=== PATIENT | female | born 1955 | race Caucasian/White ===

== ENCOUNTER → 2018-04-09 13:11 | Outpatient (CLI) | payer OTHER, SELFPAY ==
--- NOTE | 2018-04-09 | DI.CT.S_ITS ---
PROCEDURE: CT SINUS SCREEN WO CON INDICATIONS: NASAL OBSTRUCTION TECHNIQUE: Noncontrast 3.0 mm axial images acquired from the frontal sinuses to the mid-sella, with coronal and sagittal reformats. For radiation dose reduction, the following was used: automated exposure control, adjustment of mA and/or kV according to patient size. COMPARISON: None. FINDINGS: Image quality: Excellent. Maxillary Sinuses: No bony remodeling or destruction. Sinuses are clear. Ethmoid Air Cells: No bony remodeling or destruction. Sinuses are clear. Sphenoid Sinuses: No bony remodeling or destruction. Sinuses are clear. Frontal Sinuses: No bony remodeling or destruction. Sinuses are clear. Ostiomeatal Complexes: Ostiomeatal complexes are patent. No Talita cells. Miscellaneous: Visualized intra-orbital contents are normal. No pablo bullosa or paradoxical turbinate curvature. The bony nasal septum is deviated towards the patient's right. Processes frontalis is present with underlying mild bifrontal atrophy. Degenerative changes of the bilateral temporal mandibular joints are noted. IMPRESSION: 1. Unremarkable sinus CT. No significant mucosal thickening or evidence of acute sinusitis. 2. Deviation of the bony nasal septum towards the right without nasal obstruction. Dictated by: Derrick Haro M.D. on 04/09/2018 at 12:56 Approved by: Derrick Haro M.D. on 04/09/2018 at 12:59
== END ==
PROVIDERS: Family Provider Family Medicine; PCP Family Medicine; Visit Provider Otolaryngology
DX: J34.2 Deviated nasal septum (principal)
CPT/HCPCS: 70486

== ENCOUNTER → 2018-05-10 10:22 | Outpatient (CLI) | payer OTHER, SELFPAY ==
[2018-05-10 11:34] LABS: Add Manual Diff / Slide Review NO; Eosinophils Percent Auto 1.7 % (2-4); Hematocrit 39.9 % (36-46); Hemoglobin 13.1 g/dL (12.0-16.0); Lymphocytes Percent Auto 27.8 % (25-40); Mean Corpuscular HGB Conc 32.9 % (30-36); Mean Corpuscular Hemoglobin 29.1 PG (26-34); Mean Corpuscular Volume 88.3 fL (80-100); Monocytes Percent Auto 6.8 % (3-14); Neutrophils Absolute Auto 5100 /uL (3000-5900); Neutrophils Percent Auto 62.7 % (50-75); Platelet Count 373 X10^3/uL (150-400); Red Blood Cell Count 4.52 X10^6/uL (4.0-5.2); Red Cell Distribution Width 13.1 % (11.6-14.8); White Blood Cell Count 8.1 X10^3/uL (4.5-11.0)
[2018-05-10 12:01] LABS: Alanine Aminotransferase 22 IU/L (9-52); Albumin 4.2 g/dL (3.5-5.0); Albumin Globulin Ratio 1.5 (1.0-2.8); Alkaline Phosphatase 72 U/L (38-126); Aspartate Aminotransferase 19 IU/L (14-36); Bilirubin Total 0.5 mg/dL (0.2-1.3); Blood Urea Nitrogen 12 mg/dL (7-17); Calcium 9.8 mg/dL (8.4-10.2); Carbon Dioxide 28 mmol/L (22-32); Chloride 101 mmol/L (98-107); Cholesterol 153 mg/dL (140-199); Estimated Glomerular Filt Rate > 60.0 mL/min (>60); Globulin 2.8 g/dL (1.7-4.1); Glucose 87 mg/dL (80-110); HDL Cholesterol 53 mg/dL (40-60); HEMOLYSIS < 15 (0-50); LDL Cholesterol Calculated 74 mg/dL (<100); Potassium 4.1 mmol/L (3.4-5.1); Sodium 141 mmol/L (137-145); Triglycerides 131 mg/dL (35-150)
== END ==
PROVIDERS: Family Provider Family Medicine; PCP Family Medicine; Visit Provider Family Medicine
DX: E78.5 Hyperlipidemia, unspecified (principal)
CPT/HCPCS: 36415; 80053; 80061; 85025

== ENCOUNTER 2018-06-23 12:48 | Emergency (ER) | payer OTHER, SELFPAY ==
[2018-06-23] VITALS (7 sets, daily range): BP systolic 106–140; BP diastolic 71–83; PULSE 93–124; RESP 15–22; TEMP 36.7; O2SAT 98–100
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
[2018-06-23] MEDS: ALBUTEROL 2.5 MG/3 ML NEB (ADULT) INH ×2 (13:28→13:29)
--- NOTE | 2018-06-23 13:30 | ED.ASTHMA ---
HPI - Asthma General Chief Complaint: Asthma Stated Complaint: SOB,COUGH Time Seen by Provider: 06/23/18 13:13 Source: patient Mode of arrival: ambulatory Limitations: no limitations History of Present Illness HPI Narrative: Patient is a 62-year-old female with a history of asthma who has never been admitted or intubated for this here for evaluation of shortness of breath. Patient states it feels like a prior asthma attack. States she was using her medications at home but was not working. No fevers. No chest pain. She states she has been out of her Singulair for the past 2 days. She does have refill this medication she just has not picked it up from the pharmacy. No fevers. She did try her inhalers at home prior to arrival. She does not have any nebulizers at home. Related Data Home Medications Medication Instructions Recorded Confirmed multivitamin [Multiple Vitamins] 1 tab PO DAILY #0 02/09/18 06/23/18 Calcium 1 tab PO DAILY 06/23/18 06/23/18 beclomethasone dipropionate [Qvar 2 puff INHALATION BID 06/23/18 06/23/18 RediHaler] magnesium 1 tab PO DAILY 06/23/18 06/23/18 prednisone 1 dose PO DIRECTED 06/23/18 06/23/18 vitamin B complex 1 cap PO DAILY 06/23/18 06/23/18 Previous Rx's Medication Instructions Recorded alendronate 70 mg PO QWEEK #4 tab 06/03/17 montelukast [Singulair] 10 mg PO QDAY #30 tab 02/09/18 simvastatin 20 mg tablet 20 mg PO HS #90 tab 04/28/18 albuterol sulfate HFA 90 2 puff INHALATION Q4HP PRN #8 gm 04/29/18 mcg/actuation aerosol inhaler dexamethasone 12 mg PO .once #3 tab 06/23/18 Allergies Allergy/AdvReac Type Severity Reaction Status Date / Time grass pollen [GRASS POLLEN] Allergy Unknown Unverified 03/03/18 12:54 tomato [TOMATO] Allergy Unknown Unverified 03/03/18 12:54 turkey [TURKEY] Allergy Unknown Unverified 03/03/18 12:54 CHICKEN MEAT Allergy Intermediate Uncoded 03/03/18 12:54 POLLEN,CULTIVATED OAT Allergy Unknown Uncoded 03/03/18 12:54 seasonl allergies Allergy Unknown Uncoded 03/03/18 12:54 Review of Systems Constitutional Denies chills, Denies fatigue, Denies fever(s) and Denies headache(s) ENT Ears, Nose, Mouth, and Throat: Denies headache(s), Denies throat swelling and Denies tongue swelling Cardiovascular Denies chest pain and Reports dyspnea Respiratory Reports cough, Reports dyspnea and Reports wheezing Gastrointestinal Gastrointestinal: Denies abdominal pain and Denies nausea Musculoskeletal Denies myalgias and Denies arthralgias Integumentary/Breasts Denies lesions and Denies rash Neurologic Denies headache(s) Endocrine Denies fatigue Hematologic/Lymphatic Denies easy bleeding and Denies easy bruising Allergic/Immunologic Denies urticaria, Denies throat swelling, Denies tongue swelling and Reports wheezing Exam Initial Vital Signs Initial Vital Signs: Vital Signs Temperature 98.1 F 06/23/18 12:53 Pulse Rate 124 H 06/23/18 12:53 Respiratory Rate 22 06/23/18 12:53 Blood Pressure 140/79 H 06/23/18 12:53 Pulse Oximetry 99 06/23/18 12:53 Const General: cooperative, comfortable, well developed, well groomed and No acute distress Orientation: alert, awake and oriented x3 HENMT Head: normal to inspection, normocephalic and atraumatic Resp Effort & Inspection: cough, labored, retractions and tachypneic Auscultation: wheezes Cardio Rate: tachycardic Rhythm: regular rhythm Pulses: radial pulses present GI Inspection: normal to inspection and non-distended Palpation: soft and No firm Skin Lesions: no lesions Rashes: no rashes Neuro General: alert, awake and oriented x3 Cognition: normal cognition Speech: speech normal Extrem General: normal to inspection Psych Appearance: grossly normal and well kempt [facility] Medical History Asthma (Acute) Surgical History Status post appendectomy Social History Smoking Status: Never smoker Comment: reviewed patient's past medical surgical family and social history Course Orders Ordered: ED Orders 06/23/18 13:47 XR chest 1V Stat EKG-12 Lead Stat 06/23/18 14:55 B Type Natriuretic Peptide Stat Basic Metabolic Panel Stat Complete Blood Count AUTO DIFF Stat Troponin I Stat Discontinued Medications Albuterol (Ventolin) 2.5 mg INH NOW PRN PRN Reason: Shortness Of Breath Last Admin: 06/23/18 13:29 Dose: 2.5 mg Admin: 06/23/18 13:28 Dose: 2.5 mg Dexamethasone (Decadron) 10 mg PO NOW ONE Stop: 06/23/18 15:23 Last Admin: 06/23/18 15:46 Dose: 10 mg Vital Signs - 8 hr 06/23/18 12:53 06/23/18 13:29 06/23/18 13:47 Temperature 98.1 F Pulse Rate 124 H 102 H 120 H Respiratory Rate 22 15 17 Blood Pressure 140/79 H Blood Pressure [Right Arm] Pulse Oximetry 99 100 100 06/23/18 14:00 06/23/18 15:10 06/23/18 16:18 Temperature Pulse Rate 112 H 100 H 93 H Respiratory Rate 20 18 15 Blood Pressure 106/78 Blood Pressure [Right Arm] 124/71 H Pulse Oximetry 99 100 99 06/23/18 16:19 Temperature Pulse Rate 97 H Respiratory Rate 18 Blood Pressure Blood Pressure [Right Arm] 125/83 H Pulse Oximetry 98 MDM - Asthma Lab Data Attestation: I reviewed the patient's lab results. Result diagrams: 06/23/18 14:55 06/23/18 14:55 Lab Results 06/23/18 06/23/18 Range/Units 14:55 14:55 WBC 10.6 (4.5-11.0) X10^3/uL RBC 4.64 (4.0-5.2) X10^6/uL Hgb 13.5 (12.0-16.0) g/dL Hct 40.3 (36-46) % MCV 86.7 (80-100) fL MCH 29.1 (26-34) PG MCHC 33.6 (30-36) % RDW 13.0 (11.6-14.8) % Plt Count 380 (150-400) X10^3/uL Neut % (Auto) 71.1 (50-75) % Lymph % (Auto) 21.5 L (25-40) % Coos % (Auto) 5.9 (3-14) % Eos % (Auto) 0.6 L (2-4) % Baso % (Auto) 0.9 (0-2) % Neut # (Auto) 7500 H (4365-7722) /uL Sodium 143 (137-145) mmol/L Potassium 3.4 (3.4-5.1) mmol/L Chloride 105 (98-107) mmol/L Carbon Dioxide 26 (22-32) mmol/L BUN 12 (7-17) mg/dL Creatinine 0.70 (0.52-1.04) mg/dL Estimated GFR > 60.0 (>60) mL/min BUN/Creatinine Ratio 17.1 (6-22) Glucose 123 H (80-110) mg/dL Calcium 10.4 H (8.4-10.2) mg/dL Troponin I < 0.012 (0.01-0.034) ng/mL B-Natriuretic Peptide < 100.0 (<100) Imaging Data Chest x-ray: Radiologist's impression: PROCEDURE: XR CHEST 1V INDICATIONS: shortness of breath TECHNIQUE: One view of the chest was acquired. COMPARISON: [facility], , CHEST 2 VIEW, 10/09/2015, 14:17. FINDINGS: Surgical changes and devices: None. Lungs and pleura: No pleural effusions or pneumothorax. Lungs are clear. Mediastinum: Mediastinal contours appear normal. Heart size is normal. Bones and chest wall: No suspicious bony lesions. Overlying soft tissues appear unremarkable. IMPRESSION: Normal for age, source of current symptoms is not seen. Dictated by: Wenceslao Crespo M.D. on 06/23/2018 at 14:41 Approved by: Wenceslao Crespo M.D. on 06/23/2018 at 14:42 ECG Data Attestation: I personally reviewed and interpreted this ECG as follows: Prior ECG tracings: not available for review Interpretation: sinus tachycardia ventricular rate of 113 normal axis Normal QRS normal QTC nonspecific ST T wave changes MDM Narrative Medical decision making narrative: patient states she feels much better after the nebulizer here in the emergency department. She states that this feels like just a prior asthma attack for her. She was given steroids and also a prescription for steroids to take in 36 hr. Chest x-ray and EKG unremarkable. Patient states that she has been diagnosed with tachycardia in the past. She states that her heart rate does go up and go down and does not be seem to be associated with any albuterol use. She states that this is not new for her. She denies any chest pain. Patient was given return precautions. She is instructed follow up with her primary care doctor. She expressed understanding and agreement with plan. Discharge Plan Departure Patient Disposition: Home, Self-Care Clinical Impression: Acute asthma exacerbation Discharge Date/Time: 06/23/18 16:18 Interventions: ED Discharge Assessment Last Done: 06/23/18 16:18 Instructions: Asthma (Alternative Therapy), Asthma -- Adult Activity Restrictions/Additional Instructions: take all of your medications as instructed. Contact your primary care doctor for a follow-up. Recommend that every 4 hr for the next 24 hr while you are awake that you take a couple puffs of your albuterol inhaler. Take the Decadron that you were given a prescription for here in the emergency department 36 hr after discharge from the emergency department like we discussed. Return to the emergency department for any new or worsening symptoms Prescriptions: New dexamethasone 4 mg tablet 12 mg PO .once Qty: 3 RF: 0 No Action alendronate 70 MG tablet 70 mg PO QWEEK Qty: 4 RF: 11 montelukast [Singulair] 10 MG tablet 10 mg PO QDAY Qty: 30 RF: 6 multivitamin [Multiple Vitamins] Tablet 1 tab PO DAILY Qty: 0 RF: 0 simvastatin 20 mg tablet 20 mg PO HS Qty: 90 RF: 3 albuterol sulfate [Ventolin HFA] 90 mcg/actuation HFA aerosol inhaler 2 puff INHALATION Q4HP PRN (Reason: shortness of breath) Qty: 8 RF: 0 prednisone 10 mg tablet 1 dose PO DIRECTED RF: 0 beclomethasone dipropionate [Qvar RediHaler] 80 mcg/actuation HFA aerosol breath activated 2 puff Inhalation BID RF: 0 vitamin B complex Capsule 1 cap PO DAILY RF: 0 Calcium 1 tab PO DAILY RF: 0 magnesium 1 tab PO DAILY RF: 0
--- NOTE | 2018-06-23 13:47 | DI.RAD.S_ITS ---
PROCEDURE: XR CHEST 1V INDICATIONS: shortness of breath TECHNIQUE: One view of the chest was acquired. COMPARISON: [facility], , CHEST 2 VIEW, 10/09/2015, 14:17. FINDINGS: Surgical changes and devices: None. Lungs and pleura: No pleural effusions or pneumothorax. Lungs are clear. Mediastinum: Mediastinal contours appear normal. Heart size is normal. Bones and chest wall: No suspicious bony lesions. Overlying soft tissues appear unremarkable. IMPRESSION: Normal for age, source of current symptoms is not seen. Dictated by: Wenceslao Crespo M.D. on 06/23/2018 at 14:41 Approved by: Wenceslao Crespo M.D. on 06/23/2018 at 14:42
[2018-06-23 15:06] LABS: Add Manual Diff / Slide Review NO; Basophils Percent Auto 0.9 % (0-2); Eosinophils Percent Auto 0.6 % (2-4); Hematocrit 40.3 % (36-46); Hemoglobin 13.5 g/dL (12.0-16.0); Lymphocytes Percent Auto 21.5 % (25-40); Mean Corpuscular HGB Conc 33.6 % (30-36); Mean Corpuscular Hemoglobin 29.1 PG (26-34); Mean Corpuscular Volume 86.7 fL (80-100); Monocytes Percent Auto 5.9 % (3-14); Neutrophils Absolute Auto 7500 /uL (3000-5900); Neutrophils Percent Auto 71.1 % (50-75); Platelet Count 380 X10^3/uL (150-400); Red Blood Cell Count 4.64 X10^6/uL (4.0-5.2); White Blood Cell Count 10.6 X10^3/uL (4.5-11.0)
[2018-06-23 15:18] LABS: BUN Creatinine Ratio 17.1 (6-22); Blood Urea Nitrogen 12 mg/dL (7-17); Calcium 10.4 mg/dL (8.4-10.2); Carbon Dioxide 26 mmol/L (22-32); Chloride 105 mmol/L (98-107); Estimated Glomerular Filt Rate > 60.0 mL/min (>60); Glucose 123 mg/dL (80-110); HEMOLYSIS < 15 (0-50); Potassium 3.4 mmol/L (3.4-5.1); Sodium 143 mmol/L (137-145)
[2018-06-23 15:27] LABS: B Type Natriuretic Peptide < 100.0 (<100)
[2018-06-23 15:43] LABS: Troponin I < 0.012 ng/mL (0.01-0.034)
[2018-06-23] MEDS: DEXAMETHASONE 10 MG/ML VIAL PO (15:46)
== END 2018-06-23 16:18 | disposition home or self-care (01) ==
PROVIDERS: Emergency Provider Emergency Medicine; Family Provider Family Medicine; PCP Family Medicine
DX: J45.901 Unspecified asthma with (acute) exacerbation (principal)
CPT/HCPCS: 36591; 71045; 80048; 83880; 84484; 85025; 93005; 93010; 94150; 94640; 99283; 99285; J1100; J7613

== ENCOUNTER → 2018-08-02 10:25 | Outpatient (CLI) | payer OTHER, SELFPAY ==
--- NOTE | 2018-08-02 | DI.MRI.S_ITS ---
PROCEDURE: MR ANGIO HEAD WO CON INDICATIONS: VERTIGO TECHNIQUE: Noncontrast axial 3-D [id number] MR angiogram, with 3-dimensional maximum intensity projection (MIP) reformats of the internal carotid arteries and posterior circulation then performed. COMPARISON: None. FINDINGS: Image quality: Excellent. Anterior circulation: Intracranial internal carotid arteries demonstrate normal size and intraluminal flow signal. The flow within the paired anterior cerebral arteries is normal and symmetric. The flow within the middle cerebral arteries is normal and symmetric. The anterior communicating artery is seen. No stenoses, occlusions, or aneurysms. Posterior circulation: There is absence of flow signal in the intracranial right vertebral artery possibly due to proximal occlusion. There is normal flow signal in the left vertebral artery. Normal flow signal noted in the basilar artery. The flow within the posterior cerebral arteries is normal and symmetric. No stenoses, occlusions, or aneurysms. IMPRESSION: 1. Absence of flow signal in the V4 segment of the right vertebral artery concerning for proximal occlusion. Recommend MR angiogram or CT angiogram of the neck for further evaluation. 2. Otherwise, normal MR angiogram of the head. Dictated by: Nell Reyes MD, PhD on 08/02/2018 at 11:20 Approved by: Nell Reyes MD, PhD on 08/02/2018 at 11:23
== END ==
PROVIDERS: Family Provider Family Medicine; PCP Family Medicine; Visit Provider Otolaryngology
DX: R42 Dizziness and giddiness (principal); I65.1 Occlusion and stenosis of basilar artery
CPT/HCPCS: 70544

== ENCOUNTER → 2018-09-08 10:14 | Outpatient (CLI) | payer OTHER, SELFPAY ==
[2018-09-08 13:20] LABS: Estimated Glomerular Filt Rate > 60.0 mL/min (>60)
== END ==
PROVIDERS: PCP Student in an Organized Health Care Education/Training Program; Visit Provider Otolaryngology
DX: I65.1 Occlusion and stenosis of basilar artery (principal)
CPT/HCPCS: 36415; 82565; 84403

== ENCOUNTER → 2018-09-10 17:42 | Outpatient (CLI) | payer OTHER, SELFPAY ==
--- NOTE | 2018-09-10 | DI.MRI.S_ITS ---
PROCEDURE: MR ANGIO NECK W CON INDICATIONS: OCCLUSION AND STENOSIS OF BASILAR ARTERY TECHNIQUE: Axial and sagittal TruFISP through the neck. Coronal dynamic MRA after the administration of contrast in the arterial and venous phases, with rotating 3-dimensional maximum intensity projection (MIP) reformats constructed from subtraction images. COMPARISON: [facility], MR, MR ANGIO HEAD WO CON, 08/02/2018, 10:40. FINDINGS: Image quality: Motion is present, limiting areas of fine detail evaluation. The origins of the left and right common, internal and external carotid arteries demonstrate no areas of hemodynamically significant stenosis, vascular occlusion or aneurysmal dilation. Origin of the left vertebral artery demonstrates no areas of hemodynamically significant stenosis, vascular occlusion or aneurysmal dilation the right vertebral artery appears occluded from the origin. The right neck collaterals are present.. Aortic arch demonstrates conventional anatomy. Limited, visualized portions subclavian vasculature are unremarkable. IMPRESSION: 1. Basal artery is patent. 2. 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 However, CTA neck is recommended for further evaluation to definitively evaluate for slow flow versus occlusion, as well as better characterization of collateral systems, partially obscured secondary to motion on today's exam. Any quantitative measurements of stenosis were performed using NASCET criteria. Dictated by: Ivana Sanchez M.D. on 09/13/2018 at 11:33 Approved by: Ivana Sanchez M.D. on 09/13/2018 at 11:40
== END ==
PROVIDERS: PCP Student in an Organized Health Care Education/Training Program; Visit Provider Otolaryngology
DX: I65.1 Occlusion and stenosis of basilar artery (principal)
CPT/HCPCS: 70548; A9579

== ENCOUNTER → 2018-11-18 12:21 | Outpatient (CLI) | payer OTHER, SELFPAY ==
--- NOTE | 2018-11-18 | DI.MRI.S_ITS ---
PROCEDURE: MR HEAD/BRAIN WO CON INDICATIONS: DIZZINESS TECHNIQUE: Noncontrast axial T1 spin echo, axial T2 fast spin echo, sagittal and axial FLAIR, coronal T2 fast spin echo, axial gradient echo, axial diffusion and ADC through the brain. COMPARISON: [facility], MR, MR ANGIO NECK W CON, 09/10/2018, 18:31. [facility], MR, MR ANGIO HEAD WO CON, 08/02/2018, 10:40. FINDINGS: Image quality: Excellent. CSF Spaces: Basal cisterns are patent. No extra-axial fluid collections. Ventricles are normal in size and shape. Brain: No intracranial masses or hemorrhage. Cavanaugh/white matter interface is normal. Brainstem appears normal. Diffusion-weighted images demonstrate no acute ischemic insult. No chronic ischemic insults. As previously identified, there is loss of flow-void of the distal right vertebral artery. Skull and face: Calvarium has normal marrow signal. Orbits appear normal. Sinuses: Sinuses and mastoids are clear. IMPRESSION: 1. No acute intracranial process. No acute ischemia. 2. 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 As previously identified on the exam of 09/10/18, CTA exam would be helpful for differentiation of occlusion versus slow flow, as clinically indicated Dictated by: Ivnaa Sanchez M.D. on 11/18/2018 at 13:07 Approved by: Ivana Sanchez M.D. on 11/18/2018 at 13:10
== END ==
PROVIDERS: Family Provider Otolaryngology; PCP Student in an Organized Health Care Education/Training Program; Visit Provider Specialist
DX: R42 Dizziness and giddiness (principal)
CPT/HCPCS: 70551

== ENCOUNTER → 2019-05-25 13:48 | Outpatient (CLI) | payer OTHER, SELFPAY ==
--- NOTE | 2019-05-25 13:54 | DI.MG.S_ITS ---
BILATERAL DIGITAL SCREENING MAMMOGRAM 3D/2D WITH CAD: 05/25/2019 CLINICAL: Routine screening. Comparison is made to exams dated: 05/08/2017 mammogram, 11/22/2008 mammogram, and 11/22/2008 [facility]. There are scattered fibroglandular elements in both breasts. Current study was also evaluated with a Computer Aided Detection (CAD) system. No significant masses, calcifications, or other findings are seen in either breast. There has been no significant interval change. IMPRESSION: NEGATIVE There is no mammographic evidence of malignancy. A 1 year screening mammogram is recommended. This exam was interpreted at Station ID: [id number]. NOTE: For mammograms, a report in lay terms will be sent to the patient. Approximately 15% of breast malignancies will not be visualized mammographically. In the management of a palpable breast mass, a negative mammogram must not discourage biopsy of a clinically suspicious lesion. Electronically Signed By: Mateus [email or web address]/[email or web address]:05/25/2019 17:34:33 letter sent: Normal Exam ACR BI-RADS Category 1: Negative [id number]
[2019-05-25 16:34] LABS: TSH w/ Reflex to FT4 2.92 uIU/mL (0.47-4.68)
== END ==
PROVIDERS: PCP Student in an Organized Health Care Education/Training Program; Visit Provider Student in an Organized Health Care Education/Training Program
DX: Z12.31 Encounter for screening mammogram for malignant neoplasm of breast (principal); M85.851 Other specified disorders of bone density and structure, right thigh; Z78.0 Asymptomatic menopausal state; R53.83 Other fatigue
CPT/HCPCS: 36415; 77063; 77067; 77080; 84443

== ENCOUNTER → 2020-07-10 17:13 | Outpatient (CLI) | payer OTHER, SELFPAY ==
[2020-07-10 18:28] LABS: Hematocrit 40.3 % (36-46); Hemoglobin 13.5 g/dL (12.0-16.0); Mean Corpuscular HGB Conc 33.6 % (30-36); Mean Corpuscular Hemoglobin 29.2 PG (26-34); Mean Corpuscular Volume 87.1 fL (80-100); Platelet Count 411 X10^3/uL (150-400); Red Blood Cell Count 4.63 X10^6/uL (4.0-5.2); Red Cell Distribution Width 13.2 % (11.6-14.8); White Blood Cell Count 9.8 X10^3/uL (4.5-11.0)
[2020-07-10 18:48] LABS: HEMOLYSIS < 15 (0-50)
[2020-07-10 18:53] LABS: BUN Creatinine Ratio 22.4 (6-22); Blood Urea Nitrogen 17 mg/dL (7-17); Estimated Glomerular Filt Rate > 60.0 mL/min (>60); Sodium 139 mmol/L (137-145)
[2020-07-10 18:55] LABS: Calcium 10.1 mg/dL (8.4-10.2); Carbon Dioxide 30 mmol/L (22-32); Chloride 101 mmol/L (98-107); Creatine Kinase 49 U/L (30-135); Glucose 80 mg/dL (80-110); Potassium 4.4 mmol/L (3.4-5.1)
[2020-07-10 19:44] LABS: Vitamin B12 821 pg/mL (239-931)
== END ==
PROVIDERS: PCP Student in an Organized Health Care Education/Training Program; Referring Provider Student in an Organized Health Care Education/Training Program; Visit Provider Student in an Organized Health Care Education/Training Program
DX: I95.1 Orthostatic hypotension (principal); M79.2 Neuralgia and neuritis, unspecified; R25.2 Cramp and spasm
CPT/HCPCS: 36415; 80048; 82550; 82607; 83735; 85027

== ENCOUNTER → 2020-07-11 12:31 | Outpatient (CLI) | payer OTHER, SELFPAY | PROVIDERS: PCP Student in an Organized Health Care Education/Training Program; Referring Provider Student in an Organized Health Care Education/Training Program; Visit Provider Student in an Organized Health Care Education/Training Program | DX: M85.852 Other specified disorders of bone density and structure, left thigh (principal); Z78.0 Asymptomatic menopausal state; Z91.89 Other specified personal risk factors, not elsewhere classified; Z82.62 Family history of osteoporosis | CPT/HCPCS: 77080 ==

== ENCOUNTER → 2020-08-14 10:13 | Outpatient (CLI) | payer OTHER, SELFPAY ==
--- NOTE | 2020-08-14 10:14 | DI.MG.S_ITS ---
BILATERAL DIGITAL SCREENING MAMMOGRAM 3D/2D WITH CAD: 08/14/2020 CLINICAL: Routine screening. Comparison is made to exams dated: 05/25/2019 mammogram, 05/08/2017 mammogram, and 11/22/2008 mammogram - [facility]. There are scattered fibroglandular elements in both breasts. Current study was also evaluated with a Computer Aided Detection (CAD) system. No significant masses, calcifications, or other findings are seen in either breast. There has been no significant interval change. IMPRESSION: NEGATIVE There is no mammographic evidence of malignancy. A 1 year screening mammogram is recommended. This exam was interpreted at Station ID: [id number]. NOTE: For mammograms, a report in lay terms will be sent to the patient. Approximately 15% of breast malignancies will not be visualized mammographically. In the management of a palpable breast mass, a negative mammogram must not discourage biopsy of a clinically suspicious lesion. Electronically Signed By: Jamie Agustin M.D., jr/cheryl:08/14/2020 11:48:04 letter sent: Normal Exam ACR BI-RADS Category 1: Negative [id number]
== END ==
PROVIDERS: PCP Student in an Organized Health Care Education/Training Program; Referring Provider Student in an Organized Health Care Education/Training Program; Visit Provider Student in an Organized Health Care Education/Training Program
DX: Z12.31 Encounter for screening mammogram for malignant neoplasm of breast (principal)
CPT/HCPCS: 77063; 77067

== ENCOUNTER → 2020-09-20 09:59 | Outpatient (CLI) | payer OTHER, SELFPAY ==
[2020-09-20 11:58] LABS: Cholesterol 230 mg/dL (140-199); HDL Cholesterol 48 mg/dL (40-60); LDL Cholesterol Calculated 163 mg/dL (<100); Triglycerides 94 mg/dL (35-150)
== END ==
PROVIDERS: PCP Student in an Organized Health Care Education/Training Program; Referring Provider Student in an Organized Health Care Education/Training Program; Visit Provider Student in an Organized Health Care Education/Training Program
DX: E78.5 Hyperlipidemia, unspecified (principal)
CPT/HCPCS: 36415; 80061

== ENCOUNTER 2020-10-11 13:45 | Outpatient (RCR) | payer OTHER, SELFPAY ==
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
--- NOTE | 2018-10-27 16:03 | PT.OPPOC ---
Current Diagnoses Dizziness and giddiness (10/27/18) Provider Visit Care Team Role Provider Type Francisco Ferreira MD Other Providers Physician Primary Care Provider Specialty: Internal Medicine Address: [address] [place] [address], [id number] Email: Jonatan Sage MD Attending Provider Physician Specialty: Ear, Nose, Throat Address: [address] [place] [address], [id number] Email: Plan Of Care PT-OP-T Assessment and Plan Start: 10/27/18 07:33 Freq: Status: Active Protocol: Document 10/27/18 13:00 AMB (Rec: 10/30/18 15:27 AMB [email or web address]) Physical Therapy Assessment Rehab Potential Rehabilitation Potential Good Evaluation Complexity Number of Personal Factors/Comorbidities 3 or More Number of Body Systems Impaired 4 or More Clinical Presentation at Evaluation Evolving Impairments Impairments Activity Tolerance Balance Functional Activities Functional Mobility Gait Strength Vestibular Visual Motor Other Concerns Fall Risk high Barriers to Rehabilitation high copay Goals Two Impairment Dizziness Short Term Goal (STG) The patient will walk with her 4WW for 500 feet without an increase in dizziness or motion sickness. STG Duration 5 weeks Low Voltage Electrician Goal (LTG) The patient will walk in a visually complex environment ( like a supermarket) for 10 minutes without loss of balance. LTG Duration 10 weeks One Impairment Falls Short Term Goal (STG) The patient will report no falls during her time in PT. STG Duration 5 weeks Low Voltage Electrician Goal (LTG) The patient will tolerate the DGI test and score 16/24 or higher to show a reduced risk of falling. LTG Duration 10 weeks Assessment Summary Assessment The patient has an acute exacerbation of chronic dizziness that appears to be mostly of central origin at this time. The patient was quite sensitive to testing, so that does make it more difficult to show her exact impairments. She would greatly benefit from vestibular rehabilitation, unfortunately her copay is high and she will have a difficult time affording it. She was given a basic home exercise program that she should be able to perform safely at home. However given her fall history and the severity of her symptoms she really does need further treatment. Physical Therapy Plan Frequency and Duration Frequency of Treatment 1x/Week Duration of Treatment 10 weeks Plan of Care Start Date 10/27/18 Plan of Care End Date 01/05/18 Therapeutic Interventions Therapeutic Interventions Balance Training Coordination Training Gait Training Home Exercise Program Manual Therapy Neuromuscular Re-education Self-Care/Home Management Therapeutic Activities Therapeutic Exercises Vestibular Rehabilitation Modalities Cold Pack/Ice Massage Electric Stimulation Hot Packs Next Visit Focus/Plan Next Note Type Treatment Note Next Visit Plan Progress VOR, fall reduction techniques Plan of Care Dates Plan of Care Start Date 10/27/18 Plan of Care End Date 01/05/18 Please Sign and Return: I have reviewed this Plan of Care and certify that the skilled therapy services above are required to meet the patient?s needs. Physician Signature Date Printed Name and Credentials Clinical Instructor Signature Printed Name and Credentials
--- NOTE | 2018-12-22 14:03 | PT.OTN ---
Current Diagnoses Dizziness and giddiness (12/22/18) Physical Therapy Treatment Note PT-OP-A Visit Information Start: 10/27/18 07:33 Freq: Status: Active Protocol: Document 12/22/18 09:45 AMB (Rec: 12/22/18 14:03 AMB [email or web address]) Out-Patient Physical Therapy Visit Information Visit Information Visit Type Treatment Note Visit Start Time 09:45 Visit Stop Time 10:30 Total Visit Minutes 45 Visit Number 2 PT-OP-B Current Condition Start: 10/27/18 07:33 Freq: Status: Active Protocol: Document 10/27/18 13:00 AMB (Rec: 10/30/18 15:50 AMB [email or web address]) Current Condition History of Current Condition Onset Date November 2017 Current Complaints increased motion sickness, falls History of Current Condition The patient reports that she had a virus in the that has led her to be on disability ever since. She was motion sick but she had been managing her symptoms. She was not using an assistive device. Then she had an inner ear infection in November and since that time her symptoms have worsened significantly. She reports about 20 falls in the last 6 months. She lives independently, but does have friends who will drive her to medical appointments. She describes motion sickness with all movement, worst with looking up. She does not roll over in bed as she sleeps sitting up due to her asthma. 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 Per patient, she says that after multiple imaging MD decided that the occlusion is not likely causing her symptoms. 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 Overall there was a strong central involvement. Future Testing and Treatments Planned She is going to be seeing a neurologist soon. Treatment Goals Patient/Caregiver Goals Reduce motion sickness, not have to use 4WW Prior Functional Status Baseline Function- ADL's Needs Assist Baseline Function- Mobility Needs Assist Baseline Function- Recreation/Hobbies The patient has been on disability for years, but almost a year ago her symptoms worsened. Now she has difficulty volunteering at the soup kitchen, and has not gone to confucianist because her dizziness is so severe. Previously she was not driving , but was able to walk from her home to the library independently, now she is unable to do this. Current Functional Impairments (Reported) Functional Limitations- ADL's Unable to walk more than a block or two, no energy Personal Factors Other Personal Factors That May Effect Concussion history, migraines Therapy/Recovery a couple times per month, osteopenia, history of multiple falls, difficulty reading, asthma. PT-OP-C Subjective Start: 10/27/18 07:33 Freq: Status: Active Protocol: Document 12/22/18 09:45 AMB (Rec: 12/22/18 14:03 AMB [email or web address]) OP-PT Subjective Patient Comments Patient Comments Pt returns to PT, stating she is about the same, not worse, a few near falls, but no bad falls since eval. She has a hard time getting up in the mornings. PT-OP-D Balance Start: 10/27/18 07:33 Freq: Status: Active Protocol: Document 10/27/18 13:00 AMB (Rec: 10/28/18 12:51 AMB [email or web address]) Balance Tests Single Limb Standing Single Limb- Right unable Single Limb- Left unable Semi-Tandem Standing Semi-Tandem Standing Balance unable-pt falls Tandem Tandem Standing unable Other Other Balance Tests Performed When pt is standing with WBOS she requires intermittent UE support with eyes open to avoid LOB. PT-OP-E Functional Tests Start: 10/28/18 08:46 Freq: Status: Active Protocol: Document 10/27/18 13:00 AMB (Rec: 10/28/18 08:49 AMB [email or web address]) Functional Tests Dynamic Gait Index (DGI) Score 8 DGI Impairment Rating 60 to <80% Impaired (Score 5-9 ) PT-OP-G Mobility & Gait Start: 10/27/18 07:33 Freq: Status: Active Protocol: Document 10/27/18 13:00 AMB (Rec: 10/28/18 08:51 AMB [email or web address]) OP Gait Assessment Comments Gait Comments Pt ambulates with WBOS with 4WW. She reports she furniture walks at home. She intermittently reaches out for the wall with walking despite the walker. PT-OP-O Vestibular Start: 10/27/18 07:33 Freq: Status: Active Protocol: Document 10/27/18 13:00 AMB (Rec: 10/28/18 12:49 AMB [email or web address]) Vestibular Assessment Visual Testing Smooth Pursuits Horizontal unable Smooth Pursuits Vertical unable Saccades Horizontal overshooting to the R Gaze Evoked Nystagmus With Fixation Negative Gaze Evoked Nystagmus Without Fixation Negative Thrust Head Positive Bilateral Convergence Test Impaired Comments Vestibular Comments The patient has been evaluated by ENT with a VNG, the patient states the Jama maneuver has never worked, and in the ENT notes, both Honey- hallpike and roll testing were negative, so not tested at this time. Pt had difficulty with all testing, so more intensive testing was not performed at this time. PT-OP-Q Treatments Start: 10/27/18 07:33 Freq: Status: Active Protocol: Document 12/22/18 09:45 AMB (Rec: 12/22/18 14:03 AMB [email or web address]) Therapeutic Exercises Standing Exercises 1 Standing Exercise Name sit to stand Comments vc form Neuro Re-Education Treatment Balance Activities 2 Details weightshift in stride stance with UE support 1 Details standing balance in WBOS, then stride stance Comments no UE support Vestibular Rehabilitation VOR Retraining Background clear Speed slow Position seated Comments horizontal, vertical PT-OP-T Assessment and Plan Start: 10/27/18 07:33 Freq: Status: Active Protocol: Document 12/22/18 09:45 AMB (Rec: 12/22/18 14:03 AMB [email or web address]) Physical Therapy Assessment Assessment Summary Assessment Pt briefly tolerated VOR exercises in seated, horizontal and vertical both symptomatic. Worked into increasing sensory awareness of feet in standing. Active standing worked well, but pt fatigues quickly. Physical Therapy Plan Next Visit Focus/Plan Next Note Type Treatment Note Next Visit Plan Progress VOR, fall reduction techniques
--- NOTE | 2018-12-30 12:47 | PT.OTN ---
Current Diagnoses Dizziness and giddiness (12/30/18) Physical Therapy Treatment Note PT-OP-A Visit Information Start: 10/27/18 07:33 Freq: Status: Active Protocol: Document 12/30/18 11:15 AMB (Rec: 12/30/18 11:23 AMB [id number]) Out-Patient Physical Therapy Visit Information Visit Information Visit Type Treatment Note Visit Start Time 11:15 Visit Stop Time 12:00 Total Visit Minutes 45 Visit Number 3 PT-OP-B Current Condition Start: 10/27/18 07:33 Freq: Status: Active Protocol: Document 10/27/18 13:00 AMB (Rec: 10/30/18 15:50 AMB [email or web address]) Current Condition History of Current Condition Onset Date November 2017 Current Complaints increased motion sickness, falls History of Current Condition The patient reports that she had a virus in the that has led her to be on disability ever since. She was motion sick but she had been managing her symptoms. She was not using an assistive device. Then she had an inner ear infection in November and since that time her symptoms have worsened significantly. She reports about 20 falls in the last 6 months. She lives independently, but does have friends who will drive her to medical appointments. She describes motion sickness with all movement, worst with looking up. She does not roll over in bed as she sleeps sitting up due to her asthma. 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 Per patient, she says that after multiple imaging MD decided that the occlusion is not likely causing her symptoms. 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 Overall there was a strong central involvement. Future Testing and Treatments Planned She is going to be seeing a neurologist soon. Treatment Goals Patient/Caregiver Goals Reduce motion sickness, not have to use 4WW Prior Functional Status Baseline Function- ADL's Needs Assist Baseline Function- Mobility Needs Assist Baseline Function- Recreation/Hobbies The patient has been on disability for years, but almost a year ago her symptoms worsened. Now she has difficulty volunteering at the soup kitchen, and has not gone to adventist because her dizziness is so severe. Previously she was not driving , but was able to walk from her home to the library independently, now she is unable to do this. Current Functional Impairments (Reported) Functional Limitations- ADL's Unable to walk more than a block or two, no energy Personal Factors Other Personal Factors That May Effect Concussion history, migraines Therapy/Recovery a couple times per month, osteopenia, history of multiple falls, difficulty reading, asthma. PT-OP-C Subjective Start: 10/27/18 07:33 Freq: Status: Active Protocol: Document 12/30/18 11:15 AMB (Rec: 12/30/18 11:23 AMB [id number]) OP-PT Subjective Patient Comments Patient Comments Pt reports that sometimes she feels like dizziness is maybe better, but she is continuing to have some lurching (holding onto the seymour). PT-OP-D Balance Start: 10/27/18 07:33 Freq: Status: Active Protocol: Document 10/27/18 13:00 AMB (Rec: 10/28/18 12:51 AMB [email or web address]) Balance Tests Single Limb Standing Single Limb- Right unable Single Limb- Left unable Semi-Tandem Standing Semi-Tandem Standing Balance unable-pt falls Tandem Tandem Standing unable Other Other Balance Tests Performed When pt is standing with WBOS she requires intermittent UE support with eyes open to avoid LOB. PT-OP-E Functional Tests Start: 10/28/18 08:46 Freq: Status: Active Protocol: Document 10/27/18 13:00 AMB (Rec: 10/28/18 08:49 AMB [email or web address]) Functional Tests Dynamic Gait Index (DGI) Score 8 DGI Impairment Rating 60 to <80% Impaired (Score 5-9 ) PT-OP-G Mobility & Gait Start: 10/27/18 07:33 Freq: Status: Active Protocol: Document 10/27/18 13:00 AMB (Rec: 10/28/18 08:51 AMB [email or web address]) OP Gait Assessment Comments Gait Comments Pt ambulates with WBOS with 4WW. She reports she furniture walks at home. She intermittently reaches out for the wall with walking despite the walker. PT-OP-O Vestibular Start: 10/27/18 07:33 Freq: Status: Active Protocol: Document 10/27/18 13:00 AMB (Rec: 10/28/18 12:49 AMB [email or web address]) Vestibular Assessment Visual Testing Smooth Pursuits Horizontal unable Smooth Pursuits Vertical unable Saccades Horizontal overshooting to the R Gaze Evoked Nystagmus With Fixation Negative Gaze Evoked Nystagmus Without Fixation Negative Thrust Head Positive Bilateral Convergence Test Impaired Comments Vestibular Comments The patient has been evaluated by ENT with a VNG, the patient states the Jama maneuver has never worked, and in the ENT notes, both Honey- hallpike and roll testing were negative, so not tested at this time. Pt had difficulty with all testing, so more intensive testing was not performed at this time. PT-OP-Q Treatments Start: 10/27/18 07:33 Freq: Status: Active Protocol: Document 12/30/18 11:15 AMB (Rec: 12/31/18 12:44 AMB [email or web address]) Neuro Re-Education Treatment Balance Activities 4 Details balance on blue foam Comments able to stand without UE support for 3-5 seconds 3 Details walking with head turns Comments vertical/horizontal with 4WW 2 Details weightshift in stride stance with UE support 1 Details standing balance in WBOS, then stride stance Comments no UE support Vestibular Rehabilitation VOR Retraining Speed slow Position standing Comments horizontal, vertical PT-OP-T Assessment and Plan Start: 10/27/18 07:33 Freq: Status: Active Protocol: Document 12/30/18 11:15 AMB (Rec: 12/31/18 12:47 AMB [email or web address]) Physical Therapy Assessment Assessment Summary Assessment Pt is increasing length of tolerance for exercises, but continues to need rest breaks and is symptomatic with most all exercises. Physical Therapy Plan Next Visit Focus/Plan Next Note Type Treatment Note Next Visit Plan Progress VOR, fall reduction techniques
--- NOTE | 2019-01-05 12:53 | PT.OTN ---
Current Diagnoses Dizziness and giddiness (01/05/19) Physical Therapy Treatment Note PT-OP-A Visit Information Start: 10/27/18 07:33 Freq: Status: Active Protocol: Document 01/05/19 11:15 AMB (Rec: 01/05/19 11:26 AMB [id number]) Out-Patient Physical Therapy Visit Information Visit Information Visit Type Treatment Note Visit Start Time 11:15 Visit Stop Time 12:00 Total Visit Minutes 45 Visit Number 4 PT-OP-B Current Condition Start: 10/27/18 07:33 Freq: Status: Active Protocol: Document 10/27/18 13:00 AMB (Rec: 10/30/18 15:50 AMB [email or web address]) Current Condition History of Current Condition Onset Date November 2017 Current Complaints increased motion sickness, falls History of Current Condition The patient reports that she had a virus in the that has led her to be on disability ever since. She was motion sick but she had been managing her symptoms. She was not using an assistive device. Then she had an inner ear infection in November and since that time her symptoms have worsened significantly. She reports about 20 falls in the last 6 months. She lives independently, but does have friends who will drive her to medical appointments. She describes motion sickness with all movement, worst with looking up. She does not roll over in bed as she sleeps sitting up due to her asthma. 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 Per patient, she says that after multiple imaging MD decided that the occlusion is not likely causing her symptoms. 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 Overall there was a strong central involvement. Future Testing and Treatments Planned She is going to be seeing a neurologist soon. Treatment Goals Patient/Caregiver Goals Reduce motion sickness, not have to use 4WW Prior Functional Status Baseline Function- ADL's Needs Assist Baseline Function- Mobility Needs Assist Baseline Function- Recreation/Hobbies The patient has been on disability for years, but almost a year ago her symptoms worsened. Now she has difficulty volunteering at the soup kitchen, and has not gone to christian[employer] because her dizziness is so severe. Previously she was not driving , but was able to walk from her home to the library independently, now she is unable to do this. Current Functional Impairments (Reported) Functional Limitations- ADL's Unable to walk more than a block or two, no energy Personal Factors Other Personal Factors That May Effect Concussion history, migraines Therapy/Recovery a couple times per month, osteopenia, history of multiple falls, difficulty reading, asthma. PT-OP-C Subjective Start: 10/27/18 07:33 Freq: Status: Active Protocol: Document 01/05/19 11:15 AMB (Rec: 01/05/19 11:26 AMB [id number]) OP-PT Subjective Patient Comments Patient Comments Pt notes neck pain on the left and increased double vision for two days over the weekend. PT-OP-D Balance Start: 10/27/18 07:33 Freq: Status: Active Protocol: Document 10/27/18 13:00 AMB (Rec: 10/28/18 12:51 AMB [email or web address]) Balance Tests Single Limb Standing Single Limb- Right unable Single Limb- Left unable Semi-Tandem Standing Semi-Tandem Standing Balance unable-pt falls Tandem Tandem Standing unable Other Other Balance Tests Performed When pt is standing with WBOS she requires intermittent UE support with eyes open to avoid LOB. PT-OP-E Functional Tests Start: 10/28/18 08:46 Freq: Status: Active Protocol: Document 10/27/18 13:00 AMB (Rec: 10/28/18 08:49 AMB [email or web address]) Functional Tests Dynamic Gait Index (DGI) Score 8 DGI Impairment Rating 60 to <80% Impaired (Score 5-9 ) PT-OP-G Mobility & Gait Start: 10/27/18 07:33 Freq: Status: Active Protocol: Document 10/27/18 13:00 AMB (Rec: 10/28/18 08:51 AMB [email or web address]) OP Gait Assessment Comments Gait Comments Pt ambulates with WBOS with 4WW. She reports she furniture walks at home. She intermittently reaches out for the wall with walking despite the walker. PT-OP-O Vestibular Start: 10/27/18 07:33 Freq: Status: Active Protocol: Document 10/27/18 13:00 AMB (Rec: 10/28/18 12:49 AMB [email or web address]) Vestibular Assessment Visual Testing Smooth Pursuits Horizontal unable Smooth Pursuits Vertical unable Saccades Horizontal overshooting to the R Gaze Evoked Nystagmus With Fixation Negative Gaze Evoked Nystagmus Without Fixation Negative Thrust Head Positive Bilateral Convergence Test Impaired Comments Vestibular Comments The patient has been evaluated by ENT with a VNG, the patient states the Jama maneuver has never worked, and in the ENT notes, both Gregory- hallpike and roll testing were negative, so not tested at this time. Pt had difficulty with all testing, so more intensive testing was not performed at this time. PT-OP-Q Treatments Start: 10/27/18 07:33 Freq: Status: Active Protocol: Document 01/05/19 11:15 AMB (Rec: 01/05/19 12:50 AMB [email or web address]) Therapeutic Exercises Sitting Exercises 1 Sitting Exercise Name instruction in neck stretching Neuro Re-Education Treatment Balance Activities 5 Details WBOS EC 2 Details weightshift in stride stance with UE support 1 Details standing balance in WBOS, then stride stance Comments no UE support PT-OP-R Modalities Start: 01/05/19 12:51 Freq: Status: Active Protocol: Document 01/05/19 11:15 AMB (Rec: 01/05/19 12:52 AMB [email or web address]) Electric Stimulation Electric Stimulation Interferential Current (IFC) Body Location L shoulder Patient Position Hooklying Combined With Heat/Cold Hot Pack PT-OP-T Assessment and Plan Start: 10/27/18 07:33 Freq: Status: Active Protocol: Document 01/05/19 12:28 AMB (Rec: 01/05/19 12:30 AMB [email or web address]) Physical Therapy Assessment Goals Two Impairment Dizziness Short Term Goal (STG) The patient will walk with her 4WW for 500 feet without an increase in dizziness or motion sickness. STG Duration 5 weeks Surface Miner Goal (LTG) The patient will walk in a visually complex environment ( like a supermarket) for 10 minutes without loss of balance. LTG Duration 10 weeks One Impairment Falls Short Term Goal (STG) The patient will report no falls during her time in PT. STG Duration 5 weeks Surface Miner Goal (LTG) The patient will tolerate the DGI test and score 16/24 or higher to show a reduced risk of falling. LTG Duration 10 weeks Assessment Summary Assessment Arline has attended 3 visits since her initial evaluation. There was a pause in her treatment due to her finances. After her last treatment she noticed increased neck pain and double vision for about 2 days, so we backed off on the intensity of this treatment, although at last visit we had been very gentle as well. Today we did not do any head turn exercises. Arline continues to have difficulty with balance and walking, and finding the energy to do her everday tasks, but she had shown some improvement previously. Her progress will likely not be linear. Physical Therapy Plan Frequency and Duration Frequency of Treatment 1x/Week Duration of Treatment 10 weeks Plan of Care Start Date 01/05/19 Plan of Care End Date 03/16/19 Therapeutic Interventions Therapeutic Interventions Balance Training Coordination Training Gait Training Home Exercise Program Manual Therapy Neuromuscular Re-education Self-Care/Home Management Therapeutic Activities Therapeutic Exercises Vestibular Rehabilitation Modalities Cold Pack/Ice Massage Electric Stimulation Hot Packs Next Visit Focus/Plan Next Note Type Treatment Note Next Visit Plan Progress VOR, fall reduction techniques
--- NOTE | 2019-01-05 12:53 | PT.OPPOC ---
Current Diagnoses Dizziness and giddiness (01/05/19) Provider Visit Care Team Role Provider Type Francisco Ferreira MD Other Providers Physician Primary Care Provider Specialty: Internal Medicine Address: [address] [place] [address], [id number] Email: Jonatan Sage MD Attending Provider Physician Specialty: Ear, Nose, Throat Address: [address] [place] [address], [id number] Email: Plan Of Care PT-OP-T Assessment and Plan Start: 10/27/18 07:33 Freq: Status: Active Protocol: Document 01/05/19 12:28 AMB (Rec: 01/05/19 12:30 AMB [email or web address]) Physical Therapy Assessment Goals Two Impairment Dizziness Short Term Goal (STG) The patient will walk with her 4WW for 500 feet without an increase in dizziness or motion sickness. STG Duration 5 weeks Penitentiary Goal (LTG) The patient will walk in a visually complex environment ( like a supermarket) for 10 minutes without loss of balance. LTG Duration 10 weeks One Impairment Falls Short Term Goal (STG) The patient will report no falls during her time in PT. STG Duration 5 weeks Scrap Worker Goal (LTG) The patient will tolerate the DGI test and score 16/24 or higher to show a reduced risk of falling. LTG Duration 10 weeks Assessment Summary Assessment Arline has attended 3 visits since her initial evaluation. There was a pause in her treatment due to her finances. After her last treatment she noticed increased neck pain and double vision for about 2 days, so we backed off on the intensity of this treatment, although at last visit we had been very gentle as well. Today we did not do any head turn exercises. Arline continues to have difficulty with balance and walking, and finding the energy to do her everyday tasks, but she had shown some improvement previously. Her progress will likely not be linear. Physical Therapy Plan Frequency and Duration Frequency of Treatment 1x/Week Duration of Treatment 10 weeks Plan of Care Start Date 01/05/19 Plan of Care End Date 03/16/19 Therapeutic Interventions Therapeutic Interventions Balance Training Coordination Training Gait Training Home Exercise Program Manual Therapy Neuromuscular Re-education Self-Care/Home Management Therapeutic Activities Therapeutic Exercises Vestibular Rehabilitation Modalities Cold Pack/Ice Massage Electric Stimulation Hot Packs Next Visit Focus/Plan Next Note Type Treatment Note Next Visit Plan Progress VOR, fall reduction techniques Plan of Care Dates Plan of Care Start Date 01/05/19 Plan of Care End Date 03/16/19 Please Sign and Return: I have reviewed this Plan of Care and certify that the skilled therapy services above are required to meet the patient?s needs. Physician Signature Date Printed Name and Credentials Clinical Instructor Signature Printed Name and Credentials
--- NOTE | 2019-01-13 08:08 | PT.OTN ---
Current Diagnoses Dizziness and giddiness (01/12/19) Physical Therapy Treatment Note PT-OP-A Visit Information Start: 10/27/18 07:33 Freq: Status: Active Protocol: Document 01/12/19 13:45 AMB (Rec: 01/13/19 08:08 AMB [email or web address]) Out-Patient Physical Therapy Visit Information Visit Information Visit Type Treatment Note Visit Start Time 13:45 Visit Stop Time 14:30 Total Visit Minutes 45 Visit Number 5 PT-OP-B Current Condition Start: 10/27/18 07:33 Freq: Status: Active Protocol: Document 10/27/18 13:00 AMB (Rec: 10/30/18 15:50 AMB [email or web address]) Current Condition History of Current Condition Onset Date November 2017 Current Complaints increased motion sickness, falls History of Current Condition The patient reports that she had a virus in the that has led her to be on disability ever since. She was motion sick but she had been managing her symptoms. She was not using an assistive device. Then she had an inner ear infection in November and since that time her symptoms have worsened significantly. She reports about 20 falls in the last 6 months. She lives independently, but does have friends who will drive her to medical appointments. She describes motion sickness with all movement, worst with looking up. She does not roll over in bed as she sleeps sitting up due to her asthma. 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 Per patient, she says that after multiple imaging MD decided that the occlusion is not likely causing her symptoms. 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 Overall there was a strong central involvement. Future Testing and Treatments Planned She is going to be seeing a neurologist soon. Treatment Goals Patient/Caregiver Goals Reduce motion sickness, not have to use 4WW Prior Functional Status Baseline Function- ADL's Needs Assist Baseline Function- Mobility Needs Assist Baseline Function- Recreation/Hobbies The patient has been on disability for years, but almost a year ago her symptoms worsened. Now she has difficulty volunteering at the soup kitchen, and has not gone to [employer] because her dizziness is so severe. Previously she was not driving , but was able to walk from her home to the library independently, now she is unable to do this. Current Functional Impairments (Reported) Functional Limitations- ADL's Unable to walk more than a block or two, no energy Personal Factors Other Personal Factors That May Effect Concussion history, migraines Therapy/Recovery a couple times per month, osteopenia, history of multiple falls, difficulty reading, asthma. PT-OP-C Subjective Start: 10/27/18 07:33 Freq: Status: Active Protocol: Document 01/12/19 13:45 AMB (Rec: 01/13/19 08:08 AMB [email or web address]) OP-PT Subjective Patient Comments Patient Comments Pt notes this last week she has been very fatigued. Not feeling like getting up and going. neck pain is better. PT-OP-D Balance Start: 10/27/18 07:33 Freq: Status: Active Protocol: Document 10/27/18 13:00 AMB (Rec: 10/28/18 12:51 AMB [email or web address]) Balance Tests Single Limb Standing Single Limb- Right unable Single Limb- Left unable Semi-Tandem Standing Semi-Tandem Standing Balance unable-pt falls Tandem Tandem Standing unable Other Other Balance Tests Performed When pt is standing with WBOS she requires intermittent UE support with eyes open to avoid LOB. PT-OP-E Functional Tests Start: 10/28/18 08:46 Freq: Status: Active Protocol: Document 10/27/18 13:00 AMB (Rec: 10/28/18 08:49 AMB [email or web address]) Functional Tests Dynamic Gait Index (DGI) Score 8 DGI Impairment Rating 60 to <80% Impaired (Score 5-9 ) PT-OP-G Mobility & Gait Start: 10/27/18 07:33 Freq: Status: Active Protocol: Document 10/27/18 13:00 AMB (Rec: 10/28/18 08:51 AMB [email or web address]) OP Gait Assessment Comments Gait Comments Pt ambulates with WBOS with 4WW. She reports she furniture walks at home. She intermittently reaches out for the wall with walking despite the walker. PT-OP-O Vestibular Start: 10/27/18 07:33 Freq: Status: Active Protocol: Document 10/27/18 13:00 AMB (Rec: 10/28/18 12:49 AMB [email or web address]) Vestibular Assessment Visual Testing Smooth Pursuits Horizontal unable Smooth Pursuits Vertical unable Saccades Horizontal overshooting to the R Gaze Evoked Nystagmus With Fixation Negative Gaze Evoked Nystagmus Without Fixation Negative Thrust Head Positive Bilateral Convergence Test Impaired Comments Vestibular Comments The patient has been evaluated by ENT with a VNG, the patient states the Jama maneuver has never worked, and in the ENT notes, both Honey- hallpike and roll testing were negative, so not tested at this time. Pt had difficulty with all testing, so more intensive testing was not performed at this time. PT-OP-Q Treatments Start: 10/27/18 07:33 Freq: Status: Active Protocol: Document 01/12/19 13:45 AMB (Rec: 01/13/19 08:08 AMB [email or web address]) Neuro Re-Education Treatment Balance Activities 3 Details walking with head turns Comments vertical/horizontal with 4WW 2 Details weightshift in stride stance with UE support 1 Details standing balance in WBOS, then stride stance Comments no UE support Vestibular Rehabilitation VOR Retraining Speed slow Position standing Comments horizontal, vertical PT-OP-R Modalities Start: 01/05/19 12:51 Freq: Status: Active Protocol: Document 01/05/19 11:15 AMB (Rec: 01/05/19 12:52 AMB [email or web address]) Electric Stimulation Electric Stimulation Interferential Current (IFC) Body Location L shoulder Patient Position Hooklying Combined With Heat/Cold Hot Pack PT-OP-T Assessment and Plan Start: 10/27/18 07:33 Freq: Status: Active Protocol: Document 01/12/19 13:45 AMB (Rec: 01/13/19 08:08 AMB [email or web address]) Physical Therapy Assessment Assessment Summary Assessment Adjusted pt's 4WW to lower setting to help avoid elevated shoulders. Overall did not push vestibular training today as pt's overall fall risk was heightened due to fatigue. Physical Therapy Plan Next Visit Focus/Plan Next Note Type Treatment Note Next Visit Plan Recheck 4WW height
--- NOTE | 2019-01-17 16:09 | PT.OTN ---
Current Diagnoses Dizziness and giddiness (01/17/19) Physical Therapy Treatment Note PT-OP-A Visit Information Start: 10/27/18 07:33 Freq: Status: Active Protocol: Document 01/17/19 14:30 AMB (Rec: 01/17/19 16:09 AMB [email or web address]) Out-Patient Physical Therapy Visit Information Visit Information Visit Type Treatment Note Visit Start Time 13:45 Visit Stop Time 14:30 Total Visit Minutes 45 Visit Number 6 PT-OP-B Current Condition Start: 10/27/18 07:33 Freq: Status: Active Protocol: Document 10/27/18 13:00 AMB (Rec: 10/30/18 15:50 AMB [email or web address]) Current Condition History of Current Condition Onset Date November 2017 Current Complaints increased motion sickness, falls History of Current Condition The patient reports that she had a virus in the that has led her to be on disability ever since. She was motion sick but she had been managing her symptoms. She was not using an assistive device. Then she had an inner ear infection in November and since that time her symptoms have worsened significantly. She reports about 20 falls in the last 6 months. She lives independently, but does have friends who will drive her to medical appointments. She describes motion sickness with all movement, worst with looking up. She does not roll over in bed as she sleeps sitting up due to her asthma. 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 Per patient, she says that after multiple imaging MD decided that the occlusion is not likely causing her symptoms. 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 Overall there was a strong central involvement. Future Testing and Treatments Planned She is going to be seeing a neurologist soon. Treatment Goals Patient/Caregiver Goals Reduce motion sickness, not have to use 4WW Prior Functional Status Baseline Function- ADL's Needs Assist Baseline Function- Mobility Needs Assist Baseline Function- Recreation/Hobbies The patient has been on disability for years, but almost a year ago her symptoms worsened. 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 Previously she was not driving , but was able to walk from her home to the library independently, now she is unable to do this. Current Functional Impairments (Reported) Functional Limitations- ADL's Unable to walk more than a block or two, no energy Personal Factors Other Personal Factors That May Effect Concussion history, migraines Therapy/Recovery a couple times per month, osteopenia, history of multiple falls, difficulty reading, asthma. PT-OP-C Subjective Start: 10/27/18 07:33 Freq: Status: Active Protocol: Document 01/17/19 14:30 AMB (Rec: 01/17/19 16:09 AMB [email or web address]) OP-PT Subjective Patient Comments Patient Comments Pt is overall feeling better. Continuing to feel off balance with positional changes. PT-OP-D Balance Start: 10/27/18 07:33 Freq: Status: Active Protocol: Document 10/27/18 13:00 AMB (Rec: 10/28/18 12:51 AMB [email or web address]) Balance Tests Single Limb Standing Single Limb- Right unable Single Limb- Left unable Semi-Tandem Standing Semi-Tandem Standing Balance unable-pt falls Tandem Tandem Standing unable Other Other Balance Tests Performed When pt is standing with WBOS she requires intermittent UE support with eyes open to avoid LOB. PT-OP-E Functional Tests Start: 10/28/18 08:46 Freq: Status: Active Protocol: Document 10/27/18 13:00 AMB (Rec: 10/28/18 08:49 AMB [email or web address]) Functional Tests Dynamic Gait Index (DGI) Score 8 DGI Impairment Rating 60 to <80% Impaired (Score 5-9 ) PT-OP-G Mobility & Gait Start: 10/27/18 07:33 Freq: Status: Active Protocol: Document 10/27/18 13:00 AMB (Rec: 10/28/18 08:51 AMB [email or web address]) OP Gait Assessment Comments Gait Comments Pt ambulates with WBOS with 4WW. She reports she furniture walks at home. She intermittently reaches out for the wall with walking despite the walker. PT-OP-O Vestibular Start: 10/27/18 07:33 Freq: Status: Active Protocol: Document 10/27/18 13:00 AMB (Rec: 10/28/18 12:49 AMB [email or web address]) Vestibular Assessment Visual Testing Smooth Pursuits Horizontal unable Smooth Pursuits Vertical unable Saccades Horizontal overshooting to the R Gaze Evoked Nystagmus With Fixation Negative Gaze Evoked Nystagmus Without Fixation Negative Thrust Head Positive Bilateral Convergence Test Impaired Comments Vestibular Comments The patient has been evaluated by ENT with a VNG, the patient states the Jama maneuver has never worked, and in the ENT notes, both Honey- hallpike and roll testing were negative, so not tested at this time. Pt had difficulty with all testing, so more intensive testing was not performed at this time. PT-OP-Q Treatments Start: 10/27/18 07:33 Freq: Status: Active Protocol: Document 01/17/19 14:30 AMB (Rec: 01/17/19 16:09 AMB [email or web address]) Therapeutic Exercises Standing Exercises 2 Standing Exercise Name calf stretch Therapeutic Activity Therapeutic Activity 2 Comments readjusted 4WW to even shorter 1 Name TENS unit instruction Comments how to use one that she purchased Neuro Re-Education Treatment Balance Activities 6 Details rocker board Comments a/p with UE suppport 1 Details standing balance in WBOS, then stride stance Comments no UE support PT-OP-R Modalities Start: 01/05/19 12:51 Freq: Status: Active Protocol: Document 01/05/19 11:15 AMB (Rec: 01/05/19 12:52 AMB [email or web address]) Electric Stimulation Electric Stimulation Interferential Current (IFC) Body Location L shoulder Patient Position Hooklying Combined With Heat/Cold Hot Pack PT-OP-T Assessment and Plan Start: 10/27/18 07:33 Freq: Status: Active Protocol: Document 01/17/19 14:30 AMB (Rec: 01/17/19 16:09 AMB [email or web address]) Physical Therapy Assessment Assessment Summary Assessment Pt agrees to try to get out of the house 1x/day for a short period of time. Physical Therapy Plan Next Visit Focus/Plan Next Note Type Treatment Note Next Visit Plan Progress césar proprioception training
--- NOTE | 2019-02-02 15:41 | PT.OTN ---
Current Diagnoses Dizziness and giddiness (02/02/19) Physical Therapy Treatment Note PT-OP-A Visit Information Start: 10/27/18 07:33 Freq: Status: Active Protocol: Document 02/02/19 13:45 AMB (Rec: 02/02/19 15:40 AMB [email or web address]) Out-Patient Physical Therapy Visit Information Visit Information Visit Type Treatment Note Visit Start Time 13:45 Visit Stop Time 14:30 Total Visit Minutes 45 Visit Number 7 PT-OP-B Current Condition Start: 10/27/18 07:33 Freq: Status: Active Protocol: Document 10/27/18 13:00 AMB (Rec: 10/30/18 15:50 AMB [email or web address]) Current Condition History of Current Condition Onset Date November 2017 Current Complaints increased motion sickness, falls History of Current Condition The patient reports that she had a virus in the that has led her to be on disability ever since. She was motion sick but she had been managing her symptoms. She was not using an assistive device. Then she had an inner ear infection in November and since that time her symptoms have worsened significantly. She reports about 20 falls in the last 6 months. She lives independently, but does have friends who will drive her to medical appointments. She describes motion sickness with all movement, worst with looking up. She does not roll over in bed as she sleeps sitting up due to her asthma. 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 Per patient, she says that after multiple imaging MD decided that the occlusion is not likely causing her symptoms. 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 Overall there was a strong central involvement. Future Testing and Treatments Planned She is going to be seeing a neurologist soon. Treatment Goals Patient/Caregiver Goals Reduce motion sickness, not have to use 4WW Prior Functional Status Baseline Function- ADL's Needs Assist Baseline Function- Mobility Needs Assist Baseline Function- Recreation/Hobbies The patient has been on disability for years, but almost a year ago her symptoms worsened. Now she has difficulty volunteering at the soup kitchen, and has not gone to [employer] because her dizziness is so severe. Previously she was not driving , but was able to walk from her home to the library independently, now she is unable to do this. Current Functional Impairments (Reported) Functional Limitations- ADL's Unable to walk more than a block or two, no energy Personal Factors Other Personal Factors That May Effect Concussion history, migraines Therapy/Recovery a couple times per month, osteopenia, history of multiple falls, difficulty reading, asthma. PT-OP-C Subjective Start: 10/27/18 07:33 Freq: Status: Active Protocol: Document 02/02/19 13:45 AMB (Rec: 02/02/19 15:40 AMB [email or web address]) OP-PT Subjective Patient Comments Patient Comments Pt had a difficult last 2 weeks, increased nausea. Did not feel like getting out of bed. PT-OP-D Balance Start: 10/27/18 07:33 Freq: Status: Active Protocol: Document 10/27/18 13:00 AMB (Rec: 10/28/18 12:51 AMB [email or web address]) Balance Tests Single Limb Standing Single Limb- Right unable Single Limb- Left unable Semi-Tandem Standing Semi-Tandem Standing Balance unable-pt falls Tandem Tandem Standing unable Other Other Balance Tests Performed When pt is standing with WBOS she requires intermittent UE support with eyes open to avoid LOB. PT-OP-E Functional Tests Start: 10/28/18 08:46 Freq: Status: Active Protocol: Document 10/27/18 13:00 AMB (Rec: 10/28/18 08:49 AMB [email or web address]) Functional Tests Dynamic Gait Index (DGI) Score 8 DGI Impairment Rating 60 to <80% Impaired (Score 5-9 ) PT-OP-G Mobility & Gait Start: 10/27/18 07:33 Freq: Status: Active Protocol: Document 10/27/18 13:00 AMB (Rec: 10/28/18 08:51 AMB [email or web address]) OP Gait Assessment Comments Gait Comments Pt ambulates with WBOS with 4WW. She reports she furniture walks at home. She intermittently reaches out for the wall with walking despite the walker. PT-OP-O Vestibular Start: 10/27/18 07:33 Freq: Status: Active Protocol: Document 10/27/18 13:00 AMB (Rec: 10/28/18 12:49 AMB [email or web address]) Vestibular Assessment Visual Testing Smooth Pursuits Horizontal unable Smooth Pursuits Vertical unable Saccades Horizontal overshooting to the R Gaze Evoked Nystagmus With Fixation Negative Gaze Evoked Nystagmus Without Fixation Negative Thrust Head Positive Bilateral Convergence Test Impaired Comments Vestibular Comments The patient has been evaluated by ENT with a VNG, the patient states the Jama maneuver has never worked, and in the ENT notes, both Honey- hallpike and roll testing were negative, so not tested at this time. Pt had difficulty with all testing, so more intensive testing was not performed at this time. PT-OP-Q Treatments Start: 10/27/18 07:33 Freq: Status: Active Protocol: Document 02/02/19 13:45 AMB (Rec: 02/02/19 15:40 AMB [email or web address]) Neuro Re-Education Treatment Balance Activities 6 Details rocker board Comments a/p and m/l with UE suppport 3 Details walking with head turns Comments vertical/horizontal with 4WW 2 Details weightshift in stride stance with UE support 1 Details standing balance in WBOS, then stride stance Comments no UE support Other Activities 1 Details Gufoni R Comments x1 PT-OP-R Modalities Start: 01/05/19 12:51 Freq: Status: Active Protocol: Document 01/05/19 11:15 AMB (Rec: 01/05/19 12:52 AMB [email or web address]) Electric Stimulation Electric Stimulation Interferential Current (IFC) Body Location L shoulder Patient Position Hooklying Combined With Heat/Cold Hot Pack PT-OP-T Assessment and Plan Start: 10/27/18 07:33 Freq: Status: Active Protocol: Document 02/02/19 13:45 AMB (Rec: 02/02/19 15:40 AMB [email or web address]) Physical Therapy Assessment Assessment Summary Assessment Arline did not show nystagmus, but did have more subjective dizziness with Honey-Hallpike to the right and with roll testing to the right. Physical Therapy Plan Next Visit Focus/Plan Next Note Type Treatment Note Next Visit Plan Progress césar proprioception training. Encourage grounding .
--- NOTE | 2019-02-11 11:57 | PT.OTN ---
Current Diagnoses Dizziness and giddiness (02/11/19) Physical Therapy Treatment Note PT-OP-A Visit Information Start: 10/27/18 07:33 Freq: Status: Active Protocol: Document 02/11/19 10:30 AMB (Rec: 02/11/19 10:32 AMB [id number]) Out-Patient Physical Therapy Visit Information Visit Information Visit Type Treatment Note Visit Start Time 13:45 Visit Stop Time 14:30 Total Visit Minutes 45 Visit Number 8 PT-OP-B Current Condition Start: 10/27/18 07:33 Freq: Status: Active Protocol: Document 10/27/18 13:00 AMB (Rec: 10/30/18 15:50 AMB [email or web address]) Current Condition History of Current Condition Onset Date November 2017 Current Complaints increased motion sickness, falls History of Current Condition The patient reports that she had a virus in the that has led her to be on disability ever since. She was motion sick but she had been managing her symptoms. She was not using an assistive device. Then she had an inner ear infection in November and since that time her symptoms have worsened significantly. She reports about 20 falls in the last 6 months. She lives independently, but does have friends who will drive her to medical appointments. She describes motion sickness with all movement, worst with looking up. She does not roll over in bed as she sleeps sitting up due to her asthma. 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 Per patient, she says that after multiple imaging MD decided that the occlusion is not likely causing her symptoms. 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 Overall there was a strong central involvement. Future Testing and Treatments Planned She is going to be seeing a neurologist soon. Treatment Goals Patient/Caregiver Goals Reduce motion sickness, not have to use 4WW Prior Functional Status Baseline Function- ADL's Needs Assist Baseline Function- Mobility Needs Assist Baseline Function- Recreation/Hobbies The patient has been on disability for years, but almost a year ago her symptoms worsened. Now she has difficulty volunteering at the soup kitchen, and has not gone to [employer] because her dizziness is so severe. Previously she was not driving , but was able to walk from her home to the library independently, now she is unable to do this. Current Functional Impairments (Reported) Functional Limitations- ADL's Unable to walk more than a block or two, no energy Personal Factors Other Personal Factors That May Effect Concussion history, migraines Therapy/Recovery a couple times per month, osteopenia, history of multiple falls, difficulty reading, asthma. PT-OP-C Subjective Start: 10/27/18 07:33 Freq: Status: Active Protocol: Document 02/11/19 10:30 AMB (Rec: 02/11/19 10:32 AMB [id number]) OP-PT Subjective Patient Comments Patient Comments Pt has been feeling slightly better, has been getting out in the garden PT-OP-D Balance Start: 10/27/18 07:33 Freq: Status: Active Protocol: Document 10/27/18 13:00 AMB (Rec: 10/28/18 12:51 AMB [email or web address]) Balance Tests Single Limb Standing Single Limb- Right unable Single Limb- Left unable Semi-Tandem Standing Semi-Tandem Standing Balance unable-pt falls Tandem Tandem Standing unable Other Other Balance Tests Performed When pt is standing with WBOS she requires intermittent UE support with eyes open to avoid LOB. PT-OP-E Functional Tests Start: 10/28/18 08:46 Freq: Status: Active Protocol: Document 10/27/18 13:00 AMB (Rec: 10/28/18 08:49 AMB [email or web address]) Functional Tests Dynamic Gait Index (DGI) Score 8 DGI Impairment Rating 60 to <80% Impaired (Score 5-9 ) PT-OP-G Mobility & Gait Start: 10/27/18 07:33 Freq: Status: Active Protocol: Document 10/27/18 13:00 AMB (Rec: 10/28/18 08:51 AMB [email or web address]) OP Gait Assessment Comments Gait Comments Pt ambulates with WBOS with 4WW. She reports she furniture walks at home. She intermittently reaches out for the wall with walking despite the walker. PT-OP-O Vestibular Start: 10/27/18 07:33 Freq: Status: Active Protocol: Document 10/27/18 13:00 AMB (Rec: 10/28/18 12:49 AMB [email or web address]) Vestibular Assessment Visual Testing Smooth Pursuits Horizontal unable Smooth Pursuits Vertical unable Saccades Horizontal overshooting to the R Gaze Evoked Nystagmus With Fixation Negative Gaze Evoked Nystagmus Without Fixation Negative Thrust Head Positive Bilateral Convergence Test Impaired Comments Vestibular Comments The patient has been evaluated by ENT with a VNG, the patient states the Jama maneuver has never worked, and in the ENT notes, both Honey- hallpike and roll testing were negative, so not tested at this time. Pt had difficulty with all testing, so more intensive testing was not performed at this time. PT-OP-Q Treatments Start: 10/27/18 07:33 Freq: Status: Active Protocol: Document 02/11/19 09:45 AMB (Rec: 02/11/19 11:56 AMB [email or web address]) Neuro Re-Education Treatment Balance Activities 6 Details rocker board Comments a/p and m/l with UE suppport 3 Details walking with head turns Comments vertical/horizontal with 4WW 2 Details weightshift in stride stance with UE support 1 Details standing balance in WBOS, then stride stance Comments no UE support Vestibular Rehabilitation VOR Retraining Speed slow Position standing Comments horizontal, vertical PT-OP-R Modalities Start: 01/05/19 12:51 Freq: Status: Active Protocol: Document 01/05/19 11:15 AMB (Rec: 01/05/19 12:52 AMB [email or web address]) Electric Stimulation Electric Stimulation Interferential Current (IFC) Body Location L shoulder Patient Position Hooklying Combined With Heat/Cold Hot Pack PT-OP-T Assessment and Plan Start: 10/27/18 07:33 Freq: Status: Active Protocol: Document 02/11/19 09:45 AMB (Rec: 02/11/19 11:56 AMB [email or web address]) Physical Therapy Assessment Assessment Summary Assessment Did better today with less need for rest breaks. Still needs rest breaks but they are shorter. Physical Therapy Plan Next Visit Focus/Plan Next Note Type Treatment Note Next Visit Plan Progress césar proprioception training. Encourage grounding .
--- NOTE | 2019-02-18 15:28 | PT.OTN ---
Current Diagnoses Dizziness and giddiness (02/18/19) Physical Therapy Treatment Note PT-OP-A Visit Information Start: 10/27/18 07:33 Freq: Status: Active Protocol: Document 02/18/19 13:52 BS (Rec: 02/18/19 13:55 BS [id number]) Out-Patient Physical Therapy Visit Information Visit Information Visit Type Treatment Note Visit Start Time 13:50 Visit Stop Time 14:30 Total Visit Minutes 40 Visit Number 9 PT-OP-B Current Condition Start: 10/27/18 07:33 Freq: Status: Active Protocol: Document 10/27/18 13:00 AMB (Rec: 10/30/18 15:50 AMB [email or web address]) Current Condition History of Current Condition Onset Date November 2017 Current Complaints increased motion sickness, falls History of Current Condition The patient reports that she had a virus in the that has led her to be on disability ever since. She was motion sick but she had been managing her symptoms. She was not using an assistive device. Then she had an inner ear infection in November and since that time her symptoms have worsened significantly. She reports about 20 falls in the last 6 months. She lives independently, but does have friends who will drive her to medical appointments. She describes motion sickness with all movement, worst with looking up. She does not roll over in bed as she sleeps sitting up due to her asthma. 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 Per patient, she says that after multiple imaging MD decided that the occlusion is not likely causing her symptoms. 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 Overall there was a strong central involvement. Future Testing and Treatments Planned She is going to be seeing a neurologist soon. Treatment Goals Patient/Caregiver Goals Reduce motion sickness, not have to use 4WW Prior Functional Status Baseline Function- ADL's Needs Assist Baseline Function- Mobility Needs Assist Baseline Function- Recreation/Hobbies The patient has been on disability for years, but almost a year ago her symptoms worsened. Now she has difficulty volunteering at the soup kitchen, and has not gone to [employer] because her dizziness is so severe. Previously she was not driving , but was able to walk from her home to the library independently, now she is unable to do this. Current Functional Impairments (Reported) Functional Limitations- ADL's Unable to walk more than a block or two, no energy Personal Factors Other Personal Factors That May Effect Concussion history, migraines Therapy/Recovery a couple times per month, osteopenia, history of multiple falls, difficulty reading, asthma. PT-OP-C Subjective Start: 10/27/18 07:33 Freq: Status: Active Protocol: Document 02/18/19 13:52 BS (Rec: 02/18/19 13:55 BS [id number]) OP-PT Subjective Patient Comments Patient Comments Pt states she feels good and has more energy than usual. She has noticed improvements with grocery shopping. PT-OP-D Balance Start: 10/27/18 07:33 Freq: Status: Active Protocol: Document 10/27/18 13:00 AMB (Rec: 10/28/18 12:51 AMB [email or web address]) Balance Tests Single Limb Standing Single Limb- Right unable Single Limb- Left unable Semi-Tandem Standing Semi-Tandem Standing Balance unable-pt falls Tandem Tandem Standing unable Other Other Balance Tests Performed When pt is standing with WBOS she requires intermittent UE support with eyes open to avoid LOB. PT-OP-E Functional Tests Start: 10/28/18 08:46 Freq: Status: Active Protocol: Document 10/27/18 13:00 AMB (Rec: 10/28/18 08:49 AMB [email or web address]) Functional Tests Dynamic Gait Index (DGI) Score 8 DGI Impairment Rating 60 to <80% Impaired (Score 5-9 ) PT-OP-G Mobility & Gait Start: 10/27/18 07:33 Freq: Status: Active Protocol: Document 10/27/18 13:00 AMB (Rec: 10/28/18 08:51 AMB [email or web address]) OP Gait Assessment Comments Gait Comments Pt ambulates with WBOS with 4WW. She reports she furniture walks at home. She intermittently reaches out for the wall with walking despite the walker. PT-OP-O Vestibular Start: 10/27/18 07:33 Freq: Status: Active Protocol: Document 10/27/18 13:00 AMB (Rec: 10/28/18 12:49 AMB [email or web address]) Vestibular Assessment Visual Testing Smooth Pursuits Horizontal unable Smooth Pursuits Vertical unable Saccades Horizontal overshooting to the R Gaze Evoked Nystagmus With Fixation Negative Gaze Evoked Nystagmus Without Fixation Negative Thrust Head Positive Bilateral Convergence Test Impaired Comments Vestibular Comments The patient has been evaluated by ENT with a VNG, the patient states the Jama maneuver has never worked, and in the ENT notes, both Honey- hallpike and roll testing were negative, so not tested at this time. Pt had difficulty with all testing, so more intensive testing was not performed at this time. PT-OP-Q Treatments Start: 10/27/18 07:33 Freq: Status: Active Protocol: Document 02/18/19 13:52 BS (Rec: 02/18/19 14:40 BS [email or web address]) Neuro Re-Education Treatment Balance Activities 3 Details walking with head turns Comments vertical/horizontal with 4WW with distant gaze fixation. Vestibular Rehabilitation Other- 1 Details VOR 2 targets Background plain Distance From Target 5' Speed slow Comments Vertical and horizontal. Eye movement followed by head movement. VOR Retraining Details VOR x1 Background plain Distance From Target 5' Speed slow Position standing Comments horizontal, vertical. Pt requires occasional UE steadying on 4WW. PT-OP-R Modalities Start: 01/05/19 12:51 Freq: Status: Active Protocol: Document 01/05/19 11:15 AMB (Rec: 01/05/19 12:52 AMB [email or web address]) Electric Stimulation Electric Stimulation Interferential Current (IFC) Body Location L shoulder Patient Position Hooklying Combined With Heat/Cold Hot Pack PT-OP-T Assessment and Plan Start: 10/27/18 07:33 Freq: Status: Active Protocol: Document 02/18/19 13:52 BS (Rec: 02/18/19 14:40 BS [email or web address]) Physical Therapy Assessment Assessment Summary Assessment Pt tolerated progression of VOR exercises with 2 targets. Discussed importance of doing HEP more frequently. Physical Therapy Plan Next Visit Focus/Plan Next Note Type Treatment Note Next Visit Plan Continue with progression of VOR training, emphasizing grounding. Balance activities woutout walker support.
--- NOTE | 2019-02-21 15:35 | PT.OTN ---
Current Diagnoses Dizziness and giddiness (02/21/19) Physical Therapy Treatment Note PT-OP-A Visit Information Start: 10/27/18 07:33 Freq: Status: Active Protocol: Document 02/21/19 13:30 BS (Rec: 02/21/19 14:41 BS [email or web address]) Out-Patient Physical Therapy Visit Information Visit Information Visit Type Treatment Note Visit Start Time 13:05 Visit Stop Time 13:45 Total Visit Minutes 40 Visit Number 10 PT-OP-B Current Condition Start: 10/27/18 07:33 Freq: Status: Active Protocol: Document 10/27/18 13:00 AMB (Rec: 10/30/18 15:50 AMB [email or web address]) Current Condition History of Current Condition Onset Date November 2017 Current Complaints increased motion sickness, falls History of Current Condition The patient reports that she had a virus in the that has led her to be on disability ever since. She was motion sick but she had been managing her symptoms. She was not using an assistive device. Then she had an inner ear infection in November and since that time her symptoms have worsened significantly. She reports about 20 falls in the last 6 months. She lives independently, but does have friends who will drive her to medical appointments. She describes motion sickness with all movement, worst with looking up. She does not roll over in bed as she sleeps sitting up due to her asthma. 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 Per patient, she says that after multiple imaging MD decided that the occlusion is not likely causing her symptoms. 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 Overall there was a strong central involvement. Future Testing and Treatments Planned She is going to be seeing a neurologist soon. Treatment Goals Patient/Caregiver Goals Reduce motion sickness, not have to use 4WW Prior Functional Status Baseline Function- ADL's Needs Assist Baseline Function- Mobility Needs Assist Baseline Function- Recreation/Hobbies The patient has been on disability for years, but almost a year ago her symptoms worsened. Now she has difficulty volunteering at the soup kitchen, and has not gone to [employer] because her dizziness is so severe. Previously she was not driving , but was able to walk from her home to the library independently, now she is unable to do this. Current Functional Impairments (Reported) Functional Limitations- ADL's Unable to walk more than a block or two, no energy Personal Factors Other Personal Factors That May Effect Concussion history, migraines Therapy/Recovery a couple times per month, osteopenia, history of multiple falls, difficulty reading, asthma. PT-OP-C Subjective Start: 10/27/18 07:33 Freq: Status: Active Protocol: Document 02/21/19 13:30 BS (Rec: 02/21/19 14:41 BS [email or web address]) OP-PT Subjective Patient Comments Patient Comments Pt reports noticeable improvements in gaze stabilization while walking. PT-OP-D Balance Start: 10/27/18 07:33 Freq: Status: Active Protocol: Document 10/27/18 13:00 AMB (Rec: 10/28/18 12:51 AMB [email or web address]) Balance Tests Single Limb Standing Single Limb- Right unable Single Limb- Left unable Semi-Tandem Standing Semi-Tandem Standing Balance unable-pt falls Tandem Tandem Standing unable Other Other Balance Tests Performed When pt is standing with WBOS she requires intermittent UE support with eyes open to avoid LOB. PT-OP-E Functional Tests Start: 10/28/18 08:46 Freq: Status: Active Protocol: Document 10/27/18 13:00 AMB (Rec: 10/28/18 08:49 AMB [email or web address]) Functional Tests Dynamic Gait Index (DGI) Score 8 DGI Impairment Rating 60 to <80% Impaired (Score 5-9 ) PT-OP-G Mobility & Gait Start: 10/27/18 07:33 Freq: Status: Active Protocol: Document 10/27/18 13:00 AMB (Rec: 10/28/18 08:51 AMB [email or web address]) OP Gait Assessment Comments Gait Comments Pt ambulates with WBOS with 4WW. She reports she furniture walks at home. She intermittently reaches out for the wall with walking despite the walker. PT-OP-O Vestibular Start: 10/27/18 07:33 Freq: Status: Active Protocol: Document 10/27/18 13:00 AMB (Rec: 10/28/18 12:49 AMB [email or web address]) Vestibular Assessment Visual Testing Smooth Pursuits Horizontal unable Smooth Pursuits Vertical unable Saccades Horizontal overshooting to the R Gaze Evoked Nystagmus With Fixation Negative Gaze Evoked Nystagmus Without Fixation Negative Thrust Head Positive Bilateral Convergence Test Impaired Comments Vestibular Comments The patient has been evaluated by ENT with a VNG, the patient states the Jama maneuver has never worked, and in the ENT notes, both [place]- hallpike and roll testing were negative, so not tested at this time. Pt had difficulty with all testing, so more intensive testing was not performed at this time. PT-OP-Q Treatments Start: 10/27/18 07:33 Freq: Status: Active Protocol: Document 02/21/19 13:30 BS (Rec: 02/21/19 14:41 BS [email or web address]) Neuro Re-Education Treatment Balance Activities 3 Details Gait with gaze fixation Surface firm. No head movement Equipment WBQC Comments Trial of quad cane. Required occasional standing rest breaks to reground. Vestibular Rehabilitation VOR Retraining Details VOR x1 Background plain Distance From Target 5' Speed slow Position standing Comments vertical, horizontal, diagonals. Pt required occasional UE steadying on R WBQC. PT-OP-R Modalities Start: 01/05/19 12:51 Freq: Status: Active Protocol: Document 01/05/19 11:15 AMB (Rec: 01/05/19 12:52 AMB [email or web address]) Electric Stimulation Electric Stimulation Interferential Current (IFC) Body Location L shoulder Patient Position Hooklying Combined With Heat/Cold Hot Pack PT-OP-T Assessment and Plan Start: 10/27/18 07:33 Freq: Status: Active Protocol: Document 02/21/19 13:30 BS (Rec: 02/21/19 14:41 BS [email or web address]) Physical Therapy Assessment Assessment Summary Assessment Pt able to tolerate longer duration of VOR retraining today. Trial of gaze stabilization with WBQC instead of 4WW went well. Physical Therapy Plan Next Visit Focus/Plan Next Note Type Treatment Note Next Visit Plan VOR progression x1 with busy background. Continue to use QBQC for gaze stabilization with gait.
--- NOTE | 2019-03-04 15:34 | PT.OTN ---
Current Diagnoses Dizziness and giddiness (03/04/19) Physical Therapy Treatment Note PT-OP-A Visit Information Start: 10/27/18 07:33 Freq: Status: Active Protocol: Document 03/04/19 15:18 BS (Rec: 03/04/19 14:40 BS [id number]) Out-Patient Physical Therapy Visit Information Visit Information Visit Type Treatment Note Visit Start Time 14:35 Visit Stop Time 15:15 Total Visit Minutes 40 Visit Number 11 PT-OP-B Current Condition Start: 10/27/18 07:33 Freq: Status: Active Protocol: Document 10/27/18 13:00 AMB (Rec: 10/30/18 15:50 AMB [email or web address]) Current Condition History of Current Condition Onset Date November 2017 Current Complaints increased motion sickness, falls History of Current Condition The patient reports that she had a virus in the that has led her to be on disability ever since. She was motion sick but she had been managing her symptoms. She was not using an assistive device. Then she had an inner ear infection in November and since that time her symptoms have worsened significantly. She reports about 20 falls in the last 6 months. She lives independently, but does have friends who will drive her to medical appointments. She describes motion sickness with all movement, worst with looking up. She does not roll over in bed as she sleeps sitting up due to her asthma. 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 Per patient, she says that after multiple imaging MD decided that the occlusion is not likely causing her symptoms. 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 Overall there was a strong central involvement. Future Testing and Treatments Planned She is going to be seeing a neurologist soon. Treatment Goals Patient/Caregiver Goals Reduce motion sickness, not have to use 4WW Prior Functional Status Baseline Function- ADL's Needs Assist Baseline Function- Mobility Needs Assist Baseline Function- Recreation/Hobbies The patient has been on disability for years, but almost a year ago her symptoms worsened. Now she has difficulty volunteering at the soup kitchen, and has not gone to baptism because her dizziness is so severe. Previously she was not driving , but was able to walk from her home to the library independently, now she is unable to do this. Current Functional Impairments (Reported) Functional Limitations- ADL's Unable to walk more than a block or two, no energy Personal Factors Other Personal Factors That May Effect Concussion history, migraines Therapy/Recovery a couple times per month, osteopenia, history of multiple falls, difficulty reading, asthma. PT-OP-C Subjective Start: 10/27/18 07:33 Freq: Status: Active Protocol: Document 03/04/19 15:18 BS (Rec: 03/04/19 14:40 BS [id number]) OP-PT Subjective Patient Comments Patient Comments Pt to therapy without use of AD today, advised to use for mobility outside of home. Pt states she has been noticing improvements in gaze stabilization and stability with walking. She admits she has not been compliant with HEP, completes maybe 1-2x/week . Patient Reported Progress Improving PT-OP-D Balance Start: 10/27/18 07:33 Freq: Status: Active Protocol: Document 10/27/18 13:00 AMB (Rec: 10/28/18 12:51 AMB [email or web address]) Balance Tests Single Limb Standing Single Limb- Right unable Single Limb- Left unable Semi-Tandem Standing Semi-Tandem Standing Balance unable-pt falls Tandem Tandem Standing unable Other Other Balance Tests Performed When pt is standing with WBOS she requires intermittent UE support with eyes open to avoid LOB. PT-OP-E Functional Tests Start: 10/28/18 08:46 Freq: Status: Active Protocol: Document 10/27/18 13:00 AMB (Rec: 10/28/18 08:49 AMB [email or web address]) Functional Tests Dynamic Gait Index (DGI) Score 8 DGI Impairment Rating 60 to <80% Impaired (Score 5-9 ) PT-OP-G Mobility & Gait Start: 10/27/18 07:33 Freq: Status: Active Protocol: Document 10/27/18 13:00 AMB (Rec: 10/28/18 08:51 AMB [email or web address]) OP Gait Assessment Comments Gait Comments Pt ambulates with WBOS with 4WW. She reports she furniture walks at home. She intermittently reaches out for the wall with walking despite the walker. PT-OP-O Vestibular Start: 10/27/18 07:33 Freq: Status: Active Protocol: Document 10/27/18 13:00 AMB (Rec: 10/28/18 12:49 AMB [email or web address]) Vestibular Assessment Visual Testing Smooth Pursuits Horizontal unable Smooth Pursuits Vertical unable Saccades Horizontal overshooting to the R Gaze Evoked Nystagmus With Fixation Negative Gaze Evoked Nystagmus Without Fixation Negative Thrust Head Positive Bilateral Convergence Test Impaired Comments Vestibular Comments The patient has been evaluated by ENT with a VNG, the patient states the Jama maneuver has never worked, and in the ENT notes, both [place]- hallpike and roll testing were negative, so not tested at this time. Pt had difficulty with all testing, so more intensive testing was not performed at this time. PT-OP-Q Treatments Start: 10/27/18 07:33 Freq: Status: Active Protocol: Document 03/04/19 15:18 BS (Rec: 03/04/19 15:27 BS [id number]) Neuro Re-Education Treatment Balance Activities 3 Details Gait with gaze fixation Surface firm. No head movement Equipment WBQC Comments Trial of quad cane. Slow gait speed, occasional sequencing errors with cane. Able to self -correct with LOB. Vestibular Rehabilitation X2 Viewing Details VOR x2 Background Plain Distance From Target arm length Speed slow Position Sitting VOR Retraining Details VOR x1 Background plain, complex Speed slow Position standing Comments vertical, horizontal, diagonals. Pt required occasional UE steadying on R WBQC. 2 reps with horiz. and complex background PT-OP-R Modalities Start: 01/05/19 12:51 Freq: Status: Active Protocol: Document 01/05/19 11:15 AMB (Rec: 01/05/19 12:52 AMB [email or web address]) Electric Stimulation Electric Stimulation Interferential Current (IFC) Body Location L shoulder Patient Position Hooklying Combined With Heat/Cold Hot Pack PT-OP-T Assessment and Plan Start: 10/27/18 07:33 Freq: Status: Active Protocol: Document 03/04/19 15:18 BS (Rec: 03/04/19 15:27 BS [email or web address]) Physical Therapy Assessment Assessment Summary Assessment Pt arrived to PT without use of AD, advised to use 4WW outside of home for safety. Continued VOR training with progression to complex background and x2. Gait with WBCQ and gaze fixation. Physical Therapy Plan Frequency and Duration Frequency of Treatment 1x/Week Duration of Treatment 10 weeks Plan of Care Start Date 01/05/19 Plan of Care End Date 03/16/19 Next Visit Focus/Plan Next Note Type Treatment Note Next Visit Plan VOR x1 with complex background , VOR x2, continue gait with WBQC
--- NOTE | 2019-03-10 11:56 | PT.OTN ---
Current Diagnoses Dizziness and giddiness (03/10/19) Physical Therapy Treatment Note PT-OP-A Visit Information Start: 10/27/18 07:33 Freq: Status: Active Protocol: Document 03/10/19 11:15 BS (Rec: 03/10/19 11:24 BS [email or web address]) Out-Patient Physical Therapy Visit Information Visit Information Visit Type Treatment Note Visit Start Time 09:45 Visit Stop Time 10:15 Total Visit Minutes 45 Visit Number 12 PT-OP-B Current Condition Start: 10/27/18 07:33 Freq: Status: Active Protocol: Document 10/27/18 13:00 AMB (Rec: 10/30/18 15:50 AMB [email or web address]) Current Condition History of Current Condition Onset Date November 2017 Current Complaints increased motion sickness, falls History of Current Condition The patient reports that she had a virus in the that has led her to be on disability ever since. She was motion sick but she had been managing her symptoms. She was not using an assistive device. Then she had an inner ear infection in November and since that time her symptoms have worsened significantly. She reports about 20 falls in the last 6 months. She lives independently, but does have friends who will drive her to medical appointments. She describes motion sickness with all movement, worst with looking up. She does not roll over in bed as she sleeps sitting up due to her asthma. 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 Per patient, she says that after multiple imaging MD decided that the occlusion is not likely causing her symptoms. 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 Overall there was a strong central involvement. Future Testing and Treatments Planned She is going to be seeing a neurologist soon. Treatment Goals Patient/Caregiver Goals Reduce motion sickness, not have to use 4WW Prior Functional Status Baseline Function- ADL's Needs Assist Baseline Function- Mobility Needs Assist Baseline Function- Recreation/Hobbies The patient has been on disability for years, but almost a year ago her symptoms worsened. Now she has difficulty volunteering at the soup kitchen, and has not gone to [employer]ism because her dizziness is so severe. Previously she was not driving , but was able to walk from her home to the library independently, now she is unable to do this. Current Functional Impairments (Reported) Functional Limitations- ADL's Unable to walk more than a block or two, no energy Personal Factors Other Personal Factors That May Effect Concussion history, migraines Therapy/Recovery a couple times per month, osteopenia, history of multiple falls, difficulty reading, asthma. PT-OP-C Subjective Start: 10/27/18 07:33 Freq: Status: Active Protocol: Document 03/10/19 11:15 BS (Rec: 03/10/19 11:24 BS [email or web address]) OP-PT Subjective Patient Comments Patient Comments Pt states she woke up with some nausea this morning. She admits she has not been very compliant with HEP. PT-OP-D Balance Start: 10/27/18 07:33 Freq: Status: Active Protocol: Document 10/27/18 13:00 AMB (Rec: 10/28/18 12:51 AMB [email or web address]) Balance Tests Single Limb Standing Single Limb- Right unable Single Limb- Left unable Semi-Tandem Standing Semi-Tandem Standing Balance unable-pt falls Tandem Tandem Standing unable Other Other Balance Tests Performed When pt is standing with WBOS she requires intermittent UE support with eyes open to avoid LOB. PT-OP-E Functional Tests Start: 10/28/18 08:46 Freq: Status: Active Protocol: Document 10/27/18 13:00 AMB (Rec: 10/28/18 08:49 AMB [email or web address]) Functional Tests Dynamic Gait Index (DGI) Score 8 DGI Impairment Rating 60 to <80% Impaired (Score 5-9 ) PT-OP-G Mobility & Gait Start: 10/27/18 07:33 Freq: Status: Active Protocol: Document 10/27/18 13:00 AMB (Rec: 10/28/18 08:51 AMB [email or web address]) OP Gait Assessment Comments Gait Comments Pt ambulates with WBOS with 4WW. She reports she furniture walks at home. She intermittently reaches out for the wall with walking despite the walker. PT-OP-O Vestibular Start: 10/27/18 07:33 Freq: Status: Active Protocol: Document 10/27/18 13:00 AMB (Rec: 10/28/18 12:49 AMB [email or web address]) Vestibular Assessment Visual Testing Smooth Pursuits Horizontal unable Smooth Pursuits Vertical unable Saccades Horizontal overshooting to the R Gaze Evoked Nystagmus With Fixation Negative Gaze Evoked Nystagmus Without Fixation Negative Thrust Head Positive Bilateral Convergence Test Impaired Comments Vestibular Comments The patient has been evaluated by ENT with a VNG, the patient states the Jama maneuver has never worked, and in the ENT notes, both [place]- hallpike and roll testing were negative, so not tested at this time. Pt had difficulty with all testing, so more intensive testing was not performed at this time. PT-OP-Q Treatments Start: 10/27/18 07:33 Freq: Status: Active Protocol: Document 03/10/19 11:15 BS (Rec: 03/10/19 11:24 BS [email or web address]) Neuro Re-Education Treatment Balance Activities 3 Details Gait with gaze fixation Surface firm. no head movement Equipment WBQC Comments gait with WBQC. Slow gait speed, occasional sequencing errors. Fewer instances of postural instability today. 2 Details Walking with head movement Comments horizontal/vertical head movement with gaze stabilization, use of FWW. Vertical more challenging today. Vestibular Rehabilitation X2 Viewing Details VOR x2 Background Plain Distance From Target arm length Speed slow Position Sitting,standing Comments VCs to avoid trunk rotation. VOR Retraining Details VOR x1 Background plain Distance From Target 20' Speed slow Position standing Comments on Shuttle Balance, yellow. horizontal, vertical, and diagonal head movement. Occasional use of B UEs on rails for steadying. PT-OP-R Modalities Start: 01/05/19 12:51 Freq: Status: Active Protocol: Document 01/05/19 11:15 AMB (Rec: 01/05/19 12:52 AMB [email or web address]) Electric Stimulation Electric Stimulation Interferential Current (IFC) Body Location L shoulder Patient Position Hooklying Combined With Heat/Cold Hot Pack PT-OP-T Assessment and Plan Start: 10/27/18 07:33 Freq: Status: Active Protocol: Document 03/10/19 11:15 BS (Rec: 03/10/19 11:24 BS [email or web address]) Physical Therapy Assessment Assessment Summary Assessment Pt tolerated increasingly challenging VOR exercises today on Shuttle Balance and had fewer instances of postural instability with gaze stabilization and gait with WBQC. Today was last scheduled apt, pt will be placed on the waitlist for future appointments. Physical Therapy Plan Frequency and Duration Frequency of Treatment 1x/Week Duration of Treatment 10 weeks Plan of Care Start Date 01/05/19 Plan of Care End Date 03/16/19 Next Visit Focus/Plan Next Note Type Treatment Note Next Visit Plan VOR x1 on shuttle balance ( yellow). Trial gait with WBQC and head movements with gaze stabilization.
--- NOTE | 2019-03-18 15:57 | PT.OTN ---
Current Diagnoses Dizziness and giddiness (03/18/19) Physical Therapy Treatment Note PT-OP-A Visit Information Start: 10/27/18 07:33 Freq: Status: Active Protocol: Document 03/18/19 12:38 BS (Rec: 03/18/19 12:53 BS [id number]) Out-Patient Physical Therapy Visit Information Visit Information Visit Type Treatment Note Visit Start Time 11:22 Visit Stop Time 12:00 Total Visit Minutes 38 Visit Number 13 PT-OP-B Current Condition Start: 10/27/18 07:33 Freq: Status: Active Protocol: Document 10/27/18 13:00 AMB (Rec: 10/30/18 15:50 AMB [email or web address]) Current Condition History of Current Condition Onset Date November 2017 Current Complaints increased motion sickness, falls History of Current Condition The patient reports that she had a virus in the that has led her to be on disability ever since. She was motion sick but she had been managing her symptoms. She was not using an assistive device. Then she had an inner ear infection in November and since that time her symptoms have worsened significantly. She reports about 20 falls in the last 6 months. She lives independently, but does have friends who will drive her to medical appointments. She describes motion sickness with all movement, worst with looking up. She does not roll over in bed as she sleeps sitting up due to her asthma. 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 Per patient, she says that after multiple imaging MD decided that the occlusion is not likely causing her symptoms. 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 Overall there was a strong central involvement. Future Testing and Treatments Planned She is going to be seeing a neurologist soon. Treatment Goals Patient/Caregiver Goals Reduce motion sickness, not have to use 4WW Prior Functional Status Baseline Function- ADL's Needs Assist Baseline Function- Mobility Needs Assist Baseline Function- Recreation/Hobbies The patient has been on disability for years, but almost a year ago her symptoms worsened. Now she has difficulty volunteering at the soup kitchen, and has not gone to [facility]ain because her dizziness is so severe. Previously she was not driving , but was able to walk from her home to the library independently, now she is unable to do this. Current Functional Impairments (Reported) Functional Limitations- ADL's Unable to walk more than a block or two, no energy Personal Factors Other Personal Factors That May Effect Concussion history, migraines Therapy/Recovery a couple times per month, osteopenia, history of multiple falls, difficulty reading, asthma. PT-OP-C Subjective Start: 10/27/18 07:33 Freq: Status: Active Protocol: Document 03/18/19 12:38 BS (Rec: 03/18/19 12:53 BS [id number]) OP-PT Subjective Patient Comments Patient Comments Pt states she has had a rough week. She woke up Thursday and her balance was off and continues to feel less steady than usual. PT-OP-D Balance Start: 10/27/18 07:33 Freq: Status: Active Protocol: Document 10/27/18 13:00 AMB (Rec: 10/28/18 12:51 AMB [email or web address]) Balance Tests Single Limb Standing Single Limb- Right unable Single Limb- Left unable Semi-Tandem Standing Semi-Tandem Standing Balance unable-pt falls Tandem Tandem Standing unable Other Other Balance Tests Performed When pt is standing with WBOS she requires intermittent UE support with eyes open to avoid LOB. PT-OP-E Functional Tests Start: 10/28/18 08:46 Freq: Status: Active Protocol: Document 03/18/19 12:38 BS (Rec: 03/18/19 12:53 BS [id number]) Functional Tests Dynamic Gait Index (DGI) Score 13 DGI Impairment Rating 40 to <60% Impaired (Score 10- 14) PT-OP-G Mobility & Gait Start: 10/27/18 07:33 Freq: Status: Active Protocol: Document 10/27/18 13:00 AMB (Rec: 10/28/18 08:51 AMB [email or web address]) OP Gait Assessment Comments Gait Comments Pt ambulates with WBOS with 4WW. She reports she furniture walks at home. She intermittently reaches out for the wall with walking despite the walker. PT-OP-O Vestibular Start: 10/27/18 07:33 Freq: Status: Active Protocol: Document 10/27/18 13:00 AMB (Rec: 10/28/18 12:49 AMB [email or web address]) Vestibular Assessment Visual Testing Smooth Pursuits Horizontal unable Smooth Pursuits Vertical unable Saccades Horizontal overshooting to the R Gaze Evoked Nystagmus With Fixation Negative Gaze Evoked Nystagmus Without Fixation Negative Thrust Head Positive Bilateral Convergence Test Impaired Comments Vestibular Comments The patient has been evaluated by ENT with a VNG, the patient states the Jama maneuver has never worked, and in the ENT notes, both [place]- hallpike and roll testing were negative, so not tested at this time. Pt had difficulty with all testing, so more intensive testing was not performed at this time. PT-OP-Q Treatments Start: 10/27/18 07:33 Freq: Status: Active Protocol: Document 03/18/19 12:38 BS (Rec: 03/18/19 12:53 BS [id number]) Neuro Re-Education Treatment Balance Activities 3 Details Gait with gaze fixation Surface firm. no head movement Equipment WBQC and 4WW Comments Slow gait speed, no sequencing errors. More nauseau and occasional brief instance of unsteadiness. Vestibular Rehabilitation Other- 1 Details Dynamic Gait Index Comments Completed DGI today. Score improved from 8 to 13 since IE . VOR Retraining Details VOR x1 Background plain Distance From Target 5' Speed slow Position standing Comments horizontal, vertical, diagonal head movement. Duration <30 seconds at a time. PT-OP-R Modalities Start: 01/05/19 12:51 Freq: Status: Active Protocol: Document 01/05/19 11:15 AMB (Rec: 01/05/19 12:52 AMB [email or web address]) Electric Stimulation Electric Stimulation Interferential Current (IFC) Body Location L shoulder Patient Position Hooklying Combined With Heat/Cold Hot Pack PT-OP-T Assessment and Plan Start: 10/27/18 07:33 Freq: Status: Active Protocol: Document 03/18/19 12:38 BS (Rec: 03/18/19 12:53 BS [id number]) Physical Therapy Assessment Goals Two Impairment Dizziness Short Term Goal (STG) The patient will walk with her 4WW for 500 feet without an increase in dizziness or motion sickness. STG Duration PARTIALLY MET Mortgage Loan Officer Originator Goal (LTG) The patient will walk in a visually complex environment ( like a supermarket) for 10 minutes without loss of balance. LTG Duration PARTIALLY MET One Impairment Falls Short Term Goal (STG) The patient will report no falls during her time in PT. STG Duration MET Snf Goal (LTG) The patient will tolerate the DGI test and score 16/24 or higher to show a reduced risk of falling. PROGRESSING TOWARD . SCORE 4/26: LTG Duration 10 weeks Assessment Summary Assessment Pt has made progress with PT and has subjectively reported improvements in balance the last few weeks. She has been tolerating longer duration VOR retraining and progressions with less symptoms with the exception of today's session in which pt has felt off all week with decreased balance. Pt using WBQC during sesions with hopes to utilize with community ambulation when safe . Pt demo'd improve dynamic gait index score from 8 to 13 since IE but is still at risk for falls. Pt continues to benefit from skilled PT for balance and VOR training to promote return to PLOF. Physical Therapy Plan Frequency and Duration Frequency of Treatment 1x/Week Duration of Treatment 10 weeks Plan of Care Start Date 03/18/19 Plan of Care End Date 05/27/19 Therapeutic Interventions Therapeutic Interventions Balance Training Coordination Training Gait Training Home Exercise Program Manual Therapy Neuromuscular Re-education Self-Care/Home Management Therapeutic Activities Therapeutic Exercises Vestibular Rehabilitation Modalities Cold Pack/Ice Massage Electric Stimulation Hot Packs Next Visit Focus/Plan Next Note Type Treatment Note Next Visit Plan VOR x1, x2 and gait gaze stabilization with WBQC as pt tolerates.
--- NOTE | 2019-03-18 15:57 | PT.OPPOC ---
Current Diagnoses Dizziness and giddiness (03/18/19) Provider Visit Care Team Role Provider Type Francisco Ferreira MD Other Providers Physician Primary Care Provider Specialty: Internal Medicine Address: [address] [place] [address], [id number] Email: Jonatan Sage MD Attending Provider Physician Specialty: Ear, Nose, Throat Address: [address] [place] [address], [id number] Email: Plan Of Care PT-OP-T Assessment and Plan Start: 10/27/18 07:33 Freq: Status: Active Protocol: Document 03/18/19 12:38 BS (Rec: 03/18/19 12:53 BS [id number]) Physical Therapy Assessment Goals Two Impairment Dizziness Short Term Goal (STG) The patient will walk with her 4WW for 500 feet without an increase in dizziness or motion sickness. STG Duration PARTIALLY MET Detention Goal (LTG) The patient will walk in a visually complex environment ( like a supermarket) for 10 minutes without loss of balance. LTG Duration PARTIALLY MET One Impairment Falls Short Term Goal (STG) The patient will report no falls during her time in PT. STG Duration MET Detention Goal (LTG) The patient will tolerate the DGI test and score 16/24 or higher to show a reduced risk of falling. PROGRESSING TOWARD . SCORE 03/18: 13/24 LTG Duration 10 weeks Assessment Summary Assessment Pt has made progress with PT and has subjectively reported improvements in balance the last few weeks. She has been tolerating longer duration VOR retraining and progressions with less symptoms with the exception of today's session in which pt has felt off all week with decreased balance. Pt using WBQC during sesions with hopes to utilize with community ambulation when safe . Pt demo'd improve dynamic gait index score from 8 to 13 since IE but is still at risk for falls. Pt continues to benefit from skilled PT for balance and VOR training to promote return to PLOF. Physical Therapy Plan Frequency and Duration Frequency of Treatment 1x/Week Duration of Treatment 10 weeks Plan of Care Start Date 03/18/19 Plan of Care End Date 05/27/19 Therapeutic Interventions Therapeutic Interventions Balance Training Coordination Training Gait Training Home Exercise Program Manual Therapy Neuromuscular Re-education Self-Care/Home Management Therapeutic Activities Therapeutic Exercises Vestibular Rehabilitation Modalities Cold Pack/Ice Massage Electric Stimulation Hot Packs Next Visit Focus/Plan Next Note Type Treatment Note Next Visit Plan VOR x1, x2 and gait gaze stabilization with WBQC as pt tolerates. Plan of Care Dates Plan of Care Start Date 03/18/19 Plan of Care End Date 05/27/19 Please Sign and Return: I have reviewed this Plan of Care and certify that the skilled therapy services above are required to meet the patient?s needs. Physician Signature Date Printed Name and Credentials Clinical Instructor Signature Printed Name and Credentials
--- NOTE | 2019-03-21 14:09 | PT.OTN ---
Current Diagnoses Dizziness and giddiness (03/21/19) Physical Therapy Treatment Note PT-OP-A Visit Information Start: 10/27/18 07:33 Freq: Status: Active Protocol: Document 03/21/19 13:42 BS (Rec: 03/21/19 13:46 BS [email or web address]) Out-Patient Physical Therapy Visit Information Visit Information Visit Type Treatment Note Visit Start Time 13:00 Visit Stop Time 13:41 Total Visit Minutes 42 Visit Number 14 PT-OP-B Current Condition Start: 10/27/18 07:33 Freq: Status: Active Protocol: Document 10/27/18 13:00 AMB (Rec: 10/30/18 15:50 AMB [email or web address]) Current Condition History of Current Condition Onset Date November 2017 Current Complaints increased motion sickness, falls History of Current Condition The patient reports that she had a virus in the that has led her to be on disability ever since. She was motion sick but she had been managing her symptoms. She was not using an assistive device. Then she had an inner ear infection in November and since that time her symptoms have worsened significantly. She reports about 20 falls in the last 6 months. She lives independently, but does have friends who will drive her to medical appointments. She describes motion sickness with all movement, worst with looking up. She does not roll over in bed as she sleeps sitting up due to her asthma. 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 Per patient, she says that after multiple imaging MD decided that the occlusion is not likely causing her symptoms. 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 Overall there was a strong central involvement. Future Testing and Treatments Planned She is going to be seeing a neurologist soon. Treatment Goals Patient/Caregiver Goals Reduce motion sickness, not have to use 4WW Prior Functional Status Baseline Function- ADL's Needs Assist Baseline Function- Mobility Needs Assist Baseline Function- Recreation/Hobbies The patient has been on disability for years, but almost a year ago her symptoms worsened. Now she has difficulty volunteering at the soup kitchen, and has not gone to [employer] because her dizziness is so severe. Previously she was not driving , but was able to walk from her home to the library independently, now she is unable to do this. Current Functional Impairments (Reported) Functional Limitations- ADL's Unable to walk more than a block or two, no energy Personal Factors Other Personal Factors That May Effect Concussion history, migraines Therapy/Recovery a couple times per month, osteopenia, history of multiple falls, difficulty reading, asthma. PT-OP-C Subjective Start: 10/27/18 07:33 Freq: Status: Active Protocol: Document 03/21/19 13:42 BS (Rec: 03/21/19 13:46 BS [email or web address]) OP-PT Subjective Patient Comments Patient Comments Pt states that she is feeling a little better than last week , is sleeping more and feels more energized. Has felt more stable with gait and applied exercise physiologist. PT-OP-D Balance Start: 10/27/18 07:33 Freq: Status: Active Protocol: Document 10/27/18 13:00 AMB (Rec: 10/28/18 12:51 AMB [email or web address]) Balance Tests Single Limb Standing Single Limb- Right unable Single Limb- Left unable Semi-Tandem Standing Semi-Tandem Standing Balance unable-pt falls Tandem Tandem Standing unable Other Other Balance Tests Performed When pt is standing with WBOS she requires intermittent UE support with eyes open to avoid LOB. PT-OP-E Functional Tests Start: 10/28/18 08:46 Freq: Status: Active Protocol: Document 03/18/19 12:38 BS (Rec: 03/18/19 12:53 BS [id number]) Functional Tests Dynamic Gait Index (DGI) Score 13 DGI Impairment Rating 40 to <60% Impaired (Score 10- 14) PT-OP-G Mobility & Gait Start: 10/27/18 07:33 Freq: Status: Active Protocol: Document 10/27/18 13:00 AMB (Rec: 10/28/18 08:51 AMB [email or web address]) OP Gait Assessment Comments Gait Comments Pt ambulates with WBOS with 4WW. She reports she furniture walks at home. She intermittently reaches out for the wall with walking despite the walker. PT-OP-O Vestibular Start: 10/27/18 07:33 Freq: Status: Active Protocol: Document 10/27/18 13:00 AMB (Rec: 10/28/18 12:49 AMB [email or web address]) Vestibular Assessment Visual Testing Smooth Pursuits Horizontal unable Smooth Pursuits Vertical unable Saccades Horizontal overshooting to the R Gaze Evoked Nystagmus With Fixation Negative Gaze Evoked Nystagmus Without Fixation Negative Thrust Head Positive Bilateral Convergence Test Impaired Comments Vestibular Comments The patient has been evaluated by ENT with a VNG, the patient states the Jama maneuver has never worked, and in the ENT notes, both [place]- hallpike and roll testing were negative, so not tested at this time. Pt had difficulty with all testing, so more intensive testing was not performed at this time. PT-OP-Q Treatments Start: 10/27/18 07:33 Freq: Status: Active Protocol: Document 03/21/19 13:42 BS (Rec: 03/21/19 13:46 BS [email or web address]) Neuro Re-Education Treatment Balance Activities 3 Details Gait with gaze fixation Surface firm. no head movement Equipment WBQC and 4WW Comments Slow gait speed, 2 sequencing errors today with QC. 2 Details Walking with head movement Comments horizontal/vertical head movement with gaze stabilization, use of FWW. Horizontal more challenging today. Vestibular Rehabilitation X2 Viewing Details VOR x2 Background Plain Distance From Target arm length Speed slow Position Sitting Comments VCs to avoid trunk rotation and for correct technique. VOR Retraining Details VOR x1 Background complex Speed slow Position standing Comments horizontal, vertical, diagonal head movement. Duration 20-35 seconds at a time. Improvement from last session. PT-OP-R Modalities Start: 01/05/19 12:51 Freq: Status: Active Protocol: Document 01/05/19 11:15 AMB (Rec: 01/05/19 12:52 AMB [email or web address]) Electric Stimulation Electric Stimulation Interferential Current (IFC) Body Location L shoulder Patient Position Hooklying Combined With Heat/Cold Hot Pack PT-OP-T Assessment and Plan Start: 10/27/18 07:33 Freq: Status: Active Protocol: Document 03/21/19 13:42 BS (Rec: 03/21/19 13:46 BS [email or web address]) Physical Therapy Assessment Assessment Summary Assessment Pt seems to be doing better than last week and subjectively reports feeling more stable with daily activities. She tolerated longer durations of VOR training today, but continues to have some nausea with exercises. Physical Therapy Plan Next Visit Focus/Plan Next Note Type Treatment Note Next Visit Plan Continue with VOR retraining, VOR x1 consider foam under feet for progression.
--- NOTE | 2019-04-05 15:01 | PT.OTN ---
Current Diagnoses Dizziness and giddiness (04/05/19) Physical Therapy Treatment Note PT-OP-A Visit Information Start: 10/27/18 07:33 Freq: Status: Active Protocol: Document 04/05/19 13:45 AMB (Rec: 04/05/19 14:52 AMB [email or web address]) Out-Patient Physical Therapy Visit Information Visit Information Visit Type Treatment Note Visit Start Time 13:00 Visit Stop Time 13:45 Total Visit Minutes 45 Visit Number 15 PT-OP-B Current Condition Start: 10/27/18 07:33 Freq: Status: Active Protocol: Document 10/27/18 13:00 AMB (Rec: 10/30/18 15:50 AMB [email or web address]) Current Condition History of Current Condition Onset Date November 2017 Current Complaints increased motion sickness, falls History of Current Condition The patient reports that she had a virus in the that has led her to be on disability ever since. She was motion sick but she had been managing her symptoms. She was not using an assistive device. Then she had an inner ear infection in November and since that time her symptoms have worsened significantly. She reports about 20 falls in the last 6 months. She lives independently, but does have friends who will drive her to medical appointments. She describes motion sickness with all movement, worst with looking up. She does not roll over in bed as she sleeps sitting up due to her asthma. 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 Per patient, she says that after multiple imaging MD decided that the occlusion is not likely causing her symptoms. 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 Overall there was a strong central involvement. Future Testing and Treatments Planned She is going to be seeing a neurologist soon. Treatment Goals Patient/Caregiver Goals Reduce motion sickness, not have to use 4WW Prior Functional Status Baseline Function- ADL's Needs Assist Baseline Function- Mobility Needs Assist Baseline Function- Recreation/Hobbies The patient has been on disability for years, but almost a year ago her symptoms worsened. Now she has difficulty volunteering at the soup kitchen, and has not gone to budd[employer] because her dizziness is so severe. Previously she was not driving , but was able to walk from her home to the library independently, now she is unable to do this. Current Functional Impairments (Reported) Functional Limitations- ADL's Unable to walk more than a block or two, no energy Personal Factors Other Personal Factors That May Effect Concussion history, migraines Therapy/Recovery a couple times per month, osteopenia, history of multiple falls, difficulty reading, asthma. PT-OP-C Subjective Start: 10/27/18 07:33 Freq: Status: Active Protocol: Document 04/05/19 13:45 AMB (Rec: 04/05/19 14:52 AMB [email or web address]) OP-PT Subjective Patient Comments Patient Comments Arline reports she has been doing better over the last couple days. She had one day that was really good, more energy for walking. She may have over done it that day though. PT-OP-D Balance Start: 10/27/18 07:33 Freq: Status: Active Protocol: Document 10/27/18 13:00 AMB (Rec: 10/28/18 12:51 AMB [email or web address]) Balance Tests Single Limb Standing Single Limb- Right unable Single Limb- Left unable Semi-Tandem Standing Semi-Tandem Standing Balance unable-pt falls Tandem Tandem Standing unable Other Other Balance Tests Performed When pt is standing with WBOS she requires intermittent UE support with eyes open to avoid LOB. PT-OP-E Functional Tests Start: 10/28/18 08:46 Freq: Status: Active Protocol: Document 03/18/19 12:38 BS (Rec: 03/18/19 12:53 BS [id number]) Functional Tests Dynamic Gait Index (DGI) Score 13 DGI Impairment Rating 40 to <60% Impaired (Score 10- 14) PT-OP-G Mobility & Gait Start: 10/27/18 07:33 Freq: Status: Active Protocol: Document 10/27/18 13:00 AMB (Rec: 10/28/18 08:51 AMB [email or web address]) OP Gait Assessment Comments Gait Comments Pt ambulates with WBOS with 4WW. She reports she furniture walks at home. She intermittently reaches out for the wall with walking despite the walker. PT-OP-O Vestibular Start: 10/27/18 07:33 Freq: Status: Active Protocol: Document 10/27/18 13:00 AMB (Rec: 10/28/18 12:49 AMB [email or web address]) Vestibular Assessment Visual Testing Smooth Pursuits Horizontal unable Smooth Pursuits Vertical unable Saccades Horizontal overshooting to the R Gaze Evoked Nystagmus With Fixation Negative Gaze Evoked Nystagmus Without Fixation Negative Thrust Head Positive Bilateral Convergence Test Impaired Comments Vestibular Comments The patient has been evaluated by ENT with a VNG, the patient states the Jama maneuver has never worked, and in the ENT notes, both [place]- hallpike and roll testing were negative, so not tested at this time. Pt had difficulty with all testing, so more intensive testing was not performed at this time. PT-OP-Q Treatments Start: 10/27/18 07:33 Freq: Status: Active Protocol: Document 04/05/19 13:45 AMB (Rec: 04/05/19 15:01 AMB [email or web address]) Gym Equipment Shuttle Balance 1 Details Green Comments with 1 UE support VOR challenge Neuro Re-Education Treatment Balance Activities 3 Details Gait with gaze fixation Surface firm. no head movement Equipment WBQC Comments Better gait speed 2 Details Walking with head movement Comments horizontal/vertical head movement with gaze stabilization, use of FWW. Horizontal more challenging today. Vestibular Rehabilitation VOR Retraining Details VOR x1 Background complex Speed slow Position standing Comments horizontal, vertical, diagonal head movement. Duration 20-35 seconds at a time. Improvement from last session. PT-OP-R Modalities Start: 01/05/19 12:51 Freq: Status: Active Protocol: Document 01/05/19 11:15 AMB (Rec: 01/05/19 12:52 AMB [email or web address]) Electric Stimulation Electric Stimulation Interferential Current (IFC) Body Location L shoulder Patient Position Hooklying Combined With Heat/Cold Hot Pack PT-OP-T Assessment and Plan Start: 10/27/18 07:33 Freq: Status: Active Protocol: Document 04/05/19 13:45 AMB (Rec: 04/05/19 15:01 AMB [email or web address]) Physical Therapy Assessment Assessment Summary Assessment Pt tolerated VOR with balance board today. Overall requiring less rest breaks. Physical Therapy Plan Next Visit Focus/Plan Next Note Type Treatment Note Next Visit Plan Foam and increased speed of VOR as pt progresses.
--- NOTE | 2019-04-12 16:00 | PT.OTN ---
Current Diagnoses Dizziness and giddiness (04/12/19) Physical Therapy Treatment Note PT-OP-A Visit Information Start: 10/27/18 07:33 Freq: Status: Active Protocol: Document 04/12/19 13:00 AMB (Rec: 04/13/19 09:02 AMB [email or web address]) Out-Patient Physical Therapy Visit Information Visit Information Visit Type Treatment Note Visit Start Time 13:00 Visit Stop Time 13:45 Total Visit Minutes 45 Visit Number 16 PT-OP-B Current Condition Start: 10/27/18 07:33 Freq: Status: Active Protocol: Document 10/27/18 13:00 AMB (Rec: 10/30/18 15:50 AMB [email or web address]) Current Condition History of Current Condition Onset Date November 2017 Current Complaints increased motion sickness, falls History of Current Condition The patient reports that she had a virus in the that has led her to be on disability ever since. She was motion sick but she had been managing her symptoms. She was not using an assistive device. Then she had an inner ear infection in November and since that time her symptoms have worsened significantly. She reports about 20 falls in the last 6 months. She lives independently, but does have friends who will drive her to medical appointments. She describes motion sickness with all movement, worst with looking up. She does not roll over in bed as she sleeps sitting up due to her asthma. 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 Per patient, she says that after multiple imaging MD decided that the occlusion is not likely causing her symptoms. 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 Overall there was a strong central involvement. Future Testing and Treatments Planned She is going to be seeing a neurologist soon. Treatment Goals Patient/Caregiver Goals Reduce motion sickness, not have to use 4WW Prior Functional Status Baseline Function- ADL's Needs Assist Baseline Function- Mobility Needs Assist Baseline Function- Recreation/Hobbies The patient has been on disability for years, but almost a year ago her symptoms worsened. 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 Previously she was not driving , but was able to walk from her home to the library independently, now she is unable to do this. Current Functional Impairments (Reported) Functional Limitations- ADL's Unable to walk more than a block or two, no energy Personal Factors Other Personal Factors That May Effect Concussion history, migraines Therapy/Recovery a couple times per month, osteopenia, history of multiple falls, difficulty reading, asthma. PT-OP-C Subjective Start: 10/27/18 07:33 Freq: Status: Active Protocol: Document 04/12/19 13:00 AMB (Rec: 04/13/19 09:02 AMB [email or web address]) OP-PT Subjective Patient Comments Patient Comments Arline reports overall she is feeling better, she continues to have some down days, but overall she is walking more and sleeping less. She continues to need to use her 4WW in the community. PT-OP-D Balance Start: 10/27/18 07:33 Freq: Status: Active Protocol: Document 10/27/18 13:00 AMB (Rec: 10/28/18 12:51 AMB [email or web address]) Balance Tests Single Limb Standing Single Limb- Right unable Single Limb- Left unable Semi-Tandem Standing Semi-Tandem Standing Balance unable-pt falls Tandem Tandem Standing unable Other Other Balance Tests Performed When pt is standing with WBOS she requires intermittent UE support with eyes open to avoid LOB. PT-OP-E Functional Tests Start: 10/28/18 08:46 Freq: Status: Active Protocol: Document 03/18/19 12:38 BS (Rec: 03/18/19 12:53 BS [id number]) Functional Tests Dynamic Gait Index (DGI) Score 13 DGI Impairment Rating 40 to <60% Impaired (Score 10- 14) PT-OP-G Mobility & Gait Start: 10/27/18 07:33 Freq: Status: Active Protocol: Document 10/27/18 13:00 AMB (Rec: 10/28/18 08:51 AMB [email or web address]) OP Gait Assessment Comments Gait Comments Pt ambulates with WBOS with 4WW. She reports she furniture walks at home. She intermittently reaches out for the wall with walking despite the walker. PT-OP-O Vestibular Start: 10/27/18 07:33 Freq: Status: Active Protocol: Document 10/27/18 13:00 AMB (Rec: 10/28/18 12:49 AMB [email or web address]) Vestibular Assessment Visual Testing Smooth Pursuits Horizontal unable Smooth Pursuits Vertical unable Saccades Horizontal overshooting to the R Gaze Evoked Nystagmus With Fixation Negative Gaze Evoked Nystagmus Without Fixation Negative Thrust Head Positive Bilateral Convergence Test Impaired Comments Vestibular Comments The patient has been evaluated by ENT with a VNG, the patient states the Jama maneuver has never worked, and in the ENT notes, both [place]- hallpike and roll testing were negative, so not tested at this time. Pt had difficulty with all testing, so more intensive testing was not performed at this time. PT-OP-Q Treatments Start: 10/27/18 07:33 Freq: Status: Active Protocol: Document 04/12/19 13:00 AMB (Rec: 04/13/19 09:02 AMB [email or web address]) Gym Equipment Shuttle Balance 1 Details Blue Comments with 1 UE support progressing to no UE support Neuro Re-Education Treatment Balance Activities 3 Details Gait with gaze fixation Surface firm. no head movement Equipment WBQC Comments Better gait speed 2 Details Walking with head movement Comments horizontal/vertical head movement with gaze stabilization, use of FWW. Horizontal more challenging today. Vestibular Rehabilitation X2 Viewing Details VOR x2 Background Plain Distance From Target arm length Speed slow Position Standing Comments VCs to avoid trunk rotation and for correct technique. VOR Retraining Details VOR x1 Background complex Speed slow Position standing Comments horizontal, vertical, diagonal head movement. Duration 20-35 seconds at a time. Improvement from last session. PT-OP-R Modalities Start: 01/05/19 12:51 Freq: Status: Active Protocol: Document 01/05/19 11:15 AMB (Rec: 01/05/19 12:52 AMB [email or web address]) Electric Stimulation Electric Stimulation Interferential Current (IFC) Body Location L shoulder Patient Position Hooklying Combined With Heat/Cold Hot Pack PT-OP-T Assessment and Plan Start: 10/27/18 07:33 Freq: Status: Active Protocol: Document 04/12/19 13:00 AMB (Rec: 04/13/19 09:02 AMB [email or web address]) Physical Therapy Assessment Assessment Summary Assessment Gait speed overall improved today. Pt continues to have times where she needs to ground, but overall tolerates more with less rest breaks. Physical Therapy Plan Next Visit Focus/Plan Next Note Type Treatment Note Next Visit Plan Foam and increased speed of VOR as pt progresses.
--- NOTE | 2019-04-27 16:00 | PT.OTN ---
Current Diagnoses Dizziness and giddiness (04/27/19) Physical Therapy Treatment Note PT-OP-A Visit Information Start: 10/27/18 07:33 Freq: Status: Active Protocol: Document 04/27/19 13:45 AMB (Rec: 04/27/19 14:02 AMB [id number]) Out-Patient Physical Therapy Visit Information Visit Information Visit Type Treatment Note Visit Start Time 13:45 Visit Stop Time 14:30 Total Visit Minutes 45 Visit Number 17 PT-OP-B Current Condition Start: 10/27/18 07:33 Freq: Status: Active Protocol: Document 10/27/18 13:00 AMB (Rec: 10/30/18 15:50 AMB [email or web address]) Current Condition History of Current Condition Onset Date November 2017 Current Complaints increased motion sickness, falls History of Current Condition The patient reports that she had a virus in the that has led her to be on disability ever since. She was motion sick but she had been managing her symptoms. She was not using an assistive device. Then she had an inner ear infection in November and since that time her symptoms have worsened significantly. She reports about 20 falls in the last 6 months. She lives independently, but does have friends who will drive her to medical appointments. She describes motion sickness with all movement, worst with looking up. She does not roll over in bed as she sleeps sitting up due to her asthma. 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 Per patient, she says that after multiple imaging MD decided that the occlusion is not likely causing her symptoms. 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 Overall there was a strong central involvement. Future Testing and Treatments Planned She is going to be seeing a neurologist soon. Treatment Goals Patient/Caregiver Goals Reduce motion sickness, not have to use 4WW Prior Functional Status Baseline Function- ADL's Needs Assist Baseline Function- Mobility Needs Assist Baseline Function- Recreation/Hobbies The patient has been on disability for years, but almost a year ago her symptoms worsened. Now she has difficulty volunteering at the soup kitchen, and has not gone to [employer] because her dizziness is so severe. Previously she was not driving , but was able to walk from her home to the library independently, now she is unable to do this. Current Functional Impairments (Reported) Functional Limitations- ADL's Unable to walk more than a block or two, no energy Personal Factors Other Personal Factors That May Effect Concussion history, migraines Therapy/Recovery a couple times per month, osteopenia, history of multiple falls, difficulty reading, asthma. PT-OP-C Subjective Start: 10/27/18 07:33 Freq: Status: Active Protocol: Document 04/27/19 13:45 AMB (Rec: 04/27/19 14:02 AMB [id number]) OP-PT Subjective Patient Comments Patient Comments Arline has been walking more, but overall feeling a little more off balance. PT-OP-D Balance Start: 10/27/18 07:33 Freq: Status: Active Protocol: Document 10/27/18 13:00 AMB (Rec: 10/28/18 12:51 AMB [email or web address]) Balance Tests Single Limb Standing Single Limb- Right unable Single Limb- Left unable Semi-Tandem Standing Semi-Tandem Standing Balance unable-pt falls Tandem Tandem Standing unable Other Other Balance Tests Performed When pt is standing with WBOS she requires intermittent UE support with eyes open to avoid LOB. PT-OP-E Functional Tests Start: 10/28/18 08:46 Freq: Status: Active Protocol: Document 03/18/19 12:38 BS (Rec: 03/18/19 12:53 BS [id number]) Functional Tests Dynamic Gait Index (DGI) Score 13 DGI Impairment Rating 40 to <60% Impaired (Score 10- 14) PT-OP-G Mobility & Gait Start: 10/27/18 07:33 Freq: Status: Active Protocol: Document 10/27/18 13:00 AMB (Rec: 10/28/18 08:51 AMB [email or web address]) OP Gait Assessment Comments Gait Comments Pt ambulates with WBOS with 4WW. She reports she furniture walks at home. She intermittently reaches out for the wall with walking despite the walker. PT-OP-O Vestibular Start: 10/27/18 07:33 Freq: Status: Active Protocol: Document 10/27/18 13:00 AMB (Rec: 10/28/18 12:49 AMB [email or web address]) Vestibular Assessment Visual Testing Smooth Pursuits Horizontal unable Smooth Pursuits Vertical unable Saccades Horizontal overshooting to the R Gaze Evoked Nystagmus With Fixation Negative Gaze Evoked Nystagmus Without Fixation Negative Thrust Head Positive Bilateral Convergence Test Impaired Comments Vestibular Comments The patient has been evaluated by ENT with a VNG, the patient states the Jama maneuver has never worked, and in the ENT notes, both Honey- hallpike and roll testing were negative, so not tested at this time. Pt had difficulty with all testing, so more intensive testing was not performed at this time. PT-OP-Q Treatments Start: 10/27/18 07:33 Freq: Status: Active Protocol: Document 04/27/19 13:45 AMB (Rec: 04/28/19 07:11 AMB [email or web address]) Gym Equipment Shuttle Balance 1 Details Blue Comments no Ue support, WBOS, progressing to stride stance Neuro Re-Education Treatment Balance Activities 3 Details Gait with gaze fixation Surface firm. no head movement Equipment WBQC Comments Better gait speed 2 Details Walking with head movement Comments horizontal/vertical head movement with gaze stabilization, use of SBQC. 1 Details foam balance Comments blue pods, EO/EC, horizontal HT Vestibular Rehabilitation X2 Viewing Details VOR x2 Background Plain Distance From Target arm length Speed slow Position Standing Comments VCs to avoid trunk rotation and for correct technique. VOR Retraining Details VOR x1 Background complex Speed slow Position standing Comments horizontal, vertical, diagonal head movement. Duration 20-35 seconds at a time. Improvement from last session. PT-OP-R Modalities Start: 01/05/19 12:51 Freq: Status: Active Protocol: Document 01/05/19 11:15 AMB (Rec: 01/05/19 12:52 AMB [email or web address]) Electric Stimulation Electric Stimulation Interferential Current (IFC) Body Location L shoulder Patient Position Hooklying Combined With Heat/Cold Hot Pack PT-OP-T Assessment and Plan Start: 10/27/18 07:33 Freq: Status: Active Protocol: Document 04/27/19 13:45 AMB (Rec: 04/28/19 07:11 AMB [email or web address]) Physical Therapy Assessment Assessment Summary Assessment Arline tolerated increased challenges well today. No significant veering with quad cane ambulation with head turns, but did notice difficulty with foam balance. Physical Therapy Plan Next Visit Focus/Plan Next Note Type Treatment Note Next Visit Plan Continue uneven surface/ increased challenge of VOR
--- NOTE | 2019-05-04 16:09 | PT.OTN ---
Current Diagnoses Dizziness and giddiness (05/04/19) Physical Therapy Treatment Note PT-OP-A Visit Information Start: 10/27/18 07:33 Freq: Status: Active Protocol: Document 05/04/19 14:30 AMB (Rec: 05/04/19 16:08 AMB [email or web address]) Out-Patient Physical Therapy Visit Information Visit Information Visit Type Treatment Note Visit Start Time 14:30 Visit Stop Time 15:15 Total Visit Minutes 45 Visit Number 18 PT-OP-B Current Condition Start: 10/27/18 07:33 Freq: Status: Active Protocol: Document 10/27/18 13:00 AMB (Rec: 10/30/18 15:50 AMB [email or web address]) Current Condition History of Current Condition Onset Date November 2017 Current Complaints increased motion sickness, falls History of Current Condition The patient reports that she had a virus in the that has led her to be on disability ever since. She was motion sick but she had been managing her symptoms. She was not using an assistive device. Then she had an inner ear infection in November and since that time her symptoms have worsened significantly. She reports about 20 falls in the last 6 months. She lives independently, but does have friends who will drive her to medical appointments. She describes motion sickness with all movement, worst with looking up. She does not roll over in bed as she sleeps sitting up due to her asthma. 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 Per patient, she says that after multiple imaging MD decided that the occlusion is not likely causing her symptoms. 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 Overall there was a strong central involvement. Future Testing and Treatments Planned She is going to be seeing a neurologist soon. Treatment Goals Patient/Caregiver Goals Reduce motion sickness, not have to use 4WW Prior Functional Status Baseline Function- ADL's Needs Assist Baseline Function- Mobility Needs Assist Baseline Function- Recreation/Hobbies The patient has been on disability for years, but almost a year ago her symptoms worsened. Now she has difficulty volunteering at the soup kitchen, and has not gone to [employer] because her dizziness is so severe. Previously she was not driving , but was able to walk from her home to the library independently, now she is unable to do this. Current Functional Impairments (Reported) Functional Limitations- ADL's Unable to walk more than a block or two, no energy Personal Factors Other Personal Factors That May Effect Concussion history, migraines Therapy/Recovery a couple times per month, osteopenia, history of multiple falls, difficulty reading, asthma. PT-OP-C Subjective Start: 10/27/18 07:33 Freq: Status: Active Protocol: Document 05/04/19 14:30 AMB (Rec: 05/04/19 16:08 AMB [email or web address]) OP-PT Subjective Patient Comments Patient Comments Arline notes increased energy, but contineus to find the mornings difficult and highly complicated visual stimuli increase her symptoms PT-OP-D Balance Start: 10/27/18 07:33 Freq: Status: Active Protocol: Document 10/27/18 13:00 AMB (Rec: 10/28/18 12:51 AMB [email or web address]) Balance Tests Single Limb Standing Single Limb- Right unable Single Limb- Left unable Semi-Tandem Standing Semi-Tandem Standing Balance unable-pt falls Tandem Tandem Standing unable Other Other Balance Tests Performed When pt is standing with WBOS she requires intermittent UE support with eyes open to avoid LOB. PT-OP-E Functional Tests Start: 10/28/18 08:46 Freq: Status: Active Protocol: Document 03/18/19 12:38 BS (Rec: 03/18/19 12:53 BS [id number]) Functional Tests Dynamic Gait Index (DGI) Score 13 DGI Impairment Rating 40 to <60% Impaired (Score 10- 14) PT-OP-G Mobility & Gait Start: 10/27/18 07:33 Freq: Status: Active Protocol: Document 10/27/18 13:00 AMB (Rec: 10/28/18 08:51 AMB [email or web address]) OP Gait Assessment Comments Gait Comments Pt ambulates with WBOS with 4WW. She reports she furniture walks at home. She intermittently reaches out for the wall with walking despite the walker. PT-OP-O Vestibular Start: 10/27/18 07:33 Freq: Status: Active Protocol: Document 10/27/18 13:00 AMB (Rec: 10/28/18 12:49 AMB [email or web address]) Vestibular Assessment Visual Testing Smooth Pursuits Horizontal unable Smooth Pursuits Vertical unable Saccades Horizontal overshooting to the R Gaze Evoked Nystagmus With Fixation Negative Gaze Evoked Nystagmus Without Fixation Negative Thrust Head Positive Bilateral Convergence Test Impaired Comments Vestibular Comments The patient has been evaluated by ENT with a VNG, the patient states the Jama maneuver has never worked, and in the ENT notes, both Honey- hallpike and roll testing were negative, so not tested at this time. Pt had difficulty with all testing, so more intensive testing was not performed at this time. PT-OP-Q Treatments Start: 10/27/18 07:33 Freq: Status: Active Protocol: Document 05/04/19 14:30 AMB (Rec: 05/04/19 16:08 AMB [email or web address]) Gym Equipment Shuttle Balance 1 Details Blue Comments no Ue support, WBOS, progressing to stride stance Neuro Re-Education Treatment Balance Activities 2 Details Walking with head movement Comments horizontal/vertical head movement with gaze stabilization, use of SBQC. 1 Details foam balance Comments blue pods, EO/EC, horizontal HT Vestibular Rehabilitation X2 Viewing Details VOR x2 Background Plain Distance From Target arm length Speed slow Position Standing Comments VCs to avoid trunk rotation and for correct technique. VOR Retraining Details VOR x1 Background complex Speed slow Position standing Comments horizontal, vertical, diagonal head movement. Duration 20-35 seconds at a time. No UE support. PT-OP-R Modalities Start: 01/05/19 12:51 Freq: Status: Active Protocol: Document 01/05/19 11:15 AMB (Rec: 01/05/19 12:52 AMB [email or web address]) Electric Stimulation Electric Stimulation Interferential Current (IFC) Body Location L shoulder Patient Position Hooklying Combined With Heat/Cold Hot Pack PT-OP-T Assessment and Plan Start: 10/27/18 07:33 Freq: Status: Active Protocol: Document 05/04/19 14:30 AMB (Rec: 05/04/19 16:08 AMB [email or web address]) Physical Therapy Assessment Assessment Summary Assessment Arline tolerated exercises well today, better tolerance of foam. Physical Therapy Plan Next Visit Focus/Plan Next Note Type Treatment Note Next Visit Plan Continue uneven surface/ increased challenge of VOR
--- NOTE | 2019-05-18 15:20 | PT.OTN ---
Current Diagnoses Dizziness and giddiness (05/18/19) Physical Therapy Treatment Note PT-OP-A Visit Information Start: 10/27/18 07:33 Freq: Status: Active Protocol: Document 05/18/19 13:00 AMB (Rec: 05/18/19 13:16 AMB [id number]) Out-Patient Physical Therapy Visit Information Visit Information Visit Type Treatment Note Visit Start Time 13:00 Visit Stop Time 13:45 Total Visit Minutes 45 Visit Number 19 PT-OP-B Current Condition Start: 10/27/18 07:33 Freq: Status: Active Protocol: Document 10/27/18 13:00 AMB (Rec: 10/30/18 15:50 AMB [email or web address]) Current Condition History of Current Condition Onset Date November 2017 Current Complaints increased motion sickness, falls History of Current Condition The patient reports that she had a virus in the that has led her to be on disability ever since. She was motion sick but she had been managing her symptoms. She was not using an assistive device. Then she had an inner ear infection in November and since that time her symptoms have worsened significantly. She reports about 20 falls in the last 6 months. She lives independently, but does have friends who will drive her to medical appointments. She describes motion sickness with all movement, worst with looking up. She does not roll over in bed as she sleeps sitting up due to her asthma. 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 Per patient, she says that after multiple imaging MD decided that the occlusion is not likely causing her symptoms. 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 Overall there was a strong central involvement. Future Testing and Treatments Planned She is going to be seeing a neurologist soon. Treatment Goals Patient/Caregiver Goals Reduce motion sickness, not have to use 4WW Prior Functional Status Baseline Function- ADL's Needs Assist Baseline Function- Mobility Needs Assist Baseline Function- Recreation/Hobbies The patient has been on disability for years, but almost a year ago her symptoms worsened. Now she has difficulty volunteering at the soup kitchen, and has not gone to [employer] because her dizziness is so severe. Previously she was not driving , but was able to walk from her home to the library independently, now she is unable to do this. Current Functional Impairments (Reported) Functional Limitations- ADL's Unable to walk more than a block or two, no energy Personal Factors Other Personal Factors That May Effect Concussion history, migraines Therapy/Recovery a couple times per month, osteopenia, history of multiple falls, difficulty reading, asthma. PT-OP-C Subjective Start: 10/27/18 07:33 Freq: Status: Active Protocol: Document 05/18/19 13:00 AMB (Rec: 05/18/19 13:16 AMB [id number]) OP-PT Subjective Patient Comments Patient Comments Arline is hoping to be able to volunteer at [employer], but feels that she would have to be able to walk without her walker to do so. PT-OP-D Balance Start: 10/27/18 07:33 Freq: Status: Active Protocol: Document 10/27/18 13:00 AMB (Rec: 10/28/18 12:51 AMB [email or web address]) Balance Tests Single Limb Standing Single Limb- Right unable Single Limb- Left unable Semi-Tandem Standing Semi-Tandem Standing Balance unable-pt falls Tandem Tandem Standing unable Other Other Balance Tests Performed When pt is standing with WBOS she requires intermittent UE support with eyes open to avoid LOB. PT-OP-E Functional Tests Start: 10/28/18 08:46 Freq: Status: Active Protocol: Document 03/18/19 12:38 BS (Rec: 03/18/19 12:53 BS [id number]) Functional Tests Dynamic Gait Index (DGI) Score 13 DGI Impairment Rating 40 to <60% Impaired (Score 10- 14) PT-OP-G Mobility & Gait Start: 10/27/18 07:33 Freq: Status: Active Protocol: Document 10/27/18 13:00 AMB (Rec: 10/28/18 08:51 AMB [email or web address]) OP Gait Assessment Comments Gait Comments Pt ambulates with WBOS with 4WW. She reports she furniture walks at home. She intermittently reaches out for the wall with walking despite the walker. PT-OP-O Vestibular Start: 10/27/18 07:33 Freq: Status: Active Protocol: Document 10/27/18 13:00 AMB (Rec: 10/28/18 12:49 AMB [email or web address]) Vestibular Assessment Visual Testing Smooth Pursuits Horizontal unable Smooth Pursuits Vertical unable Saccades Horizontal overshooting to the R Gaze Evoked Nystagmus With Fixation Negative Gaze Evoked Nystagmus Without Fixation Negative Thrust Head Positive Bilateral Convergence Test Impaired Comments Vestibular Comments The patient has been evaluated by ENT with a VNG, the patient states the Jama maneuver has never worked, and in the ENT notes, both Honey- hallpike and roll testing were negative, so not tested at this time. Pt had difficulty with all testing, so more intensive testing was not performed at this time. PT-OP-Q Treatments Start: 10/27/18 07:33 Freq: Status: Active Protocol: Document 05/18/19 13:00 AMB (Rec: 05/18/19 15:20 AMB [email or web address]) Gym Equipment Shuttle Balance 1 Details RED Comments no Ue support, WBOS, progressing to stride stance, slow head turns Neuro Re-Education Treatment Balance Activities 2 Details Walking with head movement Comments horizontal/vertical head movement with gaze stabilization, use of SBQC. Vestibular Rehabilitation X2 Viewing Details VOR x2 Background Plain Distance From Target arm length Speed slow Position Standing Comments VCs to avoid trunk rotation and for correct technique. VOR Retraining Details VOR x1 Background complex Speed slow Position standing Comments horizontal, vertical, diagonal head movement. Duration 20-35 seconds at a time. No UE support.Walking forward and backward PT-OP-R Modalities Start: 01/05/19 12:51 Freq: Status: Active Protocol: Document 01/05/19 11:15 AMB (Rec: 01/05/19 12:52 AMB [email or web address]) Electric Stimulation Electric Stimulation Interferential Current (IFC) Body Location L shoulder Patient Position Hooklying Combined With Heat/Cold Hot Pack PT-OP-T Assessment and Plan Start: 10/27/18 07:33 Freq: Status: Active Protocol: Document 05/18/19 13:00 AMB (Rec: 05/18/19 13:46 AMB [email or web address]) Physical Therapy Assessment Assessment Summary Assessment Arline is slowly progressing, she feels she is about 50% improved since eval. She continues to be reliant on her 4WW when out in the community , she was naseous with PT exercises, but is not usally nauseous during her regular activities. Physical Therapy Plan Next Visit Focus/Plan Next Note Type Treatment Note Next Visit Plan Continue uneven surface/ increased challenge of VOR
--- NOTE | 2019-05-25 15:37 | PT.OTN ---
Current Diagnoses Dizziness and giddiness (05/25/19) Physical Therapy Treatment Note PT-OP-A Visit Information Start: 10/27/18 07:33 Freq: Status: Active Protocol: Document 05/25/19 13:00 AMB (Rec: 05/25/19 15:32 AMB [email or web address]) Out-Patient Physical Therapy Visit Information Visit Information Visit Type Treatment Note Visit Start Time 13:00 Visit Stop Time 13:45 Total Visit Minutes 45 Visit Number 20 PT-OP-B Current Condition Start: 10/27/18 07:33 Freq: Status: Active Protocol: Document 10/27/18 13:00 AMB (Rec: 10/30/18 15:50 AMB [email or web address]) Current Condition History of Current Condition Onset Date November 2017 Current Complaints increased motion sickness, falls History of Current Condition The patient reports that she had a virus in the that has led her to be on disability ever since. She was motion sick but she had been managing her symptoms. She was not using an assistive device. Then she had an inner ear infection in November and since that time her symptoms have worsened significantly. She reports about 20 falls in the last 6 months. She lives independently, but does have friends who will drive her to medical appointments. She describes motion sickness with all movement, worst with looking up. She does not roll over in bed as she sleeps sitting up due to her asthma. 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 Per patient, she says that after multiple imaging MD decided that the occlusion is not likely causing her symptoms. 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 Overall there was a strong central involvement. Future Testing and Treatments Planned She is going to be seeing a neurologist soon. Treatment Goals Patient/Caregiver Goals Reduce motion sickness, not have to use 4WW Prior Functional Status Baseline Function- ADL's Needs Assist Baseline Function- Mobility Needs Assist Baseline Function- Recreation/Hobbies The patient has been on disability for years, but almost a year ago her symptoms worsened. Now she has difficulty volunteering at the soup kitchen, and has not gone to restoration because her dizziness is so severe. Previously she was not driving , but was able to walk from her home to the library independently, now she is unable to do this. Current Functional Impairments (Reported) Functional Limitations- ADL's Unable to walk more than a block or two, no energy Personal Factors Other Personal Factors That May Effect Concussion history, migraines Therapy/Recovery a couple times per month, osteopenia, history of multiple falls, difficulty reading, asthma. PT-OP-C Subjective Start: 10/27/18 07:33 Freq: Status: Active Protocol: Document 05/25/19 13:00 AMB (Rec: 05/25/19 15:32 AMB [email or web address]) OP-PT Subjective Patient Comments Patient Comments Arline is doing well today, although she does have labwork and imaging after her PT appointment today. PT-OP-D Balance Start: 10/27/18 07:33 Freq: Status: Active Protocol: Document 10/27/18 13:00 AMB (Rec: 10/28/18 12:51 AMB [email or web address]) Balance Tests Single Limb Standing Single Limb- Right unable Single Limb- Left unable Semi-Tandem Standing Semi-Tandem Standing Balance unable-pt falls Tandem Tandem Standing unable Other Other Balance Tests Performed When pt is standing with WBOS she requires intermittent UE support with eyes open to avoid LOB. PT-OP-E Functional Tests Start: 10/28/18 08:46 Freq: Status: Active Protocol: Document 03/18/19 12:38 BS (Rec: 03/18/19 12:53 BS [email or web address]) Functional Tests Dynamic Gait Index (DGI) Score 13 DGI Impairment Rating 40 to <60% Impaired (Score 10- 14) PT-OP-G Mobility & Gait Start: 10/27/18 07:33 Freq: Status: Active Protocol: Document 10/27/18 13:00 AMB (Rec: 10/28/18 08:51 AMB [email or web address]) OP Gait Assessment Comments Gait Comments Pt ambulates with WBOS with 4WW. She reports she furniture walks at home. She intermittently reaches out for the wall with walking despite the walker. PT-OP-O Vestibular Start: 10/27/18 07:33 Freq: Status: Active Protocol: Document 10/27/18 13:00 AMB (Rec: 10/28/18 12:49 AMB [email or web address]) Vestibular Assessment Visual Testing Smooth Pursuits Horizontal unable Smooth Pursuits Vertical unable Saccades Horizontal overshooting to the R Gaze Evoked Nystagmus With Fixation Negative Gaze Evoked Nystagmus Without Fixation Negative Thrust Head Positive Bilateral Convergence Test Impaired Comments Vestibular Comments The patient has been evaluated by ENT with a VNG, the patient states the Jama maneuver has never worked, and in the ENT notes, both Honey- hallpike and roll testing were negative, so not tested at this time. Pt had difficulty with all testing, so more intensive testing was not performed at this time. PT-OP-Q Treatments Start: 10/27/18 07:33 Freq: Status: Active Protocol: Document 05/25/19 13:00 AMB (Rec: 05/25/19 15:37 AMB [email or web address]) Gym Equipment Shuttle Balance 1 Details RED Comments a/p no Ue support, WBOS, progressing to stride stance, slow head turns. m/l EO EC- difficult Neuro Re-Education Treatment Balance Activities 2 Details Walking with head movement Comments horizontal/vertical head movement with gaze stabilization, use of SBQC. 1 Details foam balance Comments blue pods, EO/EC, horizontal HT Vestibular Rehabilitation X2 Viewing Details VOR x2 Background Plain Distance From Target arm length Speed slow Position Standing Comments VCs to avoid trunk rotation and for correct technique. VOR Retraining Details VOR x1 Background complex Speed slow Position standing Comments horizontal, vertical, diagonal head movement. Duration 20-35 seconds at a time. No UE support.Walking forward and backward PT-OP-R Modalities Start: 01/05/19 12:51 Freq: Status: Active Protocol: Document 01/05/19 11:15 AMB (Rec: 01/05/19 12:52 AMB [email or web address]) Electric Stimulation Electric Stimulation Interferential Current (IFC) Body Location L shoulder Patient Position Hooklying Combined With Heat/Cold Hot Pack PT-OP-T Assessment and Plan Start: 10/27/18 07:33 Freq: Status: Active Protocol: Document 05/25/19 13:00 AMB (Rec: 05/25/19 15:37 AMB [email or web address]) Physical Therapy Assessment Assessment Summary Assessment Arline is doing well with her energy, tolerating foam and uneven surfaces with less nausea. Physical Therapy Plan Next Visit Focus/Plan Next Note Type Progress Note Next Visit Plan Continue uneven surface/ increased challenge of VOR
--- NOTE | 2019-06-02 10:19 | PT.OTN ---
Current Diagnoses Dizziness and giddiness (06/01/19) Physical Therapy Treatment Note PT-OP-A Visit Information Start: 10/27/18 07:33 Freq: Status: Active Protocol: Document 06/01/19 10:30 AMB (Rec: 06/01/19 11:19 AMB [id number]) Out-Patient Physical Therapy Visit Information Visit Information Visit Type Progress Note Visit Start Time 10:30 Visit Stop Time 11:15 Total Visit Minutes 45 Visit Number 21 PT-OP-B Current Condition Start: 10/27/18 07:33 Freq: Status: Active Protocol: Document 10/27/18 13:00 AMB (Rec: 10/30/18 15:50 AMB [email or web address]) Current Condition History of Current Condition Onset Date November 2017 Current Complaints increased motion sickness, falls History of Current Condition The patient reports that she had a virus in the that has led her to be on disability ever since. She was motion sick but she had been managing her symptoms. She was not using an assistive device. Then she had an inner ear infection in November and since that time her symptoms have worsened significantly. She reports about 20 falls in the last 6 months. She lives independently, but does have friends who will drive her to medical appointments. She describes motion sickness with all movement, worst with looking up. She does not roll over in bed as she sleeps sitting up due to her asthma. 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 Per patient, she says that after multiple imaging MD decided that the occlusion is not likely causing her symptoms. 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 Overall there was a strong central involvement. Future Testing and Treatments Planned She is going to be seeing a neurologist soon. Treatment Goals Patient/Caregiver Goals Reduce motion sickness, not have to use 4WW Prior Functional Status Baseline Function- ADL's Needs Assist Baseline Function- Mobility Needs Assist Baseline Function- Recreation/Hobbies The patient has been on disability for years, but almost a year ago her symptoms worsened. Now she has difficulty volunteering at the soup kitchen, and has not gone to [employer] because her dizziness is so severe. Previously she was not driving , but was able to walk from her home to the library independently, now she is unable to do this. Current Functional Impairments (Reported) Functional Limitations- ADL's Unable to walk more than a block or two, no energy Personal Factors Other Personal Factors That May Effect Concussion history, migraines Therapy/Recovery a couple times per month, osteopenia, history of multiple falls, difficulty reading, asthma. PT-OP-C Subjective Start: 10/27/18 07:33 Freq: Status: Active Protocol: Document 06/01/19 10:30 AMB (Rec: 06/01/19 11:19 AMB [id number]) OP-PT Subjective Patient Comments Patient Comments Arline had a near fall when she was walking through a doorway , she caught her self, but didn't feel dizzy necessarily but did feel like a sudden onset off balance like she didn't feel where she was. PT-OP-D Balance Start: 10/27/18 07:33 Freq: Status: Active Protocol: Document 10/27/18 13:00 AMB (Rec: 10/28/18 12:51 AMB [email or web address]) Balance Tests Single Limb Standing Single Limb- Right unable Single Limb- Left unable Semi-Tandem Standing Semi-Tandem Standing Balance unable-pt falls Tandem Tandem Standing unable Other Other Balance Tests Performed When pt is standing with WBOS she requires intermittent UE support with eyes open to avoid LOB. PT-OP-E Functional Tests Start: 10/28/18 08:46 Freq: Status: Active Protocol: Document 06/01/19 10:30 AMB (Rec: 06/02/19 07:18 AMB [email or web address]) Functional Tests Dynamic Gait Index (DGI) Score 16 DGI Impairment Rating 20 to <40% Impaired (Score 15- 19) PT-OP-G Mobility & Gait Start: 10/27/18 07:33 Freq: Status: Active Protocol: Document 10/27/18 13:00 AMB (Rec: 10/28/18 08:51 AMB [email or web address]) OP Gait Assessment Comments Gait Comments Pt ambulates with WBOS with 4WW. She reports she furniture walks at home. She intermittently reaches out for the wall with walking despite the walker. PT-OP-O Vestibular Start: 10/27/18 07:33 Freq: Status: Active Protocol: Document 10/27/18 13:00 AMB (Rec: 10/28/18 12:49 AMB [email or web address]) Vestibular Assessment Visual Testing Smooth Pursuits Horizontal unable Smooth Pursuits Vertical unable Saccades Horizontal overshooting to the R Gaze Evoked Nystagmus With Fixation Negative Gaze Evoked Nystagmus Without Fixation Negative Thrust Head Positive Bilateral Convergence Test Impaired Comments Vestibular Comments The patient has been evaluated by ENT with a VNG, the patient states the Jama maneuver has never worked, and in the ENT notes, both Rupert- hallpike and roll testing were negative, so not tested at this time. Pt had difficulty with all testing, so more intensive testing was not performed at this time. PT-OP-Q Treatments Start: 10/27/18 07:33 Freq: Status: Active Protocol: Document 06/01/19 10:30 AMB (Rec: 06/02/19 10:12 AMB [email or web address]) Gym Equipment Shuttle Balance 1 Details RED Comments a/p no Ue support, WBOS, progressing to stride stance, slow head turns. m/l EO EC- difficult Neuro Re-Education Treatment Balance Activities 2 Details Walking with head movement Comments horizontal/vertical head movement with gaze stabilization, use of SBQC. 1 Details foam balance Comments blue pods, EO/EC, horizontal HT Vestibular Rehabilitation X2 Viewing Details VOR x2 Background Plain Distance From Target arm length Speed slow Position Standing Comments VCs to avoid trunk rotation and for correct technique. VOR Retraining Details VOR x1 Background complex Speed slow Position standing Comments horizontal, vertical, diagonal head movement. Duration 20-35 seconds at a time. No UE support.Walking forward and backward PT-OP-R Modalities Start: 01/05/19 12:51 Freq: Status: Active Protocol: Document 01/05/19 11:15 AMB (Rec: 01/05/19 12:52 AMB [email or web address]) Electric Stimulation Electric Stimulation Interferential Current (IFC) Body Location L shoulder Patient Position Hooklying Combined With Heat/Cold Hot Pack PT-OP-T Assessment and Plan Start: 10/27/18 07:33 Freq: Status: Active Protocol: Document 06/01/19 10:30 AMB (Rec: 06/02/19 07:29 AMB [email or web address]) Physical Therapy Assessment Goals Two Impairment Dizziness Short Term Goal (STG) The patient will walk with her 4WW for 500 feet without an increase in dizziness or motion sickness. STG Duration PARTIALLY MET Aircraft Ordnance Systems Mechanic Goal (LTG) The patient will walk in a visually complex environment ( like a super[employer]) for 10 minutes without loss of balance. LTG Duration PARTIALLY MET One Impairment Falls Short Term Goal (STG) The patient will report no falls during her time in PT. STG Duration MET Aircraft Ordnance Systems Mechanic Goal (LTG) The patient will tolerate the DGI test and score 16/24 or higher to show a reduced risk of falling. PROGRESSING TOWARD . SCORE 03/18: 13/24 LTG Duration MET Assessment Summary Assessment Arline's dynamic gait index score has seen steady improvement during her time in physical therapy. At eval she scored 8/24, and today she scored 16/24. That still puts her at a heightened risk for falling, but it is significantly improved. She continues to have poor energy that affects her ability to walk in the community. She will benefit from a few more weeks of PT to continue to progress her safety and give her more skills to reduce her dizziness. She has not started to [place] yet, but we may need to outline ways for her to progress herself independently soon, given that she is close to meeting her goals. Physical Therapy Plan Frequency and Duration Frequency of Treatment 1x/Week Duration of Treatment 8 weeks Plan of Care Start Date 06/01/19 Plan of Care End Date 07/27/19 Therapeutic Interventions Therapeutic Interventions Balance Training Coordination Training Gait Training Home Exercise Program Manual Therapy Neuromuscular Re-education Self-Care/Home Management Therapeutic Activities Therapeutic Exercises Vestibular Rehabilitation Modalities Cold Pack/Ice Massage Electric Stimulation Hot Packs Next Visit Focus/Plan Next Note Type Progress Note Next Visit Plan Continue uneven surface/ increased challenge of VOR
--- NOTE | 2019-06-02 10:21 | PT.OPPOC ---
Current Diagnoses Dizziness and giddiness (06/01/19) Provider Visit Care Team Role Provider Type Francisco Ferreira MD Other Providers Physician Primary Care Provider Specialty: Internal Medicine Address: [address] [place] [address], [id number] Email: Jonatan Sage MD Attending Provider Physician Specialty: Ear, Nose, Throat Address: [address] [place] [address], [id number] Email: Plan Of Care PT-OP-T Assessment and Plan Start: 10/27/18 07:33 Freq: Status: Active Protocol: Document 06/01/19 10:30 AMB (Rec: 06/02/19 07:29 AMB [email or web address]) Physical Therapy Assessment Goals Two Impairment Dizziness Short Term Goal (STG) The patient will walk with her 4WW for 500 feet without an increase in dizziness or motion sickness. STG Duration PARTIALLY MET Catalogue Maker Goal (LTG) The patient will walk in a visually complex environment ( like a supermarket) for 10 minutes without loss of balance. LTG Duration PARTIALLY MET One Impairment Falls Short Term Goal (STG) The patient will report no falls during her time in PT. STG Duration MET Usp Goal (LTG) The patient will tolerate the DGI test and score 16/24 or higher to show a reduced risk of falling. PROGRESSING TOWARD . SCORE 03/18: 13/24 LTG Duration MET Assessment Summary Assessment Arline's dynamic gait index score has seen steady improvement during her time in physical therapy. At eval she scored 8/24, and today she scored 16/24. That still puts her at a heightened risk for falling, but it is significantly improved. She continues to have poor energy that affects her ability to walk in the community. She will benefit from a few more weeks of PT to continue to progress her safety and give her more skills to reduce her dizziness. She has not started to [place] yet, but we may need to outline ways for her to progress herself independently soon, given that she is close to meeting her goals. Physical Therapy Plan Frequency and Duration Frequency of Treatment 1x/Week Duration of Treatment 8 weeks Plan of Care Start Date 06/01/19 Plan of Care End Date 07/27/19 Therapeutic Interventions Therapeutic Interventions Balance Training Coordination Training Gait Training Home Exercise Program Manual Therapy Neuromuscular Re-education Self-Care/Home Management Therapeutic Activities Therapeutic Exercises Vestibular Rehabilitation Modalities Cold Pack/Ice Massage Electric Stimulation Hot Packs Next Visit Focus/Plan Next Note Type Progress Note Next Visit Plan Continue uneven surface/ increased challenge of VOR Plan of Care Dates Plan of Care Start Date 06/01/19 Plan of Care End Date 07/27/19 Please Sign and Return: I have reviewed this Plan of Care and certify that the skilled therapy services above are required to meet the patient?s needs. Physician Signature Date Printed Name and Credentials Clinical Instructor Signature Printed Name and Credentials
--- NOTE | 2019-06-06 16:16 | PT.OTN ---
Current Diagnoses Dizziness and giddiness (06/06/19) Physical Therapy Treatment Note PT-OP-A Visit Information Start: 10/27/18 07:33 Freq: Status: Active Protocol: Document 06/06/19 13:00 AMB (Rec: 06/06/19 16:16 AMB [email or web address]) Out-Patient Physical Therapy Visit Information Visit Information Visit Type Treatment Note Visit Start Time 13:00 Visit Stop Time 13:45 Total Visit Minutes 45 Visit Number 22 PT-OP-B Current Condition Start: 10/27/18 07:33 Freq: Status: Active Protocol: Document 10/27/18 13:00 AMB (Rec: 10/30/18 15:50 AMB [email or web address]) Current Condition History of Current Condition Onset Date November 2017 Current Complaints increased motion sickness, falls History of Current Condition The patient reports that she had a virus in the that has led her to be on disability ever since. She was motion sick but she had been managing her symptoms. She was not using an assistive device. Then she had an inner ear infection in November and since that time her symptoms have worsened significantly. She reports about 20 falls in the last 6 months. She lives independently, but does have friends who will drive her to medical appointments. She describes motion sickness with all movement, worst with looking up. She does not roll over in bed as she sleeps sitting up due to her asthma. 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 Per patient, she says that after multiple imaging MD decided that the occlusion is not likely causing her symptoms. 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 Overall there was a strong central involvement. Future Testing and Treatments Planned She is going to be seeing a neurologist soon. Treatment Goals Patient/Caregiver Goals Reduce motion sickness, not have to use 4WW Prior Functional Status Baseline Function- ADL's Needs Assist Baseline Function- Mobility Needs Assist Baseline Function- Recreation/Hobbies The patient has been on disability for years, but almost a year ago her symptoms worsened. Now she has difficulty volunteering at the soup kitchen, and has not gone to [employer] because her dizziness is so severe. Previously she was not driving , but was able to walk from her home to the library independently, now she is unable to do this. Current Functional Impairments (Reported) Functional Limitations- ADL's Unable to walk more than a block or two, no energy Personal Factors Other Personal Factors That May Effect Concussion history, migraines Therapy/Recovery a couple times per month, osteopenia, history of multiple falls, difficulty reading, asthma. PT-OP-C Subjective Start: 10/27/18 07:33 Freq: Status: Active Protocol: Document 06/06/19 13:00 AMB (Rec: 06/06/19 16:16 AMB [email or web address]) OP-PT Subjective Patient Comments Patient Comments Arline continues to feel that she is having to push herself to get out and walk. She admits she has not been super consistent with her HEP. PT-OP-D Balance Start: 10/27/18 07:33 Freq: Status: Active Protocol: Document 10/27/18 13:00 AMB (Rec: 10/28/18 12:51 AMB [email or web address]) Balance Tests Single Limb Standing Single Limb- Right unable Single Limb- Left unable Semi-Tandem Standing Semi-Tandem Standing Balance unable-pt falls Tandem Tandem Standing unable Other Other Balance Tests Performed When pt is standing with WBOS she requires intermittent UE support with eyes open to avoid LOB. PT-OP-E Functional Tests Start: 10/28/18 08:46 Freq: Status: Active Protocol: Document 06/01/19 10:30 AMB (Rec: 06/02/19 07:18 AMB [email or web address]) Functional Tests Dynamic Gait Index (DGI) Score 16 DGI Impairment Rating 20 to <40% Impaired (Score 15- 19) PT-OP-G Mobility & Gait Start: 10/27/18 07:33 Freq: Status: Active Protocol: Document 10/27/18 13:00 AMB (Rec: 10/28/18 08:51 AMB [email or web address]) OP Gait Assessment Comments Gait Comments Pt ambulates with WBOS with 4WW. She reports she furniture walks at home. She intermittently reaches out for the wall with walking despite the walker. PT-OP-O Vestibular Start: 10/27/18 07:33 Freq: Status: Active Protocol: Document 10/27/18 13:00 AMB (Rec: 10/28/18 12:49 AMB [email or web address]) Vestibular Assessment Visual Testing Smooth Pursuits Horizontal unable Smooth Pursuits Vertical unable Saccades Horizontal overshooting to the R Gaze Evoked Nystagmus With Fixation Negative Gaze Evoked Nystagmus Without Fixation Negative Thrust Head Positive Bilateral Convergence Test Impaired Comments Vestibular Comments The patient has been evaluated by ENT with a VNG, the patient states the Jama maneuver has never worked, and in the ENT notes, both Honey- hallpike and roll testing were negative, so not tested at this time. Pt had difficulty with all testing, so more intensive testing was not performed at this time. PT-OP-Q Treatments Start: 10/27/18 07:33 Freq: Status: Active Protocol: Document 06/06/19 13:00 AMB (Rec: 06/06/19 16:16 AMB [email or web address]) Gym Equipment Shuttle Balance 1 Details RED Comments a/p no Ue support, WBOS, progressing to stride stance, slow head turns. m/l EO EC- difficult Neuro Re-Education Treatment Balance Activities 2 Details Walking with head movement Comments horizontal/vertical head movement with gaze stabilization, use of SBQC. Vestibular Rehabilitation X2 Viewing Details VOR x2 Background Plain Distance From Target arm length Speed slow Position Standing Comments VCs to avoid trunk rotation and for correct technique. VOR Retraining Details VOR x1 Background complex Speed slow Position standing Comments horizontal, vertical, diagonal head movement. Duration 35-40 seconds at a time. No UE support.Walking forward and backward PT-OP-R Modalities Start: 01/05/19 12:51 Freq: Status: Active Protocol: Document 01/05/19 11:15 AMB (Rec: 01/05/19 12:52 AMB [email or web address]) Electric Stimulation Electric Stimulation Interferential Current (IFC) Body Location L shoulder Patient Position Hooklying Combined With Heat/Cold Hot Pack PT-OP-T Assessment and Plan Start: 10/27/18 07:33 Freq: Status: Active Protocol: Document 06/06/19 13:00 AMB (Rec: 06/06/19 16:16 AMB [email or web address]) Physical Therapy Assessment Assessment Summary Assessment Arline would improve a bit faster if she was more consistent with VOR exercises, reinforce importance today. Physical Therapy Plan Next Visit Focus/Plan Next Note Type Treatment Note Next Visit Plan Continue uneven surface/ increased challenge of VOR
--- NOTE | 2019-06-13 14:32 | PT.OTN ---
Current Diagnoses Dizziness and giddiness (06/13/19) Physical Therapy Treatment Note PT-OP-A Visit Information Start: 10/27/18 07:33 Freq: Status: Active Protocol: Document 06/13/19 13:00 AMB (Rec: 06/13/19 17:25 AMB [email or web address]) Out-Patient Physical Therapy Visit Information Visit Information Visit Start Time 13:00 Visit Stop Time 13:45 Total Visit Minutes 45 Visit Number 23 PT-OP-B Current Condition Start: 10/27/18 07:33 Freq: Status: Active Protocol: Document 10/27/18 13:00 AMB (Rec: 10/30/18 15:50 AMB [email or web address]) Current Condition History of Current Condition Onset Date November 2017 Current Complaints increased motion sickness, falls History of Current Condition The patient reports that she had a virus in the that has led her to be on disability ever since. She was motion sick but she had been managing her symptoms. She was not using an assistive device. Then she had an inner ear infection in November and since that time her symptoms have worsened significantly. She reports about 20 falls in the last 6 months. She lives independently, but does have friends who will drive her to medical appointments. She describes motion sickness with all movement, worst with looking up. She does not roll over in bed as she sleeps sitting up due to her asthma. 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 Per patient, she says that after multiple imaging MD decided that the occlusion is not likely causing her symptoms. 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 Overall there was a strong central involvement. Future Testing and Treatments Planned She is going to be seeing a neurologist soon. Treatment Goals Patient/Caregiver Goals Reduce motion sickness, not have to use 4WW Prior Functional Status Baseline Function- ADL's Needs Assist Baseline Function- Mobility Needs Assist Baseline Function- Recreation/Hobbies The patient has been on disability for years, but almost a year ago her symptoms worsened. Now she has difficulty volunteering at the soup kitchen, and has not gone to [employer] because her dizziness is so severe. Previously she was not driving , but was able to walk from her home to the library independently, now she is unable to do this. Current Functional Impairments (Reported) Functional Limitations- ADL's Unable to walk more than a block or two, no energy Personal Factors Other Personal Factors That May Effect Concussion history, migraines Therapy/Recovery a couple times per month, osteopenia, history of multiple falls, difficulty reading, asthma. PT-OP-C Subjective Start: 10/27/18 07:33 Freq: Status: Active Protocol: Document 06/13/19 13:00 AMB (Rec: 06/13/19 17:25 AMB [email or web address]) OP-PT Subjective Patient Comments Patient Comments Arline is trying to do her exercises more and has been working on getting the speed of her head turns faster. She tried to go to the street fair this weekend and it was crowded so quite difficult. PT-OP-D Balance Start: 10/27/18 07:33 Freq: Status: Active Protocol: Document 10/27/18 13:00 AMB (Rec: 10/28/18 12:51 AMB [email or web address]) Balance Tests Single Limb Standing Single Limb- Right unable Single Limb- Left unable Semi-Tandem Standing Semi-Tandem Standing Balance unable-pt falls Tandem Tandem Standing unable Other Other Balance Tests Performed When pt is standing with WBOS she requires intermittent UE support with eyes open to avoid LOB. PT-OP-E Functional Tests Start: 10/28/18 08:46 Freq: Status: Active Protocol: Document 06/01/19 10:30 AMB (Rec: 06/02/19 07:18 AMB [email or web address]) Functional Tests Dynamic Gait Index (DGI) Score 16 DGI Impairment Rating 20 to <40% Impaired (Score 15- 19) PT-OP-G Mobility & Gait Start: 10/27/18 07:33 Freq: Status: Active Protocol: Document 10/27/18 13:00 AMB (Rec: 10/28/18 08:51 AMB [email or web address]) OP Gait Assessment Comments Gait Comments Pt ambulates with WBOS with 4WW. She reports she furniture walks at home. She intermittently reaches out for the wall with walking despite the walker. PT-OP-O Vestibular Start: 10/27/18 07:33 Freq: Status: Active Protocol: Document 10/27/18 13:00 AMB (Rec: 10/28/18 12:49 AMB [email or web address]) Vestibular Assessment Visual Testing Smooth Pursuits Horizontal unable Smooth Pursuits Vertical unable Saccades Horizontal overshooting to the R Gaze Evoked Nystagmus With Fixation Negative Gaze Evoked Nystagmus Without Fixation Negative Thrust Head Positive Bilateral Convergence Test Impaired Comments Vestibular Comments The patient has been evaluated by ENT with a VNG, the patient states the Jama maneuver has never worked, and in the ENT notes, both Honey- hallpike and roll testing were negative, so not tested at this time. Pt had difficulty with all testing, so more intensive testing was not performed at this time. PT-OP-Q Treatments Start: 10/27/18 07:33 Freq: Status: Active Protocol: Document 06/13/19 13:00 AMB (Rec: 06/16/19 13:32 AMB [email or web address]) Gym Equipment Shuttle Balance 1 Details RED Comments a/p no Ue support, WBOS, progressing to stride stance, slow head turns. m/l EO EC- difficult Neuro Re-Education Treatment Balance Activities 2 Details Walking with head movement Comments horizontal/vertical head movement with gaze stabilization, use of SBQC. 1 Details foam balance Comments blue pods, EO/EC, horizontal HT Vestibular Rehabilitation X2 Viewing Details VOR x2 Background Plain Distance From Target arm length Speed slow Position Standing VOR Retraining Details VOR x1 Background complex Speed medium Position standing Comments horizontal, vertical, diagonal head movement. Duration 35-40 seconds at a time. No UE support. PT-OP-R Modalities Start: 01/05/19 12:51 Freq: Status: Active Protocol: Document 01/05/19 11:15 AMB (Rec: 01/05/19 12:52 AMB [email or web address]) Electric Stimulation Electric Stimulation Interferential Current (IFC) Body Location L shoulder Patient Position Hooklying Combined With Heat/Cold Hot Pack PT-OP-T Assessment and Plan Start: 10/27/18 07:33 Freq: Status: Active Protocol: Document 06/13/19 13:00 AMB (Rec: 06/16/19 13:32 AMB [email or web address]) Physical Therapy Assessment Assessment Summary Assessment Arline showed better consistency with HEP this last week, and is continuing to improve with the speed of her VOR which has previously been very difficult for her to improve upon. Physical Therapy Plan Next Visit Focus/Plan Next Note Type Treatment Note Next Visit Plan Continue uneven surface/ increased challenge of VOR
--- NOTE | 2019-06-30 16:19 | PT.OTN ---
Current Diagnoses Dizziness and giddiness (06/30/19) Physical Therapy Treatment Note PT-OP-A Visit Information Start: 10/27/18 07:33 Freq: Status: Active Protocol: Document 06/30/19 10:30 AMB (Rec: 06/30/19 10:30 AMB [email or web address]) Out-Patient Physical Therapy Visit Information Visit Information Visit Type Treatment Note Visit Start Time 10:30 Visit Stop Time 11:15 Total Visit Minutes 45 Visit Number 24 PT-OP-B Current Condition Start: 10/27/18 07:33 Freq: Status: Active Protocol: Document 10/27/18 13:00 AMB (Rec: 10/30/18 15:50 AMB [email or web address]) Current Condition History of Current Condition Onset Date November 2017 Current Complaints increased motion sickness, falls History of Current Condition The patient reports that she had a virus in the that has led her to be on disability ever since. She was motion sick but she had been managing her symptoms. She was not using an assistive device. Then she had an inner ear infection in November and since that time her symptoms have worsened significantly. She reports about 20 falls in the last 6 months. She lives independently, but does have friends who will drive her to medical appointments. She describes motion sickness with all movement, worst with looking up. She does not roll over in bed as she sleeps sitting up due to her asthma. 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 Per patient, she says that after multiple imaging MD decided that the occlusion is not likely causing her symptoms. 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 Overall there was a strong central involvement. Future Testing and Treatments Planned She is going to be seeing a neurologist soon. Treatment Goals Patient/Caregiver Goals Reduce motion sickness, not have to use 4WW Prior Functional Status Baseline Function- ADL's Needs Assist Baseline Function- Mobility Needs Assist Baseline Function- Recreation/Hobbies The patient has been on disability for years, but almost a year ago her symptoms worsened. Now she has difficulty volunteering at the soup kitchen, and has not gone to [employer]ian[employer] because her dizziness is so severe. Previously she was not driving , but was able to walk from her home to the library independently, now she is unable to do this. Current Functional Impairments (Reported) Functional Limitations- ADL's Unable to walk more than a block or two, no energy Personal Factors Other Personal Factors That May Effect Concussion history, migraines Therapy/Recovery a couple times per month, osteopenia, history of multiple falls, difficulty reading, asthma. PT-OP-C Subjective Start: 10/27/18 07:33 Freq: Status: Active Protocol: Document 06/30/19 10:30 AMB (Rec: 06/30/19 16:18 AMB [email or web address]) OP-PT Subjective Patient Comments Patient Comments Arline feels like she has gone backwards a bit over the last 2 weeks. PT-OP-D Balance Start: 10/27/18 07:33 Freq: Status: Active Protocol: Document 10/27/18 13:00 AMB (Rec: 10/28/18 12:51 AMB [email or web address]) Balance Tests Single Limb Standing Single Limb- Right unable Single Limb- Left unable Semi-Tandem Standing Semi-Tandem Standing Balance unable-pt falls Tandem Tandem Standing unable Other Other Balance Tests Performed When pt is standing with WBOS she requires intermittent UE support with eyes open to avoid LOB. PT-OP-E Functional Tests Start: 10/28/18 08:46 Freq: Status: Active Protocol: Document 06/01/19 10:30 AMB (Rec: 06/02/19 07:18 AMB [email or web address]) Functional Tests Dynamic Gait Index (DGI) Score 16 DGI Impairment Rating 20 to <40% Impaired (Score 15- 19) PT-OP-G Mobility & Gait Start: 10/27/18 07:33 Freq: Status: Active Protocol: Document 10/27/18 13:00 AMB (Rec: 10/28/18 08:51 AMB [email or web address]) OP Gait Assessment Comments Gait Comments Pt ambulates with WBOS with 4WW. She reports she furniture walks at home. She intermittently reaches out for the wall with walking despite the walker. PT-OP-O Vestibular Start: 10/27/18 07:33 Freq: Status: Active Protocol: Document 10/27/18 13:00 AMB (Rec: 10/28/18 12:49 AMB [email or web address]) Vestibular Assessment Visual Testing Smooth Pursuits Horizontal unable Smooth Pursuits Vertical unable Saccades Horizontal overshooting to the R Gaze Evoked Nystagmus With Fixation Negative Gaze Evoked Nystagmus Without Fixation Negative Thrust Head Positive Bilateral Convergence Test Impaired Comments Vestibular Comments The patient has been evaluated by ENT with a VNG, the patient states the Jama maneuver has never worked, and in the ENT notes, both Honey- hallpike and roll testing were negative, so not tested at this time. Pt had difficulty with all testing, so more intensive testing was not performed at this time. PT-OP-Q Treatments Start: 10/27/18 07:33 Freq: Status: Active Protocol: Document 06/30/19 10:30 AMB (Rec: 06/30/19 16:18 AMB [email or web address]) Neuro Re-Education Treatment Balance Activities 2 Details Walking with head movement Comments horizontal/vertical head movement with gaze stabilization, use of SBQC. 1 Details foam balance Comments blue pods, EO/EC, horizontal HT Vestibular Rehabilitation X2 Viewing Details VOR x2 Background Plain Distance From Target arm length Speed slow Position Standing VOR Retraining Details VOR x1 Background complex Speed medium Position standing Comments horizontal, vertical, diagonal head movement. Duration 35-40 seconds at a time. No UE support. PT-OP-R Modalities Start: 01/05/19 12:51 Freq: Status: Active Protocol: Document 01/05/19 11:15 AMB (Rec: 01/05/19 12:52 AMB [email or web address]) Electric Stimulation Electric Stimulation Interferential Current (IFC) Body Location L shoulder Patient Position Hooklying Combined With Heat/Cold Hot Pack PT-OP-T Assessment and Plan Start: 10/27/18 07:33 Freq: Status: Active Protocol: Document 06/30/19 10:30 AMB (Rec: 06/30/19 16:18 AMB [email or web address]) Physical Therapy Assessment Assessment Summary Assessment Arline is feeling like she is going backwards, and did have greater instability today in comparsion to the last couple weeks. Printed her out [facility] info, she is unsure if she would qualify, but encouraged her to look into it. Physical Therapy Plan Next Visit Focus/Plan Next Note Type Treatment Note Next Visit Plan Continue uneven surface/ increased challenge of VOR
--- NOTE | 2019-07-07 07:23 | PT.OTN ---
Current Diagnoses Dizziness and giddiness (07/06/19) Physical Therapy Treatment Note PT-OP-A Visit Information Start: 10/27/18 07:33 Freq: Status: Active Protocol: Document 07/06/19 11:15 AMB (Rec: 07/06/19 11:41 AMB [id number]) Out-Patient Physical Therapy Visit Information Visit Information Visit Type Treatment Note Visit Start Time 11:15 Visit Stop Time 12:00 Total Visit Minutes 45 Visit Number 25 PT-OP-B Current Condition Start: 10/27/18 07:33 Freq: Status: Active Protocol: Document 10/27/18 13:00 AMB (Rec: 10/30/18 15:50 AMB [email or web address]) Current Condition History of Current Condition Onset Date November 2017 Current Complaints increased motion sickness, falls History of Current Condition The patient reports that she had a virus in the that has led her to be on disability ever since. She was motion sick but she had been managing her symptoms. She was not using an assistive device. Then she had an inner ear infection in November and since that time her symptoms have worsened significantly. She reports about 20 falls in the last 6 months. She lives independently, but does have friends who will drive her to medical appointments. She describes motion sickness with all movement, worst with looking up. She does not roll over in bed as she sleeps sitting up due to her asthma. 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 Per patient, she says that after multiple imaging MD decided that the occlusion is not likely causing her symptoms. 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 Overall there was a strong central involvement. Future Testing and Treatments Planned She is going to be seeing a neurologist soon. Treatment Goals Patient/Caregiver Goals Reduce motion sickness, not have to use 4WW Prior Functional Status Baseline Function- ADL's Needs Assist Baseline Function- Mobility Needs Assist Baseline Function- Recreation/Hobbies The patient has been on disability for years, but almost a year ago her symptoms worsened. Now she has difficulty volunteering at the soup kitchen, and has not gone to [employer] because her dizziness is so severe. Previously she was not driving , but was able to walk from her home to the library independently, now she is unable to do this. Current Functional Impairments (Reported) Functional Limitations- ADL's Unable to walk more than a block or two, no energy Personal Factors Other Personal Factors That May Effect Concussion history, migraines Therapy/Recovery a couple times per month, osteopenia, history of multiple falls, difficulty reading, asthma. PT-OP-C Subjective Start: 10/27/18 07:33 Freq: Status: Active Protocol: Document 07/06/19 11:15 AMB (Rec: 07/06/19 11:41 AMB [id number]) OP-PT Subjective Patient Comments Patient Comments Pt continues to feel like she is flared up and walking and getting around have been more difficult for the past couple weeks. PT-OP-D Balance Start: 10/27/18 07:33 Freq: Status: Active Protocol: Document 10/27/18 13:00 AMB (Rec: 10/28/18 12:51 AMB [email or web address]) Balance Tests Single Limb Standing Single Limb- Right unable Single Limb- Left unable Semi-Tandem Standing Semi-Tandem Standing Balance unable-pt falls Tandem Tandem Standing unable Other Other Balance Tests Performed When pt is standing with WBOS she requires intermittent UE support with eyes open to avoid LOB. PT-OP-E Functional Tests Start: 10/28/18 08:46 Freq: Status: Active Protocol: Document 06/01/19 10:30 AMB (Rec: 06/02/19 07:18 AMB [email or web address]) Functional Tests Dynamic Gait Index (DGI) Score 16 DGI Impairment Rating 20 to <40% Impaired (Score 15- 19) PT-OP-G Mobility & Gait Start: 10/27/18 07:33 Freq: Status: Active Protocol: Document 10/27/18 13:00 AMB (Rec: 10/28/18 08:51 AMB [email or web address]) OP Gait Assessment Comments Gait Comments Pt ambulates with WBOS with 4WW. She reports she furniture walks at home. She intermittently reaches out for the wall with walking despite the walker. PT-OP-O Vestibular Start: 10/27/18 07:33 Freq: Status: Active Protocol: Document 10/27/18 13:00 AMB (Rec: 10/28/18 12:49 AMB [email or web address]) Vestibular Assessment Visual Testing Smooth Pursuits Horizontal unable Smooth Pursuits Vertical unable Saccades Horizontal overshooting to the R Gaze Evoked Nystagmus With Fixation Negative Gaze Evoked Nystagmus Without Fixation Negative Thrust Head Positive Bilateral Convergence Test Impaired Comments Vestibular Comments The patient has been evaluated by ENT with a VNG, the patient states the Jama maneuver has never worked, and in the ENT notes, both Honey- hallpike and roll testing were negative, so not tested at this time. Pt had difficulty with all testing, so more intensive testing was not performed at this time. PT-OP-Q Treatments Start: 10/27/18 07:33 Freq: Status: Active Protocol: Document 07/06/19 11:15 AMB (Rec: 07/07/19 07:22 AMB [email or web address]) Therapeutic Exercises Standing Exercises 2 Standing Exercise Name heel raises Reps/Minutes 20 Comments double with UE support 1 Standing Exercise Name ankle eversion/inversion Resistance #3 t band Neuro Re-Education Treatment Balance Activities 1 Details foam balance Comments blue pods, EO/EC, horizontal HT Vestibular Rehabilitation X2 Viewing Details VOR x2 Background Plain Distance From Target arm length Speed slow Position Standing VOR Retraining Details VOR x1 Background complex Speed medium Position standing Comments horizontal, vertical, diagonal head movement. Duration 35-40 seconds at a time. No UE support. PT-OP-R Modalities Start: 01/05/19 12:51 Freq: Status: Active Protocol: Document 01/05/19 11:15 AMB (Rec: 01/05/19 12:52 AMB [email or web address]) Electric Stimulation Electric Stimulation Interferential Current (IFC) Body Location L shoulder Patient Position Hooklying Combined With Heat/Cold Hot Pack PT-OP-T Assessment and Plan Start: 10/27/18 07:33 Freq: Status: Active Protocol: Document 07/06/19 11:15 AMB (Rec: 07/07/19 07:22 AMB [email or web address]) Physical Therapy Assessment Assessment Summary Assessment Arline continues to feel like she is in a flare. She feels like she has less energy and was less able to tolerate horizontal VOR exercises today . She is getting neuropsych testing in mid Jul and will follow up with her neurologist after that. Physical Therapy Plan Next Visit Focus/Plan Next Note Type Treatment Note Next Visit Plan Continue uneven surface/ increased challenge of VOR
--- NOTE | 2019-07-13 12:46 | PT.OTN ---
Current Diagnoses Dizziness and giddiness (07/13/19) Physical Therapy Treatment Note PT-OP-A Visit Information Start: 10/27/18 07:33 Freq: Status: Active Protocol: Document 07/13/19 11:15 AMB (Rec: 07/13/19 11:42 AMB [email or web address]) Out-Patient Physical Therapy Visit Information Visit Information Visit Type Treatment Note Visit Start Time 11:15 Visit Stop Time 11:55 Total Visit Minutes 40 Visit Number 26 PT-OP-B Current Condition Start: 10/27/18 07:33 Freq: Status: Active Protocol: Document 10/27/18 13:00 AMB (Rec: 10/30/18 15:50 AMB [email or web address]) Current Condition History of Current Condition Onset Date November 2017 Current Complaints increased motion sickness, falls History of Current Condition The patient reports that she had a virus in the that has led her to be on disability ever since. She was motion sick but she had been managing her symptoms. She was not using an assistive device. Then she had an inner ear infection in November and since that time her symptoms have worsened significantly. She reports about 20 falls in the last 6 months. She lives independently, but does have friends who will drive her to medical appointments. She describes motion sickness with all movement, worst with looking up. She does not roll over in bed as she sleeps sitting up due to her asthma. 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 Per patient, she says that after multiple imaging MD decided that the occlusion is not likely causing her symptoms. 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 Overall there was a strong central involvement. Future Testing and Treatments Planned She is going to be seeing a neurologist soon. Treatment Goals Patient/Caregiver Goals Reduce motion sickness, not have to use 4WW Prior Functional Status Baseline Function- ADL's Needs Assist Baseline Function- Mobility Needs Assist Baseline Function- Recreation/Hobbies The patient has been on disability for years, but almost a year ago her symptoms worsened. Now she has difficulty volunteering at the soup kitchen, and has not gone to [employer] because her dizziness is so severe. Previously she was not driving , but was able to walk from her home to the library independently, now she is unable to do this. Current Functional Impairments (Reported) Functional Limitations- ADL's Unable to walk more than a block or two, no energy Personal Factors Other Personal Factors That May Effect Concussion history, migraines Therapy/Recovery a couple times per month, osteopenia, history of multiple falls, difficulty reading, asthma. PT-OP-C Subjective Start: 10/27/18 07:33 Freq: Status: Active Protocol: Document 07/13/19 11:15 AMB (Rec: 07/13/19 11:42 AMB [id number]) OP-PT Subjective Patient Comments Patient Comments Pt feels slightly better PT-OP-D Balance Start: 10/27/18 07:33 Freq: Status: Active Protocol: Document 10/27/18 13:00 AMB (Rec: 10/28/18 12:51 AMB [email or web address]) Balance Tests Single Limb Standing Single Limb- Right unable Single Limb- Left unable Semi-Tandem Standing Semi-Tandem Standing Balance unable-pt falls Tandem Tandem Standing unable Other Other Balance Tests Performed When pt is standing with WBOS she requires intermittent UE support with eyes open to avoid LOB. PT-OP-E Functional Tests Start: 10/28/18 08:46 Freq: Status: Active Protocol: Document 06/01/19 10:30 AMB (Rec: 06/02/19 07:18 AMB [email or web address]) Functional Tests Dynamic Gait Index (DGI) Score 16 DGI Impairment Rating 20 to <40% Impaired (Score 15- 19) PT-OP-G Mobility & Gait Start: 10/27/18 07:33 Freq: Status: Active Protocol: Document 10/27/18 13:00 AMB (Rec: 10/28/18 08:51 AMB [email or web address]) OP Gait Assessment Comments Gait Comments Pt ambulates with WBOS with 4WW. She reports she furniture walks at home. She intermittently reaches out for the wall with walking despite the walker. PT-OP-O Vestibular Start: 10/27/18 07:33 Freq: Status: Active Protocol: Document 10/27/18 13:00 AMB (Rec: 10/28/18 12:49 AMB [email or web address]) Vestibular Assessment Visual Testing Smooth Pursuits Horizontal unable Smooth Pursuits Vertical unable Saccades Horizontal overshooting to the R Gaze Evoked Nystagmus With Fixation Negative Gaze Evoked Nystagmus Without Fixation Negative Thrust Head Positive Bilateral Convergence Test Impaired Comments Vestibular Comments The patient has been evaluated by ENT with a VNG, the patient states the Jama maneuver has never worked, and in the ENT notes, both [place]- hallpike and roll testing were negative, so not tested at this time. Pt had difficulty with all testing, so more intensive testing was not performed at this time. PT-OP-Q Treatments Start: 10/27/18 07:33 Freq: Status: Active Protocol: Document 07/13/19 11:15 AMB (Rec: 07/13/19 12:46 AMB [email or web address]) Gym Equipment Shuttle Balance 1 Details BLUE Comments a/p no Ue support, head turns. WBOS with perturbations. Neuro Re-Education Treatment Balance Activities 2 Details Walking with head movement Comments horizontal/vertical head movement with gaze stabilization, use of SBQC. 1 Details foam balance Comments blue pods, EO/EC, horizontal and vertical HT Vestibular Rehabilitation VOR Retraining Details VOR x1 Background complex Speed medium Position standing Comments horizontal, vertical, diagonal head movement. Duration 35-40 seconds at a time. No UE support. PT-OP-R Modalities Start: 01/05/19 12:51 Freq: Status: Active Protocol: Document 01/05/19 11:15 AMB (Rec: 01/05/19 12:52 AMB [email or web address]) Electric Stimulation Electric Stimulation Interferential Current (IFC) Body Location L shoulder Patient Position Hooklying Combined With Heat/Cold Hot Pack PT-OP-T Assessment and Plan Start: 10/27/18 07:33 Freq: Status: Active Protocol: Document 07/13/19 11:15 AMB (Rec: 07/13/19 12:46 AMB [email or web address]) Physical Therapy Assessment Assessment Summary Assessment Arline is starting to improve from her recent flare, but cannot tolerate all of the exercises she could 2 months ago. Did better today but needed rest breaks. Physical Therapy Plan Next Visit Focus/Plan Next Note Type Treatment Note Next Visit Plan Continue uneven surface/ increased challenge of VOR
--- NOTE | 2019-07-20 16:00 | PT.OTN ---
Current Diagnoses Dizziness and giddiness (07/20/19) Physical Therapy Treatment Note PT-OP-A Visit Information Start: 10/27/18 07:33 Freq: Status: Active Protocol: Document 07/20/19 13:45 AMB (Rec: 07/20/19 14:18 AMB [id number]) Out-Patient Physical Therapy Visit Information Visit Information Visit Type Treatment Note Visit Start Time 13:45 Visit Stop Time 14:30 Total Visit Minutes 45 Visit Number 27 PT-OP-B Current Condition Start: 10/27/18 07:33 Freq: Status: Active Protocol: Document 10/27/18 13:00 AMB (Rec: 10/30/18 15:50 AMB [email or web address]) Current Condition History of Current Condition Onset Date November 2017 Current Complaints increased motion sickness, falls History of Current Condition The patient reports that she had a virus in the that has led her to be on disability ever since. She was motion sick but she had been managing her symptoms. She was not using an assistive device. Then she had an inner ear infection in November and since that time her symptoms have worsened significantly. She reports about 20 falls in the last 6 months. She lives independently, but does have friends who will drive her to medical appointments. She describes motion sickness with all movement, worst with looking up. She does not roll over in bed as she sleeps sitting up due to her asthma. 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 Per patient, she says that after multiple imaging MD decided that the occlusion is not likely causing her symptoms. 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 Overall there was a strong central involvement. Future Testing and Treatments Planned She is going to be seeing a neurologist soon. Treatment Goals Patient/Caregiver Goals Reduce motion sickness, not have to use 4WW Prior Functional Status Baseline Function- ADL's Needs Assist Baseline Function- Mobility Needs Assist Baseline Function- Recreation/Hobbies The patient has been on disability for years, but almost a year ago her symptoms worsened. Now she has difficulty volunteering at the soup kitchen, and has not gone to [employer] because her dizziness is so severe. Previously she was not driving , but was able to walk from her home to the library independently, now she is unable to do this. Current Functional Impairments (Reported) Functional Limitations- ADL's Unable to walk more than a block or two, no energy Personal Factors Other Personal Factors That May Effect Concussion history, migraines Therapy/Recovery a couple times per month, osteopenia, history of multiple falls, difficulty reading, asthma. PT-OP-C Subjective Start: 10/27/18 07:33 Freq: Status: Active Protocol: Document 07/20/19 13:45 AMB (Rec: 07/20/19 14:18 AMB [id number]) OP-PT Subjective Patient Comments Patient Comments Pt was more symptomatic for 4 days after last PT visit. PT-OP-D Balance Start: 10/27/18 07:33 Freq: Status: Active Protocol: Document 10/27/18 13:00 AMB (Rec: 10/28/18 12:51 AMB [email or web address]) Balance Tests Single Limb Standing Single Limb- Right unable Single Limb- Left unable Semi-Tandem Standing Semi-Tandem Standing Balance unable-pt falls Tandem Tandem Standing unable Other Other Balance Tests Performed When pt is standing with WBOS she requires intermittent UE support with eyes open to avoid LOB. PT-OP-E Functional Tests Start: 10/28/18 08:46 Freq: Status: Active Protocol: Document 06/01/19 10:30 AMB (Rec: 06/02/19 07:18 AMB [email or web address]) Functional Tests Dynamic Gait Index (DGI) Score 16 DGI Impairment Rating 20 to <40% Impaired (Score 15- 19) PT-OP-G Mobility & Gait Start: 10/27/18 07:33 Freq: Status: Active Protocol: Document 10/27/18 13:00 AMB (Rec: 10/28/18 08:51 AMB [email or web address]) OP Gait Assessment Comments Gait Comments Pt ambulates with WBOS with 4WW. She reports she furniture walks at home. She intermittently reaches out for the wall with walking despite the walker. PT-OP-O Vestibular Start: 10/27/18 07:33 Freq: Status: Active Protocol: Document 10/27/18 13:00 AMB (Rec: 10/28/18 12:49 AMB [email or web address]) Vestibular Assessment Visual Testing Smooth Pursuits Horizontal unable Smooth Pursuits Vertical unable Saccades Horizontal overshooting to the R Gaze Evoked Nystagmus With Fixation Negative Gaze Evoked Nystagmus Without Fixation Negative Thrust Head Positive Bilateral Convergence Test Impaired Comments Vestibular Comments The patient has been evaluated by ENT with a VNG, the patient states the Jama maneuver has never worked, and in the ENT notes, both [place]- hallpike and roll testing were negative, so not tested at this time. Pt had difficulty with all testing, so more intensive testing was not performed at this time. PT-OP-Q Treatments Start: 10/27/18 07:33 Freq: Status: Active Protocol: Document 07/20/19 13:45 AMB (Rec: 07/23/19 11:12 AMB [email or web address]) Neuro Re-Education Treatment Balance Activities 2 Details Walking with head movement Comments horizontal/vertical head movement with gaze stabilization, use of SBQC. 1 Details foam balance Comments blue pods, EO/EC, horizontal and vertical HT Vestibular Rehabilitation X2 Viewing Details VOR x2 Background Plain Distance From Target arm length Speed slow Position Standing VOR Retraining Details VOR x1 Background complex Speed medium Position standing Comments horizontal, vertical, diagonal head movement. Duration 35-40 seconds at a time. No UE support. PT-OP-R Modalities Start: 01/05/19 12:51 Freq: Status: Active Protocol: Document 01/05/19 11:15 AMB (Rec: 01/05/19 12:52 AMB [email or web address]) Electric Stimulation Electric Stimulation Interferential Current (IFC) Body Location L shoulder Patient Position Hooklying Combined With Heat/Cold Hot Pack PT-OP-T Assessment and Plan Start: 10/27/18 07:33 Freq: Status: Active Protocol: Document 07/20/19 13:45 AMB (Rec: 07/23/19 11:12 AMB [email or web address]) Physical Therapy Assessment Assessment Summary Assessment Arline appears to be mostly over her flare now, but is still at a lower level of function than she was 2 months ago. Physical Therapy Plan Next Visit Focus/Plan Next Note Type Treatment Note Next Visit Plan Continue uneven surface/ increased challenge of VOR
--- NOTE | 2019-07-27 16:14 | PT.OTN ---
Current Diagnoses Dizziness and giddiness (07/27/19) Physical Therapy Treatment Note PT-OP-A Visit Information Start: 10/27/18 07:33 Freq: Status: Active Protocol: Document 07/27/19 14:30 AMB (Rec: 07/27/19 16:14 AMB [email or web address]) Out-Patient Physical Therapy Visit Information Visit Information Visit Type Treatment Note Visit Start Time 13:45 Visit Stop Time 14:30 Total Visit Minutes 45 Visit Number 28 PT-OP-B Current Condition Start: 10/27/18 07:33 Freq: Status: Active Protocol: Document 10/27/18 13:00 AMB (Rec: 10/30/18 15:50 AMB [email or web address]) Current Condition History of Current Condition Onset Date November 2017 Current Complaints increased motion sickness, falls History of Current Condition The patient reports that she had a virus in the that has led her to be on disability ever since. She was motion sick but she had been managing her symptoms. She was not using an assistive device. Then she had an inner ear infection in November and since that time her symptoms have worsened significantly. She reports about 20 falls in the last 6 months. She lives independently, but does have friends who will drive her to medical appointments. She describes motion sickness with all movement, worst with looking up. She does not roll over in bed as she sleeps sitting up due to her asthma. 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 Per patient, she says that after multiple imaging MD decided that the occlusion is not likely causing her symptoms. 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 Overall there was a strong central involvement. Future Testing and Treatments Planned She is going to be seeing a neurologist soon. Treatment Goals Patient/Caregiver Goals Reduce motion sickness, not have to use 4WW Prior Functional Status Baseline Function- ADL's Needs Assist Baseline Function- Mobility Needs Assist Baseline Function- Recreation/Hobbies The patient has been on disability for years, but almost a year ago her symptoms worsened. Now she has difficulty volunteering at the soup kitchen, and has not gone to [employer] because her dizziness is so severe. Previously she was not driving , but was able to walk from her home to the library independently, now she is unable to do this. Current Functional Impairments (Reported) Functional Limitations- ADL's Unable to walk more than a block or two, no energy Personal Factors Other Personal Factors That May Effect Concussion history, migraines Therapy/Recovery a couple times per month, osteopenia, history of multiple falls, difficulty reading, asthma. PT-OP-C Subjective Start: 10/27/18 07:33 Freq: Status: Active Protocol: Document 07/27/19 14:30 AMB (Rec: 07/27/19 16:14 AMB [email or web address]) OP-PT Subjective Patient Comments Patient Comments Arline is continuing to feel overall better from her flare but continues to be having difficulty with walking on ramps and has on and off nausea. PT-OP-D Balance Start: 10/27/18 07:33 Freq: Status: Active Protocol: Document 10/27/18 13:00 AMB (Rec: 10/28/18 12:51 AMB [email or web address]) Balance Tests Single Limb Standing Single Limb- Right unable Single Limb- Left unable Semi-Tandem Standing Semi-Tandem Standing Balance unable-pt falls Tandem Tandem Standing unable Other Other Balance Tests Performed When pt is standing with WBOS she requires intermittent UE support with eyes open to avoid LOB. PT-OP-E Functional Tests Start: 10/28/18 08:46 Freq: Status: Active Protocol: Document 06/01/19 10:30 AMB (Rec: 06/02/19 07:18 AMB [email or web address]) Functional Tests Dynamic Gait Index (DGI) Score 16 DGI Impairment Rating 20 to <40% Impaired (Score 15- 19) PT-OP-G Mobility & Gait Start: 10/27/18 07:33 Freq: Status: Active Protocol: Document 10/27/18 13:00 AMB (Rec: 10/28/18 08:51 AMB [email or web address]) OP Gait Assessment Comments Gait Comments Pt ambulates with WBOS with 4WW. She reports she furniture walks at home. She intermittently reaches out for the wall with walking despite the walker. PT-OP-O Vestibular Start: 10/27/18 07:33 Freq: Status: Active Protocol: Document 10/27/18 13:00 AMB (Rec: 10/28/18 12:49 AMB [email or web address]) Vestibular Assessment Visual Testing Smooth Pursuits Horizontal unable Smooth Pursuits Vertical unable Saccades Horizontal overshooting to the R Gaze Evoked Nystagmus With Fixation Negative Gaze Evoked Nystagmus Without Fixation Negative Thrust Head Positive Bilateral Convergence Test Impaired Comments Vestibular Comments The patient has been evaluated by ENT with a VNG, the patient states the Jama maneuver has never worked, and in the ENT notes, both [place]- hallpike and roll testing were negative, so not tested at this time. Pt had difficulty with all testing, so more intensive testing was not performed at this time. PT-OP-Q Treatments Start: 10/27/18 07:33 Freq: Status: Active Protocol: Document 07/27/19 14:30 AMB (Rec: 07/27/19 16:14 AMB [email or web address]) Neuro Re-Education Treatment Balance Activities 7 Details weight shift- forward Comments with hand on rail 2 Details Walking with head movement Comments horizontal/vertical head movement with gaze stabilization, use of SBQC. 1 Details foam balance Comments blue pods, EO/EC, horizontal and vertical HT Vestibular Rehabilitation X2 Viewing Details VOR x2 Background Plain Distance From Target arm length Speed slow Position Standing Other Activities 2 Details walking up and down ramps 1 Details seated on therapy ball Comments pelvic circles and heel/toe raise PT-OP-R Modalities Start: 01/05/19 12:51 Freq: Status: Active Protocol: Document 01/05/19 11:15 AMB (Rec: 01/05/19 12:52 AMB [email or web address]) Electric Stimulation Electric Stimulation Interferential Current (IFC) Body Location L shoulder Patient Position Hooklying Combined With Heat/Cold Hot Pack PT-OP-T Assessment and Plan Start: 10/27/18 07:33 Freq: Status: Active Protocol: Document 07/27/19 14:30 AMB (Rec: 07/27/19 16:14 AMB [email or web address]) Physical Therapy Assessment Goals Two Impairment Dizziness Short Term Goal (STG) The patient will walk with her 4WW for 500 feet without an increase in dizziness or motion sickness. STG Duration PARTIALLY MET Assisted Goal (LTG) The patient will walk in a visually complex environment ( like a supermarket) for 10 minutes without loss of balance. LTG Duration MET One Impairment Falls Short Term Goal (STG) The patient will report no falls during her time in PT. STG Duration MET Assisted Goal (LTG) The patient will tolerate the DGI test and score 16/24 or higher to show a reduced risk of falling. LTG Duration MET Assessment Summary Assessment Arline has had a flare up in symptoms since her last progress note that she is just starting to get over. We are going to start working on more of her motion sickness and difficulty walking down stairs and down ramps at this point as that is what is currently the most limiting for her. She feels that her dizziness has improved with physical therapy, but she continues to feel off balance and be motion sick at times. Physical Therapy Plan Frequency and Duration Frequency of Treatment 1x/Week Duration of Treatment 8 weeks Plan of Care Start Date 07/27/19 Plan of Care End Date 09/21/19 Therapeutic Interventions Therapeutic Interventions Balance Training,Coordination Training,Gait Training,Home Exercise Program,Manual Therapy,Neuromuscular Re- education,Self-Care/Home Management,Therapeutic Activities,Therapeutic Exercises,Vestibular Rehabilitation Modalities Cold Pack/Ice Massage,Electric Stimulation,Hot Packs Next Visit Focus/Plan Next Note Type Treatment Note Next Visit Plan Continue uneven surface/ increased challenge of VOR
--- NOTE | 2019-07-27 16:15 | PT.OPPOC ---
Current Diagnoses Dizziness and giddiness (07/27/19) Visit Care Team Role Provider Type Francisco Ferreira MD Other Providers Physician Primary Care Provider Specialty: Internal Medicine Address: [address] [place] [address], [address], [place], [address] Email: [email or web address] Jonatan Sage MD Attending Provider Physician Specialty: Ear, Nose, Throat Address: [address], [place], [address] Email: [email or web address] Plan Of Care PT-OP-T Assessment and Plan Start: 10/27/18 07:33 Freq: Status: Active Protocol: Document 07/27/19 14:30 AMB (Rec: 07/27/19 16:14 AMB [email or web address]) Physical Therapy Assessment Goals Two Impairment Dizziness Short Term Goal (STG) The patient will walk with her 4WW for 500 feet without an increase in dizziness or motion sickness. STG Duration PARTIALLY MET [employer] Supervisor Goal (LTG) The patient will walk in a visually complex environment ( like a supermarket) for 10 minutes without loss of balance. LTG Duration MET One Impairment Falls Short Term Goal (STG) The patient will report no falls during her time in PT. STG Duration MET [place] Goal (LTG) The patient will tolerate the DGI test and score 16/24 or higher to show a reduced risk of falling. LTG Duration MET Assessment Summary Assessment Arline has had a flare up in symptoms since her last progress note that she is just starting to get over. We are going to start working on more of her motion sickness and difficulty walking down stairs and down ramps at this point as that is what is currently the most limiting for her. She feels that her dizziness has improved with physical therapy, but she continues to feel off balance and be motion sick at times. Physical Therapy Plan Frequency and Duration Frequency of Treatment 1x/Week Duration of Treatment 8 weeks Plan of Care Start Date 07/27/19 Plan of Care End Date 09/21/19 Therapeutic Interventions Therapeutic Interventions Balance Training,Coordination Training,Gait Training,Home Exercise Program,Manual Therapy,Neuromuscular Re- education,Self-Care/Home Management,Therapeutic Activities,Therapeutic Exercises,Vestibular Rehabilitation Modalities Cold Pack/Ice Massage,Electric Stimulation,Hot Packs Next Visit Focus/Plan Next Note Type Treatment Note Next Visit Plan Continue uneven surface/ increased challenge of VOR Plan of Care Dates Plan of Care Start Date 07/27/19 Plan of Care End Date 09/21/19 Please Sign and Return: I have reviewed this Plan of Care and certify that the skilled therapy services above are required to meet the patient?s needs. Physician Signature Date Printed Name and Credentials Clinical Instructor Signature Printed Name and Credentials
--- NOTE | 2019-08-03 15:48 | PT.OTN ---
Current Diagnoses Dizziness and giddiness (08/03/19) Physical Therapy Treatment Note PT-OP-A Visit Information Start: 10/27/18 07:33 Freq: Status: Active Protocol: Document 08/03/19 13:45 AMB (Rec: 08/03/19 14:12 AMB [id number]) Out-Patient Physical Therapy Visit Information Visit Information Visit Type Treatment Note Visit Start Time 13:45 Visit Stop Time 14:30 Total Visit Minutes 45 Visit Number 29 PT-OP-B Current Condition Start: 10/27/18 07:33 Freq: Status: Active Protocol: Document 10/27/18 13:00 AMB (Rec: 10/30/18 15:50 AMB [email or web address]) Current Condition History of Current Condition Onset Date November 2017 Current Complaints increased motion sickness, falls History of Current Condition The patient reports that she had a virus in the that has led her to be on disability ever since. She was motion sick but she had been managing her symptoms. She was not using an assistive device. Then she had an inner ear infection in November and since that time her symptoms have worsened significantly. She reports about 20 falls in the last 6 months. She lives independently, but does have friends who will drive her to medical appointments. She describes motion sickness with all movement, worst with looking up. She does not roll over in bed as she sleeps sitting up due to her asthma. 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 Per patient, she says that after multiple imaging MD decided that the occlusion is not likely causing her symptoms. 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 Overall there was a strong central involvement. Future Testing and Treatments Planned She is going to be seeing a neurologist soon. Treatment Goals Patient/Caregiver Goals Reduce motion sickness, not have to use 4WW Prior Functional Status Baseline Function- ADL's Needs Assist Baseline Function- Mobility Needs Assist Baseline Function- Recreation/Hobbies The patient has been on disability for years, but almost a year ago her symptoms worsened. Now she has difficulty volunteering at the soup kitchen, and has not gone to [employer] because her dizziness is so severe. Previously she was not driving , but was able to walk from her home to the library independently, now she is unable to do this. Current Functional Impairments (Reported) Functional Limitations- ADL's Unable to walk more than a block or two, no energy Personal Factors Other Personal Factors That May Effect Concussion history, migraines Therapy/Recovery a couple times per month, osteopenia, history of multiple falls, difficulty reading, asthma. PT-OP-C Subjective Start: 10/27/18 07:33 Freq: Status: Active Protocol: Document 08/03/19 13:45 AMB (Rec: 08/03/19 14:12 AMB [id number]) OP-PT Subjective Patient Comments Patient Comments Arline continues to feel motion sick PT-OP-D Balance Start: 10/27/18 07:33 Freq: Status: Active Protocol: Document 10/27/18 13:00 AMB (Rec: 10/28/18 12:51 AMB [email or web address]) Balance Tests Single Limb Standing Single Limb- Right unable Single Limb- Left unable Semi-Tandem Standing Semi-Tandem Standing Balance unable-pt falls Tandem Tandem Standing unable Other Other Balance Tests Performed When pt is standing with WBOS she requires intermittent UE support with eyes open to avoid LOB. PT-OP-E Functional Tests Start: 10/28/18 08:46 Freq: Status: Active Protocol: Document 06/01/19 10:30 AMB (Rec: 06/02/19 07:18 AMB [email or web address]) Functional Tests Dynamic Gait Index (DGI) Score 16 DGI Impairment Rating 20 to <40% Impaired (Score 15- 19) PT-OP-G Mobility & Gait Start: 10/27/18 07:33 Freq: Status: Active Protocol: Document 10/27/18 13:00 AMB (Rec: 10/28/18 08:51 AMB [email or web address]) OP Gait Assessment Comments Gait Comments Pt ambulates with WBOS with 4WW. She reports she furniture walks at home. She intermittently reaches out for the wall with walking despite the walker. PT-OP-O Vestibular Start: 10/27/18 07:33 Freq: Status: Active Protocol: Document 10/27/18 13:00 AMB (Rec: 10/28/18 12:49 AMB [email or web address]) Vestibular Assessment Visual Testing Smooth Pursuits Horizontal unable Smooth Pursuits Vertical unable Saccades Horizontal overshooting to the R Gaze Evoked Nystagmus With Fixation Negative Gaze Evoked Nystagmus Without Fixation Negative Thrust Head Positive Bilateral Convergence Test Impaired Comments Vestibular Comments The patient has been evaluated by ENT with a VNG, the patient states the Jama maneuver has never worked, and in the ENT notes, both [place]- hallpike and roll testing were negative, so not tested at this time. Pt had difficulty with all testing, so more intensive testing was not performed at this time. PT-OP-Q Treatments Start: 10/27/18 07:33 Freq: Status: Active Protocol: Document 08/03/19 13:45 AMB (Rec: 08/03/19 15:48 AMB [email or web address]) Neuro Re-Education Treatment Balance Activities 7 Details weight shift- forward Comments hand intermittently on 4WW 2 Details Walking with head movement Comments horizontal/vertical head movement with gaze stabilization, use of 4WW Vestibular Rehabilitation X2 Viewing Details VOR x2 Background complex Distance From Target arm length Speed slow Position Standing VOR Retraining Details VOR x1 Background complex Speed medium Position standing Comments horizontal, vertical, diagonal head movement. Duration 35-40 seconds at a time. No UE support. PT-OP-R Modalities Start: 01/05/19 12:51 Freq: Status: Active Protocol: Document 01/05/19 11:15 AMB (Rec: 01/05/19 12:52 AMB [email or web address]) Electric Stimulation Electric Stimulation Interferential Current (IFC) Body Location L shoulder Patient Position Hooklying Combined With Heat/Cold Hot Pack PT-OP-T Assessment and Plan Start: 10/27/18 07:33 Freq: Status: Active Protocol: Document 08/03/19 13:45 AMB (Rec: 08/03/19 14:26 AMB [id number]) Physical Therapy Assessment Assessment Summary Assessment Pt's symptoms increase from 5/ 10 to 7/10 with PT, and sometimes sx increase a day later. Physical Therapy Plan Next Visit Focus/Plan Next Note Type Treatment Note Next Visit Plan Continue uneven surface/ increased challenge of VOR
--- NOTE | 2019-08-18 14:51 | PT.OTN ---
Current Diagnoses Dizziness and giddiness (08/18/19) Physical Therapy Treatment Note PT-OP-A Visit Information Start: 10/27/18 07:33 Freq: Status: Active Protocol: Document 08/18/19 13:45 AMB (Rec: 08/18/19 14:50 AMB [email or web address]) Out-Patient Physical Therapy Visit Information Visit Information Visit Type Treatment Note Visit Start Time 13:45 Visit Stop Time 14:30 Total Visit Minutes 45 Visit Number 30 PT-OP-B Current Condition Start: 10/27/18 07:33 Freq: Status: Active Protocol: Document 10/27/18 13:00 AMB (Rec: 10/30/18 15:50 AMB [email or web address]) Current Condition History of Current Condition Onset Date November 2017 Current Complaints increased motion sickness, falls History of Current Condition The patient reports that she had a virus in the that has led her to be on disability ever since. She was motion sick but she had been managing her symptoms. She was not using an assistive device. Then she had an inner ear infection in November and since that time her symptoms have worsened significantly. She reports about 20 falls in the last 6 months. She lives independently, but does have friends who will drive her to medical appointments. She describes motion sickness with all movement, worst with looking up. She does not roll over in bed as she sleeps sitting up due to her asthma. 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 Per patient, she says that after multiple imaging MD decided that the occlusion is not likely causing her symptoms. 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 Overall there was a strong central involvement. Future Testing and Treatments Planned She is going to be seeing a neurologist soon. Treatment Goals Patient/Caregiver Goals Reduce motion sickness, not have to use 4WW Prior Functional Status Baseline Function- ADL's Needs Assist Baseline Function- Mobility Needs Assist Baseline Function- Recreation/Hobbies The patient has been on disability for years, but almost a year ago her symptoms worsened. Now she has difficulty volunteering at the soup kitchen, and has not gone to nondenominational because her dizziness is so severe. Previously she was not driving , but was able to walk from her home to the library independently, now she is unable to do this. Current Functional Impairments (Reported) Functional Limitations- ADL's Unable to walk more than a block or two, no energy Personal Factors Other Personal Factors That May Effect Concussion history, migraines Therapy/Recovery a couple times per month, osteopenia, history of multiple falls, difficulty reading, asthma. PT-OP-C Subjective Start: 10/27/18 07:33 Freq: Status: Active Protocol: Document 08/18/19 13:45 AMB (Rec: 08/18/19 14:50 AMB [email or web address]) OP-PT Subjective Patient Comments Patient Comments Arline has been overall feeling better, but continues to have good days and better. PT-OP-D Balance Start: 10/27/18 07:33 Freq: Status: Active Protocol: Document 10/27/18 13:00 AMB (Rec: 10/28/18 12:51 AMB [email or web address]) Balance Tests Single Limb Standing Single Limb- Right unable Single Limb- Left unable Semi-Tandem Standing Semi-Tandem Standing Balance unable-pt falls Tandem Tandem Standing unable Other Other Balance Tests Performed When pt is standing with WBOS she requires intermittent UE support with eyes open to avoid LOB. PT-OP-E Functional Tests Start: 10/28/18 08:46 Freq: Status: Active Protocol: Document 06/01/19 10:30 AMB (Rec: 06/02/19 07:18 AMB [email or web address]) Functional Tests Dynamic Gait Index (DGI) Score 16 DGI Impairment Rating 20 to <40% Impaired (Score 15- 19) PT-OP-G Mobility & Gait Start: 10/27/18 07:33 Freq: Status: Active Protocol: Document 10/27/18 13:00 AMB (Rec: 10/28/18 08:51 AMB [email or web address]) OP Gait Assessment Comments Gait Comments Pt ambulates with WBOS with 4WW. She reports she furniture walks at home. She intermittently reaches out for the wall with walking despite the walker. PT-OP-O Vestibular Start: 10/27/18 07:33 Freq: Status: Active Protocol: Document 10/27/18 13:00 AMB (Rec: 10/28/18 12:49 AMB [email or web address]) Vestibular Assessment Visual Testing Smooth Pursuits Horizontal unable Smooth Pursuits Vertical unable Saccades Horizontal overshooting to the R Gaze Evoked Nystagmus With Fixation Negative Gaze Evoked Nystagmus Without Fixation Negative Thrust Head Positive Bilateral Convergence Test Impaired Comments Vestibular Comments The patient has been evaluated by ENT with a VNG, the patient states the Jama maneuver has never worked, and in the ENT notes, both [place]- hallpike and roll testing were negative, so not tested at this time. Pt had difficulty with all testing, so more intensive testing was not performed at this time. PT-OP-Q Treatments Start: 10/27/18 07:33 Freq: Status: Active Protocol: Document 08/18/19 13:45 AMB (Rec: 08/18/19 14:50 AMB [email or web address]) Neuro Re-Education Treatment Balance Activities 2 Details Walking with head movement Comments horizontal/vertical head movement with gaze stabilization, use of 4WW Vestibular Rehabilitation Corrective Saccades Background complex Comments standing, with intermittent UE support X2 Viewing Details VOR x2 Background complex Distance From Target arm length Speed slow Position Standing VOR Retraining Details VOR x1 Background complex Speed medium Position standing Comments horizontal, vertical, diagonal head movement. Duration 35-40 seconds at a time. No UE support. PT-OP-R Modalities Start: 01/05/19 12:51 Freq: Status: Active Protocol: Document 01/05/19 11:15 AMB (Rec: 01/05/19 12:52 AMB [email or web address]) Electric Stimulation Electric Stimulation Interferential Current (IFC) Body Location L shoulder Patient Position Hooklying Combined With Heat/Cold Hot Pack PT-OP-T Assessment and Plan Start: 10/27/18 07:33 Freq: Status: Active Protocol: Document 08/18/19 13:45 AMB (Rec: 08/18/19 14:50 AMB [email or web address]) Physical Therapy Assessment Assessment Summary Assessment Encouraged Arline to try to get back to her regular activities as much as possible . She continues to have difficulty with vision/head turn activities. Physical Therapy Plan Next Visit Focus/Plan Next Note Type Treatment Note Next Visit Plan Continue uneven surface/ increased challenge of VOR
--- NOTE | 2019-08-24 15:45 | PT.OTN ---
Current Diagnoses Dizziness and giddiness (08/24/19) Physical Therapy Treatment Note PT-OP-A Visit Information Start: 10/27/18 07:33 Freq: Status: Active Protocol: Document 08/24/19 13:45 AMB (Rec: 08/24/19 14:14 AMB [id number]) Out-Patient Physical Therapy Visit Information Visit Information Visit Type Treatment Note Visit Start Time 13:45 Visit Stop Time 14:30 Total Visit Minutes 45 Visit Number 31 PT-OP-B Current Condition Start: 10/27/18 07:33 Freq: Status: Active Protocol: Document 10/27/18 13:00 AMB (Rec: 10/30/18 15:50 AMB [email or web address]) Current Condition History of Current Condition Onset Date November 2017 Current Complaints increased motion sickness, falls History of Current Condition The patient reports that she had a virus in the that has led her to be on disability ever since. She was motion sick but she had been managing her symptoms. She was not using an assistive device. Then she had an inner ear infection in November and since that time her symptoms have worsened significantly. She reports about 20 falls in the last 6 months. She lives independently, but does have friends who will drive her to medical appointments. She describes motion sickness with all movement, worst with looking up. She does not roll over in bed as she sleeps sitting up due to her asthma. 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 Per patient, she says that after multiple imaging MD decided that the occlusion is not likely causing her symptoms. 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 Overall there was a strong central involvement. Future Testing and Treatments Planned She is going to be seeing a neurologist soon. Treatment Goals Patient/Caregiver Goals Reduce motion sickness, not have to use 4WW Prior Functional Status Baseline Function- ADL's Needs Assist Baseline Function- Mobility Needs Assist Baseline Function- Recreation/Hobbies The patient has been on disability for years, but almost a year ago her symptoms worsened. Now she has difficulty volunteering at the soup kitchen, and has not gone to congregation because her dizziness is so severe. Previously she was not driving , but was able to walk from her home to the library independently, now she is unable to do this. Current Functional Impairments (Reported) Functional Limitations- ADL's Unable to walk more than a block or two, no energy Personal Factors Other Personal Factors That May Effect Concussion history, migraines Therapy/Recovery a couple times per month, osteopenia, history of multiple falls, difficulty reading, asthma. PT-OP-C Subjective Start: 10/27/18 07:33 Freq: Status: Active Protocol: Document 08/24/19 13:45 AMB (Rec: 08/24/19 14:14 AMB [id number]) OP-PT Subjective Patient Comments Patient Comments Arline overall has been having a good week, going on slightly longer walks, but feeling nausea with PT exercises. PT-OP-D Balance Start: 10/27/18 07:33 Freq: Status: Active Protocol: Document 10/27/18 13:00 AMB (Rec: 10/28/18 12:51 AMB [email or web address]) Balance Tests Single Limb Standing Single Limb- Right unable Single Limb- Left unable Semi-Tandem Standing Semi-Tandem Standing Balance unable-pt falls Tandem Tandem Standing unable Other Other Balance Tests Performed When pt is standing with WBOS she requires intermittent UE support with eyes open to avoid LOB. PT-OP-E Functional Tests Start: 10/28/18 08:46 Freq: Status: Active Protocol: Document 06/01/19 10:30 AMB (Rec: 06/02/19 07:18 AMB [email or web address]) Functional Tests Dynamic Gait Index (DGI) Score 16 DGI Impairment Rating 20 to <40% Impaired (Score 15- 19) PT-OP-G Mobility & Gait Start: 10/27/18 07:33 Freq: Status: Active Protocol: Document 10/27/18 13:00 AMB (Rec: 10/28/18 08:51 AMB [email or web address]) OP Gait Assessment Comments Gait Comments Pt ambulates with WBOS with 4WW. She reports she furniture walks at home. She intermittently reaches out for the wall with walking despite the walker. PT-OP-O Vestibular Start: 10/27/18 07:33 Freq: Status: Active Protocol: Document 10/27/18 13:00 AMB (Rec: 10/28/18 12:49 AMB [email or web address]) Vestibular Assessment Visual Testing Smooth Pursuits Horizontal unable Smooth Pursuits Vertical unable Saccades Horizontal overshooting to the R Gaze Evoked Nystagmus With Fixation Negative Gaze Evoked Nystagmus Without Fixation Negative Thrust Head Positive Bilateral Convergence Test Impaired Comments Vestibular Comments The patient has been evaluated by ENT with a VNG, the patient states the Jama maneuver has never worked, and in the ENT notes, both [place]- hallpike and roll testing were negative, so not tested at this time. Pt had difficulty with all testing, so more intensive testing was not performed at this time. PT-OP-Q Treatments Start: 10/27/18 07:33 Freq: Status: Active Protocol: Document 08/24/19 13:45 AMB (Rec: 08/24/19 15:45 AMB [email or web address]) Neuro Re-Education Treatment Balance Activities 7 Details weight shift- forward Comments 1 hand intermittently on 4WW 6 Details walking over hurdles Surface smooth Comments CGA with quad cane 5 Details blue foam Surface modified stride stance Comments EC- unable, EO- HT with difficulty 2 Details Walking with head movement Comments horizontal/vertical head movement with gaze stabilization, use of 4WW Vestibular Rehabilitation Corrective Saccades Background complex Comments standing, with intermittent UE support, horizontal and vertical VOR Retraining Details VOR x1 Background complex Speed medium Position standing Comments horizontal, vertical, diagonal head movement. Duration 35-40 seconds at a time. No UE support. PT-OP-R Modalities Start: 01/05/19 12:51 Freq: Status: Active Protocol: Document 01/05/19 11:15 AMB (Rec: 01/05/19 12:52 AMB [email or web address]) Electric Stimulation Electric Stimulation Interferential Current (IFC) Body Location L shoulder Patient Position Hooklying Combined With Heat/Cold Hot Pack PT-OP-T Assessment and Plan Start: 10/27/18 07:33 Freq: Status: Active Protocol: Document 08/24/19 13:45 AMB (Rec: 08/24/19 15:45 AMB [email or web address]) Physical Therapy Assessment Assessment Summary Assessment Arline tolerated exercises well , with less need for rest breaks and grounding, although she continues to have nausea with vestibular exercises. Physical Therapy Plan Next Visit Focus/Plan Next Note Type Treatment Note Next Visit Plan Continue uneven surface/ increased challenge of VOR. Balance instruction as well as needed.
--- NOTE | 2019-09-08 14:00 | PT.OTN ---
Current Diagnoses Dizziness and giddiness (09/08/19) Physical Therapy Treatment Note PT-OP-A Visit Information Start: 10/27/18 07:33 Freq: Status: Active Protocol: Document 09/08/19 13:00 AMB (Rec: 09/08/19 13:36 AMB [id number]) Out-Patient Physical Therapy Visit Information Visit Information Visit Type Treatment Note Visit Start Time 13:00 Visit Stop Time 13:45 Total Visit Minutes 45 Visit Number 32 PT-OP-B Current Condition Start: 10/27/18 07:33 Freq: Status: Active Protocol: Document 10/27/18 13:00 AMB (Rec: 10/30/18 15:50 AMB [email or web address]) Current Condition History of Current Condition Onset Date November 2017 Current Complaints increased motion sickness, falls History of Current Condition The patient reports that she had a virus in the that has led her to be on disability ever since. She was motion sick but she had been managing her symptoms. She was not using an assistive device. Then she had an inner ear infection in November and since that time her symptoms have worsened significantly. She reports about 20 falls in the last 6 months. She lives independently, but does have friends who will drive her to medical appointments. She describes motion sickness with all movement, worst with looking up. She does not roll over in bed as she sleeps sitting up due to her asthma. 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 Per patient, she says that after multiple imaging MD decided that the occlusion is not likely causing her symptoms. 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 Overall there was a strong central involvement. Future Testing and Treatments Planned She is going to be seeing a neurologist soon. Treatment Goals Patient/Caregiver Goals Reduce motion sickness, not have to use 4WW Prior Functional Status Baseline Function- ADL's Needs Assist Baseline Function- Mobility Needs Assist Baseline Function- Recreation/Hobbies The patient has been on disability for years, but almost a year ago her symptoms worsened. Now she has difficulty volunteering at the soup kitchen, and has not gone to synagogue because her dizziness is so severe. Previously she was not driving , but was able to walk from her home to the library independently, now she is unable to do this. Current Functional Impairments (Reported) Functional Limitations- ADL's Unable to walk more than a block or two, no energy Personal Factors Other Personal Factors That May Effect Concussion history, migraines Therapy/Recovery a couple times per month, osteopenia, history of multiple falls, difficulty reading, asthma. PT-OP-C Subjective Start: 10/27/18 07:33 Freq: Status: Active Protocol: Document 09/08/19 13:00 AMB (Rec: 09/08/19 13:36 AMB [id number]) OP-PT Subjective Patient Comments Patient Comments Arline is noticing improved energy level but did feel extra sx the day after neuropsych testing. PT-OP-D Balance Start: 10/27/18 07:33 Freq: Status: Active Protocol: Document 10/27/18 13:00 AMB (Rec: 10/28/18 12:51 AMB [email or web address]) Balance Tests Single Limb Standing Single Limb- Right unable Single Limb- Left unable Semi-Tandem Standing Semi-Tandem Standing Balance unable-pt falls Tandem Tandem Standing unable Other Other Balance Tests Performed When pt is standing with WBOS she requires intermittent UE support with eyes open to avoid LOB. PT-OP-E Functional Tests Start: 10/28/18 08:46 Freq: Status: Active Protocol: Document 06/01/19 10:30 AMB (Rec: 06/02/19 07:18 AMB [email or web address]) Functional Tests Dynamic Gait Index (DGI) Score 16 DGI Impairment Rating 20 to <40% Impaired (Score 15- 19) PT-OP-G Mobility & Gait Start: 10/27/18 07:33 Freq: Status: Active Protocol: Document 10/27/18 13:00 AMB (Rec: 10/28/18 08:51 AMB [email or web address]) OP Gait Assessment Comments Gait Comments Pt ambulates with WBOS with 4WW. She reports she furniture walks at home. She intermittently reaches out for the wall with walking despite the walker. PT-OP-O Vestibular Start: 10/27/18 07:33 Freq: Status: Active Protocol: Document 10/27/18 13:00 AMB (Rec: 10/28/18 12:49 AMB [email or web address]) Vestibular Assessment Visual Testing Smooth Pursuits Horizontal unable Smooth Pursuits Vertical unable Saccades Horizontal overshooting to the R Gaze Evoked Nystagmus With Fixation Negative Gaze Evoked Nystagmus Without Fixation Negative Thrust Head Positive Bilateral Convergence Test Impaired Comments Vestibular Comments The patient has been evaluated by ENT with a VNG, the patient states the Jama maneuver has never worked, and in the ENT notes, both [place]- hallpike and roll testing were negative, so not tested at this time. Pt had difficulty with all testing, so more intensive testing was not performed at this time. PT-OP-Q Treatments Start: 10/27/18 07:33 Freq: Status: Active Protocol: Document 09/08/19 13:00 AMB (Rec: 09/11/19 12:51 AMB [email or web address]) Neuro Re-Education Treatment Balance Activities 7 Details weight shift- forward Comments 1 hand intermittently on 4WW 6 Details walking over hurdles Surface smooth Comments CGA with quad cane 5 Details blue foam Surface modified stride stance Comments EC- unable, EO- HT with difficulty 2 Details Walking with head movement Comments horizontal/vertical head movement with gaze stabilization, use of 4WW Vestibular Rehabilitation Corrective Saccades Background complex Comments standing, with intermittent UE support, horizontal and vertical VOR Retraining Details VOR x1 Background complex Speed medium Position standing Comments horizontal, vertical, diagonal head movement. Duration 35-40 seconds at a time. No UE support. PT-OP-R Modalities Start: 01/05/19 12:51 Freq: Status: Active Protocol: Document 01/05/19 11:15 AMB (Rec: 01/05/19 12:52 AMB [email or web address]) Electric Stimulation Electric Stimulation Interferential Current (IFC) Body Location L shoulder Patient Position Hooklying Combined With Heat/Cold Hot Pack PT-OP-T Assessment and Plan Start: 10/27/18 07:33 Freq: Status: Active Protocol: Document 09/08/19 13:00 AMB (Rec: 09/08/19 13:36 AMB [id number]) Physical Therapy Assessment Assessment Summary Assessment Arline tolerated exercises today, but does have nausea that increases throughout the session. Physical Therapy Plan Next Visit Focus/Plan Next Note Type Treatment Note Next Visit Plan Continue uneven surface/ increased challenge of VOR. Balance instruction as well as needed.
--- NOTE | 2019-09-14 16:00 | PT.OTN ---
Current Diagnoses Dizziness and giddiness (09/14/19) Physical Therapy Treatment Note PT-OP-A Visit Information Start: 10/27/18 07:33 Freq: Status: Active Protocol: Document 09/14/19 13:00 AMB (Rec: 09/15/19 07:31 AMB [email or web address]) Out-Patient Physical Therapy Visit Information Visit Information Visit Type Treatment Note Visit Start Time 13:00 Visit Stop Time 13:45 Total Visit Minutes 45 Visit Number 33 PT-OP-B Current Condition Start: 10/27/18 07:33 Freq: Status: Active Protocol: Document 10/27/18 13:00 AMB (Rec: 10/30/18 15:50 AMB [email or web address]) Current Condition History of Current Condition Onset Date November 2017 Current Complaints increased motion sickness, falls History of Current Condition The patient reports that she had a virus in the that has led her to be on disability ever since. She was motion sick but she had been managing her symptoms. She was not using an assistive device. Then she had an inner ear infection in November and since that time her symptoms have worsened significantly. She reports about 20 falls in the last 6 months. She lives independently, but does have friends who will drive her to medical appointments. She describes motion sickness with all movement, worst with looking up. She does not roll over in bed as she sleeps sitting up due to her asthma. 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 Per patient, she says that after multiple imaging MD decided that the occlusion is not likely causing her symptoms. 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 Overall there was a strong central involvement. Future Testing and Treatments Planned She is going to be seeing a neurologist soon. Treatment Goals Patient/Caregiver Goals Reduce motion sickness, not have to use 4WW Prior Functional Status Baseline Function- ADL's Needs Assist Baseline Function- Mobility Needs Assist Baseline Function- Recreation/Hobbies The patient has been on disability for years, but almost a year ago her symptoms worsened. Now she has difficulty volunteering at the soup kitchen, and has not gone to mosque because her dizziness is so severe. Previously she was not driving , but was able to walk from her home to the library independently, now she is unable to do this. Current Functional Impairments (Reported) Functional Limitations- ADL's Unable to walk more than a block or two, no energy Personal Factors Other Personal Factors That May Effect Concussion history, migraines Therapy/Recovery a couple times per month, osteopenia, history of multiple falls, difficulty reading, asthma. PT-OP-C Subjective Start: 10/27/18 07:33 Freq: Status: Active Protocol: Document 09/14/19 13:00 AMB (Rec: 09/15/19 07:31 AMB [email or web address]) OP-PT Subjective Patient Comments Patient Comments Arline is a bit sore today after having to take water out of the basement on Thursday. PT-OP-D Balance Start: 10/27/18 07:33 Freq: Status: Active Protocol: Document 10/27/18 13:00 AMB (Rec: 10/28/18 12:51 AMB [email or web address]) Balance Tests Single Limb Standing Single Limb- Right unable Single Limb- Left unable Semi-Tandem Standing Semi-Tandem Standing Balance unable-pt falls Tandem Tandem Standing unable Other Other Balance Tests Performed When pt is standing with WBOS she requires intermittent UE support with eyes open to avoid LOB. PT-OP-E Functional Tests Start: 10/28/18 08:46 Freq: Status: Active Protocol: Document 06/01/19 10:30 AMB (Rec: 06/02/19 07:18 AMB [email or web address]) Functional Tests Dynamic Gait Index (DGI) Score 16 DGI Impairment Rating 20 to <40% Impaired (Score 15- 19) PT-OP-G Mobility & Gait Start: 10/27/18 07:33 Freq: Status: Active Protocol: Document 10/27/18 13:00 AMB (Rec: 10/28/18 08:51 AMB [email or web address]) OP Gait Assessment Comments Gait Comments Pt ambulates with WBOS with 4WW. She reports she furniture walks at home. She intermittently reaches out for the wall with walking despite the walker. PT-OP-O Vestibular Start: 10/27/18 07:33 Freq: Status: Active Protocol: Document 10/27/18 13:00 AMB (Rec: 10/28/18 12:49 AMB [email or web address]) Vestibular Assessment Visual Testing Smooth Pursuits Horizontal unable Smooth Pursuits Vertical unable Saccades Horizontal overshooting to the R Gaze Evoked Nystagmus With Fixation Negative Gaze Evoked Nystagmus Without Fixation Negative Thrust Head Positive Bilateral Convergence Test Impaired Comments Vestibular Comments The patient has been evaluated by ENT with a VNG, the patient states the Jama maneuver has never worked, and in the ENT notes, both [place]- hallpike and roll testing were negative, so not tested at this time. Pt had difficulty with all testing, so more intensive testing was not performed at this time. PT-OP-Q Treatments Start: 10/27/18 07:33 Freq: Status: Active Protocol: Document 09/14/19 13:00 AMB (Rec: 09/16/19 08:02 AMB [email or web address]) Neuro Re-Education Treatment Balance Activities 7 Details weight shift- forward Comments 1 hand intermittently on 4WW 6 Details walking over hurdles Surface smooth Comments CGA with quad cane 5 Details blue foam Surface modified stride stance Comments EC- unable, EO- HT with difficulty 2 Details Walking with head movement Comments horizontal/vertical head movement with gaze stabilization, use of 4WW Vestibular Rehabilitation Corrective Saccades Background complex Comments standing, with intermittent UE support, horizontal and vertical VOR Retraining Details VOR x1 Background complex Speed medium Position standing Comments horizontal, vertical, diagonal head movement. Duration 35-40 seconds at a time. No UE support. PT-OP-R Modalities Start: 01/05/19 12:51 Freq: Status: Active Protocol: Document 01/05/19 11:15 AMB (Rec: 01/05/19 12:52 AMB [email or web address]) Electric Stimulation Electric Stimulation Interferential Current (IFC) Body Location L shoulder Patient Position Hooklying Combined With Heat/Cold Hot Pack PT-OP-T Assessment and Plan Start: 10/27/18 07:33 Freq: Status: Active Protocol: Document 09/14/19 13:00 AMB (Rec: 09/16/19 08:02 AMB [email or web address]) Physical Therapy Assessment Assessment Summary Assessment Arline is still waiting for the neuropsych report. Overall she is tolerating more, but was fatigued from dealing with her flooding basement today. Physical Therapy Plan Next Visit Focus/Plan Next Note Type Treatment Note Next Visit Plan Continue uneven surface/ increased challenge of VOR. Balance instruction as well as needed.
--- NOTE | 2019-09-20 16:16 | PT.OPPOC ---
Current Diagnoses Dizziness and giddiness (09/20/19) Visit Care Team Role Provider Type Francisco Ferreira MD Other Providers Physician Primary Care Provider Specialty: Internal Medicine Address: [address] [place] [address], [address], [place], [address] Email: [email or web address] Jonatan Sage MD Attending Provider Physician Specialty: Ear, Nose, Throat Address: [address], [place], [address] Email: [email or web address] Plan Of Care PT-OP-T Assessment and Plan Start: 10/27/18 07:33 Freq: Status: Active Protocol: Document 09/20/19 13:45 AMB (Rec: 09/20/19 16:14 AMB [email or web address]) Physical Therapy Assessment Assessment Summary Assessment Arline tolerated PT well with less need for seated rest breaks today. Overall she is getting out in the community more with less dizziness and nausea. She continues to have motion sensitivity, especially with going down a decline and when walking outside when it is windy. She continues to have over reliance on her visual system and is easily fatigued. We will continue to see her for a few more appointments until we get a plan from her neurologist, and then may need to continue dependent upon that plan. Physical Therapy Plan Frequency and Duration Frequency of Treatment 1x/Week Duration of Treatment 2 months Plan of Care Start Date 09/20/19 Plan of Care End Date 11/19/19 Therapeutic Interventions Therapeutic Interventions Balance Training,Coordination Training,Gait Training,Home Exercise Program,Manual Therapy,Neuromuscular Re- education,Self-Care/Home Management,Therapeutic Activities,Therapeutic Exercises,Vestibular Rehabilitation Modalities Cold Pack/Ice Massage,Electric Stimulation,Hot Packs Next Visit Focus/Plan Next Note Type Treatment Note Next Visit Plan Continue uneven surface/ increased challenge of VOR. Balance instruction as well as needed. Plan of Care Dates Plan of Care Start Date 09/20/19 Plan of Care End Date 11/19/19
--- NOTE | 2019-09-20 16:20 | PT.OTN ---
Current Diagnoses Dizziness and giddiness (09/20/19) Physical Therapy Treatment Note PT-OP-A Visit Information Start: 10/27/18 07:33 Freq: Status: Active Protocol: Document 09/20/19 13:45 AMB (Rec: 09/20/19 16:14 AMB [email or web address]) Out-Patient Physical Therapy Visit Information Visit Information Visit Type Treatment Note Visit Start Time 13:45 Visit Stop Time 14:30 Total Visit Minutes 45 Visit Number 34 PT-OP-B Current Condition Start: 10/27/18 07:33 Freq: Status: Active Protocol: Document 10/27/18 13:00 AMB (Rec: 10/30/18 15:50 AMB [email or web address]) Current Condition History of Current Condition Onset Date November 2017 Current Complaints increased motion sickness, falls History of Current Condition The patient reports that she had a virus in the that has led her to be on disability ever since. She was motion sick but she had been managing her symptoms. She was not using an assistive device. Then she had an inner ear infection in November and since that time her symptoms have worsened significantly. She reports about 20 falls in the last 6 months. She lives independently, but does have friends who will drive her to medical appointments. She describes motion sickness with all movement, worst with looking up. She does not roll over in bed as she sleeps sitting up due to her asthma. 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 Per patient, she says that after multiple imaging MD decided that the occlusion is not likely causing her symptoms. 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 Overall there was a strong central involvement. Future Testing and Treatments Planned She is going to be seeing a neurologist soon. Treatment Goals Patient/Caregiver Goals Reduce motion sickness, not have to use 4WW Prior Functional Status Baseline Function- ADL's Needs Assist Baseline Function- Mobility Needs Assist Baseline Function- Recreation/Hobbies The patient has been on disability for years, but almost a year ago her symptoms worsened. 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 Previously she was not driving , but was able to walk from her home to the library independently, now she is unable to do this. Current Functional Impairments (Reported) Functional Limitations- ADL's Unable to walk more than a block or two, no energy Personal Factors Other Personal Factors That May Effect Concussion history, migraines Therapy/Recovery a couple times per month, osteopenia, history of multiple falls, difficulty reading, asthma. PT-OP-C Subjective Start: 10/27/18 07:33 Freq: Status: Active Protocol: Document 09/20/19 13:45 AMB (Rec: 09/20/19 16:14 AMB [email or web address]) OP-PT Subjective Patient Comments Patient Comments Arline is overall doing well today. She has an apppointment with a neuropsychologist and her neurologist next week. PT-OP-D Balance Start: 10/27/18 07:33 Freq: Status: Active Protocol: Document 10/27/18 13:00 AMB (Rec: 10/28/18 12:51 AMB [email or web address]) Balance Tests Single Limb Standing Single Limb- Right unable Single Limb- Left unable Semi-Tandem Standing Semi-Tandem Standing Balance unable-pt falls Tandem Tandem Standing unable Other Other Balance Tests Performed When pt is standing with WBOS she requires intermittent UE support with eyes open to avoid LOB. PT-OP-E Functional Tests Start: 10/28/18 08:46 Freq: Status: Active Protocol: Document 06/01/19 10:30 AMB (Rec: 06/02/19 07:18 AMB [email or web address]) Functional Tests Dynamic Gait Index (DGI) Score 16 DGI Impairment Rating 20 to <40% Impaired (Score 15- 19) PT-OP-G Mobility & Gait Start: 10/27/18 07:33 Freq: Status: Active Protocol: Document 10/27/18 13:00 AMB (Rec: 10/28/18 08:51 AMB [email or web address]) OP Gait Assessment Comments Gait Comments Pt ambulates with WBOS with 4WW. She reports she furniture walks at home. She intermittently reaches out for the wall with walking despite the walker. PT-OP-O Vestibular Start: 10/27/18 07:33 Freq: Status: Active Protocol: Document 10/27/18 13:00 AMB (Rec: 10/28/18 12:49 AMB [email or web address]) Vestibular Assessment Visual Testing Smooth Pursuits Horizontal unable Smooth Pursuits Vertical unable Saccades Horizontal overshooting to the R Gaze Evoked Nystagmus With Fixation Negative Gaze Evoked Nystagmus Without Fixation Negative Thrust Head Positive Bilateral Convergence Test Impaired Comments Vestibular Comments The patient has been evaluated by ENT with a VNG, the patient states the Jama maneuver has never worked, and in the ENT notes, both [place]- hallpike and roll testing were negative, so not tested at this time. Pt had difficulty with all testing, so more intensive testing was not performed at this time. PT-OP-Q Treatments Start: 10/27/18 07:33 Freq: Status: Active Protocol: Document 09/20/19 13:45 AMB (Rec: 09/20/19 16:14 AMB [email or web address]) Neuro Re-Education Treatment Balance Activities 7 Details weight shift- forward/ backward Comments hover UE over railing 2 Details Walking with head movement Comments horizontal/vertical head movement with gaze stabilization, use of 4WW Vestibular Rehabilitation Corrective Saccades Background complex Comments standing, with intermittent UE support, horizontal and vertical VOR Retraining Details VOR x1 Background complex Speed medium Position standing Comments horizontal, vertical, diagonal head movement. Duration 35-40 seconds at a time. No UE support. PT-OP-R Modalities Start: 01/05/19 12:51 Freq: Status: Active Protocol: Document 01/05/19 11:15 AMB (Rec: 01/05/19 12:52 AMB [email or web address]) Electric Stimulation Electric Stimulation Interferential Current (IFC) Body Location L shoulder Patient Position Hooklying Combined With Heat/Cold Hot Pack PT-OP-T Assessment and Plan Start: 10/27/18 07:33 Freq: Status: Active Protocol: Document 09/20/19 13:45 AMB (Rec: 09/20/19 16:14 AMB [email or web address]) Physical Therapy Assessment Goals Two Impairment Dizziness Short Term Goal (STG) The patient will walk with her 4WW for 500 feet without an increase in dizziness or motion sickness.- nausea continues STG Duration PARTIALLY MET Voice Writing Reporter Goal (LTG) The patient will walk in a visually complex environment ( like a supermarket) for 10 minutes without loss of balance. LTG Duration MET One Impairment Falls Short Term Goal (STG) The patient will report no falls during her time in PT. STG Duration MET Voice Writing Reporter Goal (LTG) The patient will tolerate the DGI test and score 16/24 or higher to show a reduced risk of falling. LTG Duration MET Assessment Summary Assessment Arline tolerated PT well with less need for seated rest breaks today. Overall she is getting out in the community more with less dizziness and nausea. She continues to have motion sensitivity, especially with going down a decline and when walking outside when it is windy. She continues to have over reliance on her visual system and is easily fatigued. We will continue to see her for a few more appointments until we get a plan from her neurologist, and then may need to continue dependent upon that plan. Physical Therapy Plan Frequency and Duration Frequency of Treatment 1x/Week Duration of Treatment 2 months Plan of Care Start Date 09/20/19 Plan of Care End Date 11/19/19 Therapeutic Interventions Therapeutic Interventions Balance Training,Coordination Training,Gait Training,Home Exercise Program,Manual Therapy,Neuromuscular Re- education,Self-Care/Home Management,Therapeutic Activities,Therapeutic Exercises,Vestibular Rehabilitation Modalities Cold Pack/Ice Massage,Electric Stimulation,Hot Packs Next Visit Focus/Plan Next Note Type Treatment Note Next Visit Plan Continue uneven surface/ increased challenge of VOR. Balance instruction as well as needed.
--- NOTE | 2019-09-28 15:45 | PT.OTN ---
Current Diagnoses Dizziness and giddiness (09/28/19) Physical Therapy Treatment Note PT-OP-A Visit Information Start: 10/27/18 07:33 Freq: Status: Active Protocol: Document 09/28/19 13:24 AMB (Rec: 09/28/19 14:14 AMB [id number]) Out-Patient Physical Therapy Visit Information Visit Information Visit Type Treatment Note Visit Note 01/02 Visit Start Time 13:00 Visit Stop Time 13:45 Total Visit Minutes 45 Visit Number 35 PT-OP-B Current Condition Start: 10/27/18 07:33 Freq: Status: Active Protocol: Document 10/27/18 13:00 AMB (Rec: 10/30/18 15:50 AMB [email or web address]) Current Condition History of Current Condition Onset Date November 2017 Current Complaints increased motion sickness, falls History of Current Condition The patient reports that she had a virus in the that has led her to be on disability ever since. She was motion sick but she had been managing her symptoms. She was not using an assistive device. Then she had an inner ear infection in November and since that time her symptoms have worsened significantly. She reports about 20 falls in the last 6 months. She lives independently, but does have friends who will drive her to medical appointments. She describes motion sickness with all movement, worst with looking up. She does not roll over in bed as she sleeps sitting up due to her asthma. 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 Per patient, she says that after multiple imaging MD decided that the occlusion is not likely causing her symptoms. 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 Overall there was a strong central involvement. Future Testing and Treatments Planned She is going to be seeing a neurologist soon. Treatment Goals Patient/Caregiver Goals Reduce motion sickness, not have to use 4WW Prior Functional Status Baseline Function- ADL's Needs Assist Baseline Function- Mobility Needs Assist Baseline Function- Recreation/Hobbies The patient has been on disability for years, but almost a year ago her symptoms worsened. Now she has difficulty volunteering at the soup kitchen, and has not gone to buddhism because her dizziness is so severe. Previously she was not driving , but was able to walk from her home to the library independently, now she is unable to do this. Current Functional Impairments (Reported) Functional Limitations- ADL's Unable to walk more than a block or two, no energy Personal Factors Other Personal Factors That May Effect Concussion history, migraines Therapy/Recovery a couple times per month, osteopenia, history of multiple falls, difficulty reading, asthma. PT-OP-C Subjective Start: 10/27/18 07:33 Freq: Status: Active Protocol: Document 09/28/19 13:24 AMB (Rec: 09/28/19 14:14 AMB [id number]) OP-PT Subjective Patient Comments Patient Comments Arline saw both the neuropsychologist and the neurologist. The neuropsych consult suggested mental health counseling. 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 PT-OP-D Balance Start: 10/27/18 07:33 Freq: Status: Active Protocol: Document 10/27/18 13:00 AMB (Rec: 10/28/18 12:51 AMB [email or web address]) Balance Tests Single Limb Standing Single Limb- Right unable Single Limb- Left unable Semi-Tandem Standing Semi-Tandem Standing Balance unable-pt falls Tandem Tandem Standing unable Other Other Balance Tests Performed When pt is standing with WBOS she requires intermittent UE support with eyes open to avoid LOB. PT-OP-E Functional Tests Start: 10/28/18 08:46 Freq: Status: Active Protocol: Document 06/01/19 10:30 AMB (Rec: 06/02/19 07:18 AMB [email or web address]) Functional Tests Dynamic Gait Index (DGI) Score 16 DGI Impairment Rating 20 to <40% Impaired (Score 15- 19) PT-OP-G Mobility & Gait Start: 10/27/18 07:33 Freq: Status: Active Protocol: Document 10/27/18 13:00 AMB (Rec: 10/28/18 08:51 AMB [email or web address]) OP Gait Assessment Comments Gait Comments Pt ambulates with WBOS with 4WW. She reports she furniture walks at home. She intermittently reaches out for the wall with walking despite the walker. PT-OP-O Vestibular Start: 10/27/18 07:33 Freq: Status: Active Protocol: Document 10/27/18 13:00 AMB (Rec: 12/06/18 12:49 AMB [email or web address]) Vestibular Assessment Visual Testing Smooth Pursuits Horizontal unable Smooth Pursuits Vertical unable Saccades Horizontal overshooting to the R Gaze Evoked Nystagmus With Fixation Negative Gaze Evoked Nystagmus Without Fixation Negative Thrust Head Positive Bilateral Convergence Test Impaired Comments Vestibular Comments The patient has been evaluated by ENT with a VNG, the patient states the Jama maneuver has never worked, and in the ENT notes, both [place]- hallpike and roll testing were negative, so not tested at this time. Pt had difficulty with all testing, so more intensive testing was not performed at this time. PT-OP-Q Treatments Start: 10/27/18 07:33 Freq: Status: Active Protocol: Document 09/28/19 13:00 AMB (Rec: 09/28/19 15:45 AMB [email or web address]) Gait Training Gait Activity 1 Description Ambulation with quad cane Device Used quad cane, left hand Level of Assistance CGA Surface smooth Distance/Duration 200'x2 Treatment Focus safe walking in the community Comments pt needed rest break between laps Neuro Re-Education Treatment Balance Activities 7 Details weight shift- forward/ backward Comments hover UE over railing 6 Details tilt board Comments fwd and lateral Vestibular Rehabilitation VOR Retraining Details VOR x1 Background complex Speed medium Position standing Comments horizontal, vertical, diagonal head movement. Duration 35-40 seconds at a time. No UE support. PT-OP-R Modalities Start: 01/05/19 12:51 Freq: Status: Active Protocol: Document 01/05/19 11:15 AMB (Rec: 01/05/19 12:52 AMB [email or web address]) Electric Stimulation Electric Stimulation Interferential Current (IFC) Body Location L shoulder Patient Position Hooklying Combined With Heat/Cold Hot Pack PT-OP-T Assessment and Plan Start: 10/27/18 07:33 Freq: Status: Active Protocol: Document 09/28/19 13:00 AMB (Rec: 09/28/19 14:29 AMB [email or web address]) Physical Therapy Assessment Assessment Summary Assessment Arline is most concerned about her walking at this point. For her, to feel like she is close to her previous baseline , she would be able to walk without her FWW a block or two in the community. Physical Therapy Plan Next Visit Focus/Plan Next Note Type Treatment Note Next Visit Plan Continue uneven surface/ increased challenge of VOR. Balance instruction as well as needed.
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
--- NOTE | 2019-10-18 15:49 | PT.OTN ---
Current Diagnoses Dizziness and giddiness (10/18/19) Physical Therapy Treatment Note PT-OP-A Visit Information Start: 10/27/18 07:33 Freq: Status: Active Protocol: Document 10/18/19 13:00 AMB (Rec: 10/18/19 13:23 AMB [id number]) Out-Patient Physical Therapy Visit Information Visit Information Visit Type Treatment Note Visit Note 03/02 Visit Start Time 13:00 Visit Stop Time 13:45 Total Visit Minutes 45 Visit Number 37 PT-OP-B Current Condition Start: 10/27/18 07:33 Freq: Status: Active Protocol: Document 10/27/18 13:00 AMB (Rec: 10/30/18 15:50 AMB [email or web address]) Current Condition History of Current Condition Onset Date November 2017 Current Complaints increased motion sickness, falls History of Current Condition The patient reports that she had a virus in the that has led her to be on disability ever since. She was motion sick but she had been managing her symptoms. She was not using an assistive device. Then she had an inner ear infection in November and since that time her symptoms have worsened significantly. She reports about 20 falls in the last 6 months. She lives independently, but does have friends who will drive her to medical appointments. She describes motion sickness with all movement, worst with looking up. She does not roll over in bed as she sleeps sitting up due to her asthma. 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 Per patient, she says that after multiple imaging MD decided that the occlusion is not likely causing her symptoms. 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 Overall there was a strong central involvement. Future Testing and Treatments Planned She is going to be seeing a neurologist soon. Treatment Goals Patient/Caregiver Goals Reduce motion sickness, not have to use 4WW Prior Functional Status Baseline Function- ADL's Needs Assist Baseline Function- Mobility Needs Assist Baseline Function- Recreation/Hobbies The patient has been on disability for years, but almost a year ago her symptoms worsened. Now she has difficulty volunteering at the soup kitchen, and has not gone to yazidism because her dizziness is so severe. Previously she was not driving , but was able to walk from her home to the library independently, now she is unable to do this. Current Functional Impairments (Reported) Functional Limitations- ADL's Unable to walk more than a block or two, no energy Personal Factors Other Personal Factors That May Effect Concussion history, migraines Therapy/Recovery a couple times per month, osteopenia, history of multiple falls, difficulty reading, asthma. PT-OP-C Subjective Start: 10/27/18 07:33 Freq: Status: Active Protocol: Document 10/18/19 13:00 AMB (Rec: 10/18/19 13:23 AMB [email or web address]) OP-PT Subjective Patient Comments Patient Comments Arline has been feeling better and is noticing better sleep but has not tried to walk to the library yet. PT-OP-D Balance Start: 10/27/18 07:33 Freq: Status: Active Protocol: Document 10/27/18 13:00 AMB (Rec: 10/28/18 12:51 AMB [email or web address]) Balance Tests Single Limb Standing Single Limb- Right unable Single Limb- Left unable Semi-Tandem Standing Semi-Tandem Standing Balance unable-pt falls Tandem Tandem Standing unable Other Other Balance Tests Performed When pt is standing with WBOS she requires intermittent UE support with eyes open to avoid LOB. PT-OP-E Functional Tests Start: 10/28/18 08:46 Freq: Status: Active Protocol: Document 06/01/19 10:30 AMB (Rec: 06/02/19 07:18 AMB [email or web address]) Functional Tests Dynamic Gait Index (DGI) Score 16 DGI Impairment Rating 20 to <40% Impaired (Score 15- 19) PT-OP-G Mobility & Gait Start: 10/27/18 07:33 Freq: Status: Active Protocol: Document 10/27/18 13:00 AMB (Rec: 10/28/18 08:51 AMB [email or web address]) OP Gait Assessment Comments Gait Comments Pt ambulates with WBOS with 4WW. She reports she furniture walks at home. She intermittently reaches out for the wall with walking despite the walker. PT-OP-O Vestibular Start: 10/27/18 07:33 Freq: Status: Active Protocol: Document 10/27/18 13:00 AMB (Rec: 10/28/18 12:49 AMB [email or web address]) Vestibular Assessment Visual Testing Smooth Pursuits Horizontal unable Smooth Pursuits Vertical unable Saccades Horizontal overshooting to the R Gaze Evoked Nystagmus With Fixation Negative Gaze Evoked Nystagmus Without Fixation Negative Thrust Head Positive Bilateral Convergence Test Impaired Comments Vestibular Comments The patient has been evaluated by ENT with a VNG, the patient states the Jama maneuver has never worked, and in the ENT notes, both [place]- hallpike and roll testing were negative, so not tested at this time. Pt had difficulty with all testing, so more intensive testing was not performed at this time. PT-OP-Q Treatments Start: 10/27/18 07:33 Freq: Status: Active Protocol: Document 10/18/19 13:00 AMB (Rec: 10/18/19 15:49 AMB [email or web address]) Neuro Re-Education Treatment Balance Activities 7 Details weight shift- forward/ backward Comments hover UE over railing 2 Details Walking with head movement Comments horizontal/vertical head movement with gaze stabilization, use of quad cane Vestibular Rehabilitation Corrective Saccades Background complex Comments standing, with intermittent UE support, horizontal and vertical VOR Retraining Details VOR x1 Background complex Speed medium Position standing Comments horizontal, vertical, diagonal head movement. Duration 35-40 seconds at a time. No UE support. PT-OP-R Modalities Start: 01/05/19 12:51 Freq: Status: Active Protocol: Document 01/05/19 11:15 AMB (Rec: 01/05/19 12:52 AMB [email or web address]) Electric Stimulation Electric Stimulation Interferential Current (IFC) Body Location L shoulder Patient Position Hooklying Combined With Heat/Cold Hot Pack PT-OP-T Assessment and Plan Start: 10/27/18 07:33 Freq: Status: Active Protocol: Document 10/18/19 13:00 AMB (Rec: 10/18/19 15:49 AMB [email or web address]) Physical Therapy Assessment Assessment Summary Assessment Arline had greater difficulty with vertical head turns today . [place] it more in her neck. Instructed in neck stretching and hopfully will resolve over the next week but follow up next week. Physical Therapy Plan Next Visit Focus/Plan Next Note Type Treatment Note Next Visit Plan Continue uneven surface/ increased challenge of VOR. Balance instruction as well as needed.
--- NOTE | 2019-10-26 14:17 | PT.OTN ---
Current Diagnoses Dizziness and giddiness (10/26/19) Physical Therapy Treatment Note PT-OP-A Visit Information Start: 10/27/18 07:33 Freq: Status: Active Protocol: Document 10/26/19 11:15 AMB (Rec: 10/26/19 14:17 AMB [email or web address]) Out-Patient Physical Therapy Visit Information Visit Information Visit Type Treatment Note Visit Note 04/01 Visit Start Time 11:15 Visit Stop Time 12:00 Total Visit Minutes 45 Visit Number 38 PT-OP-B Current Condition Start: 10/27/18 07:33 Freq: Status: Active Protocol: Document 10/27/18 13:00 AMB (Rec: 10/30/18 15:50 AMB [email or web address]) Current Condition History of Current Condition Onset Date November 2017 Current Complaints increased motion sickness, falls History of Current Condition The patient reports that she had a virus in the that has led her to be on disability ever since. She was motion sick but she had been managing her symptoms. She was not using an assistive device. Then she had an inner ear infection in November and since that time her symptoms have worsened significantly. She reports about 20 falls in the last 6 months. She lives independently, but does have friends who will drive her to medical appointments. She describes motion sickness with all movement, worst with looking up. She does not roll over in bed as she sleeps sitting up due to her asthma. 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 Per patient, she says that after multiple imaging MD decided that the occlusion is not likely causing her symptoms. 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 Overall there was a strong central involvement. Future Testing and Treatments Planned She is going to be seeing a neurologist soon. Treatment Goals Patient/Caregiver Goals Reduce motion sickness, not have to use 4WW Prior Functional Status Baseline Function- ADL's Needs Assist Baseline Function- Mobility Needs Assist Baseline Function- Recreation/Hobbies The patient has been on disability for years, but almost a year ago her symptoms worsened. Now she has difficulty volunteering at the soup kitchen, and has not gone to taoist because her dizziness is so severe. Previously she was not driving , but was able to walk from her home to the library independently, now she is unable to do this. Current Functional Impairments (Reported) Functional Limitations- ADL's Unable to walk more than a block or two, no energy Personal Factors Other Personal Factors That May Effect Concussion history, migraines Therapy/Recovery a couple times per month, osteopenia, history of multiple falls, difficulty reading, asthma. PT-OP-C Subjective Start: 10/27/18 07:33 Freq: Status: Active Protocol: Document 10/26/19 11:15 AMB (Rec: 10/26/19 14:17 AMB [email or web address]) OP-PT Subjective Patient Comments Patient Comments Arline was able to walk to the library and back home with her 4WW. She also went to a friend's [employer] libertarian with her quad cane instead of her 4WW and it took a lot of concentration but she was able to do it. PT-OP-D Balance Start: 10/27/18 07:33 Freq: Status: Active Protocol: Document 10/27/18 13:00 AMB (Rec: 10/28/18 12:51 AMB [email or web address]) Balance Tests Single Limb Standing Single Limb- Right unable Single Limb- Left unable Semi-Tandem Standing Semi-Tandem Standing Balance unable-pt falls Tandem Tandem Standing unable Other Other Balance Tests Performed When pt is standing with WBOS she requires intermittent UE support with eyes open to avoid LOB. PT-OP-E Functional Tests Start: 10/28/18 08:46 Freq: Status: Active Protocol: Document 06/01/19 10:30 AMB (Rec: 06/02/19 07:18 AMB [email or web address]) Functional Tests Dynamic Gait Index (DGI) Score 16 DGI Impairment Rating 20 to <40% Impaired (Score 15- 19) PT-OP-G Mobility & Gait Start: 10/27/18 07:33 Freq: Status: Active Protocol: Document 10/27/18 13:00 AMB (Rec: 10/28/18 08:51 AMB [email or web address]) OP Gait Assessment Comments Gait Comments Pt ambulates with WBOS with 4WW. She reports she furniture walks at home. She intermittently reaches out for the wall with walking despite the walker. PT-OP-O Vestibular Start: 10/27/18 07:33 Freq: Status: Active Protocol: Document 10/27/18 13:00 AMB (Rec: 10/28/18 12:49 AMB [email or web address]) Vestibular Assessment Visual Testing Smooth Pursuits Horizontal unable Smooth Pursuits Vertical unable Saccades Horizontal overshooting to the R Gaze Evoked Nystagmus With Fixation Negative Gaze Evoked Nystagmus Without Fixation Negative Thrust Head Positive Bilateral Convergence Test Impaired Comments Vestibular Comments The patient has been evaluated by ENT with a VNG, the patient states the Jama maneuver has never worked, and in the ENT notes, both [place]- hallpike and roll testing were negative, so not tested at this time. Pt had difficulty with all testing, so more intensive testing was not performed at this time. PT-OP-Q Treatments Start: 10/27/18 07:33 Freq: Status: Active Protocol: Document 10/26/19 11:15 AMB (Rec: 10/26/19 14:17 AMB [email or web address]) Gym Equipment Shuttle Balance 1 Details BLUE Comments a/p no Ue support, head turns. WBOS with perturbations. Gait Training Gait Activity 1 Description Ambulation with quad cane Device Used quad cane, left hand Level of Assistance CGA Surface smooth Distance/Duration 200'x2 Treatment Focus safe walking in the community Comments no rest break between laps Neuro Re-Education Treatment Balance Activities 7 Details weight shift- forward/ backward Comments hover UE over railing 4 Details fwd, side, bckwd stepping with Quad cane Reps/Duration 3 min 2 Details Walking with head movement Comments horizontal/vertical head movement with gaze stabilization, use of quad cane Vestibular Rehabilitation Corrective Saccades Background complex Comments standing, with intermittent UE support, horizontal and vertical PT-OP-R Modalities Start: 01/05/19 12:51 Freq: Status: Active Protocol: Document 01/05/19 11:15 AMB (Rec: 01/05/19 12:52 AMB [email or web address]) Electric Stimulation Electric Stimulation Interferential Current (IFC) Body Location L shoulder Patient Position Hooklying Combined With Heat/Cold Hot Pack PT-OP-T Assessment and Plan Start: 10/27/18 07:33 Freq: Status: Active Protocol: Document 10/26/19 11:15 AMB (Rec: 10/26/19 14:17 AMB [email or web address]) Physical Therapy Assessment Assessment Summary Assessment Arline continued to have more difficulty with vertical head turns today, but overall is doing well. Physical Therapy Plan Next Visit Focus/Plan Next Note Type Treatment Note Next Visit Plan Continue uneven surface/ increased challenge of VOR. Balance instruction as well as needed.
--- NOTE | 2019-11-04 14:00 | PT.OTN ---
Current Diagnoses Dizziness and giddiness (11/04/19) Physical Therapy Treatment Note PT-OP-A Visit Information Start: 10/27/18 07:33 Freq: Status: Active Protocol: Document 11/04/19 13:10 AMB (Rec: 11/06/19 12:34 AMB [email or web address]) Out-Patient Physical Therapy Visit Information Visit Information Visit Type Treatment Note Visit Note 05/02 Visit Start Time 13:10 Visit Stop Time 13:42 Total Visit Minutes 32 Visit Number 39 PT-OP-B Current Condition Start: 10/27/18 07:33 Freq: Status: Active Protocol: Document 10/27/18 13:00 AMB (Rec: 10/30/18 15:50 AMB [email or web address]) Current Condition History of Current Condition Onset Date November 2017 Current Complaints increased motion sickness, falls History of Current Condition The patient reports that she had a virus in the that has led her to be on disability ever since. She was motion sick but she had been managing her symptoms. She was not using an assistive device. Then she had an inner ear infection in November and since that time her symptoms have worsened significantly. She reports about 20 falls in the last 6 months. She lives independently, but does have friends who will drive her to medical appointments. She describes motion sickness with all movement, worst with looking up. She does not roll over in bed as she sleeps sitting up due to her asthma. 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 Per patient, she says that after multiple imaging MD decided that the occlusion is not likely causing her symptoms. 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 Overall there was a strong central involvement. Future Testing and Treatments Planned She is going to be seeing a neurologist soon. Treatment Goals Patient/Caregiver Goals Reduce motion sickness, not have to use 4WW Prior Functional Status Baseline Function- ADL's Needs Assist Baseline Function- Mobility Needs Assist Baseline Function- Recreation/Hobbies The patient has been on disability for years, but almost a year ago her symptoms worsened. Now she has difficulty volunteering at the soup kitchen, and has not gone to hoahaoism because her dizziness is so severe. Previously she was not driving , but was able to walk from her home to the library independently, now she is unable to do this. Current Functional Impairments (Reported) Functional Limitations- ADL's Unable to walk more than a block or two, no energy Personal Factors Other Personal Factors That May Effect Concussion history, migraines Therapy/Recovery a couple times per month, osteopenia, history of multiple falls, difficulty reading, asthma. PT-OP-C Subjective Start: 10/27/18 07:33 Freq: Status: Active Protocol: Document 11/04/19 13:10 AMB (Rec: 11/06/19 12:34 AMB [email or web address]) OP-PT Subjective Patient Comments Patient Comments Arline continues to noticed increased feeling of being off balance with looking left. PT-OP-D Balance Start: 10/27/18 07:33 Freq: Status: Active Protocol: Document 10/27/18 13:00 AMB (Rec: 10/28/18 12:51 AMB [email or web address]) Balance Tests Single Limb Standing Single Limb- Right unable Single Limb- Left unable Semi-Tandem Standing Semi-Tandem Standing Balance unable-pt falls Tandem Tandem Standing unable Other Other Balance Tests Performed When pt is standing with WBOS she requires intermittent UE support with eyes open to avoid LOB. PT-OP-E Functional Tests Start: 10/28/18 08:46 Freq: Status: Active Protocol: Document 06/01/19 10:30 AMB (Rec: 06/02/19 07:18 AMB [email or web address]) Functional Tests Dynamic Gait Index (DGI) Score 16 DGI Impairment Rating 20 to <40% Impaired (Score 15- 19) PT-OP-G Mobility & Gait Start: 10/27/18 07:33 Freq: Status: Active Protocol: Document 10/27/18 13:00 AMB (Rec: 10/28/18 08:51 AMB [email or web address]) OP Gait Assessment Comments Gait Comments Pt ambulates with WBOS with 4WW. She reports she furniture walks at home. She intermittently reaches out for the wall with walking despite the walker. PT-OP-O Vestibular Start: 10/27/18 07:33 Freq: Status: Active Protocol: Document 10/27/18 13:00 AMB (Rec: 10/28/18 12:49 AMB [email or web address]) Vestibular Assessment Visual Testing Smooth Pursuits Horizontal unable Smooth Pursuits Vertical unable Saccades Horizontal overshooting to the R Gaze Evoked Nystagmus With Fixation Negative Gaze Evoked Nystagmus Without Fixation Negative Thrust Head Positive Bilateral Convergence Test Impaired Comments Vestibular Comments The patient has been evaluated by ENT with a VNG, the patient states the Jama maneuver has never worked, and in the ENT notes, both [place]- hallpike and roll testing were negative, so not tested at this time. Pt had difficulty with all testing, so more intensive testing was not performed at this time. PT-OP-Q Treatments Start: 10/27/18 07:33 Freq: Status: Active Protocol: Document 11/04/19 13:10 AMB (Rec: 11/06/19 12:34 AMB [email or web address]) Gym Equipment Shuttle Balance 1 Details BLUE Comments a/p no Ue support, head turns. WBOS with perturbations. Gait Training Gait Activity 1 Description Ambulation with quad cane Device Used quad cane, left hand Level of Assistance CGA Surface smooth Distance/Duration 200'x2 Treatment Focus safe walking in the community Comments no rest break between laps Neuro Re-Education Treatment Balance Activities 1 Details blue foam balance Comments with head turn- horizontal Vestibular Rehabilitation Corrective Saccades Background complex Comments standing, with intermittent UE support, horizontal and vertical VOR Retraining Details VOR x1 Background complex Speed medium Position standing Comments horizontal, vertical, diagonal head movement. Duration 35-40 seconds at a time. No UE support. PT-OP-R Modalities Start: 01/05/19 12:51 Freq: Status: Active Protocol: Document 01/05/19 11:15 AMB (Rec: 01/05/19 12:52 AMB [email or web address]) Electric Stimulation Electric Stimulation Interferential Current (IFC) Body Location L shoulder Patient Position Hooklying Combined With Heat/Cold Hot Pack PT-OP-T Assessment and Plan Start: 10/27/18 07:33 Freq: Status: Active Protocol: Document 11/04/19 13:10 AMB (Rec: 11/06/19 12:34 AMB [email or web address]) Physical Therapy Assessment Assessment Summary Assessment Arline continues to work on pacing herself and yet pushing herself to do more as she can tolerate it, she did better today with uneven surfaces. Overall less rest breaks needed. Physical Therapy Plan Next Visit Focus/Plan Next Note Type Treatment Note Next Visit Plan Continue uneven surface/ increased challenge of VOR. Balance instruction as well as needed.
--- NOTE | 2019-11-09 16:07 | PT.OTN ---
Current Diagnoses Dizziness and giddiness (11/09/19) Physical Therapy Treatment Note PT-OP-A Visit Information Start: 10/27/18 07:33 Freq: Status: Active Protocol: Document 11/09/19 13:00 AMB (Rec: 11/09/19 16:07 AMB [email or web address]) Out-Patient Physical Therapy Visit Information Visit Information Visit Type Treatment Note Visit Note 06/01 Visit Start Time 13:00 Visit Stop Time 13:42 Total Visit Minutes 42 Visit Number 40 PT-OP-B Current Condition Start: 10/27/18 07:33 Freq: Status: Active Protocol: Document 10/27/18 13:00 AMB (Rec: 10/30/18 15:50 AMB [email or web address]) Current Condition History of Current Condition Onset Date November 2017 Current Complaints increased motion sickness, falls History of Current Condition The patient reports that she had a virus in the that has led her to be on disability ever since. She was motion sick but she had been managing her symptoms. She was not using an assistive device. Then she had an inner ear infection in November and since that time her symptoms have worsened significantly. She reports about 20 falls in the last 6 months. She lives independently, but does have friends who will drive her to medical appointments. She describes motion sickness with all movement, worst with looking up. She does not roll over in bed as she sleeps sitting up due to her asthma. 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 Per patient, she says that after multiple imaging MD decided that the occlusion is not likely causing her symptoms. 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 Overall there was a strong central involvement. Future Testing and Treatments Planned She is going to be seeing a neurologist soon. Treatment Goals Patient/Caregiver Goals Reduce motion sickness, not have to use 4WW Prior Functional Status Baseline Function- ADL's Needs Assist Baseline Function- Mobility Needs Assist Baseline Function- Recreation/Hobbies The patient has been on disability for years, but almost a year ago her symptoms worsened. Now she has difficulty volunteering at the soup kitchen, and has not gone to [employer] because her dizziness is so severe. Previously she was not driving , but was able to walk from her home to the library independently, now she is unable to do this. Current Functional Impairments (Reported) Functional Limitations- ADL's Unable to walk more than a block or two, no energy Personal Factors Other Personal Factors That May Effect Concussion history, migraines Therapy/Recovery a couple times per month, osteopenia, history of multiple falls, difficulty reading, asthma. PT-OP-C Subjective Start: 10/27/18 07:33 Freq: Status: Active Protocol: Document 11/09/19 13:00 AMB (Rec: 11/09/19 16:07 AMB [email or web address]) OP-PT Subjective Patient Comments Patient Comments Arline notes the past few days she has felt more off balance. she has had a difficult time going up and down the stairs with her PT-OP-D Balance Start: 10/27/18 07:33 Freq: Status: Active Protocol: Document 10/27/18 13:00 AMB (Rec: 10/28/18 12:51 AMB [email or web address]) Balance Tests Single Limb Standing Single Limb- Right unable Single Limb- Left unable Semi-Tandem Standing Semi-Tandem Standing Balance unable-pt falls Tandem Tandem Standing unable Other Other Balance Tests Performed When pt is standing with WBOS she requires intermittent UE support with eyes open to avoid LOB. PT-OP-E Functional Tests Start: 10/28/18 08:46 Freq: Status: Active Protocol: Document 06/01/19 10:30 AMB (Rec: 06/02/19 07:18 AMB [email or web address]) Functional Tests Dynamic Gait Index (DGI) Score 16 DGI Impairment Rating 20 to <40% Impaired (Score 15- 19) PT-OP-G Mobility & Gait Start: 10/27/18 07:33 Freq: Status: Active Protocol: Document 10/27/18 13:00 AMB (Rec: 10/28/18 08:51 AMB [email or web address]) OP Gait Assessment Comments Gait Comments Pt ambulates with WBOS with 4WW. She reports she furniture walks at home. She intermittently reaches out for the wall with walking despite the walker. PT-OP-O Vestibular Start: 10/27/18 07:33 Freq: Status: Active Protocol: Document 10/27/18 13:00 AMB (Rec: 10/28/18 12:49 AMB [email or web address]) Vestibular Assessment Visual Testing Smooth Pursuits Horizontal unable Smooth Pursuits Vertical unable Saccades Horizontal overshooting to the R Gaze Evoked Nystagmus With Fixation Negative Gaze Evoked Nystagmus Without Fixation Negative Thrust Head Positive Bilateral Convergence Test Impaired Comments Vestibular Comments The patient has been evaluated by ENT with a VNG, the patient states the Jama maneuver has never worked, and in the ENT notes, both [place]- hallpike and roll testing were negative, so not tested at this time. Pt had difficulty with all testing, so more intensive testing was not performed at this time. PT-OP-Q Treatments Start: 10/27/18 07:33 Freq: Status: Active Protocol: Document 11/09/19 13:00 AMB (Rec: 11/09/19 16:07 AMB [email or web address]) Gait Training Gait Activity 2 Description stairs Comments ascend and descend 6 steps with rails and CGA 1 Description Ambulation with quad cane Device Used quad cane, left hand Level of Assistance CGA Surface smooth Distance/Duration 200'x1 Treatment Focus safe walking in the community Comments Pt tolerated less walking today, did have two mild LOB with quad cane that she self recovered from but did need to stop walking to recover. Neuro Re-Education Treatment Balance Activities 1 Details blue foam balance Comments with head turn- horizontal Vestibular Rehabilitation VOR Retraining Details VOR x1 Background complex Speed medium Position standing Comments horizontal, vertical, diagonal head movement. Duration 35-40 seconds at a time. No UE support. PT-OP-R Modalities Start: 01/05/19 12:51 Freq: Status: Active Protocol: Document 01/05/19 11:15 AMB (Rec: 01/05/19 12:52 AMB [email or web address]) Electric Stimulation Electric Stimulation Interferential Current (IFC) Body Location L shoulder Patient Position Hooklying Combined With Heat/Cold Hot Pack PT-OP-T Assessment and Plan Start: 10/27/18 07:33 Freq: Status: Active Protocol: Document 11/09/19 13:00 AMB (Rec: 11/09/19 16:07 AMB [email or web address]) Physical Therapy Assessment Assessment Summary Assessment Pt continues to discuss symptoms of nausea, light and sound sensitivity, concurrent with her dizziness. Overall her symptoms are less severe than at beginning of PT, but they continue to wax and wane. Physical Therapy Plan Next Visit Focus/Plan Next Note Type Treatment Note Next Visit Plan Continue uneven surface/ increased challenge of VOR. Balance instruction as well as needed.
--- NOTE | 2019-12-23 15:34 | PT.OTN ---
Current Diagnoses Dizziness and giddiness (12/21/19) Physical Therapy Treatment Note PT-OP-A Visit Information Start: 10/27/18 07:33 Freq: Status: Active Protocol: Document 12/21/19 13:45 AMB (Rec: 12/22/19 13:59 AMB [email or web address]) Out-Patient Physical Therapy Visit Information Visit Information Visit Type Progress Note Visit Note 12/02 Visit Start Time 13:45 Visit Stop Time 14:30 Total Visit Minutes 45 Visit Number 41 PT-OP-B Current Condition Start: 10/27/18 07:33 Freq: Status: Active Protocol: Document 10/27/18 13:00 AMB (Rec: 10/30/18 15:50 AMB [email or web address]) Current Condition History of Current Condition Onset Date November 2017 Current Complaints increased motion sickness, falls History of Current Condition The patient reports that she had a virus in the that has led her to be on disability ever since. She was motion sick but she had been managing her symptoms. She was not using an assistive device. Then she had an inner ear infection in November and since that time her symptoms have worsened significantly. She reports about 20 falls in the last 6 months. She lives independently, but does have friends who will drive her to medical appointments. She describes motion sickness with all movement, worst with looking up. She does not roll over in bed as she sleeps sitting up due to her asthma. 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 Per patient, she says that after multiple imaging MD decided that the occlusion is not likely causing her symptoms. 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 Overall there was a strong central involvement. Future Testing and Treatments Planned She is going to be seeing a neurologist soon. Treatment Goals Patient/Caregiver Goals Reduce motion sickness, not have to use 4WW Prior Functional Status Baseline Function- ADL's Needs Assist Baseline Function- Mobility Needs Assist Baseline Function- Recreation/Hobbies The patient has been on disability for years, but almost a year ago her symptoms worsened. Now she has difficulty volunteering at the soup kitchen, and has not gone to [employer] because her dizziness is so severe. Previously she was not driving , but was able to walk from her home to the library independently, now she is unable to do this. Current Functional Impairments (Reported) Functional Limitations- ADL's Unable to walk more than a block or two, no energy Personal Factors Other Personal Factors That May Effect Concussion history, migraines Therapy/Recovery a couple times per month, osteopenia, history of multiple falls, difficulty reading, asthma. PT-OP-C Subjective Start: 10/27/18 07:33 Freq: Status: Active Protocol: Document 12/21/19 13:45 AMB (Rec: 12/23/19 09:38 AMB [id number]) OP-PT Subjective Patient Comments Patient Comments Arline reports her overall energy level has been ok. Looking to the left continues to be problematic, as does ramps. She continues to need to use her walker in the community, but will use her cane when she goes over to a friend's house. PT-OP-D Balance Start: 10/27/18 07:33 Freq: Status: Active Protocol: Document 10/27/18 13:00 AMB (Rec: 10/28/18 12:51 AMB [email or web address]) Balance Tests Single Limb Standing Single Limb- Right unable Single Limb- Left unable Semi-Tandem Standing Semi-Tandem Standing Balance unable-pt falls Tandem Tandem Standing unable Other Other Balance Tests Performed When pt is standing with WBOS she requires intermittent UE support with eyes open to avoid LOB. PT-OP-E Functional Tests Start: 10/28/18 08:46 Freq: Status: Active Protocol: Document 12/21/19 13:45 AMB (Rec: 12/23/19 15:09 AMB [id number]) Functional Tests 6 Minute Walk Test Distance 692 feet Device Used 4WW Comments 1,765 is normal for age/gender PT-OP-G Mobility & Gait Start: 10/27/18 07:33 Freq: Status: Active Protocol: Document 10/27/18 13:00 AMB (Rec: 10/28/18 08:51 AMB [email or web address]) OP Gait Assessment Comments Gait Comments Pt ambulates with WBOS with 4WW. She reports she furniture walks at home. She intermittently reaches out for the wall with walking despite the walker. PT-OP-O Vestibular Start: 10/27/18 07:33 Freq: Status: Active Protocol: Document 10/27/18 13:00 AMB (Rec: 10/28/18 12:49 AMB [email or web address]) Vestibular Assessment Visual Testing Smooth Pursuits Horizontal unable Smooth Pursuits Vertical unable Saccades Horizontal overshooting to the R Gaze Evoked Nystagmus With Fixation Negative Gaze Evoked Nystagmus Without Fixation Negative Thrust Head Positive Bilateral Convergence Test Impaired Comments Vestibular Comments The patient has been evaluated by ENT with a VNG, the patient states the Jama maneuver has never worked, and in the ENT notes, both [place]- hallpike and roll testing were negative, so not tested at this time. Pt had difficulty with all testing, so more intensive testing was not performed at this time. PT-OP-Q Treatments Start: 10/27/18 07:33 Freq: Status: Active Protocol: Document 12/21/19 13:45 AMB (Rec: 12/23/19 13:38 AMB [id number]) Gym Equipment Shuttle Balance 1 Details BLUE Comments a/p no Ue support, head turns. WBOS with perturbations. Gait Training Gait Activity 1 Description Ambulation with 4WW Level of Assistance CGA Surface smooth Distance/Duration 700ft Treatment Focus safe walking in the community Comments Pt needed a rest break half way due to motion sickness. Neuro Re-Education Treatment Vestibular Rehabilitation Corrective Saccades Background complex Comments standing, with intermittent UE support, horizontal and vertical VOR Retraining Details VOR x1 Background complex Speed medium Position standing Comments horizontal, vertical, diagonal head movement. Duration 35-40 seconds at a time. No UE support. PT-OP-R Modalities Start: 01/05/19 12:51 Freq: Status: Active Protocol: Document 01/05/19 11:15 AMB (Rec: 01/05/19 12:52 AMB [email or web address]) Electric Stimulation Electric Stimulation Interferential Current (IFC) Body Location L shoulder Patient Position Hooklying Combined With Heat/Cold Hot Pack PT-OP-T Assessment and Plan Start: 10/27/18 07:33 Freq: Status: Active Protocol: Document 12/21/19 13:45 AMB (Rec: 12/23/19 09:38 AMB [id number]) Physical Therapy Assessment Goals Three Impairment Gait Short Term Goal (STG) Arline will walk for 6 minutes with her 4WW without needing a rest break due to motion sickness/fatigue. STG Duration 4 weeks Burglar Alarm Installer Goal (LTG) Arline will improve her 6 minute walk test to 1,000 feet . LTG Duration 8 weeks Two Impairment Dizziness Short Term Goal (STG) The patient will walk with her 4WW for 500 feet without an increase in dizziness or motion sickness.- nausea continues STG Duration PARTIALLY MET Burglar Alarm Installer Goal (LTG) The patient will walk in a visually complex environment ( like a supermarket) for 10 minutes without loss of balance. LTG Duration MET One Impairment Falls Short Term Goal (STG) The patient will report no falls during her time in PT. STG Duration MET [facility]ci Goal (LTG) The patient will tolerate the DGI test and score 16/24 or higher to show a reduced risk of falling. LTG Duration MET Assessment Summary Assessment Arline has shown improvement in her gait tolerance since last evaluation. She walked 692 feet in her 6 minute walk test , needing one rest break due to motion sensitivity. This is about double what she has been able to tolerate previously, although it is still about 1,000 feet less than her age/gender norm. She continues to need to improve her VOR, but is challenged by doing it at home, because just getting her every day tasks done takes a lot of her energy and fatigues her/ gives her motion sensitivity. This has slowed her progress, but she is still showing forward progress at her slow rate. Physical Therapy Plan Frequency and Duration Frequency of Treatment 1x/Week Duration of Treatment 8 weeks Plan of Care Start Date 12/21/19 Plan of Care End Date 02/15/20 Therapeutic Interventions Therapeutic Interventions Balance Training,Coordination Training,Gait Training,Home Exercise Program,Manual Therapy,Neuromuscular Re- education,Self-Care/Home Management,Therapeutic Activities,Therapeutic Exercises,Vestibular Rehabilitation Modalities Cold Pack/Ice Massage,Electric Stimulation,Hot Packs Next Visit Focus/Plan Next Note Type Treatment Note Next Visit Plan Continue to progress VOR, gait / balance training for safety.
--- NOTE | 2019-12-23 15:35 | PT.OPPOC ---
Physical, Occupational & Speech Therapy At [facility] Current Diagnoses Dizziness and giddiness (12/21/19) Visit Care Team Role Provider Type Francisco Ferreira MD Other Providers Physician Primary Care Provider Specialty: Internal Medicine Address: [address] [place] [address], [address], [address] Email: [email or web address] Jonatan Sage MD Attending Provider Physician Specialty: Ear, Nose, Throat Address: [address] [place] [address], [place], [address] Email: [email or web address] Plan Of Care PT-OP-T Assessment and Plan Start: 10/27/18 07:33 Freq: Status: Active Protocol: Document 12/21/19 13:45 AMB (Rec: 12/23/19 09:38 AMB [id number]) Physical Therapy Assessment Goals Three Impairment Gait Short Term Goal (STG) Arline will walk for 6 minutes with her 4WW without needing a rest break due to motion sickness/fatigue. STG Duration 4 weeks Fci Goal (LTG) Arline will improve her 6 minute walk test to 1,000 feet . LTG Duration 8 weeks Two Impairment Dizziness Short Term Goal (STG) The patient will walk with her 4WW for 500 feet without an increase in dizziness or motion sickness.- nausea continues STG Duration PARTIALLY MET Mind Reader Goal (LTG) The patient will walk in a visually complex environment ( like a supermarket) for 10 minutes without loss of balance. LTG Duration MET One Impairment Falls Short Term Goal (STG) The patient will report no falls during her time in PT. STG Duration MET Mind Reader Goal (LTG) The patient will tolerate the DGI test and score 16/24 or higher to show a reduced risk of falling. LTG Duration MET Assessment Summary Assessment Arline has shown improvement in her gait tolerance since last evaluation. She walked 692 feet in her 6 minute walk test , needing one rest break due to motion sensitivity. This is about double what she has been able to tolerate previously, although it is still about 1,000 feet less than her age/gender norm. She continues to need to improve her VOR, but is challenged by doing it at home, because just getting her every day tasks done takes a lot of her energy and fatigues her/ gives her motion sensitivity. This has slowed her progress, but she is still showing forward progress at her slow rate. Physical Therapy Plan Frequency and Duration Frequency of Treatment 1x/Week Duration of Treatment 8 weeks Plan of Care Start Date 12/21/19 Plan of Care End Date 02/15/20 Therapeutic Interventions Therapeutic Interventions Balance Training,Coordination Training,Gait Training,Home Exercise Program,Manual Therapy,Neuromuscular Re- education,Self-Care/Home Management,Therapeutic Activities,Therapeutic Exercises,Vestibular Rehabilitation Modalities Cold Pack/Ice Massage,Electric Stimulation,Hot Packs Next Visit Focus/Plan Next Note Type Treatment Note Next Visit Plan Continue to progress VOR, gait / balance training for safety. Plan of Care Dates Plan of Care Start Date 12/21/19 Plan of Care End Date 02/15/20 Electronically Signed by: Jennifer Aguirre, PT 12/23/19 [id number] Please Sign and Return: I have reviewed this Plan of Care and certify that the skilled therapy services above are required to meet the patient?s needs. Physician Signature Date Printed Name and Credentials Clinical Instructor Signature Printed Name and Credentials
--- NOTE | 2020-01-11 16:00 | PT.OTN ---
Current Diagnoses Dizziness and giddiness (01/11/20) Physical Therapy Treatment Note PT-OP-A Visit Information Start: 10/27/18 07:33 Freq: Status: Active Protocol: Document 01/11/20 13:45 EG (Rec: 01/11/20 15:05 EG [email or web address]) Out-Patient Physical Therapy Visit Information Visit Information Visit Type Treatment Note Visit Note 01/02 Visit Start Time 13:45 Visit Stop Time 14:30 Total Visit Minutes 45 Visit Number 42 PT-OP-B Current Condition Start: 10/27/18 07:33 Freq: Status: Active Protocol: Document 10/27/18 13:00 AMB (Rec: 10/30/18 15:50 AMB [email or web address]) Current Condition History of Current Condition Onset Date November 2017 Current Complaints increased motion sickness, falls History of Current Condition The patient reports that she had a virus in the that has led her to be on disability ever since. She was motion sick but she had been managing her symptoms. She was not using an assistive device. Then she had an inner ear infection in November and since that time her symptoms have worsened significantly. She reports about 20 falls in the last 6 months. She lives independently, but does have friends who will drive her to medical appointments. She describes motion sickness with all movement, worst with looking up. She does not roll over in bed as she sleeps sitting up due to her asthma. 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 Per patient, she says that after multiple imaging MD decided that the occlusion is not likely causing her symptoms. 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 Overall there was a strong central involvement. Future Testing and Treatments Planned She is going to be seeing a neurologist soon. Treatment Goals Patient/Caregiver Goals Reduce motion sickness, not have to use 4WW Prior Functional Status Baseline Function- ADL's Needs Assist Baseline Function- Mobility Needs Assist Baseline Function- Recreation/Hobbies The patient has been on disability for years, but almost a year ago her symptoms worsened. Now she has difficulty volunteering at the soup kitchen, and has not gone to [employer] because her dizziness is so severe. Previously she was not driving , but was able to walk from her home to the library independently, now she is unable to do this. Current Functional Impairments (Reported) Functional Limitations- ADL's Unable to walk more than a block or two, no energy Personal Factors Other Personal Factors That May Effect Concussion history, migraines Therapy/Recovery a couple times per month, osteopenia, history of multiple falls, difficulty reading, asthma. PT-OP-C Subjective Start: 10/27/18 07:33 Freq: Status: Active Protocol: Document 01/11/20 13:45 EG (Rec: 01/11/20 15:05 EG [email or web address]) OP-PT Subjective Patient Comments Patient Comments Patient stated that she got pretty sick after last visit which limited her movements for a couple weeks. She was coughing up mucus and was pretty sick which did not help her dizziness. She did have one bad fall in the past 3 weeks where she reports hitting her head. She was getting up from a deep sofa at that point. She has been feeling unsteady going down stairs as well as when she lifts her arms overhead. PT-OP-D Balance Start: 10/27/18 07:33 Freq: Status: Active Protocol: Document 10/27/18 13:00 AMB (Rec: 10/28/18 12:51 AMB [email or web address]) Balance Tests Single Limb Standing Single Limb- Right unable Single Limb- Left unable Semi-Tandem Standing Semi-Tandem Standing Balance unable-pt falls Tandem Tandem Standing unable Other Other Balance Tests Performed When pt is standing with WBOS she requires intermittent UE support with eyes open to avoid LOB. PT-OP-E Functional Tests Start: 10/28/18 08:46 Freq: Status: Active Protocol: Document 12/21/19 13:45 AMB (Rec: 12/23/19 15:09 AMB [id number]) Functional Tests 6 Minute Walk Test Distance 692 feet Device Used 4WW Comments 1,765 is normal for age/gender PT-OP-G Mobility & Gait Start: 10/27/18 07:33 Freq: Status: Active Protocol: Document 10/27/18 13:00 AMB (Rec: 10/28/18 08:51 AMB [email or web address]) OP Gait Assessment Comments Gait Comments Pt ambulates with WBOS with 4WW. She reports she furniture walks at home. She intermittently reaches out for the wall with walking despite the walker. PT-OP-O Vestibular Start: 10/27/18 07:33 Freq: Status: Active Protocol: Document 10/27/18 13:00 AMB (Rec: 10/28/18 12:49 AMB [email or web address]) Vestibular Assessment Visual Testing Smooth Pursuits Horizontal unable Smooth Pursuits Vertical unable Saccades Horizontal overshooting to the R Gaze Evoked Nystagmus With Fixation Negative Gaze Evoked Nystagmus Without Fixation Negative Thrust Head Positive Bilateral Convergence Test Impaired Comments Vestibular Comments The patient has been evaluated by ENT with a VNG, the patient states the Jama maneuver has never worked, and in the ENT notes, both [place]- hallpike and roll testing were negative, so not tested at this time. Pt had difficulty with all testing, so more intensive testing was not performed at this time. PT-OP-Q Treatments Start: 10/27/18 07:33 Freq: Status: Active Protocol: Document 01/11/20 13:45 EG (Rec: 01/11/20 15:05 EG [email or web address]) Gym Equipment Shuttle Balance 1 Details BLUE Comments a/p no Ue support, with UE movements in to flexion. WBOS with perturbations. Gait Training Gait Activity 1 Description Ambulation with 4WW Level of Assistance CGA Surface smooth Distance/Duration 600 feet Treatment Focus safe walking in the community Comments Pt felt nauseous at the end of the walking. 2 laps with a break and then 1 lap Neuro Re-Education Treatment Balance Activities 7 Details Standing with UE movement Surface carpet, stable Reps/Duration 8x each side Comments standing unsupported with UE flexion and abduction 8x each way 6 Details Stepping on to unstable surface Fwd/Lateral Surface foam pad Reps/Duration 10x each way alternating LE Comments use wall rail for support and CGA with gait belt Vestibular Rehabilitation VOR Retraining Details VOR x1 Background complex Speed medium Position standing Comments horizontal, vertical movement. Duration 35-40 seconds at a time. No UE support. wide GILA and narrow GILA. 4ww in front of patient and gait belt on. PT-OP-R Modalities Start: 01/05/19 12:51 Freq: Status: Active Protocol: Document 01/05/19 11:15 AMB (Rec: 01/05/19 12:52 AMB [email or web address]) Electric Stimulation Electric Stimulation Interferential Current (IFC) Body Location L shoulder Patient Position Hooklying Combined With Heat/Cold Hot Pack PT-OP-T Assessment and Plan Start: 10/27/18 07:33 Freq: Status: Active Protocol: Document 01/11/20 13:45 EG (Rec: 01/11/20 15:05 EG [email or web address]) Physical Therapy Assessment Assessment Summary Assessment Patient tolerated treatment well this afternoon. She did have increased unsteadiness with UE movement while standing with decreased GILA but was able to use arms to reach for walker when feeling unsteady. Patient had increased walking tolerance today. She did feel nauseous with VOR but was able to decrease speed slightly which helped with decrease nausea. 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 Physical Therapy Plan Frequency and Duration Frequency of Treatment 1x/Week Duration of Treatment 8 weeks Plan of Care Start Date 12/21/19 Plan of Care End Date 02/15/20 Next Visit Focus/Plan Next Note Type Treatment Note Next Visit Plan Continue to progress dual tasks with balance activities as tolerated. Woek on UE movements while balancing Jennifer Horne DPT, supervised all treatment performed by, and agreed with the plan of care, as performed by Cat Turner, SOLO.
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
--- NOTE | 2020-05-10 18:00 | PT.OPPOC ---
Physical, Occupational & Speech Therapy At [facility] Current Diagnoses Dizziness and giddiness (05/10/20) Visit Care Team Role Provider Type Francisco Ferreira MD Other Providers Physician Primary Care Provider Specialty: Internal Medicine Address: [address] [place] [address], [address], [place], [address] Email: [email or web address] Jonatan Sage MD Attending Provider Physician Specialty: Ear, Nose, Throat Address: [address] [place] [address], [place], [address] Email: Plan Of Care PT-OP-T Assessment and Plan Start: 10/27/18 07:33 Freq: Status: Active Protocol: Document 05/10/20 16:01 MB (Rec: 05/10/20 16:45 MB [id number]) Physical Therapy Assessment Goals 4 Yarn Rewinder Goal (LTG) Pt will perform at least 15 reps of sit to stands without UE support in 30 sec to improve safety with transfers and functional strength by . 05/10/2020: Pt performs 6 reps Three Group Home Goal (LTG) Pt will be able to walk 1200 feet with rollator in 6 minutes to improve community ambulation by 07/10/2020. 05/10/2020: Pt gait trains 758 feet and stops 3x d/t reports of nausea. O2 sats 98% and HR 88 BPM after gait LTG Duration 8 weeks Two Yarn Rewinder Goal (LTG) Pt will be able to perform HEP including balance, VOR, postural, strengthening and gait exercises with I to improve balance by 07/10/2020. One Yarn Rewinder Goal (LTG) Pt will perform WNLs on a standardized balance test to decrease fall risk by 2019. 05/10/2020: EO Romberg with posterior sway but no LOB; EC LOB posterior and requires PT asst to prevent fall Assessment Summary Assessment Pt presents for the first time to this PT. She has received PT for about 1.5 years at this clinic for what appears to be balance, nausea, gait. Pt is hyperverbal and is not a clear historian. It is unclear why she has not had issues resolved over the past 1.5 years with PT. She presents with decreased gait distance for 6 minutes, poor balance, decreased safety awareness, poor functional strength with sit to stands. She will benefit from PT for balance, LE strengthening, gait, VOR training. Assess for BPPV if appropriate (pt states she had spinning in the past but no longer) and check orthostatics . Physical Therapy Plan Frequency and Duration Frequency of Treatment 1x/Week Duration of Treatment 8 weeks Plan of Care Start Date 05/10/20 Plan of Care End Date 07/10/20 Therapeutic Interventions Therapeutic Interventions Balance Training,Canalithic Repositioning,Coordination Training,Gait Training,Home Exercise Program,Manual Therapy,Neuromuscular Re- education,Patient/Caregiver Education,Self-Care/Home Management,Taping,Therapeutic Activities,Therapeutic Exercises,Vestibular Rehabilitation Modalities Cold Pack/Ice Massage,Electric Stimulation,Hot Packs Next Visit Focus/Plan Next Note Type Treatment Note Next Visit Plan Check orthostatics Plan of Care Dates Plan of Care Start Date 05/10/20 Plan of Care End Date 07/10/20 Electronically Signed by: Sharon Goldstein, PT 05/10/20 1800 Please Sign and Return: I have reviewed this Plan of Care and certify that the skilled therapy services above are required to meet the patient?s needs. Physician Signature Date Printed Name and Credentials Clinical Instructor Signature Printed Name and Credentials
--- NOTE | 2020-05-30 11:16 | PT.OTN ---
Current Diagnoses Dizziness and giddiness (05/30/20) Physical Therapy Treatment Note PT-OP-A Visit Information Start: 10/27/18 07:33 Freq: Status: Active Protocol: Document 05/30/20 10:31 MB (Rec: 05/30/20 11:15 MB [id number]) Out-Patient Physical Therapy Visit Information Visit Information Visit Type Treatment Note Visit Start Time 10:31 Visit Stop Time 11:15 Total Visit Minutes 44 Visit Number 03/04 PT-OP-B Current Condition Start: 10/27/18 07:33 Freq: Status: Active Protocol: Document 10/27/18 13:00 AMB (Rec: 10/30/18 15:50 AMB [email or web address]) Current Condition History of Current Condition Onset Date November 2017 Current Complaints increased motion sickness, falls History of Current Condition The patient reports that she had a virus in the that has led her to be on disability ever since. She was motion sick but she had been managing her symptoms. She was not using an assistive device. Then she had an inner ear infection in November and since that time her symptoms have worsened significantly. She reports about 20 falls in the last 6 months. She lives independently, but does have friends who will drive her to medical appointments. She describes motion sickness with all movement, worst with looking up. She does not roll over in bed as she sleeps sitting up due to her asthma. 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 Per patient, she says that after multiple imaging MD decided that the occlusion is not likely causing her symptoms. 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 Overall there was a strong central involvement. Future Testing and Treatments Planned She is going to be seeing a neurologist soon. Treatment Goals Patient/Caregiver Goals Reduce motion sickness, not have to use 4WW Prior Functional Status Baseline Function- ADL's Needs Assist Baseline Function- Mobility Needs Assist Baseline Function- Recreation/Hobbies The patient has been on disability for years, but almost a year ago her symptoms worsened. Now she has difficulty volunteering at the soup kitchen, and has not gone to restorationism because her dizziness is so severe. Previously she was not driving , but was able to walk from her home to the library independently, now she is unable to do this. Current Functional Impairments (Reported) Functional Limitations- ADL's Unable to walk more than a block or two, no energy Personal Factors Other Personal Factors That May Effect Concussion history, migraines Therapy/Recovery a couple times per month, osteopenia, history of multiple falls, difficulty reading, asthma. PT-OP-C Subjective Start: 10/27/18 07:33 Freq: Status: Active Protocol: Document 05/30/20 10:31 MB (Rec: 05/30/20 11:15 MB [id number]) OP-PT Subjective Patient Comments Patient Comments Pt states that she is walking more and trying inclines at the park. They are not as bad. Her nausea is better. Denies spinning sensation when lying down, getting up and rolling over. She reports off and floating when moving head occ. She feels floating sensation when going up and down the stairs. She has another Dexascan scheduled. PT-OP-D Balance Start: 10/27/18 07:33 Freq: Status: Active Protocol: Document 10/27/18 13:00 AMB (Rec: 10/28/18 12:51 AMB [email or web address]) Balance Tests Single Limb Standing Single Limb- Right unable Single Limb- Left unable Semi-Tandem Standing Semi-Tandem Standing Balance unable-pt falls Tandem Tandem Standing unable Other Other Balance Tests Performed When pt is standing with WBOS she requires intermittent UE support with eyes open to avoid LOB. PT-OP-E Functional Tests Start: 10/28/18 08:46 Freq: Status: Active Protocol: Document 12/21/19 13:45 AMB (Rec: 12/23/19 15:09 AMB [id number]) Functional Tests 6 Minute Walk Test Distance 692 feet Device Used 4WW Comments 1,765 is normal for age/gender PT-OP-G Mobility & Gait Start: 10/27/18 07:33 Freq: Status: Active Protocol: Document 10/27/18 13:00 AMB (Rec: 10/28/18 08:51 AMB [email or web address]) OP Gait Assessment Comments Gait Comments Pt ambulates with WBOS with 4WW. She reports she furniture walks at home. She intermittently reaches out for the wall with walking despite the walker. PT-OP-O Vestibular Start: 10/27/18 07:33 Freq: Status: Active Protocol: Document 10/27/18 13:00 AMB (Rec: 10/28/18 12:49 AMB [email or web address]) Vestibular Assessment Visual Testing Smooth Pursuits Horizontal unable Smooth Pursuits Vertical unable Saccades Horizontal overshooting to the R Gaze Evoked Nystagmus With Fixation Negative Gaze Evoked Nystagmus Without Fixation Negative Thrust Head Positive Bilateral Convergence Test Impaired Comments Vestibular Comments The patient has been evaluated by ENT with a VNG, the patient states the Jama maneuver has never worked, and in the ENT notes, both [place]- hallpike and roll testing were negative, so not tested at this time. Pt had difficulty with all testing, so more intensive testing was not performed at this time. PT-OP-Q Treatments Start: 10/27/18 07:33 Freq: Status: Active Protocol: Document 05/30/20 10:31 MB (Rec: 05/30/20 11:15 MB [id number]) Neuro Re-Education Treatment Vestibular Rehabilitation Other- 1 Comments BPPV testing today: negative B Roll Test and [place]-Hallpike tests for nystagmus, pt reports more sxs with Left [place] -Hallpike Orthostatic assessment positive Self-Care/Home Management Treatment Education Other Education Extensive education in orthostatic hypotension. Pt drinks up to 6 cups of caffeinated coffee a day. She drinks 2.5 glasses of water a day. She drinks bone broth. Ed pt on keeping tongue at roof of mouth to help decrease TMJ tension PT-OP-R Modalities Start: 01/05/19 12:51 Freq: Status: Active Protocol: Document 01/05/19 11:15 AMB (Rec: 01/05/19 12:52 AMB [email or web address]) Electric Stimulation Electric Stimulation Interferential Current (IFC) Body Location L shoulder Patient Position Hooklying Combined With Heat/Cold Hot Pack PT-OP-T Assessment and Plan Start: 10/27/18 07:33 Freq: Status: Active Protocol: Document 05/30/20 10:31 MB (Rec: 05/30/20 11:15 MB [id number]) Physical Therapy Assessment Goals 4 Ekg Monitor Tech Goal (LTG) Pt will perform at least 15 reps of sit to stands without UE support in 30 sec to improve safety with transfers and functional strength by . 05/10/2020: Pt performs 6 reps Three Ekg Monitor Tech Goal (LTG) Pt will be able to walk 1200 feet with rollator in 6 minutes to improve community ambulation by 07/10/2020. 05/10/2020: Pt gait trains 758 feet and stops 3x d/t reports of nausea. O2 sats 98% and HR 88 BPM after gait LTG Duration 8 weeks Two Group Home Goal (LTG) Pt will be able to perform HEP including balance, VOR, postural, strengthening and gait exercises with I to improve balance by 07/10/2020. One Group Home Goal (LTG) Pt will perform WNLs on a standardized balance test to decrease fall risk by 2019. 05/10/2020: EO Romberg with posterior sway but no LOB; EC LOB posterior and requires PT asst to prevent fall Assessment Summary Assessment Pt is woozy and nauseated with most movement. No nystagmus noted with BPPV testing today. She reports more sxs with left positioning. Orthostatic assessment with BP and HR in L UE: supine 128/81; standing 110/72, 101; standing 1' 129/ 83, 100. Pt presents with positive orthostasis. Provided extensive education today. Positive findings today: orthostasis. Negative findings today: BPPV Physical Therapy Plan Frequency and Duration Frequency of Treatment 1x/Week Duration of Treatment 8 weeks Plan of Care Start Date 05/10/20 Plan of Care End Date 07/10/20 Therapeutic Interventions Therapeutic Interventions Balance Training,Canalithic Repositioning,Coordination Training,Gait Training,Home Exercise Program,Manual Therapy,Neuromuscular Re- education,Patient/Caregiver Education,Self-Care/Home Management,Taping,Therapeutic Activities,Therapeutic Exercises,Vestibular Rehabilitation Modalities Cold Pack/Ice Massage,Electric Stimulation,Hot Packs Next Visit Focus/Plan Next Note Type Treatment Note Next Visit Plan Progress VOR exercises, review other exercises given previous PT sessions
--- NOTE | 2020-06-06 11:15 | PT.OTN ---
Current Diagnoses Dizziness and giddiness (06/06/20) Physical Therapy Treatment Note PT-OP-A Visit Information Start: 10/27/18 07:33 Freq: Status: Active Protocol: Document 06/06/20 10:36 MB (Rec: 06/06/20 11:14 MB [id number]) Out-Patient Physical Therapy Visit Information Visit Information Visit Type Treatment Note Visit Start Time 10:36 Visit Stop Time 11:15 Total Visit Minutes 39 Visit Number 04/03 PT-OP-B Current Condition Start: 10/27/18 07:33 Freq: Status: Active Protocol: Document 10/27/18 13:00 AMB (Rec: 10/30/18 15:50 AMB [email or web address]) Current Condition History of Current Condition Onset Date November 2017 Current Complaints increased motion sickness, falls History of Current Condition The patient reports that she had a virus in the that has led her to be on disability ever since. She was motion sick but she had been managing her symptoms. She was not using an assistive device. Then she had an inner ear infection in November and since that time her symptoms have worsened significantly. She reports about 20 falls in the last 6 months. She lives independently, but does have friends who will drive her to medical appointments. She describes motion sickness with all movement, worst with looking up. She does not roll over in bed as she sleeps sitting up due to her asthma. 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 Per patient, she says that after multiple imaging MD decided that the occlusion is not likely causing her symptoms. 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 Overall there was a strong central involvement. Future Testing and Treatments Planned She is going to be seeing a neurologist soon. Treatment Goals Patient/Caregiver Goals Reduce motion sickness, not have to use 4WW Prior Functional Status Baseline Function- ADL's Needs Assist Baseline Function- Mobility Needs Assist Baseline Function- Recreation/Hobbies The patient has been on disability for years, but almost a year ago her symptoms worsened. Now she has difficulty volunteering at the soup kitchen, and has not gone to shinto because her dizziness is so severe. Previously she was not driving , but was able to walk from her home to the library independently, now she is unable to do this. Current Functional Impairments (Reported) Functional Limitations- ADL's Unable to walk more than a block or two, no energy Personal Factors Other Personal Factors That May Effect Concussion history, migraines Therapy/Recovery a couple times per month, osteopenia, history of multiple falls, difficulty reading, asthma. PT-OP-C Subjective Start: 10/27/18 07:33 Freq: Status: Active Protocol: Document 06/06/20 10:36 MB (Rec: 06/06/20 11:14 MB [id number]) OP-PT Subjective Patient Comments Patient Comments Pt states that she is drinking decaf hot tea as substitute for coffee. She is down to 2-3 cups of coffee a day. She has been a little less light- headed when getting up but occ light-headed with walking. Pt is wearing tighter leggings. She is thinking about getting some Spanx to help with BP drop. Pt is less nauseated on her walks. PT-OP-D Balance Start: 10/27/18 07:33 Freq: Status: Active Protocol: Document 10/27/18 13:00 AMB (Rec: 10/28/18 12:51 AMB [email or web address]) Balance Tests Single Limb Standing Single Limb- Right unable Single Limb- Left unable Semi-Tandem Standing Semi-Tandem Standing Balance unable-pt falls Tandem Tandem Standing unable Other Other Balance Tests Performed When pt is standing with WBOS she requires intermittent UE support with eyes open to avoid LOB. PT-OP-E Functional Tests Start: 10/28/18 08:46 Freq: Status: Active Protocol: Document 12/21/19 13:45 AMB (Rec: 12/23/19 15:09 AMB [id number]) Functional Tests 6 Minute Walk Test Distance 692 feet Device Used 4WW Comments 1,765 is normal for age/gender PT-OP-G Mobility & Gait Start: 10/27/18 07:33 Freq: Status: Active Protocol: Document 10/27/18 13:00 AMB (Rec: 10/28/18 08:51 AMB [email or web address]) OP Gait Assessment Comments Gait Comments Pt ambulates with WBOS with 4WW. She reports she furniture walks at home. She intermittently reaches out for the wall with walking despite the walker. PT-OP-O Vestibular Start: 10/27/18 07:33 Freq: Status: Active Protocol: Document 10/27/18 13:00 AMB (Rec: 10/28/18 12:49 AMB [email or web address]) Vestibular Assessment Visual Testing Smooth Pursuits Horizontal unable Smooth Pursuits Vertical unable Saccades Horizontal overshooting to the R Gaze Evoked Nystagmus With Fixation Negative Gaze Evoked Nystagmus Without Fixation Negative Thrust Head Positive Bilateral Convergence Test Impaired Comments Vestibular Comments The patient has been evaluated by ENT with a VNG, the patient states the Jama maneuver has never worked, and in the ENT notes, both [place]- hallpike and roll testing were negative, so not tested at this time. Pt had difficulty with all testing, so more intensive testing was not performed at this time. PT-OP-Q Treatments Start: 10/27/18 07:33 Freq: Status: Active Protocol: Document 06/06/20 10:36 MB (Rec: 06/06/20 11:14 MB [id number]) Therapeutic Exercises Sitting Exercises Sit to stands without UE support Comments 7 reps in 30 sec; 7 reps in 30 sec and pt stops Standing Exercises Rocking forward and back Comments Pt first uses rail on left, cued to tried moving both arms Stair taps, reciprocal Comments No UE support, relax arms. 8 and then 17 reps Gait Training Gait Activity Gait without AD with varying course including stairs Comments Similar asst for gait without AD--cues to rest arms down. CGA at gait belt. 100' with stairs with superv and use of both rails. Pt tries to hover hands over rails 2 Comments Stair training with two rails- -ascend and descend standard steps (3) and short steps (4) x5. Superv assist 1 Comments Gait training with CGA (PT hands on gait belt) 50' and pt reports nausea. Cues to rest arms down. Gait training 25' with superv back to chair, she rests her arms better PT-OP-R Modalities Start: 01/05/19 12:51 Freq: Status: Active Protocol: Document 01/05/19 11:15 AMB (Rec: 01/05/19 12:52 AMB [email or web address]) Electric Stimulation Electric Stimulation Interferential Current (IFC) Body Location L shoulder Patient Position Hooklying Combined With Heat/Cold Hot Pack PT-OP-T Assessment and Plan Start: 10/27/18 07:33 Freq: Status: Active Protocol: Document 06/06/20 10:36 MB (Rec: 06/06/20 11:14 MB [id number]) Physical Therapy Assessment Goals 4 Tar And Ammonia Pump Operator Goal (LTG) Pt will perform at least 15 reps of sit to stands without UE support in 30 sec to improve safety with transfers and functional strength by . 05/10/2020: Pt performs 6 reps Three Tar And Ammonia Pump Operator Goal (LTG) Pt will be able to walk 1200 feet with rollator in 6 minutes to improve community ambulation by 07/10/2020. 05/10/2020: Pt gait trains 758 feet and stops 3x d/t reports of nausea. O2 sats 98% and HR 88 BPM after gait LTG Duration 8 weeks Two Detention Goal (LTG) Pt will be able to perform HEP including balance, VOR, postural, strengthening and gait exercises with I to improve balance by 07/10/2020. One Detention Goal (LTG) Pt will perform WNLs on a standardized balance test to decrease fall risk by 2019. 05/10/2020: EO Romberg with posterior sway but no LOB; EC LOB posterior and requires PT asst to prevent fall Assessment Summary Assessment Pt is very compliant with changing drinking habits and getting compression to help with dropping BP. Pt makes progress with gait training today. Progress visual perception exercises in future . Frequent rest breaks with gait today. Physical Therapy Plan Frequency and Duration Frequency of Treatment 1x/Week Duration of Treatment 8 weeks Plan of Care Start Date 05/10/20 Plan of Care End Date 07/10/20 Therapeutic Interventions Therapeutic Interventions Balance Training,Canalithic Repositioning,Coordination Training,Gait Training,Home Exercise Program,Manual Therapy,Neuromuscular Re- education,Patient/Caregiver Education,Self-Care/Home Management,Taping,Therapeutic Activities,Therapeutic Exercises,Vestibular Rehabilitation Modalities Cold Pack/Ice Massage,Electric Stimulation,Hot Packs Next Visit Focus/Plan Next Note Type Treatment Note Next Visit Plan Progress VOR exercises, review other exercises given previous PT sessions, consider visual tracking/perception, balance exercises
--- NOTE | 2020-06-13 11:22 | PT.OTN ---
Current Diagnoses Dizziness and giddiness (06/13/20) Physical Therapy Treatment Note PT-OP-A Visit Information Start: 10/27/18 07:33 Freq: Status: Active Protocol: Document 06/13/20 10:31 MB (Rec: 06/13/20 11:17 MB [id number]) Out-Patient Physical Therapy Visit Information Visit Information Visit Type Treatment Note Visit Start Time 10:31 Visit Stop Time 11:15 Total Visit Minutes 44 Visit Number 04/03 PT-OP-B Current Condition Start: 10/27/18 07:33 Freq: Status: Active Protocol: Document 10/27/18 13:00 AMB (Rec: 10/30/18 15:50 AMB [email or web address]) Current Condition History of Current Condition Onset Date November 2017 Current Complaints increased motion sickness, falls History of Current Condition The patient reports that she had a virus in the that has led her to be on disability ever since. She was motion sick but she had been managing her symptoms. She was not using an assistive device. Then she had an inner ear infection in November and since that time her symptoms have worsened significantly. She reports about 20 falls in the last 6 months. She lives independently, but does have friends who will drive her to medical appointments. She describes motion sickness with all movement, worst with looking up. She does not roll over in bed as she sleeps sitting up due to her asthma. 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 Per patient, she says that after multiple imaging MD decided that the occlusion is not likely causing her symptoms. 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 Overall there was a strong central involvement. Future Testing and Treatments Planned She is going to be seeing a neurologist soon. Treatment Goals Patient/Caregiver Goals Reduce motion sickness, not have to use 4WW Prior Functional Status Baseline Function- ADL's Needs Assist Baseline Function- Mobility Needs Assist Baseline Function- Recreation/Hobbies The patient has been on disability for years, but almost a year ago her symptoms worsened. Now she has difficulty volunteering at the soup kitchen, and has not gone to yazidism because her dizziness is so severe. Previously she was not driving , but was able to walk from her home to the library independently, now she is unable to do this. Current Functional Impairments (Reported) Functional Limitations- ADL's Unable to walk more than a block or two, no energy Personal Factors Other Personal Factors That May Effect Concussion history, migraines Therapy/Recovery a couple times per month, osteopenia, history of multiple falls, difficulty reading, asthma. PT-OP-C Subjective Start: 10/27/18 07:33 Freq: Status: Active Protocol: Document 06/13/20 10:31 MB (Rec: 06/13/20 11:17 MB [id number]) OP-PT Subjective Patient Comments Patient Comments Pt states that she had two really good days and then she had a little back step. She states that she was able to walk a little without AD. Her BP drops some. PT-OP-D Balance Start: 10/27/18 07:33 Freq: Status: Active Protocol: Document 10/27/18 13:00 AMB (Rec: 10/28/18 12:51 AMB [email or web address]) Balance Tests Single Limb Standing Single Limb- Right unable Single Limb- Left unable Semi-Tandem Standing Semi-Tandem Standing Balance unable-pt falls Tandem Tandem Standing unable Other Other Balance Tests Performed When pt is standing with WBOS she requires intermittent UE support with eyes open to avoid LOB. PT-OP-E Functional Tests Start: 10/28/18 08:46 Freq: Status: Active Protocol: Document 12/21/19 13:45 AMB (Rec: 12/23/19 15:09 AMB [id number]) Functional Tests 6 Minute Walk Test Distance 692 feet Device Used 4WW Comments 1,765 is normal for age/gender PT-OP-G Mobility & Gait Start: 10/27/18 07:33 Freq: Status: Active Protocol: Document 10/27/18 13:00 AMB (Rec: 10/28/18 08:51 AMB [email or web address]) OP Gait Assessment Comments Gait Comments Pt ambulates with WBOS with 4WW. She reports she furniture walks at home. She intermittently reaches out for the wall with walking despite the walker. PT-OP-O Vestibular Start: 10/27/18 07:33 Freq: Status: Active Protocol: Document 10/27/18 13:00 AMB (Rec: 10/28/18 12:49 AMB [email or web address]) Vestibular Assessment Visual Testing Smooth Pursuits Horizontal unable Smooth Pursuits Vertical unable Saccades Horizontal overshooting to the R Gaze Evoked Nystagmus With Fixation Negative Gaze Evoked Nystagmus Without Fixation Negative Thrust Head Positive Bilateral Convergence Test Impaired Comments Vestibular Comments The patient has been evaluated by ENT with a VNG, the patient states the Jama maneuver has never worked, and in the ENT notes, both [place]- hallpike and roll testing were negative, so not tested at this time. Pt had difficulty with all testing, so more intensive testing was not performed at this time. PT-OP-Q Treatments Start: 10/27/18 07:33 Freq: Status: Active Protocol: Document 06/13/20 10:31 MB (Rec: 06/13/20 11:17 MB [id number]) Therapeutic Exercises Sitting Exercises 1 Comments Hamstring stretch and AP sitting Standing Exercises Backward stepping Comments Level 1 band, 6 steps backwards x2 2 Standing Exercise Name Gastroc, soleus stretches and toe raises Comments B, both stretches 30 sec 1 Standing Exercise Name Crab walking with level 1 band Comments 6 steps right and left and cues to clear feet Gait Training Gait Activity Walking without AD long distance Comments 8' gait approximately 900' with CGA to SBA today and occ cues to put arms down. Poor visual tracking. Consider 6MWT in future treatments and progressive head turns with gait. PT-OP-R Modalities Start: 01/05/19 12:51 Freq: Status: Active Protocol: Document 01/05/19 11:15 AMB (Rec: 01/05/19 12:52 AMB [email or web address]) Electric Stimulation Electric Stimulation Interferential Current (IFC) Body Location L shoulder Patient Position Hooklying Combined With Heat/Cold Hot Pack PT-OP-T Assessment and Plan Start: 10/27/18 07:33 Freq: Status: Active Protocol: Document 06/13/20 10:31 MB (Rec: 06/13/20 11:17 MB [id number]) Physical Therapy Assessment Goals 4 Detention Goal (LTG) Pt will perform at least 15 reps of sit to stands without UE support in 30 sec to improve safety with transfers and functional strength by . 05/10/2020: Pt performs 6 reps Three Manager Domestic Goal (LTG) Pt will be able to walk 1200 feet with rollator in 6 minutes to improve community ambulation by 07/10/2020. 05/10/2020: Pt gait trains 758 feet and stops 3x d/t reports of nausea. O2 sats 98% and HR 88 BPM after gait LTG Duration 8 weeks Two Detention Goal (LTG) Pt will be able to perform HEP including balance, VOR, postural, strengthening and gait exercises with I to improve balance by 07/10/2020. One Manager Domestic Goal (LTG) Pt will perform WNLs on a standardized balance test to decrease fall risk by 2019. 05/10/2020: EO Romberg with posterior sway but no LOB; EC LOB posterior and requires PT asst to prevent fall Assessment Summary Assessment Pt is able to gait train x2 for 15' with no AD and arms down, I. This is much improved . At end of treatment, pt is able to gait train without AD with arms down with occ cues and CGA for 8' for about 900'. This is much improved. Progressed leg strengthening and balance today. Physical Therapy Plan Frequency and Duration Frequency of Treatment 1x/Week Duration of Treatment 8 weeks Plan of Care Start Date 05/10/20 Plan of Care End Date 07/10/20 Therapeutic Interventions Therapeutic Interventions Balance Training,Canalithic Repositioning,Coordination Training,Gait Training,Home Exercise Program,Manual Therapy,Neuromuscular Re- education,Patient/Caregiver Education,Self-Care/Home Management,Taping,Therapeutic Activities,Therapeutic Exercises,Vestibular Rehabilitation Modalities Cold Pack/Ice Massage,Electric Stimulation,Hot Packs Next Visit Focus/Plan Next Note Type Treatment Note Next Visit Plan Progress VOR exercises, review other exercises given previous PT sessions, consider visual tracking/perception, balance exercises
--- NOTE | 2020-06-20 11:14 | PT.OTN ---
Current Diagnoses Dizziness and giddiness (06/20/20) Physical Therapy Treatment Note PT-OP-A Visit Information Start: 10/27/18 07:33 Freq: Status: Active Protocol: Document 06/20/20 10:29 MB (Rec: 06/20/20 11:14 MB [id number]) Out-Patient Physical Therapy Visit Information Visit Information Visit Type Treatment Note Visit Start Time 10:29 Visit Stop Time 11:14 Total Visit Minutes 45 Visit Number 05/04 PT-OP-B Current Condition Start: 10/27/18 07:33 Freq: Status: Active Protocol: Document 10/27/18 13:00 AMB (Rec: 10/30/18 15:50 AMB [email or web address]) Current Condition History of Current Condition Onset Date November 2017 Current Complaints increased motion sickness, falls History of Current Condition The patient reports that she had a virus in the that has led her to be on disability ever since. She was motion sick but she had been managing her symptoms. She was not using an assistive device. Then she had an inner ear infection in November and since that time her symptoms have worsened significantly. She reports about 20 falls in the last 6 months. She lives independently, but does have friends who will drive her to medical appointments. She describes motion sickness with all movement, worst with looking up. She does not roll over in bed as she sleeps sitting up due to her asthma. 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 Per patient, she says that after multiple imaging MD decided that the occlusion is not likely causing her symptoms. 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 Overall there was a strong central involvement. Future Testing and Treatments Planned She is going to be seeing a neurologist soon. Treatment Goals Patient/Caregiver Goals Reduce motion sickness, not have to use 4WW Prior Functional Status Baseline Function- ADL's Needs Assist Baseline Function- Mobility Needs Assist Baseline Function- Recreation/Hobbies The patient has been on disability for years, but almost a year ago her symptoms worsened. Now she has difficulty volunteering at the soup kitchen, and has not gone to christianity because her dizziness is so severe. Previously she was not driving , but was able to walk from her home to the library independently, now she is unable to do this. Current Functional Impairments (Reported) Functional Limitations- ADL's Unable to walk more than a block or two, no energy Personal Factors Other Personal Factors That May Effect Concussion history, migraines Therapy/Recovery a couple times per month, osteopenia, history of multiple falls, difficulty reading, asthma. PT-OP-C Subjective Start: 10/27/18 07:33 Freq: Status: Active Protocol: Document 06/20/20 10:29 MB (Rec: 06/20/20 11:14 MB [id number]) OP-PT Subjective Patient Comments Patient Comments Pt reports that she is not doing too good today. She has energy but she is off. The wind was troublesome. Her calves are sore and maybe stretches are troublesome. She has been taking care of her friend's BP. She thinks she might have overdone it. Her BP was high this morning. PT-OP-D Balance Start: 10/27/18 07:33 Freq: Status: Active Protocol: Document 10/27/18 13:00 AMB (Rec: 10/28/18 12:51 AMB [email or web address]) Balance Tests Single Limb Standing Single Limb- Right unable Single Limb- Left unable Semi-Tandem Standing Semi-Tandem Standing Balance unable-pt falls Tandem Tandem Standing unable Other Other Balance Tests Performed When pt is standing with WBOS she requires intermittent UE support with eyes open to avoid LOB. PT-OP-E Functional Tests Start: 10/28/18 08:46 Freq: Status: Active Protocol: Document 12/21/19 13:45 AMB (Rec: 12/23/19 15:09 AMB [id number]) Functional Tests 6 Minute Walk Test Distance 692 feet Device Used 4WW Comments 1,765 is normal for age/gender PT-OP-G Mobility & Gait Start: 10/27/18 07:33 Freq: Status: Active Protocol: Document 10/27/18 13:00 AMB (Rec: 10/28/18 08:51 AMB [email or web address]) OP Gait Assessment Comments Gait Comments Pt ambulates with WBOS with 4WW. She reports she furniture walks at home. She intermittently reaches out for the wall with walking despite the walker. PT-OP-O Vestibular Start: 10/27/18 07:33 Freq: Status: Active Protocol: Document 10/27/18 13:00 AMB (Rec: 10/28/18 12:49 AMB [email or web address]) Vestibular Assessment Visual Testing Smooth Pursuits Horizontal unable Smooth Pursuits Vertical unable Saccades Horizontal overshooting to the R Gaze Evoked Nystagmus With Fixation Negative Gaze Evoked Nystagmus Without Fixation Negative Thrust Head Positive Bilateral Convergence Test Impaired Comments Vestibular Comments The patient has been evaluated by ENT with a VNG, the patient states the Jama maneuver has never worked, and in the ENT notes, both Honey- hallpike and roll testing were negative, so not tested at this time. Pt had difficulty with all testing, so more intensive testing was not performed at this time. PT-OP-Q Treatments Start: 10/27/18 07:33 Freq: Status: Active Protocol: Document 06/20/20 10:29 MB (Rec: 06/20/20 11:14 MB [id number]) Therapeutic Exercises Sitting Exercises EFT Comments Education and practic today to help with HRV Diaphragmatic breathing Comments Multiple reps over more than 20 min to help with HRV PT-OP-R Modalities Start: 01/05/19 12:51 Freq: Status: Active Protocol: Document 01/05/19 11:15 AMB (Rec: 01/05/19 12:52 AMB [email or web address]) Electric Stimulation Electric Stimulation Interferential Current (IFC) Body Location L shoulder Patient Position Hooklying Combined With Heat/Cold Hot Pack PT-OP-T Assessment and Plan Start: 10/27/18 07:33 Freq: Status: Active Protocol: Document 06/20/20 10:29 MB (Rec: 06/20/20 11:14 MB [id number]) Physical Therapy Assessment Assessment Summary Assessment BP and HR LUE in sitting on arrival: 150/85, 99; RUE 127/ 86, 103. Manual palpation right radial before breathing exercises: 92 BPM; after 10 reps breathin BPM. It is possbile that pt using Albuterol more may be affecting her vitals. Pt reports she is having to be near a wood stove and she is allergic to it. After 7' of breathing, HR 89 BPM. PT could palpably feel HR decrease for two beats when pt exhales and increase for two beats when she inhales today. Teach EFT today to assist with HRV. Pt is much more confident with gait after treatment. Physical Therapy Plan Frequency and Duration Frequency of Treatment 1x/Week Duration of Treatment 8 weeks Plan of Care Start Date 05/10/20 Plan of Care End Date 07/10/20 Therapeutic Interventions Therapeutic Interventions Balance Training,Canalithic Repositioning,Coordination Training,Gait Training,Home Exercise Program,Manual Therapy,Neuromuscular Re- education,Patient/Caregiver Education,Self-Care/Home Management,Taping,Therapeutic Activities,Therapeutic Exercises,Vestibular Rehabilitation Modalities Cold Pack/Ice Massage,Electric Stimulation,Hot Packs Next Visit Focus/Plan Next Note Type Treatment Note Next Visit Plan Progress LE strengthening and balance exercises
--- NOTE | 2020-06-27 11:20 | PT.OTN ---
Current Diagnoses Dizziness and giddiness (06/27/20) Physical Therapy Treatment Note PT-OP-A Visit Information Start: 10/27/18 07:33 Freq: Status: Active Protocol: Document 06/27/20 10:39 MB (Rec: 06/27/20 11:12 MB [id number]) Out-Patient Physical Therapy Visit Information Visit Information Visit Type Treatment Note Visit Note Pt arrives late to treatment Visit Start Time 10:39 Visit Stop Time 11:15 Total Visit Minutes 36 Visit Number 06/03 PT-OP-B Current Condition Start: 10/27/18 07:33 Freq: Status: Active Protocol: Document 10/27/18 13:00 AMB (Rec: 10/30/18 15:50 AMB [email or web address]) Current Condition History of Current Condition Onset Date November 2017 Current Complaints increased motion sickness, falls History of Current Condition The patient reports that she had a virus in the that has led her to be on disability ever since. She was motion sick but she had been managing her symptoms. She was not using an assistive device. Then she had an inner ear infection in November and since that time her symptoms have worsened significantly. She reports about 20 falls in the last 6 months. She lives independently, but does have friends who will drive her to medical appointments. She describes motion sickness with all movement, worst with looking up. She does not roll over in bed as she sleeps sitting up due to her asthma. 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 Per patient, she says that after multiple imaging MD decided that the occlusion is not likely causing her symptoms. 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 Overall there was a strong central involvement. Future Testing and Treatments Planned She is going to be seeing a neurologist soon. Treatment Goals Patient/Caregiver Goals Reduce motion sickness, not have to use 4WW Prior Functional Status Baseline Function- ADL's Needs Assist Baseline Function- Mobility Needs Assist Baseline Function- Recreation/Hobbies The patient has been on disability for years, but almost a year ago her symptoms worsened. Now she has difficulty volunteering at the soup kitchen, and has not gone to baptism because her dizziness is so severe. Previously she was not driving , but was able to walk from her home to the library independently, now she is unable to do this. Current Functional Impairments (Reported) Functional Limitations- ADL's Unable to walk more than a block or two, no energy Personal Factors Other Personal Factors That May Effect Concussion history, migraines Therapy/Recovery a couple times per month, osteopenia, history of multiple falls, difficulty reading, asthma. PT-OP-C Subjective Start: 10/27/18 07:33 Freq: Status: Active Protocol: Document 06/27/20 10:39 MB (Rec: 06/27/20 11:12 MB [id number]) OP-PT Subjective Patient Comments Patient Comments Pt states that she is feeling a little better. She is trying to walk more without the walker. She is not taking care of her friend's father anymore. Her calves are better . She is performing breathing exercises. She is still having concern about her living situation changing. PT-OP-D Balance Start: 10/27/18 07:33 Freq: Status: Active Protocol: Document 10/27/18 13:00 AMB (Rec: 10/28/18 12:51 AMB [email or web address]) Balance Tests Single Limb Standing Single Limb- Right unable Single Limb- Left unable Semi-Tandem Standing Semi-Tandem Standing Balance unable-pt falls Tandem Tandem Standing unable Other Other Balance Tests Performed When pt is standing with WBOS she requires intermittent UE support with eyes open to avoid LOB. PT-OP-E Functional Tests Start: 10/28/18 08:46 Freq: Status: Active Protocol: Document 12/21/19 13:45 AMB (Rec: 12/23/19 15:09 AMB [id number]) Functional Tests 6 Minute Walk Test Distance 692 feet Device Used 4WW Comments 1,765 is normal for age/gender PT-OP-G Mobility & Gait Start: 10/27/18 07:33 Freq: Status: Active Protocol: Document 10/27/18 13:00 AMB (Rec: 10/28/18 08:51 AMB [email or web address]) OP Gait Assessment Comments Gait Comments Pt ambulates with WBOS with 4WW. She reports she furniture walks at home. She intermittently reaches out for the wall with walking despite the walker. PT-OP-O Vestibular Start: 10/27/18 07:33 Freq: Status: Active Protocol: Document 10/27/18 13:00 AMB (Rec: 10/28/18 12:49 AMB [email or web address]) Vestibular Assessment Visual Testing Smooth Pursuits Horizontal unable Smooth Pursuits Vertical unable Saccades Horizontal overshooting to the R Gaze Evoked Nystagmus With Fixation Negative Gaze Evoked Nystagmus Without Fixation Negative Thrust Head Positive Bilateral Convergence Test Impaired Comments Vestibular Comments The patient has been evaluated by ENT with a VNG, the patient states the Jama maneuver has never worked, and in the ENT notes, both [place]- hallpike and roll testing were negative, so not tested at this time. Pt had difficulty with all testing, so more intensive testing was not performed at this time. PT-OP-Q Treatments Start: 10/27/18 07:33 Freq: Status: Active Protocol: Document 06/27/20 10:39 MB (Rec: 06/27/20 11:12 MB [id number]) Therapeutic Exercises Supine Exercises Buteyko breathing Supine Exercise Name Exercise 1, practice, ed on form Comments O2 and HR before tx: 98%, 79- 93 BPM; 1 rep hold 7 sec HR 81 -83; 2nd 17 sec Sitting Exercises Diaphragmatic breathing Comments Pt performs I today Self-Care/Home Management Treatment Education Other Education Benefits of breathing exercises and EFT to improve HRV PT-OP-R Modalities Start: 01/05/19 12:51 Freq: Status: Active Protocol: Document 01/05/19 11:15 AMB (Rec: 01/05/19 12:52 AMB [email or web address]) Electric Stimulation Electric Stimulation Interferential Current (IFC) Body Location L shoulder Patient Position Hooklying Combined With Heat/Cold Hot Pack PT-OP-T Assessment and Plan Start: 10/27/18 07:33 Freq: Status: Active Protocol: Document 06/27/20 10:39 MB (Rec: 06/27/20 11:12 MB [id number]) Physical Therapy Assessment Goals 4 Straw Hat Brusher Goal (LTG) Pt will perform at least 15 reps of sit to stands without UE support in 30 sec to improve safety with transfers and functional strength by . 05/10/2020: Pt performs 6 reps Three Care Home Goal (LTG) Pt will be able to walk 1200 feet with rollator in 6 minutes to improve community ambulation by 07/10/2020. 05/10/2020: Pt gait trains 758 feet and stops 3x d/t reports of nausea. O2 sats 98% and HR 88 BPM after gait LTG Duration 8 weeks Two Straw Hat Brusher Goal (LTG) Pt will be able to perform HEP including balance, VOR, postural, strengthening and gait exercises with I to improve balance by 07/10/2020. One Care Home Goal (LTG) Pt will perform WNLs on a standardized balance test to decrease fall risk by 2019. 05/10/2020: EO Romberg with posterior sway but no LOB; EC LOB posterior and requires PT asst to prevent fall Assessment Summary Assessment Pt reports ongoing increased pulse. Per pulse-ox with exhalation through nose today, her HR does drop 10 BPM with exhalation. Initiated Buteyko breathing today to assist with HRV to improve overall wellness and symptoms. Buteyko breathing training requires increased time for teaching. Progress sinus decongestion or block nostril exercises to assist with breathing issues. Pt presents with much better HR after Buteyko breathing today: 73-76 BPM after breathing. 5 reps today. Physical Therapy Plan Frequency and Duration Frequency of Treatment 1x/Week Duration of Treatment 8 weeks Plan of Care Start Date 05/10/20 Plan of Care End Date 07/10/20 Therapeutic Interventions Therapeutic Interventions Balance Training,Canalithic Repositioning,Coordination Training,Gait Training,Home Exercise Program,Manual Therapy,Neuromuscular Re- education,Patient/Caregiver Education,Self-Care/Home Management,Taping,Therapeutic Activities,Therapeutic Exercises,Vestibular Rehabilitation Modalities Cold Pack/Ice Massage,Electric Stimulation,Hot Packs Other Referrals/Consults Referrals/Consults Recommended Follow-up with doctor about high HR Next Visit Focus/Plan Next Note Type Treatment Note Next Visit Plan Progress LE strengthening and balance exercises
--- NOTE | 2020-07-04 11:16 | PT.OTN ---
Current Diagnoses Dizziness and giddiness (07/04/20) Physical Therapy Treatment Note PT-OP-A Visit Information Start: 10/27/18 07:33 Freq: Status: Active Protocol: Document 07/04/20 10:32 MB (Rec: 07/04/20 11:13 MB [id number]) Out-Patient Physical Therapy Visit Information Visit Information Visit Type Treatment Note Visit Start Time 10:32 Visit Stop Time 11:15 Total Visit Minutes 43 Visit Number 07/04 PT-OP-B Current Condition Start: 10/27/18 07:33 Freq: Status: Active Protocol: Document 10/27/18 13:00 AMB (Rec: 10/30/18 15:50 AMB [email or web address]) Current Condition History of Current Condition Onset Date November 2017 Current Complaints increased motion sickness, falls History of Current Condition The patient reports that she had a virus in the that has led her to be on disability ever since. She was motion sick but she had been managing her symptoms. She was not using an assistive device. Then she had an inner ear infection in November and since that time her symptoms have worsened significantly. She reports about 20 falls in the last 6 months. She lives independently, but does have friends who will drive her to medical appointments. She describes motion sickness with all movement, worst with looking up. She does not roll over in bed as she sleeps sitting up due to her asthma. 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 Per patient, she says that after multiple imaging MD decided that the occlusion is not likely causing her symptoms. 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 Overall there was a strong central involvement. Future Testing and Treatments Planned She is going to be seeing a neurologist soon. Treatment Goals Patient/Caregiver Goals Reduce motion sickness, not have to use 4WW Prior Functional Status Baseline Function- ADL's Needs Assist Baseline Function- Mobility Needs Assist Baseline Function- Recreation/Hobbies The patient has been on disability for years, but almost a year ago her symptoms worsened. Now she has difficulty volunteering at the soup kitchen, and has not gone to anabaptist because her dizziness is so severe. Previously she was not driving , but was able to walk from her home to the library independently, now she is unable to do this. Current Functional Impairments (Reported) Functional Limitations- ADL's Unable to walk more than a block or two, no energy Personal Factors Other Personal Factors That May Effect Concussion history, migraines Therapy/Recovery a couple times per month, osteopenia, history of multiple falls, difficulty reading, asthma. PT-OP-C Subjective Start: 10/27/18 07:33 Freq: Status: Active Protocol: Document 07/04/20 10:32 MB (Rec: 07/04/20 11:13 MB [id number]) OP-PT Subjective Patient Comments Patient Comments Pt states that she felt really good after PT and breathing exercises that day but then she felt woozy for three days. PT-OP-D Balance Start: 10/27/18 07:33 Freq: Status: Active Protocol: Document 10/27/18 13:00 AMB (Rec: 10/28/18 12:51 AMB [email or web address]) Balance Tests Single Limb Standing Single Limb- Right unable Single Limb- Left unable Semi-Tandem Standing Semi-Tandem Standing Balance unable-pt falls Tandem Tandem Standing unable Other Other Balance Tests Performed When pt is standing with WBOS she requires intermittent UE support with eyes open to avoid LOB. PT-OP-E Functional Tests Start: 10/28/18 08:46 Freq: Status: Active Protocol: Document 12/21/19 13:45 AMB (Rec: 12/23/19 15:09 AMB [id number]) Functional Tests 6 Minute Walk Test Distance 692 feet Device Used 4WW Comments 1,765 is normal for age/gender PT-OP-G Mobility & Gait Start: 10/27/18 07:33 Freq: Status: Active Protocol: Document 10/27/18 13:00 AMB (Rec: 10/28/18 08:51 AMB [email or web address]) OP Gait Assessment Comments Gait Comments Pt ambulates with WBOS with 4WW. She reports she furniture walks at home. She intermittently reaches out for the wall with walking despite the walker. PT-OP-O Vestibular Start: 10/27/18 07:33 Freq: Status: Active Protocol: Document 10/27/18 13:00 AMB (Rec: 10/28/18 12:49 AMB [email or web address]) Vestibular Assessment Visual Testing Smooth Pursuits Horizontal unable Smooth Pursuits Vertical unable Saccades Horizontal overshooting to the R Gaze Evoked Nystagmus With Fixation Negative Gaze Evoked Nystagmus Without Fixation Negative Thrust Head Positive Bilateral Convergence Test Impaired Comments Vestibular Comments The patient has been evaluated by ENT with a VNG, the patient states the Jama maneuver has never worked, and in the ENT notes, both [place]- hallpike and roll testing were negative, so not tested at this time. Pt had difficulty with all testing, so more intensive testing was not performed at this time. PT-OP-Q Treatments Start: 10/27/18 07:33 Freq: Status: Active Protocol: Document 07/04/20 10:32 MB (Rec: 07/04/20 11:13 MB [id number]) Therapeutic Exercises Sitting Exercises Ankle DF and eversion with band Comments Level 2 band 10 reps Sit to stands without UE support Comments Pt nervous and arms out, occ flops 6 reps Other Exercises PT and pt discuss what she is doing at home Comments Reviewed all exercises provided this PT course Self-Care/Home Management Treatment Education Other Education Follow-up with doctor about high and irregular HR and c/o wooziness, statin in setting of leg spasm, and supplements PT checks BP and HR and pt and PT talk about this and PT answers questions Heat causing difficulties as possible indicator to cardiac involvement PT-OP-R Modalities Start: 01/05/19 12:51 Freq: Status: Active Protocol: Document 01/05/19 11:15 AMB (Rec: 01/05/19 12:52 AMB [email or web address]) Electric Stimulation Electric Stimulation Interferential Current (IFC) Body Location L shoulder Patient Position Hooklying Combined With Heat/Cold Hot Pack PT-OP-T Assessment and Plan Start: 10/27/18 07:33 Freq: Status: Active Protocol: Document 07/04/20 10:32 MB (Rec: 07/04/20 11:13 MB [email or web address]) Physical Therapy Assessment Goals 4 Profiling Machine Set Up Operator Goal (LTG) Pt will perform at least 15 reps of sit to stands without UE support in 30 sec to improve safety with transfers and functional strength by . 07/04/2020: Pt performs 6 reps Three Profiling Machine Set Up Operator Goal (LTG) Pt will be able to walk 1200 feet with rollator in 6 minutes to improve community ambulation by 07/10/2020. 05/10/2020: Pt gait trains 758 feet and stops 3x d/t reports of nausea. O2 sats 98% and HR 88 BPM after gait LTG Duration 8 weeks Two Residential Goal (LTG) Pt will be able to perform HEP including balance, VOR, postural, strengthening and gait exercises with I to improve balance by 07/10/2020. 07/04/2020: Pt is performing progressive breathing, relaxation, balance and strengthening exercises One Residential Goal (LTG) Pt will perform WNLs on a standardized balance test to decrease fall risk by 2019. 05/10/2020: EO Romberg with posterior sway but no LOB; EC LOB posterior and requires PT asst to prevent fall Assessment Summary Assessment HR 91 BPM right radial pulse at rest this date in sitting. Her pulse is mildly irregular and recommended to pt to have doctor to check HR. BP in R UE sittin/84, 98. Physical Therapy Plan Frequency and Duration Frequency of Treatment 1x/Week Duration of Treatment 8 weeks Plan of Care Start Date 05/10/20 Plan of Care End Date 07/10/20 Therapeutic Interventions Therapeutic Interventions Balance Training,Canalithic Repositioning,Coordination Training,Gait Training,Home Exercise Program,Manual Therapy,Neuromuscular Re- education,Patient/Caregiver Education,Self-Care/Home Management,Taping,Therapeutic Activities,Therapeutic Exercises,Vestibular Rehabilitation Modalities Cold Pack/Ice Massage,Electric Stimulation,Hot Packs Other Referrals/Consults Referrals/Consults Recommended Follow-up with doctor about high and irregular HR and c/o wooziness, statin in setting of leg spasm, and supplements Next Visit Focus/Plan Next Note Type Progress Note Next Visit Plan Progress LE strengthening and balance exercises
--- NOTE | 2020-07-11 11:18 | PT.OTN ---
Current Diagnoses Dizziness and giddiness (07/11/20) Physical Therapy Treatment Note PT-OP-A Visit Information Start: 10/27/18 07:33 Freq: Status: Active Protocol: Document 07/11/20 10:35 MB (Rec: 07/11/20 10:38 MB [id number]) Out-Patient Physical Therapy Visit Information Visit Information Visit Type Progress Note Visit Start Time 10:35 Visit Stop Time 11:15 Total Visit Minutes 40 Visit Number 08/04 PT-OP-B Current Condition Start: 10/27/18 07:33 Freq: Status: Active Protocol: Document 10/27/18 13:00 AMB (Rec: 10/30/18 15:50 AMB [email or web address]) Current Condition History of Current Condition Onset Date November 2017 Current Complaints increased motion sickness, falls History of Current Condition The patient reports that she had a virus in the that has led her to be on disability ever since. She was motion sick but she had been managing her symptoms. She was not using an assistive device. Then she had an inner ear infection in November and since that time her symptoms have worsened significantly. She reports about 20 falls in the last 6 months. She lives independently, but does have friends who will drive her to medical appointments. She describes motion sickness with all movement, worst with looking up. She does not roll over in bed as she sleeps sitting up due to her asthma. 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 Per patient, she says that after multiple imaging MD decided that the occlusion is not likely causing her symptoms. 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 Overall there was a strong central involvement. Future Testing and Treatments Planned She is going to be seeing a neurologist soon. Treatment Goals Patient/Caregiver Goals Reduce motion sickness, not have to use 4WW Prior Functional Status Baseline Function- ADL's Needs Assist Baseline Function- Mobility Needs Assist Baseline Function- Recreation/Hobbies The patient has been on disability for years, but almost a year ago her symptoms worsened. Now she has difficulty volunteering at the soup kitchen, and has not gone to gnosticist because her dizziness is so severe. Previously she was not driving , but was able to walk from her home to the library independently, now she is unable to do this. Current Functional Impairments (Reported) Functional Limitations- ADL's Unable to walk more than a block or two, no energy Personal Factors Other Personal Factors That May Effect Concussion history, migraines Therapy/Recovery a couple times per month, osteopenia, history of multiple falls, difficulty reading, asthma. PT-OP-C Subjective Start: 10/27/18 07:33 Freq: Status: Active Protocol: Document 07/11/20 10:35 MB (Rec: 07/11/20 10:40 MB [id number]) OP-PT Subjective Patient Comments Patient Comments Pt states that she followed-up with Dr. Ferreira. She had an EKG and reports everything was okay. She had blood work and may or may not be taken off statin. She states that she was originally on the statin for a reason but she cannot describe why. She communicates that there was not a big concern about her high HR but that the doctor's office also talked about her dropping BP. Pt is getting a bone scan later today. She reports history of vertebral artery problem where her blood supply might be affected. Previous PCP was worried about it but neurosurgeon was not. She reports she is walking better with this PT course as well as is not as washed out. PT-OP-D Balance Start: 10/27/18 07:33 Freq: Status: Active Protocol: Document 10/27/18 13:00 AMB (Rec: 10/28/18 12:51 AMB [email or web address]) Balance Tests Single Limb Standing Single Limb- Right unable Single Limb- Left unable Semi-Tandem Standing Semi-Tandem Standing Balance unable-pt falls Tandem Tandem Standing unable Other Other Balance Tests Performed When pt is standing with WBOS she requires intermittent UE support with eyes open to avoid LOB. PT-OP-E Functional Tests Start: 10/28/18 08:46 Freq: Status: Active Protocol: Document 12/21/19 13:45 AMB (Rec: 12/23/19 15:09 AMB [id number]) Functional Tests 6 Minute Walk Test Distance 692 feet Device Used 4WW Comments 1,765 is normal for age/gender PT-OP-G Mobility & Gait Start: 10/27/18 07:33 Freq: Status: Active Protocol: Document 10/27/18 13:00 AMB (Rec: 10/28/18 08:51 AMB [email or web address]) OP Gait Assessment Comments Gait Comments Pt ambulates with WBOS with 4WW. She reports she furniture walks at home. She intermittently reaches out for the wall with walking despite the walker. PT-OP-O Vestibular Start: 10/27/18 07:33 Freq: Status: Active Protocol: Document 10/27/18 13:00 AMB (Rec: 10/28/18 12:49 AMB [email or web address]) Vestibular Assessment Visual Testing Smooth Pursuits Horizontal unable Smooth Pursuits Vertical unable Saccades Horizontal overshooting to the R Gaze Evoked Nystagmus With Fixation Negative Gaze Evoked Nystagmus Without Fixation Negative Thrust Head Positive Bilateral Convergence Test Impaired Comments Vestibular Comments The patient has been evaluated by ENT with a VNG, the patient states the Jama maneuver has never worked, and in the ENT notes, both Honey- hallpike and roll testing were negative, so not tested at this time. Pt had difficulty with all testing, so more intensive testing was not performed at this time. PT-OP-Q Treatments Start: 10/27/18 07:33 Freq: Status: Active Protocol: Document 07/11/20 10:35 MB (Rec: 07/11/20 10:50 MB [id number]) Therapeutic Exercises Other Exercises Reviewed HEP Comments Reviewed all exercises today verbally and went through handouts Gait Training Gait Activity 6MWT Comments Performed with rollator today: 723' with superv and pt has one rest break and PT checks HR in right radial pulse and is 89 BPM. Neuro Re-Education Treatment Balance Activities Romberg EC and EO Comments EO: weight shifting forward on toes and backwards on heels rhythmically, 30 sec EC: LOB back and to the left after 7 sec Ed pt about future of neuromuscular/balance exercises Self-Care/Home Management Treatment Education Other Education Ed pt to talk with pharmacist about medication interaction list, anything that might contribute to her symptoms as pt has ongoing questions about this. Ed about future goals for PT about balance, gait, HRV PT-OP-R Modalities Start: 01/05/19 12:51 Freq: Status: Active Protocol: Document 01/05/19 11:15 AMB (Rec: 01/05/19 12:52 AMB [email or web address]) Electric Stimulation Electric Stimulation Interferential Current (IFC) Body Location L shoulder Patient Position Hooklying Combined With Heat/Cold Hot Pack PT-OP-T Assessment and Plan Start: 10/27/18 07:33 Freq: Status: Active Protocol: Document 07/11/20 10:35 MB (Rec: 07/11/20 10:48 MB [id number]) Physical Therapy Assessment Rehab Potential Rehabilitation Potential Fair Evaluation Complexity Number of Personal Factors/Comorbidities 1-2 Number of Body Systems Impaired 3 Clinical Presentation at Evaluation Evolving Impairments Impairments Activity Tolerance,Balance, Gait,Pain,Posture,Strength, Vestibular Other Impairments Pt has high HR, fluctuating BP , long history of dizziness, some possible trauma in the past Goals 4 [employer]na Maker Goal (LTG) Pt will perform at least 15 reps of sit to stands without UE support in 30 sec to improve safety with transfers and functional strength by . 07/04/2020: Pt performs 6 reps Three Usp Goal (LTG) Pt will be able to walk 1000 feet with rollator in 6 minutes to improve community ambulation by 09/10/2020. 07/11/2020: 723' in 6 minutes LTG Duration 8 weeks Two Usp Goal (LTG) Pt will be able to perform HEP including balance, VOR, postural, strengthening and gait exercises with I to improve balance by 09/10/2020. 07/04/2020: Pt is performing progressive breathing, relaxation, balance and strengthening exercises One Usp Goal (LTG) Pt will perform WNLs on a standardized balance test to decrease fall risk by 2019. 07/10/2020: Pt with ongoing light-headedness with change of position from sit to stand. 30 sec EO with weight rhythmically moving forward on toes and back on heels. EC 7 sec and LOB to the left. Assessment Summary Assessment Pt has progressed towards all goals since starting PT. These include gait, balance, performance of HEP, sit to stands. She has a complicated medical presentation including multiple medical co- morbidities, fluctuating BP, high HR, taking inhalers, long history of dizziness and polypharmacy. Pt has leg pain in setting of taking statin. She has followed-up with PCP who is looking into many issues. She reports history of head trauma and bad virus that eventually led to her losing her job. She will benefit from ongoing PT to improve balance, gait and transfers. May consider adding progressive relaxation exercises, ongoing work with heart rate variability, balance exercises. Physical Therapy Plan Frequency and Duration Frequency of Treatment 1x/Week Duration of Treatment 8 weeks Plan of Care Start Date 07/11/20 Plan of Care End Date 09/10/20 Therapeutic Interventions Therapeutic Interventions Balance Training,Canalithic Repositioning,Coordination Training,Gait Training,Home Exercise Program,Manual Therapy,Neuromuscular Re- education,Patient/Caregiver Education,Self-Care/Home Management,Taping,Therapeutic Activities,Therapeutic Exercises,Vestibular Rehabilitation Modalities Cold Pack/Ice Massage,Electric Stimulation,Hot Packs Next Visit Focus/Plan Next Note Type Treatment Note Next Visit Plan Consider Romberg with EC and EO for exercise at home
--- NOTE | 2020-07-11 11:20 | PT.OPPOC ---
Physical, Occupational & Speech Therapy At [facility] Current Diagnoses Dizziness and giddiness (07/11/20) Visit Care Team Role Provider Type Francisco Ferreira MD Other Providers Physician Primary Care Provider Specialty: Internal Medicine Address: [address] [place] [address], [address], [place], [address] Email: [email or web address] Jonatan Sage MD Attending Provider Physician Specialty: Ear, Nose, Throat Address: [address] [place] [address], [place], [address] Email: [email or web address] Of [email or web address] PT-OP-T Assessment and Plan Start: 10/27/18 07:33 Freq: Status: Active Protocol: Document 07/11/20 10:35 MB (Rec: 07/11/20 10:48 MB [id number]) Physical Therapy Assessment Rehab Potential Rehabilitation Potential Fair Evaluation Complexity Number of Personal Factors/Comorbidities 1-2 Number of Body Systems Impaired 3 Clinical Presentation at Evaluation Evolving Impairments Impairments Activity Tolerance,Balance, Gait,Pain,Posture,Strength, Vestibular Other Impairments Pt has high HR, fluctuating BP , long history of dizziness, some possible trauma in the past Goals 4 Detention Goal (LTG) Pt will perform at least 15 reps of sit to stands without UE support in 30 sec to improve safety with transfers and functional strength by . 07/04/2020: Pt performs 6 reps Three Biazzi Nitrator Operator Goal (LTG) Pt will be able to walk 1000 feet with rollator in 6 minutes to improve community ambulation by 09/10/2020. 07/11/2020: 723' in 6 minutes LTG Duration 8 weeks Two Detention Goal (LTG) Pt will be able to perform HEP including balance, VOR, postural, strengthening and gait exercises with I to improve balance by 09/10/2020. 07/04/2020: Pt is performing progressive breathing, relaxation, balance and strengthening exercises One Biazzi Nitrator Operator Goal (LTG) Pt will perform WNLs on a standardized balance test to decrease fall risk by 2019. 07/10/2020: Pt with ongoing light-headedness with change of position from sit to stand. 30 sec EO with weight rhythmically moving forward on toes and back on heels. EC 7 sec and LOB to the left. Assessment Summary Assessment Pt has progressed towards all goals since starting PT. These include gait, balance, performance of HEP, sit to stands. She has a complicated medical presentation including multiple medical co- morbidities, fluctuating BP, high HR, taking inhalers, long history of dizziness and polypharmacy. Pt has leg pain in setting of taking statin. She has followed-up with PCP who is looking into many issues. She reports history of head trauma and bad virus that eventually led to her losing her job. She will benefit from ongoing PT to improve balance, gait and transfers. May consider adding progressive relaxation exercises, ongoing work with heart rate variability, balance exercises. Physical Therapy Plan Frequency and Duration Frequency of Treatment 1x/Week Duration of Treatment 8 weeks Plan of Care Start Date 07/11/20 Plan of Care End Date 09/10/20 Therapeutic Interventions Therapeutic Interventions Balance Training,Canalithic Repositioning,Coordination Training,Gait Training,Home Exercise Program,Manual Therapy,Neuromuscular Re- education,Patient/Caregiver Education,Self-Care/Home Management,Taping,Therapeutic Activities,Therapeutic Exercises,Vestibular Rehabilitation Modalities Cold Pack/Ice Massage,Electric Stimulation,Hot Packs Next Visit Focus/Plan Next Note Type Treatment Note Next Visit Plan Consider Romberg with EC and EO for exercise at home Plan of Care Dates Plan of Care Start Date 07/11/20 Plan of Care End Date 09/10/20 Electronically Signed by: Sharon Goldstein, PT 07/11/20 [id number] Please Sign and Return: I have reviewed this Plan of Care and certify that the skilled therapy services above are required to meet the patient?s needs. Physician Signature Date Printed Name and Credentials Clinical Instructor Signature Printed Name and Credentials
--- NOTE | 2020-07-18 11:19 | PT.OTN ---
Current Diagnoses Dizziness and giddiness (07/18/20) Physical Therapy Treatment Note PT-OP-A Visit Information Start: 10/27/18 07:33 Freq: Status: Active Protocol: Document 07/18/20 10:32 MB (Rec: 07/18/20 11:19 MB [id number]) Out-Patient Physical Therapy Visit Information Visit Information Visit Type Treatment Note Visit Start Time 10:32 Visit Stop Time 11:15 Total Visit Minutes 43 Visit Number 09/03 PT-OP-B Current Condition Start: 10/27/18 07:33 Freq: Status: Active Protocol: Document 10/27/18 13:00 AMB (Rec: 10/30/18 15:50 AMB [email or web address]) Current Condition History of Current Condition Onset Date November 2017 Current Complaints increased motion sickness, falls History of Current Condition The patient reports that she had a virus in the that has led her to be on disability ever since. She was motion sick but she had been managing her symptoms. She was not using an assistive device. Then she had an inner ear infection in November and since that time her symptoms have worsened significantly. She reports about 20 falls in the last 6 months. She lives independently, but does have friends who will drive her to medical appointments. She describes motion sickness with all movement, worst with looking up. She does not roll over in bed as she sleeps sitting up due to her asthma. 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 Per patient, she says that after multiple imaging MD decided that the occlusion is not likely causing her symptoms. 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 Overall there was a strong central involvement. Future Testing and Treatments Planned She is going to be seeing a neurologist soon. Treatment Goals Patient/Caregiver Goals Reduce motion sickness, not have to use 4WW Prior Functional Status Baseline Function- ADL's Needs Assist Baseline Function- Mobility Needs Assist Baseline Function- Recreation/Hobbies The patient has been on disability for years, but almost a year ago her symptoms worsened. 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 Previously she was not driving , but was able to walk from her home to the library independently, now she is unable to do this. Current Functional Impairments (Reported) Functional Limitations- ADL's Unable to walk more than a block or two, no energy Personal Factors Other Personal Factors That May Effect Concussion history, migraines Therapy/Recovery a couple times per month, osteopenia, history of multiple falls, difficulty reading, asthma. PT-OP-C Subjective Start: 10/27/18 07:33 Freq: Status: Active Protocol: Document 07/18/20 10:32 MB (Rec: 07/18/20 11:19 MB [id number]) OP-PT Subjective Patient Comments Patient Comments Pt states that even when she goes to reach back and turn, her head feels woozy and she feels imbalanced. Findings from bone scan reveal some osteopenic changes in spine and hips. Blood work is negative and her B12 is on the high end. Her sodium is on the low in and she is eating more salt. She is stopping statin right now per MD clearance. PT-OP-D Balance Start: 10/27/18 07:33 Freq: Status: Active Protocol: Document 10/27/18 13:00 AMB (Rec: 10/28/18 12:51 AMB [email or web address]) Balance Tests Single Limb Standing Single Limb- Right unable Single Limb- Left unable Semi-Tandem Standing Semi-Tandem Standing Balance unable-pt falls Tandem Tandem Standing unable Other Other Balance Tests Performed When pt is standing with WBOS she requires intermittent UE support with eyes open to avoid LOB. PT-OP-E Functional Tests Start: 10/28/18 08:46 Freq: Status: Active Protocol: Document 12/21/19 13:45 AMB (Rec: 12/23/19 15:09 AMB [id number]) Functional Tests 6 Minute Walk Test Distance 692 feet Device Used 4WW Comments 1,765 is normal for age/gender PT-OP-G Mobility & Gait Start: 10/27/18 07:33 Freq: Status: Active Protocol: Document 10/27/18 13:00 AMB (Rec: 10/28/18 08:51 AMB [email or web address]) OP Gait Assessment Comments Gait Comments Pt ambulates with WBOS with 4WW. She reports she furniture walks at home. She intermittently reaches out for the wall with walking despite the walker. PT-OP-O Vestibular Start: 10/27/18 07:33 Freq: Status: Active Protocol: Document 10/27/18 13:00 AMB (Rec: 10/28/18 12:49 AMB [email or web address]) Vestibular Assessment Visual Testing Smooth Pursuits Horizontal unable Smooth Pursuits Vertical unable Saccades Horizontal overshooting to the R Gaze Evoked Nystagmus With Fixation Negative Gaze Evoked Nystagmus Without Fixation Negative Thrust Head Positive Bilateral Convergence Test Impaired Comments Vestibular Comments The patient has been evaluated by ENT with a VNG, the patient states the Jama maneuver has never worked, and in the ENT notes, both Honey- hallpike and roll testing were negative, so not tested at this time. Pt had difficulty with all testing, so more intensive testing was not performed at this time. PT-OP-Q Treatments Start: 10/27/18 07:33 Freq: Status: Active Protocol: Document 07/18/20 10:32 MB (Rec: 07/18/20 11:19 MB [id number]) Therapeutic Exercises Sitting Exercises Cervical rotation and extension and flexion, 1 plane movements Side bilateral Reps/Minutes Several reps, 1 sec hold Comments Perform slowly and with breathing, B QL stretch Side bilateral Reps/Minutes 1 rep several sec hold Comments B and ed on stretching QL with breathing Thoracic rotation Side bilateral Reps/Minutes 2 reps, several sec hold Comments Hands on opposite shoulders, focus on stretch and diaphragm breathing Scapular retraction Comments Ed to perform with proud chest , 5 reps Diaphragmatic breathing Comments Practiced and ed to perform with other sitting exercises Neuro Re-Education Treatment Other Activities 1 Comments Left [place]-Hallpike positive for wooziness and dizziness but no nystagmus. More symptoms and one beat nystagmus with right Honey-Hallpike and so treated with modified Jama maneuver PT-OP-R Modalities Start: 01/05/19 12:51 Freq: Status: Active Protocol: Document 01/05/19 11:15 AMB (Rec: 01/05/19 12:52 AMB [email or web address]) Electric Stimulation Electric Stimulation Interferential Current (IFC) Body Location L shoulder Patient Position Hooklying Combined With Heat/Cold Hot Pack PT-OP-T Assessment and Plan Start: 10/27/18 07:33 Freq: Status: Active Protocol: Document 07/18/20 10:32 MB (Rec: 07/18/20 11:19 MB [id number]) Physical Therapy Assessment Rehab Potential Rehabilitation Potential Fair Evaluation Complexity Number of Personal Factors/Comorbidities 1-2 Number of Body Systems Impaired 3 Clinical Presentation at Evaluation Evolving Impairments Impairments Activity Tolerance,Balance, Gait,Pain,Posture,Strength, Vestibular Other Impairments Pt has high HR, fluctuating BP , long history of dizziness, some possible trauma in the past Goals 4 [facility] Goal (LTG) Pt will perform at least 15 reps of sit to stands without UE support in 30 sec to improve safety with transfers and functional strength by . 07/04/2020: Pt performs 6 reps Three Office Assistance Goal (LTG) Pt will be able to walk 1000 feet with rollator in 6 minutes to improve community ambulation by 09/10/2020. 07/11/2020: 723' in 6 minutes LTG Duration 8 weeks Two [facility] Goal (LTG) Pt will be able to perform HEP including balance, VOR, postural, strengthening and gait exercises with I to improve balance by 09/10/2020. 07/04/2020: Pt is performing progressive breathing, relaxation, balance and strengthening exercises One [facility] Goal (LTG) Pt will perform WNLs on a standardized balance test to decrease fall risk by 2019. 07/10/2020: Pt with ongoing light-headedness with change of position from sit to stand. 30 sec EO with weight rhythmically moving forward on toes and back on heels. EC 7 sec and LOB to the left. Assessment Summary Assessment HR at rest left radial pulse 75 BPM today and O2 sats on RA are 99%. Pt's HR increases briefly into the 90s when she gets back to talking quickly and decreases to 64 BPM after breathing exercises with stretching. Physical Therapy Plan Frequency and Duration Frequency of Treatment 1x/Week Duration of Treatment 8 weeks Plan of Care Start Date 07/11/20 Plan of Care End Date 09/10/20 Therapeutic Interventions Therapeutic Interventions Balance Training,Canalithic Repositioning,Coordination Training,Gait Training,Home Exercise Program,Manual Therapy,Neuromuscular Re- education,Patient/Caregiver Education,Self-Care/Home Management,Taping,Therapeutic Activities,Therapeutic Exercises,Vestibular Rehabilitation Modalities Cold Pack/Ice Massage,Electric Stimulation,Hot Packs Other Referrals/Consults Referrals/Consults Recommended [facility]OL[facility] PATCHER referral for cognitive assessment d/t reports of forgetting things and having trouble processing more complicated things. May benefit from strategies to assist with this. Next Visit Focus/Plan Next Note Type Treatment Note Next Visit Plan Consider Romberg with EC and EO for exercise at home
--- NOTE | 2020-07-25 13:03 | PT.OTN ---
Current Diagnoses Dizziness and giddiness (07/25/20) Physical Therapy Treatment Note PT-OP-A Visit Information Start: 10/27/18 07:33 Freq: Status: Active Protocol: Document 07/25/20 12:20 MB (Rec: 07/25/20 13:03 MB [id number]) Out-Patient Physical Therapy Visit Information Visit Information Visit Type Treatment Note Visit Start Time 12:20 Visit Stop Time 13:00 Total Visit Minutes 40 Visit Number Last treatment on auth PT-OP-B Current Condition Start: 10/27/18 07:33 Freq: Status: Active Protocol: Document 10/27/18 13:00 AMB (Rec: 10/30/18 15:50 AMB [email or web address]) Current Condition History of Current Condition Onset Date November 2017 Current Complaints increased motion sickness, falls History of Current Condition The patient reports that she had a virus in the that has led her to be on disability ever since. She was motion sick but she had been managing her symptoms. She was not using an assistive device. Then she had an inner ear infection in November and since that time her symptoms have worsened significantly. She reports about 20 falls in the last 6 months. She lives independently, but does have friends who will drive her to medical appointments. She describes motion sickness with all movement, worst with looking up. She does not roll over in bed as she sleeps sitting up due to her asthma. 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 Per patient, she says that after multiple imaging MD decided that the occlusion is not likely causing her symptoms. 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 Overall there was a strong central involvement. Future Testing and Treatments Planned She is going to be seeing a neurologist soon. Treatment Goals Patient/Caregiver Goals Reduce motion sickness, not have to use 4WW Prior Functional Status Baseline Function- ADL's Needs Assist Baseline Function- Mobility Needs Assist Baseline Function- Recreation/Hobbies The patient has been on disability for years, but almost a year ago her symptoms worsened. Now she has difficulty volunteering at the soup kitchen, and has not gone to islam because her dizziness is so severe. Previously she was not driving , but was able to walk from her home to the library independently, now she is unable to do this. Current Functional Impairments (Reported) Functional Limitations- ADL's Unable to walk more than a block or two, no energy Personal Factors Other Personal Factors That May Effect Concussion history, migraines Therapy/Recovery a couple times per month, osteopenia, history of multiple falls, difficulty reading, asthma. PT-OP-C Subjective Start: 10/27/18 07:33 Freq: Status: Active Protocol: Document 07/25/20 12:20 MB (Rec: 07/25/20 13:03 MB [id number]) OP-PT Subjective Patient Comments Patient Comments Pt states that she was able to walk around the house without walker yesterday. She is having some temporal area shooting pain greater on the right. She has some trouble with reading with tiredness in her eyes. PT-OP-D Balance Start: 10/27/18 07:33 Freq: Status: Active Protocol: Document 10/27/18 13:00 AMB (Rec: 10/28/18 12:51 AMB [email or web address]) Balance Tests Single Limb Standing Single Limb- Right unable Single Limb- Left unable Semi-Tandem Standing Semi-Tandem Standing Balance unable-pt falls Tandem Tandem Standing unable Other Other Balance Tests Performed When pt is standing with WBOS she requires intermittent UE support with eyes open to avoid LOB. PT-OP-E Functional Tests Start: 10/28/18 08:46 Freq: Status: Active Protocol: Document 12/21/19 13:45 AMB (Rec: 12/23/19 15:09 AMB [id number]) Functional Tests 6 Minute Walk Test Distance 692 feet Device Used 4WW Comments 1,765 is normal for age/gender PT-OP-G Mobility & Gait Start: 10/27/18 07:33 Freq: Status: Active Protocol: Document 10/27/18 13:00 AMB (Rec: 10/28/18 08:51 AMB [email or web address]) OP Gait Assessment Comments Gait Comments Pt ambulates with WBOS with 4WW. She reports she furniture walks at home. She intermittently reaches out for the wall with walking despite the walker. PT-OP-O Vestibular Start: 10/27/18 07:33 Freq: Status: Active Protocol: Document 10/27/18 13:00 AMB (Rec: 10/28/18 12:49 AMB [email or web address]) Vestibular Assessment Visual Testing Smooth Pursuits Horizontal unable Smooth Pursuits Vertical unable Saccades Horizontal overshooting to the R Gaze Evoked Nystagmus With Fixation Negative Gaze Evoked Nystagmus Without Fixation Negative Thrust Head Positive Bilateral Convergence Test Impaired Comments Vestibular Comments The patient has been evaluated by ENT with a VNG, the patient states the Jama maneuver has never worked, and in the ENT notes, both Honey- hallpike and roll testing were negative, so not tested at this time. Pt had difficulty with all testing, so more intensive testing was not performed at this time. PT-OP-Q Treatments Start: 10/27/18 07:33 Freq: Status: Active Protocol: Document 07/25/20 12:20 MB (Rec: 07/25/20 13:03 MB [id number]) Therapeutic Exercises Supine Exercises Pect stretch Comments Cervical support Sitting Exercises Diaphragmatic breathing Comments Performed today during manual treatment Standing Exercises Intrascapular STM with racquet ball Comments Performed today and ed for home Manual Therapy Treatment Other Other Manual Treatments Pt with increased tension left greater than right middle scalenes, upper traps, suboccipital muscles. Treated with suboccipital release today as well as STM. MWM left middle and posterior scalene, B SCM (greater on the left) with PT providing pressure on trigger point and pt performing active cervical rotation. PT-OP-R Modalities Start: 01/05/19 12:51 Freq: Status: Active Protocol: Document 01/05/19 11:15 AMB (Rec: 01/05/19 12:52 AMB [email or web address]) Electric Stimulation Electric Stimulation Interferential Current (IFC) Body Location L shoulder Patient Position Hooklying Combined With Heat/Cold Hot Pack PT-OP-T Assessment and Plan Start: 10/27/18 07:33 Freq: Status: Active Protocol: Document 07/25/20 12:20 MB (Rec: 07/25/20 13:03 MB [id number]) Physical Therapy Assessment Rehab Potential Rehabilitation Potential Fair Evaluation Complexity Number of Personal Factors/Comorbidities 1-2 Number of Body Systems Impaired 3 Clinical Presentation at Evaluation Evolving Impairments Impairments Activity Tolerance,Balance, Gait,Pain,Posture,Strength, Vestibular Other Impairments Pt has high HR, fluctuating BP , long history of dizziness, some possible trauma in the past Goals 4 Skilled Nursing Goal (LTG) Pt will perform at least 15 reps of sit to stands without UE support in 30 sec to improve safety with transfers and functional strength by . 07/04/2020: Pt performs 6 reps Three Skilled Nursing Goal (LTG) Pt will be able to walk 1000 feet with rollator in 6 minutes to improve community ambulation by 09/10/2020. 07/11/2020: 723' in 6 minutes LTG Duration 8 weeks Two Skilled Nursing Goal (LTG) Pt will be able to perform HEP including balance, VOR, postural, strengthening and gait exercises with I to improve balance by 09/10/2020. 07/04/2020: Pt is performing progressive breathing, relaxation, balance and strengthening exercises One Skilled Nursing Goal (LTG) Pt will perform WNLs on a standardized balance test to decrease fall risk by 2019. 07/10/2020: Pt with ongoing light-headedness with change of position from sit to stand. 30 sec EO with weight rhythmically moving forward on toes and back on heels. EC 7 sec and LOB to the left. Assessment Summary Assessment Given pt's symptoms of dizziness with head movement and headaches and history, assessed cervical spine today and treated. Physical Therapy Plan Frequency and Duration Frequency of Treatment 1x/Week Duration of Treatment 8 weeks Plan of Care Start Date 07/11/20 Plan of Care End Date 09/10/20 Therapeutic Interventions Therapeutic Interventions Balance Training,Canalithic Repositioning,Coordination Training,Gait Training,Home Exercise Program,Manual Therapy,Neuromuscular Re- education,Patient/Caregiver Education,Self-Care/Home Management,Taping,Therapeutic Activities,Therapeutic Exercises,Vestibular Rehabilitation Modalities Cold Pack/Ice Massage,Electric Stimulation,Hot Packs Other Referrals/Consults Referrals/Consults Recommended AUTO BUMPER MECHANIC referral for cognitive assessment d/t reports of forgetting things and having trouble processing more complicated things. May benefit from strategies to assist with this. Next Visit Focus/Plan Next Note Type Treatment Note Next Visit Plan Consider Romberg with EC and EO for exercise at home
--- NOTE | 2020-08-08 12:59 | PT.OTN ---
Current Diagnoses Dizziness and giddiness (08/08/20) Physical Therapy Treatment Note PT-OP-A Visit Information Start: 10/27/18 07:33 Freq: Status: Active Protocol: Document 08/08/20 12:14 MB (Rec: 08/08/20 12:58 MB [email or web address]) Out-Patient Physical Therapy Visit Information Visit Information Visit Type Treatment Note Visit Start Time 12:14 Visit Stop Time 12:57 Total Visit Minutes 43 PT-OP-B Current Condition Start: 10/27/18 07:33 Freq: Status: Active Protocol: Document 10/27/18 13:00 AMB (Rec: 10/30/18 15:50 AMB [email or web address]) Current Condition History of Current Condition Onset Date November 2017 Current Complaints increased motion sickness, falls History of Current Condition The patient reports that she had a virus in the that has led her to be on disability ever since. She was motion sick but she had been managing her symptoms. She was not using an assistive device. Then she had an inner ear infection in November and since that time her symptoms have worsened significantly. She reports about 20 falls in the last 6 months. She lives independently, but does have friends who will drive her to medical appointments. She describes motion sickness with all movement, worst with looking up. She does not roll over in bed as she sleeps sitting up due to her asthma. 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 Per patient, she says that after multiple imaging MD decided that the occlusion is not likely causing her symptoms. 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 Overall there was a strong central involvement. Future Testing and Treatments Planned She is going to be seeing a neurologist soon. Treatment Goals Patient/Caregiver Goals Reduce motion sickness, not have to use 4WW Prior Functional Status Baseline Function- ADL's Needs Assist Baseline Function- Mobility Needs Assist Baseline Function- Recreation/Hobbies The patient has been on disability for years, but almost a year ago her symptoms worsened. Now she has difficulty volunteering at the soup kitchen, and has not gone to congregational because her dizziness is so severe. Previously she was not driving , but was able to walk from her home to the library independently, now she is unable to do this. Current Functional Impairments (Reported) Functional Limitations- ADL's Unable to walk more than a block or two, no energy Personal Factors Other Personal Factors That May Effect Concussion history, migraines Therapy/Recovery a couple times per month, osteopenia, history of multiple falls, difficulty reading, asthma. PT-OP-C Subjective Start: 10/27/18 07:33 Freq: Status: Active Protocol: Document 08/08/20 12:14 MB (Rec: 08/08/20 12:58 MB [id number]) OP-PT Subjective Patient Comments Patient Comments Pt states that she is doing better. PT-OP-D Balance Start: 10/27/18 07:33 Freq: Status: Active Protocol: Document 10/27/18 13:00 AMB (Rec: 10/28/18 12:51 AMB [email or web address]) Balance Tests Single Limb Standing Single Limb- Right unable Single Limb- Left unable Semi-Tandem Standing Semi-Tandem Standing Balance unable-pt falls Tandem Tandem Standing unable Other Other Balance Tests Performed When pt is standing with WBOS she requires intermittent UE support with eyes open to avoid LOB. PT-OP-E Functional Tests Start: 10/28/18 08:46 Freq: Status: Active Protocol: Document 12/21/19 13:45 AMB (Rec: 12/23/19 15:09 AMB [id number]) Functional Tests 6 Minute Walk Test Distance 692 feet Device Used 4WW Comments 1,765 is normal for age/gender PT-OP-G Mobility & Gait Start: 10/27/18 07:33 Freq: Status: Active Protocol: Document 10/27/18 13:00 AMB (Rec: 10/28/18 08:51 AMB [email or web address]) OP Gait Assessment Comments Gait Comments Pt ambulates with WBOS with 4WW. She reports she furniture walks at home. She intermittently reaches out for the wall with walking despite the walker. PT-OP-O Vestibular Start: 10/27/18 07:33 Freq: Status: Active Protocol: Document 10/27/18 13:00 AMB (Rec: 10/28/18 12:49 AMB [email or web address]) Vestibular Assessment Visual Testing Smooth Pursuits Horizontal unable Smooth Pursuits Vertical unable Saccades Horizontal overshooting to the R Gaze Evoked Nystagmus With Fixation Negative Gaze Evoked Nystagmus Without Fixation Negative Thrust Head Positive Bilateral Convergence Test Impaired Comments Vestibular Comments The patient has been evaluated by ENT with a VNG, the patient states the Jama maneuver has never worked, and in the ENT notes, both Honey- hallpike and roll testing were negative, so not tested at this time. Pt had difficulty with all testing, so more intensive testing was not performed at this time. PT-OP-Q Treatments Start: 10/27/18 07:33 Freq: Status: Active Protocol: Document 08/08/20 12:14 MB (Rec: 08/08/20 12:58 MB [id number]) Manual Therapy Treatment Other Other Manual Treatments Pt with increased tension left greater than right first rib and performed Grade 1 rib recoil, suboccipital muscles. Treated with suboccipital release today as well as STM. MWM B SCM and middle scalenes with PT providing pressure on trigger point and pt performing active asssited cervical rotation. Positional release for sternocostal joints, recoil with pt assisted breathing for left SC joint, positional release for ALL B UE. PT-OP-R Modalities Start: 01/05/19 12:51 Freq: Status: Active Protocol: Document 01/05/19 11:15 AMB (Rec: 01/05/19 12:52 AMB [email or web address]) Electric Stimulation Electric Stimulation Interferential Current (IFC) Body Location L shoulder Patient Position Hooklying Combined With Heat/Cold Hot Pack PT-OP-T Assessment and Plan Start: 10/27/18 07:33 Freq: Status: Active Protocol: Document 08/08/20 12:14 MB (Rec: 08/08/20 12:58 MB [id number]) Physical Therapy Assessment Rehab Potential Rehabilitation Potential Fair Evaluation Complexity Number of Personal Factors/Comorbidities 1-2 Number of Body Systems Impaired 3 Clinical Presentation at Evaluation Evolving Impairments Impairments Activity Tolerance,Balance, Gait,Pain,Posture,Strength, Vestibular Other Impairments Pt has high HR, fluctuating BP , long history of dizziness, some possible trauma in the past Goals 4 Mcfp Goal (LTG) Pt will perform at least 15 reps of sit to stands without UE support in 30 sec to improve safety with transfers and functional strength by . 07/04/2020: Pt performs 6 reps Three Mcfp Goal (LTG) Pt will be able to walk 1000 feet with rollator in 6 minutes to improve community ambulation by 09/10/2020. 07/11/2020: 723' in 6 minutes LTG Duration 8 weeks Two American Indian Studies Professor Goal (LTG) Pt will be able to perform HEP including balance, VOR, postural, strengthening and gait exercises with I to improve balance by 09/10/2020. 07/04/2020: Pt is performing progressive breathing, relaxation, balance and strengthening exercises One Mcfp Goal (LTG) Pt will perform WNLs on a standardized balance test to decrease fall risk by 2019. 07/10/2020: Pt with ongoing light-headedness with change of position from sit to stand. 30 sec EO with weight rhythmically moving forward on toes and back on heels. EC 7 sec and LOB to the left. Assessment Summary Assessment Pt gait trains much better upon arrival today with her shoulders more relaxed and is able to take some steps without her rollator. Ongoing manual work today and will progress exercises as pt tolerates. Physical Therapy Plan Frequency and Duration Frequency of Treatment 1x/Week Duration of Treatment 8 weeks Plan of Care Start Date 07/11/20 Plan of Care End Date 09/10/20 Therapeutic Interventions Therapeutic Interventions Balance Training,Canalithic Repositioning,Coordination Training,Gait Training,Home Exercise Program,Manual Therapy,Neuromuscular Re- education,Patient/Caregiver Education,Self-Care/Home Management,Taping,Therapeutic Activities,Therapeutic Exercises,Vestibular Rehabilitation Modalities Cold Pack/Ice Massage,Electric Stimulation,Hot Packs Other Referrals/Consults Referrals/Consults Recommended PRINTER FLOOR COVERING ASSISTANT referral for cognitive assessment d/t reports of forgetting things and having trouble processing more complicated things. May benefit from strategies to assist with this. Next Visit Focus/Plan Next Note Type Treatment Note Next Visit Plan In future treatments, consider Romberg with EC and EO for exercise at home. Consider postural exercises including intrascapular and shoulder rotator strengthening.
--- NOTE | 2020-08-15 12:59 | PT.OTN ---
Current Diagnoses Dizziness and giddiness (08/15/20) Physical Therapy Treatment Note PT-OP-A Visit Information Start: 10/27/18 07:33 Freq: Status: Active Protocol: Document 08/15/20 12:16 MB (Rec: 08/15/20 12:59 MB [id number]) Out-Patient Physical Therapy Visit Information Visit Information Visit Type Treatment Note Visit Start Time 12:16 Visit Stop Time 12:55 Total Visit Minutes 39 Visit Number 2/8 on auth PT-OP-B Current Condition Start: 10/27/18 07:33 Freq: Status: Active Protocol: Document 10/27/18 13:00 AMB (Rec: 10/30/18 15:50 AMB [email or web address]) Current Condition History of Current Condition Onset Date November 2017 Current Complaints increased motion sickness, falls History of Current Condition The patient reports that she had a virus in the that has led her to be on disability ever since. She was motion sick but she had been managing her symptoms. She was not using an assistive device. Then she had an inner ear infection in November and since that time her symptoms have worsened significantly. She reports about 20 falls in the last 6 months. She lives independently, but does have friends who will drive her to medical appointments. She describes motion sickness with all movement, worst with looking up. She does not roll over in bed as she sleeps sitting up due to her asthma. 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 Per patient, she says that after multiple imaging MD decided that the occlusion is not likely causing her symptoms. 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 Overall there was a strong central involvement. Future Testing and Treatments Planned She is going to be seeing a neurologist soon. Treatment Goals Patient/Caregiver Goals Reduce motion sickness, not have to use 4WW Prior Functional Status Baseline Function- ADL's Needs Assist Baseline Function- Mobility Needs Assist Baseline Function- Recreation/Hobbies The patient has been on disability for years, but almost a year ago her symptoms worsened. 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 Previously she was not driving , but was able to walk from her home to the library independently, now she is unable to do this. Current Functional Impairments (Reported) Functional Limitations- ADL's Unable to walk more than a block or two, no energy Personal Factors Other Personal Factors That May Effect Concussion history, migraines Therapy/Recovery a couple times per month, osteopenia, history of multiple falls, difficulty reading, asthma. PT-OP-C Subjective Start: 10/27/18 07:33 Freq: Status: Active Protocol: Document 08/15/20 12:16 MB (Rec: 08/15/20 12:59 MB [id number]) OP-PT Subjective Patient Comments Patient Comments I'm doing good. My range of motion is better as far as bending over. All is way easier as far as doing the stairs and other things at the house. She can walk in the house without the walker. PT-OP-D Balance Start: 10/27/18 07:33 Freq: Status: Active Protocol: Document 10/27/18 13:00 AMB (Rec: 10/28/18 12:51 AMB [email or web address]) Balance Tests Single Limb Standing Single Limb- Right unable Single Limb- Left unable Semi-Tandem Standing Semi-Tandem Standing Balance unable-pt falls Tandem Tandem Standing unable Other Other Balance Tests Performed When pt is standing with WBOS she requires intermittent UE support with eyes open to avoid LOB. PT-OP-E Functional Tests Start: 10/28/18 08:46 Freq: Status: Active Protocol: Document 12/21/19 13:45 AMB (Rec: 12/23/19 15:09 AMB [id number]) Functional Tests 6 Minute Walk Test Distance 692 feet Device Used 4WW Comments 1,765 is normal for age/gender PT-OP-G Mobility & Gait Start: 10/27/18 07:33 Freq: Status: Active Protocol: Document 10/27/18 13:00 AMB (Rec: 10/28/18 08:51 AMB [email or web address]) OP Gait Assessment Comments Gait Comments Pt ambulates with WBOS with 4WW. She reports she furniture walks at home. She intermittently reaches out for the wall with walking despite the walker. PT-OP-O Vestibular Start: 10/27/18 07:33 Freq: Status: Active Protocol: Document 10/27/18 13:00 AMB (Rec: 10/28/18 12:49 AMB [email or web address]) Vestibular Assessment Visual Testing Smooth Pursuits Horizontal unable Smooth Pursuits Vertical unable Saccades Horizontal overshooting to the R Gaze Evoked Nystagmus With Fixation Negative Gaze Evoked Nystagmus Without Fixation Negative Thrust Head Positive Bilateral Convergence Test Impaired Comments Vestibular Comments The patient has been evaluated by ENT with a VNG, the patient states the Jama maneuver has never worked, and in the ENT notes, both Baker- hallpike and roll testing were negative, so not tested at this time. Pt had difficulty with all testing, so more intensive testing was not performed at this time. PT-OP-Q Treatments Start: 10/27/18 07:33 Freq: Status: Active Protocol: Document 08/15/20 12:16 MB (Rec: 08/15/20 12:59 MB [id number]) Therapeutic Exercises Standing Exercises Intrascapular STM with racquet ball Reps/Minutes 2 reps B Comments Re-ed today, cervical rotation with it as well 2 Standing Exercise Name MWM infraspinatus, trigger point pressure and shoulder ER /IR Side bilateral Comments Cues for positioning ball and arm motion Other Exercises PT and pt discuss what she is doing at home Comments Reviewed all exercises given this PT course, handouts, frequency Gait Training Gait Activity 6MWT Comments 917 feet with rollator today, one rest break leaning against wall with rollator in front 2 Description Gait training with AD Comments 25'x2 without AD and pt is able to relax her shoulders with cues PT-OP-R Modalities Start: 01/05/19 12:51 Freq: Status: Active Protocol: Document 01/05/19 11:15 AMB (Rec: 01/05/19 12:52 AMB [email or web address]) Electric Stimulation Electric Stimulation Interferential Current (IFC) Body Location L shoulder Patient Position Hooklying Combined With Heat/Cold Hot Pack PT-OP-T Assessment and Plan Start: 10/27/18 07:33 Freq: Status: Active Protocol: Document 08/15/20 12:16 MB (Rec: 08/15/20 12:59 MB [id number]) Physical Therapy Assessment Rehab Potential Rehabilitation Potential Fair Evaluation Complexity Number of Personal Factors/Comorbidities 1-2 Number of Body Systems Impaired 3 Clinical Presentation at Evaluation Evolving Impairments Impairments Activity Tolerance,Balance, Gait,Pain,Posture,Strength, Vestibular Other Impairments Pt has high HR, fluctuating BP , long history of dizziness, some possible trauma in the past Goals 4 Snf Goal (LTG) Pt will perform at least 15 reps of sit to stands without UE support in 30 sec to improve safety with transfers and functional strength by . 07/04/2020: Pt performs 6 reps Three Snf Goal (LTG) Pt will be able to walk 1000 feet with rollator in 6 minutes to improve community ambulation by 09/10/2020. 07/11/2020: 723' in 6 minutes LTG Duration 8 weeks Two Snf Goal (LTG) Pt will be able to perform HEP including balance, VOR, postural, strengthening and gait exercises with I to improve balance by 09/10/2020. 07/04/2020: Pt is performing progressive breathing, relaxation, balance and strengthening exercises One Security Checker Goal (LTG) Pt will perform WNLs on a standardized balance test to decrease fall risk by 2019. 07/10/2020: Pt with ongoing light-headedness with change of position from sit to stand. 30 sec EO with weight rhythmically moving forward on toes and back on heels. EC 7 sec and LOB to the left. Assessment Summary Assessment Pt's gait speed is better with rollator upon arrival today. Cervical work has been helpful for balance. Con't balance, cervical, VOR and visual motor activities as pt tolerates. Physical Therapy Plan Frequency and Duration Frequency of Treatment 1x/Week Duration of Treatment 8 weeks Plan of Care Start Date 07/11/20 Plan of Care End Date 09/10/20 Therapeutic Interventions Therapeutic Interventions Balance Training,Canalithic Repositioning,Coordination Training,Gait Training,Home Exercise Program,Manual Therapy,Neuromuscular Re- education,Patient/Caregiver Education,Self-Care/Home Management,Taping,Therapeutic Activities,Therapeutic Exercises,Vestibular Rehabilitation Modalities Cold Pack/Ice Massage,Electric Stimulation,Hot Packs Other Referrals/Consults Referrals/Consults Recommended OXYGEN EQUIPMENT AIDE referral for cognitive assessment d/t reports of forgetting things and having trouble processing more complicated things. May benefit from strategies to assist with this. Next Visit Focus/Plan Next Note Type Treatment Note Next Visit Plan Consider postural exercises including intrascapular and shoulder rotator strengthening . Further balance exercises
--- NOTE | 2020-08-22 13:03 | PT.OTN ---
Current Diagnoses Dizziness and giddiness (08/22/20) Physical Therapy Treatment Note PT-OP-A Visit Information Start: 10/27/18 07:33 Freq: Status: Active Protocol: Document 08/22/20 12:14 MB (Rec: 08/22/20 13:02 MB [id number]) Out-Patient Physical Therapy Visit Information Visit Information Visit Type Treatment Note Visit Start Time 12:14 Visit Stop Time 12:59 Total Visit Minutes 45 Visit Number 3/8 on auth PT-OP-B Current Condition Start: 10/27/18 07:33 Freq: Status: Active Protocol: Document 10/27/18 13:00 AMB (Rec: 10/30/18 15:50 AMB [email or web address]) Current Condition History of Current Condition Onset Date November 2017 Current Complaints increased motion sickness, falls History of Current Condition The patient reports that she had a virus in the that has led her to be on disability ever since. She was motion sick but she had been managing her symptoms. She was not using an assistive device. Then she had an inner ear infection in November and since that time her symptoms have worsened significantly. She reports about 20 falls in the last 6 months. She lives independently, but does have friends who will drive her to medical appointments. She describes motion sickness with all movement, worst with looking up. She does not roll over in bed as she sleeps sitting up due to her asthma. 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 Per patient, she says that after multiple imaging MD decided that the occlusion is not likely causing her symptoms. 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 Overall there was a strong central involvement. Future Testing and Treatments Planned She is going to be seeing a neurologist soon. Treatment Goals Patient/Caregiver Goals Reduce motion sickness, not have to use 4WW Prior Functional Status Baseline Function- ADL's Needs Assist Baseline Function- Mobility Needs Assist Baseline Function- Recreation/Hobbies The patient has been on disability for years, but almost a year ago her symptoms worsened. Now she has difficulty volunteering at the soup kitchen, and has not gone to [employer] because her dizziness is so severe. Previously she was not driving , but was able to walk from her home to the library independently, now she is unable to do this. Current Functional Impairments (Reported) Functional Limitations- ADL's Unable to walk more than a block or two, no energy Personal Factors Other Personal Factors That May Effect Concussion history, migraines Therapy/Recovery a couple times per month, osteopenia, history of multiple falls, difficulty reading, asthma. PT-OP-C Subjective Start: 10/27/18 07:33 Freq: Status: Active Protocol: Document 08/22/20 12:14 MB (Rec: 08/22/20 13:02 MB [id number]) OP-PT Subjective Patient Comments Patient Comments Yesterday, I woke up off. My stomach was nauseated and my head was floaty. I didn't want to move. My hearing gets tinnitus and my ears feel blocked like there's pressure in there. I almost fell but I had enough to recover. It was to the right. PT-OP-D Balance Start: 10/27/18 07:33 Freq: Status: Active Protocol: Document 10/27/18 13:00 AMB (Rec: 10/28/18 12:51 AMB [email or web address]) Balance Tests Single Limb Standing Single Limb- Right unable Single Limb- Left unable Semi-Tandem Standing Semi-Tandem Standing Balance unable-pt falls Tandem Tandem Standing unable Other Other Balance Tests Performed When pt is standing with WBOS she requires intermittent UE support with eyes open to avoid LOB. PT-OP-E Functional Tests Start: 10/28/18 08:46 Freq: Status: Active Protocol: Document 12/21/19 13:45 AMB (Rec: 12/23/19 15:09 AMB [id number]) Functional Tests 6 Minute Walk Test Distance 692 feet Device Used 4WW Comments 1,765 is normal for age/gender PT-OP-G Mobility & Gait Start: 10/27/18 07:33 Freq: Status: Active Protocol: Document 10/27/18 13:00 AMB (Rec: 10/28/18 08:51 AMB [email or web address]) OP Gait Assessment Comments Gait Comments Pt ambulates with WBOS with 4WW. She reports she furniture walks at home. She intermittently reaches out for the wall with walking despite the walker. PT-OP-O Vestibular Start: 10/27/18 07:33 Freq: Status: Active Protocol: Document 10/27/18 13:00 AMB (Rec: 10/28/18 12:49 AMB [email or web address]) Vestibular Assessment Visual Testing Smooth Pursuits Horizontal unable Smooth Pursuits Vertical unable Saccades Horizontal overshooting to the R Gaze Evoked Nystagmus With Fixation Negative Gaze Evoked Nystagmus Without Fixation Negative Thrust Head Positive Bilateral Convergence Test Impaired Comments Vestibular Comments The patient has been evaluated by ENT with a VNG, the patient states the Jama maneuver has never worked, and in the ENT notes, both [place]- hallpike and roll testing were negative, so not tested at this time. Pt had difficulty with all testing, so more intensive testing was not performed at this time. PT-OP-Q Treatments Start: 10/27/18 07:33 Freq: Status: Active Protocol: Document 08/22/20 12:14 MB (Rec: 08/22/20 13:02 MB [id number]) Therapeutic Exercises Sitting Exercises Sit to stands without UE support Comments 10 reps in 30 sec Standing Exercises Romberg standing Comments 26 sec and forward and backwards sway Gait Training Gait Activity 6MWT Comments 763 feet with rollator today and to rest breaks against the wall Manual Therapy Treatment Other Other Manual Treatments Taught pt STM with MWM cervical support, pressure trigger point SCM and active cervical rotation. PT also treats B and also middle right scalene PT-OP-R Modalities Start: 01/05/19 12:51 Freq: Status: Active Protocol: Document 01/05/19 11:15 AMB (Rec: 01/05/19 12:52 AMB [email or web address]) Electric Stimulation Electric Stimulation Interferential Current (IFC) Body Location L shoulder Patient Position Hooklying Combined With Heat/Cold Hot Pack PT-OP-T Assessment and Plan Start: 10/27/18 07:33 Freq: Status: Active Protocol: Document 08/22/20 12:14 MB (Rec: 08/22/20 13:02 MB [id number]) Physical Therapy Assessment Rehab Potential Rehabilitation Potential Fair Evaluation Complexity Number of Personal Factors/Comorbidities 1-2 Number of Body Systems Impaired 3 Clinical Presentation at Evaluation Evolving Impairments Impairments Activity Tolerance,Balance, Gait,Pain,Posture,Strength, Vestibular Other Impairments Pt has high HR, fluctuating BP , long history of dizziness, some possible trauma in the past Goals 4 Dance Studio Manager Goal (LTG) Pt will perform at least 15 reps of sit to stands without UE support in 30 sec to improve safety with transfers and functional strength by . 08/22/2020: Pt performs 10 reps in 30 sec today Three Dance Studio Manager Goal (LTG) Pt will be able to walk 1000 feet with rollator in 6 minutes to improve community ambulation by 10/22/2020. 08/22/2020: 763' in 6 minutes LTG Duration 8 weeks Two Chcf Goal (LTG) Pt will be able to perform HEP including balance, VOR, postural, strengthening and gait exercises with I to improve balance by 10/22/2020. 08/22/2020: Pt is performing exercises as well as walking with rollator One Chcf Goal (LTG) Pt will perform WNLs on a standardized balance test to decrease fall risk by 2019. 08/22/2020: 26 sec Romberg EO with constant sway forward and backwards Assessment Summary Assessment Pt reports she has been way better but she did have off days on Thursday and Thursday. Cervical work has been helpful for balance. Pt has progressed with gait distance in 6 minutes, sit to stands and performance of HEP. She con't to have balance impairment. She will benefit from ongoing PT to improve balance, strength, gait, function and cervical function . Will also revisit VOR and visual motor systems as needed . Con't balance, cervical, VOR and visual motor activities as pt tolerates. Physical Therapy Plan Frequency and Duration Frequency of Treatment 1x/Week Duration of Treatment 8 weeks Plan of Care Start Date 08/22/20 Plan of Care End Date 10/22/20 Therapeutic Interventions Therapeutic Interventions Balance Training,Canalithic Repositioning,Coordination Training,Gait Training,Home Exercise Program,Manual Therapy,Neuromuscular Re- education,Patient/Caregiver Education,Self-Care/Home Management,Taping,Therapeutic Activities,Therapeutic Exercises,Vestibular Rehabilitation Modalities Cold Pack/Ice Massage,Electric Stimulation,Hot Packs Other Referrals/Consults Referrals/Consults Recommended SLOT EDITOR referral for cognitive assessment d/t reports of forgetting things and having trouble processing more complicated things. May benefit from strategies to assist with this. Next Visit Focus/Plan Next Note Type Treatment Note Next Visit Plan Consider adding sit to stands, Romberg, further postural exercises including intrascapular and shoulder rotator strengthening. Further balance exercises and return to vestibular and visual motor exercises as appropriate.
--- NOTE | 2020-08-22 13:03 | PT.OPPOC ---
Physical, Occupational & Speech Therapy At [facility] Current Diagnoses Dizziness and giddiness (08/22/20) Visit Care Team Role Provider Type Francisco Ferreira MD Other Providers Physician Primary Care Provider Specialty: Internal Medicine Address: [address] [place] [address], [address], [address] Email: [email or web address] Jonatan Sage MD Attending Provider Physician Specialty: Ear, Nose, Throat Address: [address] [place] [address], [place], [address] Email: [email or web address] Plan Of Care PT-OP-T Assessment and Plan Start: 10/27/18 07:33 Freq: Status: Active Protocol: Document 08/22/20 12:14 MB (Rec: 08/22/20 13:02 MB [id number]) Physical Therapy Assessment Rehab Potential Rehabilitation Potential Fair Evaluation Complexity Number of Personal Factors/Comorbidities 1-2 Number of Body Systems Impaired 3 Clinical Presentation at Evaluation Evolving Impairments Impairments Activity Tolerance,Balance, Gait,Pain,Posture,Strength, Vestibular Other Impairments Pt has high HR, fluctuating BP , long history of dizziness, some possible trauma in the past Goals 4 Senior Living Goal (LTG) Pt will perform at least 15 reps of sit to stands without UE support in 30 sec to improve safety with transfers and functional strength by . 08/22/2020: Pt performs 10 reps in 30 sec today Three Senior Living Goal (LTG) Pt will be able to walk 1000 feet with rollator in 6 minutes to improve community ambulation by 10/22/2020. 08/22/2020: 763' in 6 minutes LTG Duration 8 weeks Two Front Desk Administrator Goal (LTG) Pt will be able to perform HEP including balance, VOR, postural, strengthening and gait exercises with I to improve balance by 10/22/2020. 08/22/2020: Pt is performing exercises as well as walking with rollator One Front Desk Administrator Goal (LTG) Pt will perform WNLs on a standardized balance test to decrease fall risk by 2019. 08/22/2020: 26 sec Romberg EO with constant sway forward and backwards Assessment Summary Assessment Pt reports she has been way better but she did have off days on Thursday and Thursday. Cervical work has been helpful for balance. Pt has progressed with gait distance in 6 minutes, sit to stands and performance of HEP. She con't to have balance impairment. She will benefit from ongoing PT to improve balance, strength, gait, function and cervical function . Will also revisit VOR and visual motor systems as needed . Con't balance, cervical, VOR and visual motor activities as pt tolerates. Physical Therapy Plan Frequency and Duration Frequency of Treatment 1x/Week Duration of Treatment 8 weeks Plan of Care Start Date 08/22/20 Plan of Care End Date 10/22/20 Therapeutic Interventions Therapeutic Interventions Balance Training,Canalithic Repositioning,Coordination Training,Gait Training,Home Exercise Program,Manual Therapy,Neuromuscular Re- education,Patient/Caregiver Education,Self-Care/Home Management,Taping,Therapeutic Activities,Therapeutic Exercises,Vestibular Rehabilitation Modalities Cold Pack/Ice Massage,Electric Stimulation,Hot Packs Other Referrals/Consults Referrals/Consults Recommended TOOL PUSHER referral for cognitive assessment d/t reports of forgetting things and having trouble processing more complicated things. May benefit from strategies to assist with this. Next Visit Focus/Plan Next Note Type Treatment Note Next Visit Plan Consider adding sit to stands, Romberg, further postural exercises including intrascapular and shoulder rotator strengthening. Further balance exercises and return to vestibular and visual motor exercises as appropriate. Plan of Care Dates Plan of Care Start Date 08/22/20 Plan of Care End Date 10/22/20 Electronically Signed by: Sharon Goldstein PT 08/22/20 [id number] Please Sign and Return: I have reviewed this Plan of Care and certify that the skilled therapy services above are required to meet the patient?s needs. Physician Signature Date Printed Name and Credentials Clinical Instructor Signature Printed Name and Credentials
--- NOTE | 2020-08-29 14:50 | PT.OTN ---
Current Diagnoses Dizziness and giddiness (08/29/20) Physical Therapy Treatment Note PT-OP-A Visit Information Start: 10/27/18 07:33 Freq: Status: Active Protocol: Document 08/29/20 12:50 AMB (Rec: 08/29/20 13:33 AMB [id number]) Out-Patient Physical Therapy Visit Information Visit Information Visit Type Treatment Note Visit Start Time 12:50 Visit Stop Time 13:30 Total Visit Minutes 40 Visit Number 4/8 PT-OP-B Current Condition Start: 10/27/18 07:33 Freq: Status: Active Protocol: Document 10/27/18 13:00 AMB (Rec: 10/30/18 15:50 AMB [email or web address]) Current Condition History of Current Condition Onset Date November 2017 Current Complaints increased motion sickness, falls History of Current Condition The patient reports that she had a virus in the that has led her to be on disability ever since. She was motion sick but she had been managing her symptoms. She was not using an assistive device. Then she had an inner ear infection in November and since that time her symptoms have worsened significantly. She reports about 20 falls in the last 6 months. She lives independently, but does have friends who will drive her to medical appointments. She describes motion sickness with all movement, worst with looking up. She does not roll over in bed as she sleeps sitting up due to her asthma. 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 Per patient, she says that after multiple imaging MD decided that the occlusion is not likely causing her symptoms. 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 Overall there was a strong central involvement. Future Testing and Treatments Planned She is going to be seeing a neurologist soon. Treatment Goals Patient/Caregiver Goals Reduce motion sickness, not have to use 4WW Prior Functional Status Baseline Function- ADL's Needs Assist Baseline Function- Mobility Needs Assist Baseline Function- Recreation/Hobbies The patient has been on disability for years, but almost a year ago her symptoms worsened. Now she has difficulty volunteering at the soup kitchen, and has not gone to synagogue because her dizziness is so severe. Previously she was not driving , but was able to walk from her home to the library independently, now she is unable to do this. Current Functional Impairments (Reported) Functional Limitations- ADL's Unable to walk more than a block or two, no energy Personal Factors Other Personal Factors That May Effect Concussion history, migraines Therapy/Recovery a couple times per month, osteopenia, history of multiple falls, difficulty reading, asthma. PT-OP-C Subjective Start: 10/27/18 07:33 Freq: Status: Active Protocol: Document 08/29/20 12:50 AMB (Rec: 08/29/20 13:33 AMB [id number]) OP-PT Subjective Patient Comments Patient Comments Overall using 4WW for longer distances, no AD in the house. No recent falls, but a couple near falls. PT-OP-D Balance Start: 10/27/18 07:33 Freq: Status: Active Protocol: Document 10/27/18 13:00 AMB (Rec: 10/28/18 12:51 AMB [email or web address]) Balance Tests Single Limb Standing Single Limb- Right unable Single Limb- Left unable Semi-Tandem Standing Semi-Tandem Standing Balance unable-pt falls Tandem Tandem Standing unable Other Other Balance Tests Performed When pt is standing with WBOS she requires intermittent UE support with eyes open to avoid LOB. PT-OP-E Functional Tests Start: 10/28/18 08:46 Freq: Status: Active Protocol: Document 12/21/19 13:45 AMB (Rec: 12/23/19 15:09 AMB [id number]) Functional Tests 6 Minute Walk Test Distance 692 feet Device Used 4WW Comments 1,765 is normal for age/gender PT-OP-G Mobility & Gait Start: 10/27/18 07:33 Freq: Status: Active Protocol: Document 10/27/18 13:00 AMB (Rec: 10/28/18 08:51 AMB [email or web address]) OP Gait Assessment Comments Gait Comments Pt ambulates with WBOS with 4WW. She reports she furniture walks at home. She intermittently reaches out for the wall with walking despite the walker. PT-OP-O Vestibular Start: 10/27/18 07:33 Freq: Status: Active Protocol: Document 10/27/18 13:00 AMB (Rec: 10/28/18 12:49 AMB [email or web address]) Vestibular Assessment Visual Testing Smooth Pursuits Horizontal unable Smooth Pursuits Vertical unable Saccades Horizontal overshooting to the R Gaze Evoked Nystagmus With Fixation Negative Gaze Evoked Nystagmus Without Fixation Negative Thrust Head Positive Bilateral Convergence Test Impaired Comments Vestibular Comments The patient has been evaluated by ENT with a VNG, the patient states the Jama maneuver has never worked, and in the ENT notes, both Honey- hallpike and roll testing were negative, so not tested at this time. Pt had difficulty with all testing, so more intensive testing was not performed at this time. PT-OP-Q Treatments Start: 10/27/18 07:33 Freq: Status: Active Protocol: Document 08/29/20 12:45 AMB (Rec: 08/29/20 14:49 AMB [email or web address]) Therapeutic Exercises Standing Exercises 3 Standing Exercise Name shoulder flexion Resistance 2# Reps/Minutes 10 Comments vc posture, engage core 1 Standing Exercise Name biceps curls, Resistance 2# Reps/Minutes 10 Comments vc posture/ balance Neuro Re-Education Treatment Balance Activities Sit to stand Details with focus on foot placement, control Reps/Duration 15 Other Activities 2 Details walking with 4WW Comments 2 laps, light touch, focus on postural control PT-OP-R Modalities Start: 01/05/19 12:51 Freq: Status: Active Protocol: Document 01/05/19 11:15 AMB (Rec: 01/05/19 12:52 AMB [email or web address]) Electric Stimulation Electric Stimulation Interferential Current (IFC) Body Location L shoulder Patient Position Hooklying Combined With Heat/Cold Hot Pack PT-OP-T Assessment and Plan Start: 10/27/18 07:33 Freq: Status: Active Protocol: Document 08/29/20 12:45 AMB (Rec: 08/29/20 14:49 AMB [email or web address]) Physical Therapy Assessment Assessment Summary Assessment Pt tolerated sit to stands well. Needs extensive vc for posture while working on standing balance exercises. Overall feels that therapy has been very helpful and that she still has flares but they don't last as long. Physical Therapy Plan Next Visit Focus/Plan Next Note Type Treatment Note Next Visit Plan Consider Romberg, further postural exercises including intrascapular and shoulder rotator strengthening. Further balance exercises and return to vestibular and visual motor exercises as appropriate.
--- NOTE | 2020-09-05 10:57 | PT.OTN ---
Current Diagnoses Dizziness and giddiness (09/05/20) Physical Therapy Treatment Note PT-OP-A Visit Information Start: 10/27/18 07:33 Freq: Status: Active Protocol: Document 09/05/20 10:15 AMB (Rec: 09/05/20 10:57 AMB [id number]) Out-Patient Physical Therapy Visit Information Visit Information Visit Type Treatment Note Visit Start Time 10:15 Visit Stop Time 11:00 Total Visit Minutes 45 Visit Number 5/8 PT-OP-B Current Condition Start: 10/27/18 07:33 Freq: Status: Active Protocol: Document 10/27/18 13:00 AMB (Rec: 10/30/18 15:50 AMB [email or web address]) Current Condition History of Current Condition Onset Date November 2017 Current Complaints increased motion sickness, falls History of Current Condition The patient reports that she had a virus in the that has led her to be on disability ever since. She was motion sick but she had been managing her symptoms. She was not using an assistive device. Then she had an inner ear infection in November and since that time her symptoms have worsened significantly. She reports about 20 falls in the last 6 months. She lives independently, but does have friends who will drive her to medical appointments. She describes motion sickness with all movement, worst with looking up. She does not roll over in bed as she sleeps sitting up due to her asthma. 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 Per patient, she says that after multiple imaging MD decided that the occlusion is not likely causing her symptoms. 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 Overall there was a strong central involvement. Future Testing and Treatments Planned She is going to be seeing a neurologist soon. Treatment Goals Patient/Caregiver Goals Reduce motion sickness, not have to use 4WW Prior Functional Status Baseline Function- ADL's Needs Assist Baseline Function- Mobility Needs Assist Baseline Function- Recreation/Hobbies The patient has been on disability for years, but almost a year ago her symptoms worsened. Now she has difficulty volunteering at the soup kitchen, and has not gone to baptism because her dizziness is so severe. Previously she was not driving , but was able to walk from her home to the library independently, now she is unable to do this. Current Functional Impairments (Reported) Functional Limitations- ADL's Unable to walk more than a block or two, no energy Personal Factors Other Personal Factors That May Effect Concussion history, migraines Therapy/Recovery a couple times per month, osteopenia, history of multiple falls, difficulty reading, asthma. PT-OP-C Subjective Start: 10/27/18 07:33 Freq: Status: Active Protocol: Document 09/05/20 10:15 AMB (Rec: 09/05/20 10:57 AMB [id number]) OP-PT Subjective Patient Comments Patient Comments Arline reports a near fall on the stairs- which increased her nausea for about 3 hours later. PT-OP-D Balance Start: 10/27/18 07:33 Freq: Status: Active Protocol: Document 10/27/18 13:00 AMB (Rec: 10/28/18 12:51 AMB [email or web address]) Balance Tests Single Limb Standing Single Limb- Right unable Single Limb- Left unable Semi-Tandem Standing Semi-Tandem Standing Balance unable-pt falls Tandem Tandem Standing unable Other Other Balance Tests Performed When pt is standing with WBOS she requires intermittent UE support with eyes open to avoid LOB. PT-OP-E Functional Tests Start: 10/28/18 08:46 Freq: Status: Active Protocol: Document 12/21/19 13:45 AMB (Rec: 12/23/19 15:09 AMB [id number]) Functional Tests 6 Minute Walk Test Distance 692 feet Device Used 4WW Comments 1,765 is normal for age/gender PT-OP-G Mobility & Gait Start: 10/27/18 07:33 Freq: Status: Active Protocol: Document 10/27/18 13:00 AMB (Rec: 10/28/18 08:51 AMB [email or web address]) OP Gait Assessment Comments Gait Comments Pt ambulates with WBOS with 4WW. She reports she furniture walks at home. She intermittently reaches out for the wall with walking despite the walker. PT-OP-O Vestibular Start: 10/27/18 07:33 Freq: Status: Active Protocol: Document 10/27/18 13:00 AMB (Rec: 10/28/18 12:49 AMB [email or web address]) Vestibular Assessment Visual Testing Smooth Pursuits Horizontal unable Smooth Pursuits Vertical unable Saccades Horizontal overshooting to the R Gaze Evoked Nystagmus With Fixation Negative Gaze Evoked Nystagmus Without Fixation Negative Thrust Head Positive Bilateral Convergence Test Impaired Comments Vestibular Comments The patient has been evaluated by ENT with a VNG, the patient states the Jama maneuver has never worked, and in the ENT notes, both Honey- hallpike and roll testing were negative, so not tested at this time. Pt had difficulty with all testing, so more intensive testing was not performed at this time. PT-OP-Q Treatments Start: 10/27/18 07:33 Freq: Status: Active Protocol: Document 09/05/20 10:15 AMB (Rec: 09/05/20 10:57 AMB [id number]) Therapeutic Exercises Standing Exercises 4 Standing Exercise Name t band rows/ ER Resistance #3 Reps/Minutes 2x10 Neuro Re-Education Treatment Balance Activities 1 Details HT modified tandem Surface firm Comments small LOB able to fix independently. PT-OP-R Modalities Start: 01/05/19 12:51 Freq: Status: Active Protocol: Document 01/05/19 11:15 AMB (Rec: 01/05/19 12:52 AMB [email or web address]) Electric Stimulation Electric Stimulation Interferential Current (IFC) Body Location L shoulder Patient Position Hooklying Combined With Heat/Cold Hot Pack PT-OP-T Assessment and Plan Start: 10/27/18 07:33 Freq: Status: Active Protocol: Document 09/05/20 10:15 AMB (Rec: 09/05/20 10:57 AMB [id number]) Physical Therapy Assessment Assessment Summary Assessment Arline tolerated theraband exercises well to improve her scapular muscular strength. Did need cues for postural control . Physical Therapy Plan Next Visit Focus/Plan Next Note Type Treatment Note Next Visit Plan Consider Romberg, further postural exercises including intrascapular and shoulder rotator strengthening. Further balance exercises and return to vestibular and visual motor exercises as appropriate.
--- NOTE | 2020-09-12 14:29 | PT.OTN ---
Current Diagnoses Dizziness and giddiness (09/12/20) Physical Therapy Treatment Note PT-OP-A Visit Information Start: 10/27/18 07:33 Freq: Status: Active Protocol: Document 09/12/20 10:15 AMB (Rec: 09/12/20 10:54 AMB [id number]) Out-Patient Physical Therapy Visit Information Visit Information Visit Type Treatment Note Visit Start Time 10:15 Visit Stop Time 11:00 Total Visit Minutes 45 Visit Number 6/8 PT-OP-B Current Condition Start: 10/27/18 07:33 Freq: Status: Active Protocol: Document 10/27/18 13:00 AMB (Rec: 10/30/18 15:50 AMB [email or web address]) Current Condition History of Current Condition Onset Date November 2017 Current Complaints increased motion sickness, falls History of Current Condition The patient reports that she had a virus in the that has led her to be on disability ever since. She was motion sick but she had been managing her symptoms. She was not using an assistive device. Then she had an inner ear infection in November and since that time her symptoms have worsened significantly. She reports about 20 falls in the last 6 months. She lives independently, but does have friends who will drive her to medical appointments. She describes motion sickness with all movement, worst with looking up. She does not roll over in bed as she sleeps sitting up due to her asthma. 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 Per patient, she says that after multiple imaging MD decided that the occlusion is not likely causing her symptoms. 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 Overall there was a strong central involvement. Future Testing and Treatments Planned She is going to be seeing a neurologist soon. Treatment Goals Patient/Caregiver Goals Reduce motion sickness, not have to use 4WW Prior Functional Status Baseline Function- ADL's Needs Assist Baseline Function- Mobility Needs Assist Baseline Function- Recreation/Hobbies The patient has been on disability for years, but almost a year ago her symptoms worsened. Now she has difficulty volunteering at the soup kitchen, and has not gone to temple because her dizziness is so severe. Previously she was not driving , but was able to walk from her home to the library independently, now she is unable to do this. Current Functional Impairments (Reported) Functional Limitations- ADL's Unable to walk more than a block or two, no energy Personal Factors Other Personal Factors That May Effect Concussion history, migraines Therapy/Recovery a couple times per month, osteopenia, history of multiple falls, difficulty reading, asthma. PT-OP-C Subjective Start: 10/27/18 07:33 Freq: Status: Active Protocol: Document 09/12/20 10:15 AMB (Rec: 09/12/20 10:54 AMB [id number]) OP-PT Subjective Patient Comments Patient Comments Arline reports being woozy when getting up from the floor. Like when getting back up from putting cat food on the ground. PT-OP-D Balance Start: 10/27/18 07:33 Freq: Status: Active Protocol: Document 10/27/18 13:00 AMB (Rec: 10/28/18 12:51 AMB [email or web address]) Balance Tests Single Limb Standing Single Limb- Right unable Single Limb- Left unable Semi-Tandem Standing Semi-Tandem Standing Balance unable-pt falls Tandem Tandem Standing unable Other Other Balance Tests Performed When pt is standing with WBOS she requires intermittent UE support with eyes open to avoid LOB. PT-OP-E Functional Tests Start: 10/28/18 08:46 Freq: Status: Active Protocol: Document 12/21/19 13:45 AMB (Rec: 12/23/19 15:09 AMB [id number]) Functional Tests 6 Minute Walk Test Distance 692 feet Device Used 4WW Comments 1,765 is normal for age/gender PT-OP-G Mobility & Gait Start: 10/27/18 07:33 Freq: Status: Active Protocol: Document 10/27/18 13:00 AMB (Rec: 10/28/18 08:51 AMB [email or web address]) OP Gait Assessment Comments Gait Comments Pt ambulates with WBOS with 4WW. She reports she furniture walks at home. She intermittently reaches out for the wall with walking despite the walker. PT-OP-O Vestibular Start: 10/27/18 07:33 Freq: Status: Active Protocol: Document 10/27/18 13:00 AMB (Rec: 10/28/18 12:49 AMB [email or web address]) Vestibular Assessment Visual Testing Smooth Pursuits Horizontal unable Smooth Pursuits Vertical unable Saccades Horizontal overshooting to the R Gaze Evoked Nystagmus With Fixation Negative Gaze Evoked Nystagmus Without Fixation Negative Thrust Head Positive Bilateral Convergence Test Impaired Comments Vestibular Comments The patient has been evaluated by ENT with a VNG, the patient states the Jama maneuver has never worked, and in the ENT notes, both Honey- hallpike and roll testing were negative, so not tested at this time. Pt had difficulty with all testing, so more intensive testing was not performed at this time. PT-OP-Q Treatments Start: 10/27/18 07:33 Freq: Status: Active Protocol: Document 09/12/20 10:15 AMB (Rec: 09/12/20 14:29 AMB [email or web address]) Neuro Re-Education Treatment Balance Activities 1 Details HT modified tandem Surface firm Comments described how to progress exercises with progressively smaller GILA, added metronome, Vestibular Rehabilitation VOR Retraining Details VOR x1 Background complex Speed medium Position standing Comments horizontal, vertical movement. Duration 35-40 seconds at a time. No UE support. wide GIAL and narrow GILA. Other Activities 1 Details bowing forward Comments with and without head turns, with focus on postural stability when standing back up straight PT-OP-R Modalities Start: 01/05/19 12:51 Freq: Status: Active Protocol: Document 01/05/19 11:15 AMB (Rec: 01/05/19 12:52 AMB [email or web address]) Electric Stimulation Electric Stimulation Interferential Current (IFC) Body Location L shoulder Patient Position Hooklying Combined With Heat/Cold Hot Pack PT-OP-T Assessment and Plan Start: 10/27/18 07:33 Freq: Status: Active Protocol: Document 09/12/20 10:15 AMB (Rec: 09/12/20 10:54 AMB [id number]) Physical Therapy Assessment Assessment Summary Assessment Arline continues to have more sx when looking to the left. Reviewed orthostatic hypotension role in movement when coming up. Physical Therapy Plan Next Visit Focus/Plan Next Visit Plan Provide HEP that pt can self progress in prep for upcoming possible d/c.
--- NOTE | 2020-09-20 09:42 | PT.OTN ---
Current Diagnoses Dizziness and giddiness (09/20/20) Physical Therapy Treatment Note PT-OP-A Visit Information Start: 10/27/18 07:33 Freq: Status: Active Protocol: Document 09/20/20 09:02 MB (Rec: 09/20/20 09:30 MB [id number]) Out-Patient Physical Therapy Visit Information Visit Information Visit Type Treatment Note Visit Start Time 09:02 Visit Stop Time 09:45 Total Visit Minutes 38 Visit Number 7/8 PT-OP-B Current Condition Start: 10/27/18 07:33 Freq: Status: Active Protocol: Document 10/27/18 13:00 AMB (Rec: 10/30/18 15:50 AMB [email or web address]) Current Condition History of Current Condition Onset Date November 2017 Current Complaints increased motion sickness, falls History of Current Condition The patient reports that she had a virus in the that has led her to be on disability ever since. She was motion sick but she had been managing her symptoms. She was not using an assistive device. Then she had an inner ear infection in November and since that time her symptoms have worsened significantly. She reports about 20 falls in the last 6 months. She lives independently, but does have friends who will drive her to medical appointments. She describes motion sickness with all movement, worst with looking up. She does not roll over in bed as she sleeps sitting up due to her asthma. 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 Per patient, she says that after multiple imaging MD decided that the occlusion is not likely causing her symptoms. 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 Overall there was a strong central involvement. Future Testing and Treatments Planned She is going to be seeing a neurologist soon. Treatment Goals Patient/Caregiver Goals Reduce motion sickness, not have to use 4WW Prior Functional Status Baseline Function- ADL's Needs Assist Baseline Function- Mobility Needs Assist Baseline Function- Recreation/Hobbies The patient has been on disability for years, but almost a year ago her symptoms worsened. Now she has difficulty volunteering at the soup kitchen, and has not gone to orth[employer] because her dizziness is so severe. Previously she was not driving , but was able to walk from her home to the library independently, now she is unable to do this. Current Functional Impairments (Reported) Functional Limitations- ADL's Unable to walk more than a block or two, no energy Personal Factors Other Personal Factors That May Effect Concussion history, migraines Therapy/Recovery a couple times per month, osteopenia, history of multiple falls, difficulty reading, asthma. PT-OP-C Subjective Start: 10/27/18 07:33 Freq: Status: Active Protocol: Document 09/20/20 09:02 MB (Rec: 09/20/20 09:30 MB [id number]) OP-PT Subjective Patient Comments Patient Comments I'm doing pretty good. Sometimes I have headaches and I feel a little woozy when using the ipad and anytime I tilt my head. PT-OP-D Balance Start: 10/27/18 07:33 Freq: Status: Active Protocol: Document 10/27/18 13:00 AMB (Rec: 10/28/18 12:51 AMB [email or web address]) Balance Tests Single Limb Standing Single Limb- Right unable Single Limb- Left unable Semi-Tandem Standing Semi-Tandem Standing Balance unable-pt falls Tandem Tandem Standing unable Other Other Balance Tests Performed When pt is standing with WBOS she requires intermittent UE support with eyes open to avoid LOB. PT-OP-E Functional Tests Start: 10/28/18 08:46 Freq: Status: Active Protocol: Document 12/21/19 13:45 AMB (Rec: 12/23/19 15:09 AMB [id number]) Functional Tests 6 Minute Walk Test Distance 692 feet Device Used 4WW Comments 1,765 is normal for age/gender PT-OP-G Mobility & Gait Start: 10/27/18 07:33 Freq: Status: Active Protocol: Document 10/27/18 13:00 AMB (Rec: 10/28/18 08:51 AMB [email or web address]) OP Gait Assessment Comments Gait Comments Pt ambulates with WBOS with 4WW. She reports she furniture walks at home. She intermittently reaches out for the wall with walking despite the walker. PT-OP-O Vestibular Start: 10/27/18 07:33 Freq: Status: Active Protocol: Document 10/27/18 13:00 AMB (Rec: 10/28/18 12:49 AMB [email or web address]) Vestibular Assessment Visual Testing Smooth Pursuits Horizontal unable Smooth Pursuits Vertical unable Saccades Horizontal overshooting to the R Gaze Evoked Nystagmus With Fixation Negative Gaze Evoked Nystagmus Without Fixation Negative Thrust Head Positive Bilateral Convergence Test Impaired Comments Vestibular Comments The patient has been evaluated by ENT with a VNG, the patient states the Jama maneuver has never worked, and in the ENT notes, both Honey- hallpike and roll testing were negative, so not tested at this time. Pt had difficulty with all testing, so more intensive testing was not performed at this time. PT-OP-Q Treatments Start: 10/27/18 07:33 Freq: Status: Active Protocol: Document 09/20/20 09:02 MB (Rec: 09/20/20 09:30 MB [id number]) Therapeutic Exercises Other Exercises Please see revised exercises under assessment, all reviewed today (performed) and handouts given Comments See assessment for revision, all handouts given to pt PT-OP-R Modalities Start: 01/05/19 12:51 Freq: Status: Active Protocol: Document 01/05/19 11:15 AMB (Rec: 01/05/19 12:52 AMB [email or web address]) Electric Stimulation Electric Stimulation Interferential Current (IFC) Body Location L shoulder Patient Position Hooklying Combined With Heat/Cold Hot Pack PT-OP-T Assessment and Plan Start: 10/27/18 07:33 Freq: Status: Active Protocol: Document 09/20/20 09:02 MB (Rec: 09/20/20 09:30 MB [id number]) Physical Therapy Assessment Assessment Summary Assessment Revised HEP today, provided handouts and performed all: M/W/F: crab walking and backwards walking level 2 band , calf stretches, x exercise , ankle eversion and DF with level 2 band sitting; T/Th/S: standing balance progression with head turns and EC if appropriate, elastic band rows and shoulder external rotation level 2 band, bicep curls and shoulder flexion with 2 lb weights. As needed: racquet ball massage and SCM self-massage lying down, diaphragm and B[place]yko breathing. Ed pt to let primary PT know if she needs harder bands on d/c date. Physical Therapy Plan Next Visit Focus/Plan Next Note Type Discharge Summary Next Visit Plan Reassess goals and answer any questions
--- NOTE | 2020-10-11 14:49 | PT.OTN ---
Current Diagnoses Dizziness and giddiness (10/11/20) Physical Therapy Treatment Note PT-OP-A Visit Information Start: 10/27/18 07:33 Freq: Status: Active Protocol: Document 10/11/20 13:45 AMB (Rec: 10/11/20 14:00 AMB [id number]) Out-Patient Physical Therapy Visit Information Visit Information Visit Type Discharge Summary Visit Start Time 13:45 Visit Stop Time 14:30 Total Visit Minutes 45 Visit Number 8/8 PT-OP-B Current Condition Start: 10/27/18 07:33 Freq: Status: Active Protocol: Document 10/27/18 13:00 AMB (Rec: 10/30/18 15:50 AMB [email or web address]) Current Condition History of Current Condition Onset Date November 2017 Current Complaints increased motion sickness, falls History of Current Condition The patient reports that she had a virus in the that has led her to be on disability ever since. She was motion sick but she had been managing her symptoms. She was not using an assistive device. Then she had an inner ear infection in November and since that time her symptoms have worsened significantly. She reports about 20 falls in the last 6 months. She lives independently, but does have friends who will drive her to medical appointments. She describes motion sickness with all movement, worst with looking up. She does not roll over in bed as she sleeps sitting up due to her asthma. 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 Per patient, she says that after multiple imaging MD decided that the occlusion is not likely causing her symptoms. 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 Overall there was a strong central involvement. Future Testing and Treatments Planned She is going to be seeing a neurologist soon. Treatment Goals Patient/Caregiver Goals Reduce motion sickness, not have to use 4WW Prior Functional Status Baseline Function- ADL's Needs Assist Baseline Function- Mobility Needs Assist Baseline Function- Recreation/Hobbies The patient has been on disability for years, but almost a year ago her symptoms worsened. 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 Previously she was not driving , but was able to walk from her home to the library independently, now she is unable to do this. Current Functional Impairments (Reported) Functional Limitations- ADL's Unable to walk more than a block or two, no energy Personal Factors Other Personal Factors That May Effect Concussion history, migraines Therapy/Recovery a couple times per month, osteopenia, history of multiple falls, difficulty reading, asthma. PT-OP-C Subjective Start: 10/27/18 07:33 Freq: Status: Active Protocol: Document 10/11/20 13:45 AMB (Rec: 10/11/20 14:00 AMB [id number]) OP-PT Subjective Patient Comments Patient Comments Pt has been more fatigued, difficulty with HEP because of falling asleep in chair. PT-OP-D Balance Start: 10/27/18 07:33 Freq: Status: Active Protocol: Document 10/27/18 13:00 AMB (Rec: 10/28/18 12:51 AMB [email or web address]) Balance Tests Single Limb Standing Single Limb- Right unable Single Limb- Left unable Semi-Tandem Standing Semi-Tandem Standing Balance unable-pt falls Tandem Tandem Standing unable Other Other Balance Tests Performed When pt is standing with WBOS she requires intermittent UE support with eyes open to avoid LOB. PT-OP-E Functional Tests Start: 10/28/18 08:46 Freq: Status: Active Protocol: Document 12/21/19 13:45 AMB (Rec: 12/23/19 15:09 AMB [id number]) Functional Tests 6 Minute Walk Test Distance 692 feet Device Used 4WW Comments 1,765 is normal for age/gender PT-OP-G Mobility & Gait Start: 10/27/18 07:33 Freq: Status: Active Protocol: Document 10/27/18 13:00 AMB (Rec: 10/28/18 08:51 AMB [email or web address]) OP Gait Assessment Comments Gait Comments Pt ambulates with WBOS with 4WW. She reports she furniture walks at home. She intermittently reaches out for the wall with walking despite the walker. PT-OP-O Vestibular Start: 10/27/18 07:33 Freq: Status: Active Protocol: Document 10/27/18 13:00 AMB (Rec: 10/28/18 12:49 AMB [email or web address]) Vestibular Assessment Visual Testing Smooth Pursuits Horizontal unable Smooth Pursuits Vertical unable Saccades Horizontal overshooting to the R Gaze Evoked Nystagmus With Fixation Negative Gaze Evoked Nystagmus Without Fixation Negative Thrust Head Positive Bilateral Convergence Test Impaired Comments Vestibular Comments The patient has been evaluated by ENT with a VNG, the patient states the Jama maneuver has never worked, and in the ENT notes, both Honey- hallpike and roll testing were negative, so not tested at this time. Pt had difficulty with all testing, so more intensive testing was not performed at this time. PT-OP-Q Treatments Start: 10/27/18 07:33 Freq: Status: Active Protocol: Document 10/11/20 13:45 AMB (Rec: 10/11/20 14:44 AMB [email or web address]) Gait Training Gait Activity 6MWT Comments 1,060 feet with rollator today no rest breaks Neuro Re-Education Treatment Balance Activities Sit to stand Details with focus on foot placement, control Reps/Duration 15 Romberg EC and EO Comments EO: weight shifting forward on toes and backwards on heels rhythmically, 30 sec 1 Details HEP management Comments created a caledar for the pt so that she can check of when she does her exercises, as it has been difficult for her to continue with them due to fatigue. PT-OP-R Modalities Start: 01/05/19 12:51 Freq: Status: Active Protocol: Document 01/05/19 11:15 AMB (Rec: 01/05/19 12:52 AMB [email or web address]) Electric Stimulation Electric Stimulation Interferential Current (IFC) Body Location L shoulder Patient Position Hooklying Combined With Heat/Cold Hot Pack PT-OP-T Assessment and Plan Start: 10/27/18 07:33 Freq: Status: Active Protocol: Document 10/11/20 13:45 AMB (Rec: 10/11/20 14:00 AMB [id number]) Physical Therapy Assessment Goals 4 Snf Goal (LTG) Pt will perform at least 15 reps of sit to stands without UE support in 30 sec to improve safety with transfers and functional strength by . 10/11: Pt performs 11 reps in 30 sec today LTG Duration PROGRESS MADE Three Snf Goal (LTG) Pt will be able to walk 1000 feet with rollator in 6 minutes to improve community ambulation by 10/22/2020. 08/22/2020: 1,069' in 6 minutes LTG Duration MET Two Snf Goal (LTG) Pt will be able to perform HEP including balance, VOR, postural, strengthening and gait exercises with I to improve balance by 10/22/2020. 08/22/2020: Pt is performing exercises as well as walking with rollator One Snf Goal (LTG) Pt will perform WNLs on a standardized balance test to decrease fall risk by 2019. 10/11: 56 sec Romberg EO with constant sway forward and backwards Assessment Summary Assessment Arline has shown good progress in her time in physical therapy. While she is still at risk of falling, her fall risk has signficantly improved since initiating physical therapy. She has had difficult being consistent with her exercises due to her fatigue, and what with the winter and COVID I am somewhat concerned about her ability to maintain her progress independently. That said, she has been given all the tools to do so, and hopefully will be able to be consistent with her program. Physical Therapy Plan Discharge Physical Therapy Discharge Reasons Goals Met
== END 2020-10-19 10:17 ==
LOC: PHYS 13:45
PROVIDERS: PCP Student in an Organized Health Care Education/Training Program; Visit Provider Otolaryngology
DX: R42 Dizziness and giddiness (principal)
CPT/HCPCS: 95992; 97014; 97110; 97112; 97116; 97140; 97162; 97530; 97535; G0283

== ENCOUNTER → 2021-02-01 13:53 | Outpatient (CLI) | payer MEDICARE, SELFPAY ==
[2021-02-01] MEDS: COVID-19 VACC, Ad26(JANSSEN)/PF 0.5 ML IM (14:09)
== END ==
PROVIDERS: PCP Student in an Organized Health Care Education/Training Program; Visit Provider Internal Medicine
DX: Z23 Encounter for immunization (principal)
CPT/HCPCS: 0031A; 91303

== ENCOUNTER → 2021-12-09 10:07 | Outpatient (CLI) | payer OTHER, SELFPAY ==
--- NOTE | 2021-12-09 10:09 | DI.MG.S_ITS ---
BILATERAL DIGITAL SCREENING MAMMOGRAM 3D/2D WITH CAD: 12/09/2021 CLINICAL: Routine screening. Comparison is made to exams dated: 08/14/2020 mammogram, 05/25/2019 mammogram, and 05/08/2017 mammogram - [facility]. There are scattered fibroglandular elements in both breasts. Current study was also evaluated with a Computer Aided Detection (CAD) system. No significant masses, calcifications, or other findings are seen in either breast. There has been no significant interval change. IMPRESSION: NEGATIVE There is no mammographic evidence of malignancy. A 1 year screening mammogram is recommended. This exam was interpreted at Station ID: [id number]. NOTE: For mammograms, a report in lay terms will be sent to the patient. Approximately 15% of breast malignancies will not be visualized mammographically. In the management of a palpable breast mass, a negative mammogram must not discourage biopsy of a clinically suspicious lesion. Electronically Signed By: Jamie Agustin M.D., jr/cheryl:12/09/2021 10:57:33 letter sent: Normal Exam ACR BI-RADS Category 1: Negative 3341F
== END ==
PROVIDERS: PCP Student in an Organized Health Care Education/Training Program; Referring Provider Student in an Organized Health Care Education/Training Program; Visit Provider Student in an Organized Health Care Education/Training Program
DX: Z78.0 Asymptomatic menopausal state (principal); Z12.31 Encounter for screening mammogram for malignant neoplasm of breast; M85.852 Other specified disorders of bone density and structure, left thigh; M85.851 Other specified disorders of bone density and structure, right thigh; M85.88 Other specified disorders of bone density and structure, other site
CPT/HCPCS: 77063; 77067; 77080

== ENCOUNTER → 2022-12-29 15:09 | Outpatient (CLI) | payer OTHER, SELFPAY ==
--- NOTE | 2022-12-29 15:10 | DI.MG.S_ITS ---
BILATERAL DIGITAL SCREENING MAMMOGRAM 3D/2D WITH CAD: 12/29/2022 CLINICAL: Routine screening. Comparison is made to exams dated: 12/09/2021 mammogram, 08/14/2020 mammogram, 05/25/2019 mammogram, and 05/08/2017 mammogram - [facility]. There are scattered areas of fibroglandular density in both breasts (category b / 25%-50% glandular tissue). Current study was also evaluated with a Computer Aided Detection (CAD) system. No significant masses, calcifications, or other findings are seen in either breast. There has been no significant interval change. IMPRESSION: NEGATIVE There is no mammographic evidence of malignancy. A 1 year screening mammogram is recommended. Based on the Tyrer Cuzick model (a risk assessment model) the patient's lifetime risk is 4.9% and her 10 year risk is 2.9%. According to the ACR, ACS, and NCCN guidelines, an annual breast MRI exam along with mammogram is recommended if the patient's lifetime risk is 20% or greater. This exam was interpreted at Station ID: [id number]. NOTE: For mammograms, a report in lay terms will be sent to the patient. Approximately 15% of breast malignancies will not be visualized mammographically. In the management of a palpable breast mass, a negative mammogram must not discourage biopsy of a clinically suspicious lesion. Electronically Signed By: Marcos kelly/cheryl:12/30/2022 12:23:12 letter sent: Normal Exam ACR BI-RADS Category 1: Negative 3341F
== END ==
PROVIDERS: PCP Student in an Organized Health Care Education/Training Program; Referring Provider Student in an Organized Health Care Education/Training Program; Visit Provider Student in an Organized Health Care Education/Training Program
DX: Z12.31 Encounter for screening mammogram for malignant neoplasm of breast (principal)
CPT/HCPCS: 77063; 77067

== ENCOUNTER → 2022-12-31 14:57 | Outpatient (CLI) | payer OTHER, SELFPAY ==
[2022-12-31 16:22] LABS: BUN Creatinine Ratio 19.2 (6-22); Blood Urea Nitrogen 15 mg/dL (7-17); Calcium 9.9 mg/dL (8.4-10.2); Carbon Dioxide 30 mmol/L (22-32); Chloride 102 mmol/L (98-107); Cholesterol 175 mg/dL (140-199); Estimated Glomerular Filt Rate > 60 mL/min (>60); Glucose 102 mg/dL (80-110); HDL Cholesterol 48 mg/dL (40-60); HEMOLYSIS < 15 (0-50); LDL Cholesterol Calculated 90 mg/dL (<100); Sodium 141 mmol/L (137-145); Triglycerides 183 mg/dL (35-150)
== END ==
PROVIDERS: PCP Student in an Organized Health Care Education/Training Program; Referring Provider Student in an Organized Health Care Education/Training Program; Visit Provider Student in an Organized Health Care Education/Training Program
DX: R25.2 Cramp and spasm (principal); M85.89 Other specified disorders of bone density and structure, multiple sites
CPT/HCPCS: 36415; 80048; 80061; 84100

== ENCOUNTER → 2023-01-19 11:39 | Outpatient (CLI) | payer OTHER, SELFPAY | PROVIDERS: PCP Student in an Organized Health Care Education/Training Program; Referring Provider Student in an Organized Health Care Education/Training Program; Visit Provider Student in an Organized Health Care Education/Training Program | DX: Z78.0 Asymptomatic menopausal state (principal); M81.0 Age-related osteoporosis without current pathological fracture; Z79.83 Long term (current) use of bisphosphonates | CPT/HCPCS: 77080 ==

== ENCOUNTER → 2024-01-08 | Outpatient (CLI) | payer OTHER, SELFPAY ==
--- NOTE | 2024-01-08 16:16 | DI.MG.S_ITS ---
Patient Name: SUKHDEEP GUZMÁN date: 1955 Sex: F Attending Physician: Bessie Indications: Date: 01/08/2024 17:41 At the request of: RODNEY SIMPSON Procedure: MM screening mammo BI BILATERAL DIGITAL SCREENING MAMMOGRAM 3D/2D WITH CAD: 01/08/2024 CLINICAL: Routine screening. Comparison is made to exams dated: 12/29/2022 mammogram, 12/09/2021 mammogram, and 08/14/2020 mammogram - [facility]. There are scattered areas of fibroglandular density in both breasts (category b / 25%-50% glandular tissue). Current study was also evaluated with a Computer Aided Detection (CAD) system. No significant masses, calcifications, or other findings are seen in either breast. There has been no significant interval change. IMPRESSION: NEGATIVE There is no mammographic evidence of malignancy. A 1 year screening mammogram is recommended. Based on the Tyrer Cuzick model (a risk assessment model) the patient's lifetime risk is 4.6% and her 10 year risk is 2.9%. According to the ACR, ACS, and NCCN guidelines, an annual breast MRI exam along with mammogram is recommended if the patient's lifetime risk is 20% or greater. This exam was interpreted at Station ID: [id number]. Continued Report - Page 2 of 2 Patient Name: SUKHDEEP GUZMÁN date: 1955 Sex: F Attending Physician: Bessie Indications: Date: 01/08/2024 17:41 At the request of: RODNEY SIMPSON Procedure: MM screening mammo BI NOTE: For mammograms, a report in lay terms will be sent to the patient. Approximately 15% of breast malignancies will not be visualized mammographically. In the management of a palpable breast mass, a negative mammogram must not discourage biopsy of a clinically suspicious lesion. Electronically Signed By: Mateus pacheco/cheryl:01/08/2024 17:41:37 letter sent: Normal Exam ACR BI-RADS Category 1: Negative 3341F
== END ==
PROVIDERS: PCP Family Medicine; Referring Provider Family Medicine; Visit Provider Family Medicine
DX: Z12.31 Encounter for screening mammogram for malignant neoplasm of breast (principal); R92.323 Mammographic fibroglandular density, bilateral breasts
CPT/HCPCS: 77063; 77067

== ENCOUNTER → 2024-02-01 10:56 | Outpatient (CLI) | payer OTHER, SELFPAY ==
[2024-02-01 12:54] LABS: Add Manual Diff / Slide Review NO; Basophils Absolute Auto 100 /uL (0-100); Basophils Percent Auto 0.8 % (0-2); Eosinophils Absolute Auto 200 /uL (0-450); Eosinophils Percent Auto 1.6 % (2-4); Hematocrit 40.4 % (36-46); Hemoglobin 13.4 g/dL (12.0-16.0); Lymphocytes Absolute Auto 3000 /uL (1100-4500); Lymphocytes Percent Auto 29.7 % (25-40); Mean Corpuscular HGB Conc 33.2 % (30-36); Mean Corpuscular Hemoglobin 28.6 PG (26-34); Mean Corpuscular Volume 86.1 fL (80-100); Monocytes Absolute Auto 600 /uL (0-900); Neutrophils Absolute Auto 6300 /uL (1500-7000); Neutrophils Percent Auto 61.9 % (50-75); Platelet Count 429 X10^3/uL (150-400); Red Cell Distribution Width 13.8 % (11.6-14.8); White Blood Cell Count 10.2 X10^3/uL (4.5-11.0)
[2024-02-01 13:21] LABS: Alanine Aminotransferase 18 IU/L (<35); Albumin 4.3 g/dL (3.5-5.0); Albumin Globulin Ratio 1.4 (1.0-2.8); Alkaline Phosphatase 79 U/L (38-126); Aspartate Aminotransferase 25 IU/L (14-36); BUN Creatinine Ratio 16.7 (6-22); Bilirubin Total 0.6 mg/dL (0.2-1.3); Blood Urea Nitrogen 13 mg/dL (7-17); Calcium 10.2 mg/dL (8.4-10.2); Carbon Dioxide 30 mmol/L (22-32); Chloride 105 mmol/L (98-107); Cholesterol 213 mg/dL (140-199); Estimated Glomerular Filt Rate > 60 mL/min (>60); Globulin 3.1 g/dL (1.7-4.1); Glucose 93 mg/dL (80-110); HDL Cholesterol 48 mg/dL (40-60); HEMOLYSIS < 15 (0-50); LDL Cholesterol Calculated 112 mg/dL (<100); Sodium 140 mmol/L (137-145); Total Protein 7.4 g/dL (6.3-8.2); Triglycerides 263 mg/dL (35-150)
[2024-02-01 13:49] LABS: TSH w/ Reflex to FT4 4.02 uIU/mL (0.47-4.68)
[2024-02-01 17:22] LABS: Hep C Virus Ab w/Reflex Quant NEGATIVE s/c (NEGATIVE)
== END ==
PROVIDERS: PCP Family Medicine; Referring Provider Family Medicine; Visit Provider Family Medicine
DX: Z00.00 Encounter for general adult medical examination without abnormal findings (principal); E78.2 Mixed hyperlipidemia; J45.30 Mild persistent asthma, uncomplicated; M85.80 Other specified disorders of bone density and structure, unspecified site; R53.82 Chronic fatigue, unspecified; Z11.59 Encounter for screening for other viral diseases
CPT/HCPCS: 36415; 80053; 80061; 84443; 85025; 86803

== ENCOUNTER → 2025-02-06 11:03 | Outpatient (CLI) | payer OTHER, SELFPAY ==
[2025-02-06 12:05] LABS: Hematocrit 40.5 % (36-46); Hemoglobin 13.5 g/dL (12.0-16.0); Mean Corpuscular HGB Conc 33.3 % (30-36); Mean Corpuscular Volume 87.1 fL (80-100); Platelet Count 463 X10^3/uL (150-400); Red Blood Cell Count 4.66 X10^6/uL (4.0-5.2); Red Cell Distribution Width 13.8 % (11.6-14.8); White Blood Cell Count 8.8 X10^3/uL (4.5-11.0)
[2025-02-06 12:23] LABS: Alanine Aminotransferase 27 IU/L (<35); Albumin 4.7 g/dL (3.5-5.0); Albumin Globulin Ratio 1.6 (1.0-2.8); Alkaline Phosphatase 73 U/L (38-126); Aspartate Aminotransferase 30 IU/L (14-36); BUN Creatinine Ratio 19.8 (6-22); Bilirubin Total 0.5 mg/dL (0.2-1.3); Blood Urea Nitrogen 16 mg/dL (7-17); Calcium 10.4 mg/dL (8.4-10.2); Carbon Dioxide 30 mmol/L (22-32); Chloride 101 mmol/L (98-107); Cholesterol 169 mg/dL (140-199); Estimated Glomerular Filt Rate > 60 mL/min (>60); Globulin 2.9 g/dL (1.7-4.1); Glucose 87 mg/dL (80-110); HDL Cholesterol 50 mg/dL (40-60); HEMOLYSIS < 15 (0-50); LDL Cholesterol Calculated 81 mg/dL (<100); Potassium 4.2 mmol/L (3.4-5.1); Sodium 140 mmol/L (137-145); Total Protein 7.6 g/dL (6.3-8.2); Triglycerides 190 mg/dL (35-150)
[2025-02-06 12:51] LABS: TSH w/ Reflex to FT4 1.62 uIU/mL (0.47-4.68)
== END ==
PROVIDERS: PCP Family Medicine; Referring Provider Family Medicine; Visit Provider Family Medicine
DX: Z00.00 Encounter for general adult medical examination without abnormal findings (principal); E78.2 Mixed hyperlipidemia; R53.82 Chronic fatigue, unspecified
CPT/HCPCS: 36415; 80053; 80061; 84443; 85027

== ENCOUNTER → 2025-02-27 12:07 | Outpatient (CLI) | payer OTHER, SELFPAY ==
--- NOTE | 2025-02-27 12:09 | DI.MG.S_ITS ---
MM screening mammo BI: 02/27/2025. BI-RADS: 1 CLINICAL: 69-year old female for bilateral screening mammogram. Tyrer-Cuzick lifetime risk of 3.5%. No personal or first-degree family history of breast cancer. PRIOR EXAMS 01/08/2024, 12/29/2022, 12/09/2021, 08/14/2020, 05/25/2019, 05/08/2017. MAMMOGRAPHY TECHNIQUE: 2D and 3D (tomosynthesis) digital mammographic views obtained, with additional images as needed for full coverage. Current study was also evaluated with a Computer Aided Detection (CAD) system. DENSITY B. There are scattered areas of fibroglandular density. MAMMOGRAPHY FINDINGS Bilateral: No suspicious mass, asymmetry, microcalcification, or other abnormality seen. IMPRESSION: * No evidence of malignancy. RECOMMENDATIONS Bilateral * Annual screening mammography. OVERALL ASSESSMENT CATEGORY BI-RADS-1: Negative. The [employer] recommends annual screening mammography beginning at age 40 for women with average risk of breast cancer. ELECTRONICALLY SIGNED: Ro Rosenberg M.D. on 02/27/2025 at 05:32:43 PM PT Interpreting Station ID: [id number]
--- NOTE | 2025-02-27 12:09 | DI.RAD.S_ITS ---
PROCEDURE: XR DEXA AXIAL SKELETON INDICATIONS: Osteopenia, follow up screening COMPARISON: [facility], , XR DEXA AXIAL SKELETON, 01/19/2023, 12:02. FINDINGS: Lumbar Spine: Bone mineral density is 0.995 g/cm2, T score -0.8. Left Femoral Neck: Bone mineral density 0.639 g/cm2, T score -1.9. Left Hip: Bone mineral density 0.789 g/cm2, T score -1.3. Fracture Risk Calculation (when applicable): 10-year fracture risk of a major osteoporotic fracture 28 percent and of a hip fracture 9.4 percent. (T score greater or equal to -1.0 to: NORMAL) (T score from -1.1 to -2.4: OSTEOPENIA) (T score less than or equal to -2.5: OSTEOPOROSIS) IMPRESSION: Osteopenia Follow-up guidelines as follows: Osteoporosis: Consider a repeat DEXA and Vertebral Fracture Assessment (VFA) exam in 2 years or sooner if medically necessary, to reassess this patient's status. Osteopenia: Consider a repeat DEXA in 2-3 years to reassess this patient's status, or if there is a new clinical indication. Normal: Consider a repeat DEXA in 5 years or sooner, or if there is a new clinical indication. All treatment decisions require clinical judgment and consideration of individual patient factors, including patient preferences, comorbidities, previous drug use, risk factors not captured in the FRAX model (e.g., frailty, falls, vitamin D deficiency, increased bone turnover, interval significant decline in bone density ) and possible under- or over-estimation of fracture risk by FRAX. In addition, the NOF Guide recommends that FDA-approved medical therapies be considered in postmenopausal women and men age >= 50 years with a: * Hip or vertebral (clinical or morphometric) fracture * T-score of <=-2.5 at the spine or hip * Ten-year fracture probability by FRAX of >= 3% for hip fracture or >=20% for major osteoporotic fracture. Dictated by: Mateus Juarez M.D. on 02/27/2025 at 14:40 Approved by: Mateus Juarez M.D. on 02/27/2025 at 14:42
== END ==
PROVIDERS: PCP Family Medicine; Referring Provider Family Medicine; Visit Provider Family Medicine
DX: M85.89 Other specified disorders of bone density and structure, multiple sites (principal); Z12.31 Encounter for screening mammogram for malignant neoplasm of breast; E78.2 Mixed hyperlipidemia; R53.82 Chronic fatigue, unspecified; Z00.00 Encounter for general adult medical examination without abnormal findings
CPT/HCPCS: 77063; 77067; 77080

== ENCOUNTER → 2025-03-16 07:55 | Outpatient (CLI) | payer OTHER, SELFPAY ==
--- NOTE | 2025-03-16 07:56 | DI.ECHO.S_ITS ---
[facility] : : [address] : : [place] : : [id number] : : Phone: [phone] Echocardiogram Report + + :Name: SUKHDEEP GUZMÁN Study Date: 03/16/2025 Height: 59 in : :[facility] ReadingLocation: Weight: 129 lb : : Gender: Female BSA: 1.5 m2 : :: 1955 Age: 69 yrs BP: 136/74 mmHg: :Reason For Study: DYPSNEA ON EXERTION, FATIGUE : :Ordering Physician: TATIANA, : :RODNEY Performed By: Jamie Ding : :Referring: RODNEY SIMPSON : + + Interpretation Summary Normal sinus rhythm. Normal LV size, wall thickness, wall motion and LV systolic function. EF is 55-60% Normal chamber sizes. No significant valvular abnormalities. No prior study available for comparison. Procedure: A two-dimensional transthoracic echocardiogram with color flow and Doppler was performed. The study quality was technically good. There is no prior echocardiogram noted for this patient. The patient was in normal sinus rhythm during the exam. Left Ventricle: The left ventricular cavity is small. There is no ventricular septal defect visualized. The ejection fraction is estimated to be 55-60%. There are no focal wall motion abnormalities. Diastolic parameters suggest probable normal left ventricular diastolic function and normal filling pressures. Right Ventricle: The right ventricle is normal in size and function. Atria: The left atrial size is normal. Right atrial size is normal. There is no Doppler evidence for an interatrial shunt. Mitral Valve: The mitral valve leaflets appear normal. There is no evidence of stenosis, fluttering, or prolapse. There is trace mitral regurgitation. Aortic Valve: The aortic valve is trileaflet. The aortic valve opens well. No aortic regurgitation is present. Tricuspid Valve: The tricuspid valve leaflets are thin and pliable. There is trace tricuspid regurgitation. The right ventricular systolic pressure is estimated to be at least 22 mmHg based on an estimated right atrial pressure of 3 mm Hg. Pulmonic Valve: The pulmonic valve is not well seen, but is grossly normal. There is trace pulmonic regurgitation. Great Vessels: The aortic root is normal size. The dimensions of the ascending aorta are normal. The pulmonary artery is normal size. The IVC is of normal diameter and collapses greater than 50% with a sniff. This suggests a low right atrial pressure of 3 mm Hg. Pericardium/ Pleura There is no pericardial effusion. There is no pleural effusion. MMode/2D Measurements & Calculations LVIDd: 3.9 cm LVOT diam: 1.7 cm LVIDs: 2.4 cm Ao root diam: 2.7 cm FS: 37.9 % asc Aorta Diam: 2.4 cm EPSS: 0.33 cm Ao Arch Diam (Prox Trans): 1.8 cm IVSd: 0.72 cm LVPWd: 0.81 cm LV ro. diameter/BSA (cm/m^2): 2.5 LV sys. diameter/BSA (cm/m^2): 1.6 LA A2 area: 14.1 cm2 RA long axis: 3.7 cm LA A4 area: 13.3 cm2 RA area: 9.8 cm2 LA length (vol): 4.4 cm RA vol: 22.2 ml LA vol: 36.3 ml RA : 14.5 ml/m2 LA vol index: 23.7 ml/m2 IVC diam: 1.1 cm RVD1 (basal): 2.9 cm RVD2 (mid): 2.6 cm TAPSE: 2.1 cm Doppler Measurements & Calculations Ao V2 max: 129.9 cm/sec LVOT Max Juan Pablo: 110.3 cm/sec Ao V2 mean: 87.8 cm/sec LV V1 max P.9 mmHg Ao max P.7 mmHg LV V1 VTI: 26.9 cm Ao mean P.4 mmHg BONIFACIO(I,D): 2.3 cm2 Ao V2 VTI: 25.7 cm BONIFACIO(V,D): 1.9 cm2 sev ratio: 1.0 BONIFACIO indexed to BSA (cm^2/m^2): 1.5 MV E max juan pablo: 77.5 cm/sec TR max juan pablo: 217.2 cm/sec MV A max juan pablo: 76.5 cm/sec TR max P.9 mmHg MV E/A: 1.0 PA V2 max: 121.7 cm/sec Med Peak E' Juan Pablo: 9.1 cm/sec PA V2 mean: 88.6 cm/sec E/E' med: 8.5 PA mean P.4 mmHg Lat Peak E' Juan Pablo: 12.3 cm/sec PA pr(Accel): 41.3 mmHg E/E' lat: 6.3 E/e' average: 7.4 MV dec time: 0.24 sec SV(LVOT): 60.1 ml Electronically signed by: Deandra Purcell M.D. on Reading Physician:03/17/2025 03:23 AM
== END ==
PROVIDERS: PCP Family Medicine; Referring Provider Family Medicine; Visit Provider Family Medicine
DX: R06.09 Other forms of dyspnea (principal); R53.82 Chronic fatigue, unspecified
CPT/HCPCS: 93306